=== PATIENT | male | born 1960 ===

== ENCOUNTER 2017-04-20 11:32 | Emergency (ER) | payer SELFPAY ==
[2017-04-20 11:42] VITALS: BMI 25.8
[2017-04-20 11:46] VITALS: BP 143/97; PULSE 75; RESP 18; TEMP 98; O2SAT 99
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
== END 2017-04-20 12:45 | disposition home or self-care (01) ==
LOC: C.ER 11:32
DX: S05.11XA Contusion of eyeball and orbital tissues, right eye, initial encounter (principal); Y08.89XA Assault by other specified means, initial encounter

== ENCOUNTER 2017-05-02 17:01 | Emergency (ER) | payer SELFPAY ==
[2017-05-02 17:08] VITALS: BMI 30.1
[2017-05-02 17:10] VITALS: BP 140/94; PULSE 86; RESP 18; TEMP 97.5; O2SAT 98
--- NOTE | 2017-05-02 17:26 | C.PDOC ---
History Of Present Illness 56 yr old male with PMHx of HIV, presents to the ER requesting his HIV medication. Patient states he recently traveled to [place] from [place] and does not have a doctor to follow. Patient also states he dies not remember the name of his medication or the pharmacy he use to get it from. Patient does not have any physical complaint at the time. Time Seen by Provider: 05/02/17 17:13 Chief Complaint (Nursing): Med Refill History Per: Patient History/Exam Limitations: no limitations Past Medical History Reviewed: Historical Data, Nursing Documentation, Vital Signs Vital Signs: Last Vital Signs Temp 97.5 F L 05/02/17 17:08 Pulse 86 05/02/17 17:08 Resp 18 05/02/17 17:08 BP 140/94 H 05/02/17 17:08 Pulse Ox 98 05/02/17 17:40 - Medical History PMH: Anxiety, HIV Family History: States: No Known Family Hx - Social History Hx Alcohol Use: No Hx Substance Use: No - Immunization History Hx Tetanus Toxoid Vaccination: Yes Hx Influenza Vaccination: Yes Hx Pneumococcal Vaccination: Yes Review Of Systems Except As Marked, All Systems Reviewed And Found Negative. Constitutional: Negative for: Fever Cardiovascular: Negative for: Chest Pain Respiratory: Negative for: Shortness of Breath Gastrointestinal: Negative for: Nausea, Vomiting Neurological: Negative for: Weakness, Numbness Physical Exam - Physical Exam Appears: Non-toxic, No Acute Distress Skin: Warm, Dry, No Rash Extremity: Normal ROM, No Swelling Neurological/Psych: Oriented x3, Normal Speech Gait: Steady ED Course And Treatment O2 Sat by Pulse Oximetry: 98 (RA) Pulse Ox Interpretation: Normal Disposition Counseled Patient/Family Regarding: Need For Followup - Disposition Referrals: [facility] [Outside] Disposition: HOME/ ROUTINE Disposition Time: 17:38 Condition: STABLE Additional Instructions: Porfavor siga en la clinica. Si consigues el nombre de tus medicinas, regrese a la otoniel de emergencia para conseguir kashmir receta. Forms: Gen Discharge Inst Khmer - POA Present On Arrival: None - Clinical Impression Clinical Impression: Review of medication - Scribe Statement The provider has reviewed the documentation as recorded by the Scribe Hallie Vences Provider Attestation: All medical record entries made by the Scribe were at my direction and personally dictated by me. I have reviewed the chart and agree that the record accurately reflects my personal performance of the history, physical exam, medical decision making, and the department course for this patient. I have also personally directed, reviewed, and agree with the discharge instructions and disposition.
== END 2017-05-02 17:53 | disposition home or self-care (01) ==
LOC: C.ER 17:01
DX: Z21 Asymptomatic human immunodeficiency virus [HIV] infection status (principal)

== ENCOUNTER 2017-05-09 10:58 | Emergency (ER) | payer SELFPAY ==
[2017-05-09 10:59] VITALS: BMI 30.1
--- NOTE | 2017-05-09 13:15 | C.PDOC ---
History Of Present Illness 56 y/o male with past medical history of HIV presents to ED requesting HIV medication Refill. However patient doesn't know what medications he had been taken. Patient reports he has mild headache and yesterday he had mild suprapubic abdominal pain that now completely resolved. Patient states he recently moved from [place] to [place] and had no more medication. No other complaints at this time. Time Seen by Provider: 05/09/17 11:51 Chief Complaint (Nursing): Abdominal Pain History Per: Patient History/Exam Limitations: no limitations Onset/Duration Of Symptoms: Days Current Symptoms Are (Timing): Still Present Location Of Pain/Discomfort: Suprapubic Past Medical History Reviewed: Historical Data, Nursing Documentation, Vital Signs Vital Signs: Last Vital Signs Temp 97.9 F 05/09/17 14:22 Pulse 68 05/09/17 14:22 Resp 20 05/09/17 14:22 BP 120/81 05/09/17 14:22 Pulse Ox 99 05/09/17 14:22 - Medical History PMH: Anxiety, HIV Surgical History: No Surg Hx Family History: States: No Known Family Hx - Social History Hx Alcohol Use: No Hx Substance Use: No - Immunization History Hx Tetanus Toxoid Vaccination: Yes Hx Influenza Vaccination: Yes Hx Pneumococcal Vaccination: Yes Review Of Systems Except As Marked, All Systems Reviewed And Found Negative. Constitutional: Negative for: Fever, Chills Cardiovascular: Negative for: Chest Pain Respiratory: Negative for: Shortness of Breath Gastrointestinal: Positive for: Abdominal Pain Skin: Negative for: Rash Neurological: Positive for: Headache Physical Exam - Physical Exam Appears: Non-toxic, No Acute Distress Skin: Normal Color, Warm, Dry, No Rash Head: Atraumatic, Normacephalic Eye(s): bilateral: Normal Inspection Oral Mucosa: Moist Neck: Normal ROM, Supple Chest: Symmetrical Cardiovascular: Rhythm Regular Respiratory: Normal Breath Sounds, No Rales, No Rhonchi, No Wheezing Gastrointestinal/Abdominal: Soft, No Tenderness, No Guarding, No Rebound Back: No Vertebral Tenderness, No Paraspinal Tenderness Extremity: Normal ROM, No Swelling Neurological/Psych: Oriented x3, Normal Speech, Normal Cognition, Normal Motor, Normal Sensation ED Course And Treatment O2 Sat by Pulse Oximetry: 96 (RA) Pulse Ox Interpretation: Normal Progress Note: Tylenol for pain. Patient referred to clinic for ID consult and possible medication refill Disposition - Disposition Referrals: [facility] at [facility] [Outside] Disposition: HOME/ ROUTINE Disposition Time: 14:14 Condition: STABLE Additional Instructions: Follow up with PMD/Clinic within 1-2 days. Return to ED if feel worse. Instructions: HIV Infection (ED), General Headache (ED) Forms: [employer] (Namibian) - Clinical Impression Clinical Impression: Headache, HIV disease - PA / WARE CARRIER / Resident Statement MD/DO has reviewed & agrees with the documentation as recorded. - Scribe Statement The provider has reviewed the documentation as recorded by the Philipibjayson Car All medical record entries made by the Lexie were at my direction and personally dictated by me. I have reviewed the chart and agree that the record accurately reflects my personal performance of the history, physical exam, medical decision making, and the department course for this patient. I have also personally directed, reviewed, and agree with the discharge instructions and disposition.
[2017-05-09 14:23] VITALS: BP 120/81; PULSE 68; RESP 20; TEMP 97.9
[2017-05-09 18:37] VITALS: O2SAT 96
== END 2017-05-09 14:21 | disposition home or self-care (01) ==
LOC: C.ER 10:58
DX: R51 Headache (principal); Z21 Asymptomatic human immunodeficiency virus [HIV] infection status

== ENCOUNTER 2017-06-05 03:43 | Emergency (ER) | payer SELFPAY ==
[2017-06-05 03:43] VITALS: BMI 30.1
[2017-06-05] MEDS ORDERED: Sodium Chloride 0.9% 1,000 ML IV ONE (04:01)
[2017-06-05] MEDS ORDERED: Sodium Chloride 0.9% 1,000 ML ONE (04:16)
[2017-06-05 04:19] LABS: BASO % 0.5 % (0.0-2.0); EOS # 0.2 K/uL (0.0-0.7); EOS % 3.2 % (0.0-4.0); HEMATOCRIT 41.8 % (35.0-51.0); LYMPH # 2.1 K/uL (1.0-4.3); LYMPH % 41.3 % (20.0-40.0); MEAN CELL VOLUME 95.9 fL (80.0-94.0); MEAN CORPUSCULAR HEMOGLOBIN 32.2 pg (27.0-31.0); MEAN CORPUSCULAR HGB CONC 33.6 g/dL (33.0-37.0); MONO # 0.3 K/uL (0.0-0.8); MONO % 6.9 % (0.0-10.0); NRBC % 0.1 % (0.0-2.0); PLATELET COUNT 136 K/uL (130-400); RED CELL DISTRIBUTION WIDTH 12.8 % (11.5-14.5)
--- NOTE | 2017-06-05 04:23 | C.PDOC ---
History Of Present Illness Patient [facility] from homeless [facility] home for evaluation of abdominal pain, nausea and vomting x 3 hours. Patient states he has h/o HIV, currently on HAART (but unable to provide names of medications). He denies cough, fever, diarrhea, chest pain, SOB, dysuria/hematuria. Time Seen by Provider: 06/05/17 03:46 Chief Complaint (Nursing): Abdominal Pain History Per: Patient, EMS History/Exam Limitations: no limitations Onset/Duration Of Symptoms: Hrs (3) Current Symptoms Are (Timing): Better Severity: Mild Location Of Pain/Discomfort: Epigastric Associated Symptoms: Nausea. denies: Fever, Diarrhea Past Medical History Reviewed: Historical Data, Nursing Documentation, Vital Signs Vital Signs: Last Vital Signs Temp 98.2 F 06/05/17 03:51 Pulse 104 H 06/05/17 03:51 Resp 20 06/05/17 03:51 BP 131/82 06/05/17 03:51 Pulse Ox 95 06/05/17 04:24 - Medical History PMH: Anxiety, HIV Family History: States: No Known Family Hx - Social History Hx Alcohol Use: No Hx Substance Use: No - Immunization History Hx Tetanus Toxoid Vaccination: Yes Hx Influenza Vaccination: Yes Hx Pneumococcal Vaccination: Yes Review Of Systems Except As Marked, All Systems Reviewed And Found Negative. Constitutional: Negative for: Fever, Chills Cardiovascular: Negative for: Chest Pain, Palpitations Respiratory: Negative for: Cough, Shortness of Breath Gastrointestinal: Positive for: Nausea, Vomiting, Abdominal Pain. Negative for : Diarrhea Genitourinary: Negative for: Dysuria, Hematuria Physical Exam - Physical Exam Appears: Well, Non-toxic, No Acute Distress Skin: Normal Color, Warm, Dry, No Rash Oral Mucosa: Moist Cardiovascular: Rhythm Regular (mildly tachycardic ) Respiratory: Normal Breath Sounds, No Rales, No Rhonchi, No Wheezing Gastrointestinal/Abdominal: Bowel Sounds, Soft, Tenderness (mild epigastric TTP) , No Distention, No Guarding, No Rebound, Other ((-) Jacinto's) Neurological/Psych: Oriented x3 ED Course And Treatment - Laboratory Results Result Diagrams: 06/05/17 04:14 06/05/17 04:14 O2 Sat by Pulse Oximetry: 95 (RA) Pulse Ox Interpretation: Normal Progress Note: Blood work, UA ordered and reviewed. Patient given IV NS bolus, IV pepcid, IV zofran. Disposition Counseled Patient/Family Regarding: Studies Performed, Diagnosis, Need For Followup, Rx Given - Disposition Referrals: at [facility] [Outside] Disposition: HOME/ ROUTINE Disposition Time: 05:45 Condition: STABLE Additional Instructions: SEGUIMIENTO CON WARNER MDTONY / EDWINAA EN 1-2 LANDEROS USE MEDICAMENTO PARA NUSEA SEGN SEA NECESARIO BEBER MUCHO LQUIDO REGRESE AL PATRICK DE EMERGENCIA SI LOS SNTOMAS EMPEORAN Prescriptions: Ondansetron [Zofran Odt] 4 mg PO Q8 PRN #15 odt PRN Reason: Nausea/Vomiting Instructions: Acute Nausea and Vomiting (ED) Forms: [employer] (Danish) Print Language: FAROESE - Clinical Impression Clinical Impression: Nausea, Vomiting
[2017-06-05 04:28] LABS: CHLORIDE 101 mmol/L (98-107); POTASSIUM 3.7 mmol/L (3.6-5.2); SODIUM 139 mmol/L (132-148)
[2017-06-05 04:30] LABS: ALB/GLOB RATIO 0.9 (1.0-2.1); ALKALINE PHOSPHATASE 86 U/L (38-126); AST/SGOT 77 U/L (17-59); BILIRUBIN,TOTAL 0.7 mg/dL (0.2-1.3); CARBON DIOXIDE 30 mmol/L (22-30); GFR AFRICAN-AMERICAN > 60; TOTAL PROTEIN 8.8 g/dL (6.3-8.3)
[2017-06-05 04:31] LABS: ALT/SGPT 78 U/L (21-72); BLOOD UREA NITROGEN 18 mg/dL (9-20); CALCIUM 9.4 mg/dl (8.6-10.4); GLUCOSE,RANDOM 87 mg/dL (75-110)
[2017-06-05 05:18] LABS: EOSINOPHIL 2 % (0-4); NEUTROPHIL 49 % (50-75); REACTIVE LYMPHOCYTES 5 % (0-0); TOTAL CELLS COUNTED 100
[2017-06-05 06:07] VITALS: BP 100/66; PULSE 84; RESP 18; TEMP 98.3; O2SAT 100
== END 2017-06-05 06:09 | disposition home or self-care (01) ==
LOC: C.ER 03:43
DX: R11.2 Nausea with vomiting, unspecified (principal); Z59.0 Homelessness
CPT/HCPCS: 80053; 83690; 85025; 96361; 96374; 96375; 99284; J2405; J7040

== ENCOUNTER 2017-07-09 16:50 | Inpatient (IN) | payer MEDICAID, OTHER ==
[2017-07-09 16:51] VITALS: BMI 30.1
--- NOTE | 2017-07-09 18:46 | C.PDOC ---
History Of Present Illness 57 y/o male, who states that he is currently homeless, living in a snf, with PMHx of HIV and has not taken any medications for many years. Patient states he has been coughing for 5 days, occasionally producing a bloody sputum, and reports intermittent fevers. Patient went to [facility] today and was sent to ER for further evaluation. Denies SOB, chest pain, weight loss, changes in eating/drinking, nausea, vomiting, or other associated symptoms. Time Seen by Provider: 07/09/17 18:35 Chief Complaint (Nursing): Fever History Per: Patient History/Exam Limitations: no limitations Current Symptoms Are (Timing): Still Present Location Of Pain: None Associated Symptoms: Fever, Cough, Sputum. denies: Vomiting, Diarrhea Recent travel outside of the [place]: No Past Medical History Reviewed: Historical Data, Nursing Documentation, Vital Signs Vital Signs: Last Vital Signs Temp 99.2 F 07/09/17 19:05 Pulse 92 H 07/09/17 21:46 Resp 18 07/09/17 21:46 BP 110/72 07/09/17 21:46 Pulse Ox 98 07/09/17 21:46 - Medical History PMH: Anxiety, Depression, HIV Surgical History: No Surg Hx Family History: States: Unknown Family Hx - Social History Hx Tobacco Use: No Hx Alcohol Use: No Hx Substance Use: No - Immunization History Hx Tetanus Toxoid Vaccination: Yes Hx Influenza Vaccination: Yes Hx Pneumococcal Vaccination: Yes Review Of Systems Except As Marked, All Systems Reviewed And Found Negative. Constitutional: Positive for: Fever, Chills Cardiovascular: Negative for: Chest Pain Respiratory: Positive for: Cough, Hemoptysis, Sputum. Negative for: Shortness of Breath, Wheezing Gastrointestinal: Negative for: Nausea, Vomiting, Abdominal Pain Skin: Negative for: Rash Neurological: Negative for: Headache, Dizziness Physical Exam - Physical Exam Appears: Non-toxic, No Acute Distress, Other (febrile) Skin: Normal Color, Warm, Dry Head: Atraumatic, Normacephalic Oral Mucosa: Moist Chest: Symmetrical Cardiovascular: Rhythm Regular Respiratory: Normal Breath Sounds, No Rales, No Rhonchi, No Wheezing Gastrointestinal/Abdominal: Normal Exam, Soft, No Tenderness, No Guarding, No Rebound Back: Normal Inspection Extremity: Normal ROM, Capillary Refill (< 2 sec.) Neurological/Psych: Oriented x3, Normal Speech, Normal Cognition ED Course And Treatment - Laboratory Results Result Diagrams: 07/09/17 18:57 07/09/17 18:57 Lab Interpretation: No Acute Changes O2 Sat by Pulse Oximetry: 100 (RA) Pulse Ox Interpretation: Normal - Radiology CXR: Interpreted by Me CXR Interpretation: Yes: Other (perihilar infiltrates) Progress Note: CxR, bloodwork ordered. Treated with Tylenol. Reevaluation Time: 21:53 Reassessment Condition: Unchanged - Physician Consult Information Physician Contacted: Eladio Steele Outcome Of Conversation: Patient to be admitted to r/o TB in this immunocompromised patient. Disposition - Disposition Disposition: HOSPITALIZED Disposition Time: 21:57 Condition: STABLE - POA Present On Arrival: None - Clinical Impression Clinical Impression: Fever, HIV disease, Cough in adult - Scribe Statement The provider has reviewed the documentation as recorded by the Scribe SM All medical record entries made by the Scribe were at my direction and personally dictated by me. I have reviewed the chart and agree that the record accurately reflects my personal performance of the history, physical exam, medical decision making, and the department course for this patient. I have also personally directed, reviewed, and agree with the discharge instructions and disposition.
[2017-07-09] MEDS ORDERED: Sodium Chloride 0.9% 1,000 ML IV ONE (18:57)
[2017-07-09 19:00] LABS: BASO # 0.1 K/uL (0.0-0.2); BASO % 0.8 % (0.0-2.0); EOS % 0.6 % (0.0-4.0); HEMATOCRIT 34.8 % (35.0-51.0); LYMPH # 2.4 K/uL (1.0-4.3); LYMPH % 31.4 % (20.0-40.0); MEAN CELL VOLUME 94.6 fL (80.0-94.0); MEAN CORPUSCULAR HEMOGLOBIN 31.5 pg (27.0-31.0); MEAN CORPUSCULAR HGB CONC 33.3 g/dL (33.0-37.0); MEAN PLATELET VOLUME 9.8 fL (7.2-11.7); MONO # 0.7 K/uL (0.0-0.8); MONO % 9.2 % (0.0-10.0); NRBC % 0.1 % (0.0-2.0); RED CELL DISTRIBUTION WIDTH 13.1 % (11.5-14.5); WHITE BLOOD COUNT 7.7 K/uL (4.8-10.8)
[2017-07-09 19:12] LABS: ALKALINE PHOSPHATASE 73 U/L (38-126); ALT/SGPT 48 U/L (21-72); AST/SGOT 33 U/L (17-59); BILIRUBIN,TOTAL 0.7 mg/dL (0.2-1.3); BLOOD UREA NITROGEN 16 mg/dL (9-20); CALCIUM 8.3 mg/dl (8.6-10.4); CARBON DIOXIDE 32 mmol/L (22-30); CHLORIDE 100 mmol/L (98-107); GFR AFRICAN-AMERICAN > 60; GLUCOSE,RANDOM 90 mg/dL (75-110); POTASSIUM 3.6 mmol/L (3.6-5.2); SODIUM 138 mmol/L (132-148); TOTAL PROTEIN 7.7 g/dL (6.3-8.3)
[2017-07-09 21:23] LABS: ABG ALLEN TEST POS; DRAW SITE RRADIAL
[2017-07-09] MEDS ORDERED: Tuberculin 5 Units/0.1 ml Inj ID ONE (22:15)
--- NOTE | 2017-07-10 01:02 | CP.PCM.HP ---
<OlegGina - Last Filed: 07/10/17 00:55> History of Present Illness - History of Present Illness History of Present Illness: CC: fever and cough HPI: Patient is a 57 y/o homeless male with PMH of HIV diagnosed 5 years ago who presents to the ED complaining of fever and cough productive of blood tinged sputum. Patient says he was at the homeless long term and told them his history of HIV and the person at the long term said he needed to come the the ED. Patient says he was previously living in [place] with his sister and was being treated for 7 months for his HIV until he moved here for a job. Patient says he ran out of his meds and never got refills. Patient admits to pruritis of his arms and legs but other rhodes denies complete ROS. 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 absent: Chills, Headache - EENT Eyes: absent: Change in Vision Ears: absent: Decreased Hearing Nose/Mouth/Throat: absent: Sore Throat - Cardiovascular Cardiovascular: absent: Chest Pain, Dyspnea, Palpitations - Respiratory Respiratory: Cough (bloody sputum ). absent: Dyspnea, Wheezing - Gastrointestinal Gastrointestinal: absent: Abdominal Pain, Constipation, Diarrhea, Hematemesis, Hematochezia, Melena, Nausea, Vomiting - Genitourinary Genitourinary: absent: Change in Urinary Stream - Musculoskeletal Musculoskeletal: absent: Joint Swelling, Myalgias - Integumentary Integumentary: Dry Skin, Pruritus - Neurological Neurological: absent: Abnormal Hearing, Dizziness, Headaches, Loss of Vision Past Patient History - Infectious Disease Hx of Infectious Diseases: None - Past Social History Smoking Status: Never Smoked - HEMATOLOGICAL/ONCOLOGICAL Hx Human Immunodeficiency Virus (HIV): Yes - PSYCHIATRIC Hx Anxiety: Yes Hx Depression: Yes Hx Substance Use: No - SURGICAL HISTORY Hx Surgeries: No - ANESTHESIA Hx Anesthesia: Yes Hx Anesthesia Reactions: No Meds Allergies/Adverse Reactions: Allergies Allergy/AdvReac Type Severity Reaction Status Date / Time sulfamethoxazole Allergy Verified 05/09/17 11:03 [From Bactrim] trimethoprim [From Bactrim] Allergy Verified 05/09/17 11:03 Physical Exam - Constitutional Appears: Non-toxic, No Acute Distress - Head Exam Head Exam: NORMAL INSPECTION - Eye Exam Eye Exam: EOMI, Normal appearance, PERRL - ENT Exam ENT Exam: Mucous Membranes Moist - Neck Exam Neck exam: Negative for: Tenderness - Respiratory Exam Respiratory Exam: Clear to Auscultation Bilateral, NORMAL BREATHING PATTERN. absent: Accessory Muscle Use, Rales, Rhonchi, Wheezes, Respiratory Distress - Cardiovascular Exam Cardiovascular Exam: RRR, +S1, +S2. absent: Bradycardia, Tachycardia, Gallop, Rubs, Systolic Murmur - GI/Abdominal Exam GI & Abdominal Exam: Normal Bowel Sounds, Soft. absent: Distended, Tenderness - Rectal Exam Rectal Exam: NORMAL INSPECTION. absent: Black Stool, Bloody Stool, Fecal Impaction - Extremities Exam Extremities exam: Positive for: normal inspection - Neurological Exam Neurological exam: Alert, Oriented x3 - Psychiatric Exam Psychiatric exam: Normal Affect, Normal Mood Additional comments: slow to respond - Skin Skin Exam: Dry, Intact, Normal Color, Warm Additional comments: dry patches of arms and legs Results - Vital Signs Recent Vital Signs: Last Vital Signs Temp 98.8 F 07/09/17 23:25 Pulse 79 07/09/17 23:25 Resp 14 07/09/17 23:25 BP 103/67 07/09/17 23:25 Pulse Ox 100 07/09/17 23:25 - Labs Result Diagrams: 07/09/17 18:57 07/09/17 18:57 Labs: Laboratory Results - last 24 hr 07/09/17 07/09/17 07/09/17 18:57 18:57 21:05 WBC 7.7 D RBC 3.68 L Hgb 11.6 L D Hct 34.8 L MCV 94.6 H MCH 31.5 H MCHC 33.3 RDW 13.1 Plt Count 176 MPV 9.8 Neut % (Auto) 58.0 Lymph % (Auto) 31.4 [place] % (Auto) 9.2 Eos % (Auto) 0.6 Baso % (Auto) 0.8 Neut # 4.5 Lymph # 2.4 [place] # 0.7 Eos # 0.0 Baso # 0.1 Puncture Site pCO2 pO2 HCO3 ABG pH ABG Total CO2 ABG O2 Saturation ABG Base Excess Lonnie Test ABG Potassium A-a O2 Difference Respiratory Index Glucose Lactate FiO2 Sodium 138 Potassium 3.6 Chloride 100 Carbon Dioxide 32 H Anion Gap 10 BUN 16 Creatinine 1.1 Est GFR ( Amer) > 60 Est GFR (Non-Af Amer) > 60 Random Glucose 90 Calcium 8.3 L Total Bilirubin 0.7 AST 33 ALT 48 Alkaline Phosphatase 73 Total Protein 7.7 Albumin 3.9 Globulin 3.8 Albumin/Globulin Ratio 1.0 Arterial Blood Potassium Stool Occult Blood Negative 07/09/17 21:15 WBC RBC Hgb Hct MCV MCH MCHC RDW Plt Count MPV Neut % (Auto) Lymph % (Auto) [place] % (Auto) Eos % (Auto) Baso % (Auto) Neut # Lymph # [place] # Eos # Baso # Puncture Site Rradial pCO2 41 pO2 82 HCO3 26.4 ABG pH 7.42 ABG Total CO2 27.9 ABG O2 Saturation 97.2 ABG Base Excess 1.9 Lonnie Test Pos ABG Potassium 3.2 L A-a O2 Difference 16.0 Respiratory Index 0.2 Glucose 89 Lactate 0.5 L FiO2 21.0 Sodium 141.0 Potassium Chloride 111.0 H Carbon Dioxide Anion Gap BUN Creatinine Est GFR ( Amer) Est GFR (Non-Af Amer) Random Glucose Calcium Total Bilirubin AST ALT Alkaline Phosphatase Total Protein Albumin Globulin Albumin/Globulin Ratio Arterial Blood Potassium 3.2 L Stool Occult Blood Assessment & Plan - Assessment and Plan (Free Text) Plan: Cough Productive of Blood Tinged Sputum * Fever 102.2 * Tachycardic at 116 * Sputum culture * Urine culture * Blood culture * CXR * ABG: WNL * Lactate: 0.5 * PPD * Quantiferon gold * CMV * O2 PRN * Consider ID consult pending cultures * Will start abx pending cultures Anemia * FOBT: negative * iron studies * B12 * Folate History of HIV * HIV viral load * CD4 count * Hep panel * Social work consult <Eladio Steele - Last Filed: 07/10/17 05:52> Results - Vital Signs Recent Vital Signs: Last Vital Signs Temp 98.0 F 07/09/17 23:55 Pulse 77 07/09/17 23:55 Resp 19 07/09/17 23:55 BP 107/72 07/09/17 23:55 Pulse Ox 97 07/09/17 23:55 - Labs Result Diagrams: 07/09/17 18:57 07/09/17 18:57 Labs: Laboratory Results - last 24 hr 07/09/17 07/09/17 07/09/17 18:57 18:57 21:05 WBC 7.7 D RBC 3.68 L Hgb 11.6 L D Hct 34.8 L MCV 94.6 H MCH 31.5 H MCHC 33.3 RDW 13.1 Plt Count 176 MPV 9.8 Neut % (Auto) 58.0 Lymph % (Auto) 31.4 [place] % (Auto) 9.2 Eos % (Auto) 0.6 Baso % (Auto) 0.8 Neut # 4.5 Lymph # 2.4 [place] # 0.7 Eos # 0.0 Baso # 0.1 Puncture Site pCO2 pO2 HCO3 ABG pH ABG Total CO2 ABG O2 Saturation ABG Base Excess Lonnie Test ABG Potassium A-a O2 Difference Respiratory Index Glucose Lactate FiO2 Sodium 138 Potassium 3.6 Chloride 100 Carbon Dioxide 32 H Anion Gap 10 BUN 16 Creatinine 1.1 Est GFR ( Amer) > 60 Est GFR (Non-Af Amer) > 60 Random Glucose 90 Calcium 8.3 L Total Bilirubin 0.7 AST 33 ALT 48 Alkaline Phosphatase 73 Total Protein 7.7 Albumin 3.9 Globulin 3.8 Albumin/Globulin Ratio 1.0 Arterial Blood Potassium Stool Occult Blood Negative 07/09/17 21:15 WBC RBC Hgb Hct MCV MCH MCHC RDW Plt Count MPV Neut % (Auto) Lymph % (Auto) [place] % (Auto) Eos % (Auto) Baso % (Auto) Neut # Lymph # [place] # Eos # Baso # Puncture Site Rradial pCO2 41 pO2 82 HCO3 26.4 ABG pH 7.42 ABG Total CO2 27.9 ABG O2 Saturation 97.2 ABG Base Excess 1.9 Lonnie Test Pos ABG Potassium 3.2 L A-a O2 Difference 16.0 Respiratory Index 0.2 Glucose 89 Lactate 0.5 L FiO2 21.0 Sodium 141.0 Potassium Chloride 111.0 H Carbon Dioxide Anion Gap BUN Creatinine Est GFR ( Amer) Est GFR (Non-Af Amer) Random Glucose Calcium Total Bilirubin AST ALT Alkaline Phosphatase Total Protein Albumin Globulin Albumin/Globulin Ratio Arterial Blood Potassium 3.2 L Stool Occult Blood Assessment & Plan - Date & Time Date: 07/10/17 (I have seen and examined the patient. I agree with the findings and plan of care as documented by Dr. Dejesus. Patient with fever and productive cough. Patient reports blood tinged. History of HIV. Will start rocephin and azithromycin for now. Check sputum, blood, and urine cultures. Consider ID consult. Also with anemia. Check hemoccult. Check iron studies. Monitor for acute changes.) Time: 05:50 Attending/Attestation - Attestation I have personally seen and examined this patient.: Yes I have fully participated in the care of the patient.: Yes I have reviewed all pertinent clinical information: Yes
[2017-07-10 06:40] LABS: BASO % 0.3 % (0.0-2.0); EOS # 0.1 K/uL (0.0-0.7); EOS % 2.4 % (0.0-4.0); HEMATOCRIT 34.6 % (35.0-51.0); LYMPH # 1.1 K/uL (1.0-4.3); MEAN CELL VOLUME 95.1 fL (80.0-94.0); MEAN CORPUSCULAR HEMOGLOBIN 31.9 pg (27.0-31.0); MEAN CORPUSCULAR HGB CONC 33.5 g/dL (33.0-37.0); MEAN PLATELET VOLUME 9.4 fL (7.2-11.7); MONO # 0.5 K/uL (0.0-0.8); MONO % 10.9 % (0.0-10.0); NRBC % 0.2 % (0.0-2.0); RED CELL DISTRIBUTION WIDTH 13.2 % (11.5-14.5); WHITE BLOOD COUNT 4.4 K/uL (4.8-10.8)
[2017-07-10 06:52] LABS: ALB/GLOB RATIO 0.7 (1.0-2.1); ALKALINE PHOSPHATASE 63 U/L (38-126); ALT/SGPT 41 U/L (21-72); AST/SGOT 30 U/L (17-59); BILIRUBIN,TOTAL 0.7 mg/dL (0.2-1.3); BLOOD UREA NITROGEN 12 mg/dL (9-20); CALCIUM 7.9 mg/dl (8.6-10.4); CARBON DIOXIDE 31 mmol/L (22-30); CHLORIDE 104 mmol/L (98-107); GFR AFRICAN-AMERICAN > 60; GLUCOSE,RANDOM 87 mg/dL (75-110); POTASSIUM 3.5 mmol/L (3.6-5.2); SODIUM 142 mmol/L (132-148); TOTAL PROTEIN 7.9 g/dL (6.3-8.3)
[2017-07-10 07:07] LABS: IRON 24 ug/dL (49-181)
[2017-07-10 07:56] LABS: FOLATE 15.9 ng/mL
--- NOTE | 2017-07-10 08:50 | RAD ---
PROCEDURE: CHEST RADIOGRAPH, 1 VIEW HISTORY: Pneumonia COMPARISON: 07/09/2017 FINDINGS: LUNGS: No focal infiltrate or effusion. PLEURA: No pneumothorax or pleural fluid seen. CARDIOVASCULAR: Normal. OSSEOUS STRUCTURES: No significant abnormalities. VISUALIZED UPPER ABDOMEN: Normal. OTHER FINDINGS: None. IMPRESSION: No active disease.
[2017-07-10] MEDS ORDERED: Pneumococcal 23-Valent Vaccine IM ONE (10:00)
[2017-07-10] MEDS: Azithromycin 500 MG in Sodium Chloride 0.9% 250 ML IVPB SCH (11:24)
[2017-07-10] MEDS: Potassium Chloride 20 mEq ER Tab PO SCH (12:29)
--- NOTE | 2017-07-10 15:33 | CT ---
CT chest without IV contrast Indication: fever, blood-tinged cough Technique: Contiguous axial images were obtained through the chest without intravenous contrast enhancement. Sagittal and coronal reconstructions were generated and reviewed. This CT exam was performed using 1 or more of the falling dose reduction techniques: Automated exposure control, adjustment of the MAA and/or kV according to patient size, and/or use of iterative reconstruction technique. Radiation dose (DLP): 252.08 MGy-cm. Comparison: Chest x-ray performed 07/09/17 Findings: Visualized portions of the inferior thyroid gland appear unremarkable. The mediastinal and hilar vascular structures appear within normal limits. The heart appears within normal limits of size. Patchy nodular opacities within the inferior right upper, right lower, and lingular lobes suspicious for pneumonia. No pleural effusion. No pneumothorax. Limited visualization of the noncontrast upper abdomen demonstrates 13 mm probable splenule. Degenerative changes of the spine. Impression: Findings described above suspected to reflect multifocal pneumonia. Correlate clinically and recommend follow-up upon completion of treatment of acute symptoms in order to assess for resolution.
--- NOTE | 2017-07-10 16:21 | CP.PCM.PN ---
<Татьяна Yun - Last Filed: 07/10/17 16:15> Subjective - Date & Time of Evaluation Date of Evaluation: 07/10/17 Time of Evaluation: 16:15 - Subjective Subjective: Medicine Progress Note For Dr. Avelar Patient was seen and examined at bedside in no acute distress. Patient reports having cough with clear sputum and 1 episode of vomiting clear liquid. Patient reports not taking HIV medications for 2 years because he doesn't have a doctor in [place]. Patient reports he was diagnosed about 15 years ago. Patient denies having chest pain, abdominal pain, nausea, vomiting, headaches, and leg pain. Objective - Vital Signs/Intake and Output Vital Signs (last 24 hours): Temp Pulse Resp BP Pulse Ox 97.1 F L 91 H 20 120/75 100 07/10/17 08:00 07/10/17 08:00 07/10/17 08:00 07/10/17 08:00 07/10/17 08:00 Intake and Output: 07/10/17 07/10/17 06:59 18:59 Intake Total 0 860 Output Total 500 Balance 0 360 - Medications Medications: Current Medications Acetaminophen (Tylenol 325mg Tab) 650 mg PO Q6 PRN PRN Reason: Fever >100.4 F Azithromycin 500 mg/ Sodium (Chloride) 250 mls @ 250 mls/hr IVPB Q24H [facility] Last Admin: 07/10/17 11:24 Dose: 250 mls/hr Ceftriaxone Sodium 1 gm/ (Sodium Chloride) 100 mls @ 100 mls/hr IVPB DAILY [facility] Last Admin: 07/10/17 10:28 Dose: 100 mls/hr Pantoprazole Sodium (Protonix Inj) 40 mg IVP DAILY [facility] Last Admin: 07/10/17 10:28 Dose: 40 mg Potassium Chloride (K-Dur 20 Meq Er Tab) 20 meq PO DAILY [facility] Last Admin: 07/10/17 12:29 Dose: 20 meq - Labs Labs: 07/10/17 06:16 07/10/17 06:16 - Constitutional Appears: No Acute Distress - Head Exam Head Exam: ATRAUMATIC, NORMAL INSPECTION - Eye Exam Eye Exam: EOMI, Normal appearance - ENT Exam ENT Exam: Mucous Membranes Moist - Respiratory Exam Respiratory Exam: Clear to Ausculation Bilateral, NORMAL BREATHING PATTERN. absent: Rales, Rhonchi, Wheezes, Respiratory Distress - Cardiovascular Exam Cardiovascular Exam: REGULAR RHYTHM, +S1, +S2 - GI/Abdominal Exam GI & Abdominal Exam: Soft, Normal Bowel Sounds. absent: Distended, Firm, Guarding, Tenderness - Extremities Exam Extremities Exam: Normal Inspection - Neurological Exam Neurological Exam: Alert, Awake, Oriented x3 - Psychiatric Exam Psychiatric exam: Normal Affect - Skin Skin Exam: Dry, Intact, Normal Color, Warm Assessment and Plan (1) Productive cough Assessment & Plan: * Fever 102.2, Tachycardic at 116 * Sputum culture: f/u results * Urine culture: f/u results * Blood culture: f/u results * CXR: no active disease * ABG: WNL * Lactate: 0.5 * PPD: f/u results * Quantiferon gold: f/u results * CMV: f/u results * O2 PRN * ID consulted, Dr. Bertrand, help appreciated * Patient started on Azithromycin 500mg IV Q24 and Rocephin 1gm IV Q24 on * Chest CT: findings reflect multilobal pneumonia * Starting Mepron 750mg PO BID until further recommendations from ID. Status: Acute (2) Anemia Assessment & Plan: * FOBT: negative * Iron studies: iron 24, TIBC 232, %sat 10.7, ferritin 483 * B12 312 * Folate 15.2 Status: Acute (3) HIV disease Assessment & Plan: * HIV viral load: f/u results * CD4 count: f/u results * Hepatitis panel: negative for Hep B, C, A * Social work consult * ID, Dr. Bertrand, consulted; help appreciated Status: Acute (4) Prophylactic measure Assessment & Plan: SCDs Protonix 40mg IV daily Regular Diet O2 via nasal cannula Status: Acute <Jocelyn Avelar - Last Filed: 07/10/17 18:57> Objective - Vital Signs/Intake and Output Vital Signs (last 24 hours): Temp Pulse Resp BP Pulse Ox 98.2 F 87 16 102/66 97 07/10/17 16:45 07/10/17 16:45 07/10/17 16:45 07/10/17 16:45 07/10/17 16:45 Intake and Output: 07/10/17 07/10/17 06:59 18:59 Intake Total 0 860 Output Total 500 Balance 0 360 - Medications Medications: Current Medications Acetaminophen (Tylenol 325mg Tab) 650 mg PO Q6 PRN PRN Reason: Fever >100.4 F Atovaquone (Mepron) 750 mg PO BID [facility] Last Admin: 07/10/17 18:22 Dose: 750 mg Azithromycin 500 mg/ Sodium (Chloride) 250 mls @ 250 mls/hr IVPB Q24H [facility] Last Admin: 07/10/17 11:24 Dose: 250 mls/hr Piperacillin Sod/Tazobactam Sod (Zosyn 3.375 Gm Iv Premix) 3.375 gm in 50 mls @ 100 mls/hr IVPB Q6H [facility] Pantoprazole Sodium (Protonix Inj) 40 mg IVP DAILY [facility] Last Admin: 07/10/17 10:28 Dose: 40 mg Potassium Chloride (K-Dur 20 Meq Er Tab) 20 meq PO DAILY [facility] Last Admin: 07/10/17 12:29 Dose: 20 meq - Labs Labs: 07/10/17 06:16 07/10/17 06:16 Attending/Attestation - Attestation I have personally seen and examined this patient.: Yes I have fully participated in the care of the patient.: Yes I have reviewed all pertinent clinical information, including history, physical exam and plan: Yes Notes (Text): Patient was seen and examined Chest CT shows multifocal pneumonia Started on Mepron.I will start on zosyn,continue zithromax and follow ID consult follow CD4 count ,sputum AFB I agree with the residents assessment and plan
[2017-07-10] MEDS: Atovaquone 750 mg/5 ml Susp UD PO SCH (18:22)
[2017-07-10] MEDS: Piperacill/Tazo 3.375gm in Dex 3.375 GM/50 ML BAG IVPB SCH (21:21)
[2017-07-11] MEDS: Piperacill/Tazo 3.375gm in Dex 3.375 GM/50 ML BAG IVPB SCH ×3 (02:10→13:30)
[2017-07-11 07:28] LABS: BASO % 0.3 % (0.0-2.0); EOS # 0.1 K/uL (0.0-0.7); EOS % 3.6 % (0.0-4.0); HEMATOCRIT 32.9 % (35.0-51.0); LYMPH # 1.6 K/uL (1.0-4.3); LYMPH % 40.7 % (20.0-40.0); MEAN CELL VOLUME 95.9 fL (80.0-94.0); MEAN CORPUSCULAR HEMOGLOBIN 31.8 pg (27.0-31.0); MEAN CORPUSCULAR HGB CONC 33.2 g/dL (33.0-37.0); MEAN PLATELET VOLUME 9.5 fL (7.2-11.7); MONO # 0.5 K/uL (0.0-0.8); MONO % 11.2 % (0.0-10.0); NRBC % 0.1 % (0.0-2.0); RED CELL DISTRIBUTION WIDTH 13.4 % (11.5-14.5)
--- NOTE | 2017-07-11 07:47 | CON ---
DATE: HISTORY OF PRESENT ILLNESS: Most of the history is taken from the chart as he is [place] speaking. This patient is a homeless male, who has a history of HIV disease, diagnosed 5 years ago. He comes to the hospital emergency room with fever and cough, and had blood tinged sputum. He says he was in the homeless care longterm and he told them that he has a history of HIV and they sent him into the emergency room. He was previously living in [place] with his sister and was treated with HIV medicines, and he moved here for a job and then ran out of his medicines and never used them again, and he is also complaining of some itching in his legs, and at this time, he comes in with fever, shortness of breath. REVIEW OF SYSTEMS: There is fever. There is no ear, nose or throat problem. No chest pain or shortness of breath. He does have cough with bloody sputum. No shortness of breath or dyspnea. Has no abdominal pain, diarrhea, nausea or vomiting. No urinary complaints. Told he does have joint pains, and has dry skin, pruritus. SOCIAL HISTORY: Negative for smoking or drinking. He does suffer from anxiety and depression. ALLERGIES: HE IS ALLERGIC TO BACTRIM CAUSES RASH, he says, though I can imagine he has used Bactrim he must be , probably he has full blown it. PHYSICAL EXAMINATION VITAL SIGNS: T-max is 98.2, pulse is 87, blood pressure 102/66, respirations are 18. HEENT: Head is atraumatic and normocephalic. He does not appear to be in acute respiratory distress. He is in isolation. Tongue is moist. No thrush present at this time. NECK: Supple. JVP is flat. LUNGS: Clear. No crackles or rales heard. He is not using any accessory muscles. HEART: S1 and S2 is regular. No murmurs, no gallops. ABDOMEN: Soft, nontender. No guarding. No rigidity present. EXTREMITIES: Have no edema, dry skin noted, and has some scaly patches on the legs. LABORATORY DATA: White count is 7.7, hemoglobin 11.6, hematocrit 34.6, platelet count is 179. BUN is 16, creatinine is 1.1, glucose is 90. I do not see any LDH. ASSESSMENT AND PLAN: So at this time, chest CT was done today and chest CT shows findings suspected to reflect multifocal pneumonia, correlate, and recommend followup completion of the treatment of acute symptoms in order to assess for resolution and found patchy nodular opacity within inferior, right upper, right lower, and lingular lobe suspicious for pneumonia. No pleural effusion. No pneumothorax. The chest x-ray was done and the chest x-ray showed no active disease. So at this time, we will follow clinically. He is getting Zithromax and Zosyn at this time, and he was started on Mepron, discussion with the patient, and will follow. So we will continue Zosyn, Zithromax and will follow, and will get CD4 count, LDH, HIV viral load, and see from there. Christine Bertrand MD
[2017-07-11 08:26] LABS: ALKALINE PHOSPHATASE 58 U/L (38-126); ALT/SGPT 39 U/L (21-72); AST/SGOT 27 U/L (17-59); BILIRUBIN,TOTAL 0.7 mg/dL (0.2-1.3); BLOOD UREA NITROGEN 15 mg/dL (9-20); CALCIUM 7.9 mg/dl (8.6-10.4); CARBON DIOXIDE 30 mmol/L (22-30); CHLORIDE 106 mmol/L (98-107); GFR AFRICAN-AMERICAN > 60; GLUCOSE,RANDOM 92 mg/dL (75-110); POTASSIUM 3.8 mmol/L (3.6-5.2); SODIUM 143 mmol/L (132-148); TOTAL PROTEIN 6.6 g/dL (6.3-8.3)
[2017-07-11] MEDS: Azithromycin 500 MG in Sodium Chloride 0.9% 250 ML IVPB SCH (10:28)
[2017-07-11] MEDS: Potassium Chloride 20 mEq ER Tab PO SCH (10:28)
[2017-07-11] MEDS: Atovaquone 750 mg/5 ml Susp UD PO SCH ×2 (10:28→18:10)
[2017-07-11 12:51] LABS: RBC URINE 1 /hpf (0-3); URINE BILIRUBIN NEGATIVE (NEGATIVE); URINE BLOOD NEGATIVE (NEGATIVE); URINE COLOR Yellow (YELLOW); URINE GLUCOSE (UA) NORMAL (Normal); URINE KETONE NEGATIVE (NEGATIVE); URINE LEUKOCYTE ESTERASE NEG Leu/uL (Negative); URINE PROTEIN NEGATIVE (NEGATIVE); URINE UROBILINOGEN NORMAL mg/dL (0.2-1.0); WBC URINE 1 /hpf (0-5)
--- NOTE | 2017-07-11 13:24 | CP.PCM.PN ---
<Faith Ayala - Last Filed: 07/11/17 14:35> Subjective - Date & Time of Evaluation Date of Evaluation: 07/11/17 Time of Evaluation: 10:00 - Subjective Subjective: Medicine Note for Hospitalist Service - Dr. Avelar Patient was seen and examined at bedside. Patient reports his productive cough has improved, denied any hemoptysis. Admitted to chills, some nonbloody diarrhea. Denied fever, headaches, chest pain, SOB, abdominal pain, n/v/d/c, or urinary symptoms. Objective - Vital Signs/Intake and Output Vital Signs (last 24 hours): Temp Pulse Resp BP Pulse Ox 97.5 F L 79 20 105/68 98 07/11/17 08:15 07/11/17 08:15 07/11/17 08:15 07/11/17 08:15 07/11/17 08:15 Intake and Output: 07/11/17 07/11/17 06:59 18:59 Intake Total 50 Output Total 0 Balance 50 - Medications Medications: Current Medications Acetaminophen (Tylenol 325mg Tab) 650 mg PO Q6 PRN PRN Reason: Fever >100.4 F Atovaquone (Mepron) 750 mg PO BID [facility] Last Admin: 07/11/17 10:28 Dose: 750 mg Azithromycin 500 mg/ Sodium (Chloride) 250 mls @ 250 mls/hr IVPB Q24H [facility] Last Admin: 07/11/17 10:28 Dose: 250 mls/hr Piperacillin Sod/Tazobactam Sod (Zosyn 3.375 Gm Iv Premix) 3.375 gm in 50 mls @ 100 mls/hr IVPB Q6H [facility] Last Admin: 07/11/17 08:13 Dose: 100 mls/hr Pantoprazole Sodium (Protonix Inj) 40 mg IVP DAILY [facility] Last Admin: 07/11/17 10:28 Dose: 40 mg Potassium Chloride (K-Dur 20 Meq Er Tab) 20 meq PO DAILY [facility] Last Admin: 07/11/17 10:28 Dose: 20 meq Saccharomyces Boulardii (Florastor) 250 mg PO BID [facility] - Labs Labs: 07/11/17 07:18 07/11/17 07:18 - Additional Findings Additional findings: - Constitutional Appears: No Acute Distress - Head Exam Head Exam: ATRAUMATIC, NORMAL INSPECTION - Eye Exam Eye Exam: EOMI, Normal appearance - ENT Exam ENT Exam: Mucous Membranes Moist - Respiratory Exam Respiratory Exam: Clear to Ausculation Bilateral, NORMAL BREATHING PATTERN. absent: Rales, Rhonchi, Wheezes, Respiratory Distress - Cardiovascular Exam Cardiovascular Exam: REGULAR RHYTHM, +S1, +S2 - GI/Abdominal Exam GI & Abdominal Exam: Soft, Normal Bowel Sounds. absent: Distended, Firm, Guarding, Tenderness - Extremities Exam Extremities Exam: Normal Inspection - Neurological Exam Neurological Exam: Alert, Awake, Oriented x3 - Psychiatric Exam Psychiatric exam: Normal Affect - Skin Skin Exam: Dry, Intact, Normal Color, Warm Assessment and Plan - Assessment and Plan (Free Text) Plan: Pneumonia Assessment & Plan: * Febrile on admission and this morning * ID consulted, Dr. Bertrand, help appreciated * Patient started on Azithromycin 500mg IV Q24 and Rocephin 1gm IV Q24 on * Started on 07/10/17 Mepron 750mg PO BID until further recommendations from ID * CXR: no active disease * ABG: WNL * Lactate: 0.5 * Chest CT: findings reflect multilobal pneumonia * Sputum culture: f/u results * Urine culture: f/u results * Blood culture: f/u results * PPD: f/u results * Quantiferon gold: f/u results * CMV: f/u results * AFB x 3 f/u to rule out TB Iron Deficiency Anemia Assessment & Plan: * FOBT: negative * Iron studies: iron 24, TIBC 232, %sat 10.7, ferritin 483 * B12 312 * Folate 15.2 * Will need PO iron as outpatient after infectious process resolves Status: Acute HIV disease Assessment & Plan: * ID, Dr. Bertrand, consulted; help appreciated * Hepatitis panel: negative for Hep B, C, A * HIV viral load: f/u results * CD4 count: f/u results * Social work consult Diarrhea Assessment & Plan: F/U stool studies Prophylactic measure Assessment & Plan: SCDs Protonix 40mg IV daily Regular Diet O2 via nasal cannula Status: Acute DW Lucy Unger DO, PGY-1 <Jocelyn Avelar - Last Filed: 07/11/17 17:36> Objective - Vital Signs/Intake and Output Vital Signs (last 24 hours): Temp Pulse Resp BP Pulse Ox 98.1 F 82 20 100/62 99 07/11/17 16:00 07/11/17 16:00 07/11/17 16:00 07/11/17 16:00 07/11/17 16:00 Intake and Output: 07/11/17 07/11/17 06:59 18:59 Intake Total 50 Output Total 0 Balance 50 - Medications Medications: Current Medications Acetaminophen (Tylenol 325mg Tab) 650 mg PO Q6 PRN PRN Reason: Fever >100.4 F Atovaquone (Mepron) 750 mg PO BID [facility] Last Admin: 07/11/17 10:28 Dose: 750 mg Azithromycin 500 mg/ Sodium (Chloride) 250 mls @ 250 mls/hr IVPB Q24H [facility] Last Admin: 07/11/17 10:28 Dose: 250 mls/hr Piperacillin Sod/Tazobactam Sod (Zosyn 3.375 Gm Iv Premix) 3.375 gm in 50 mls @ 100 mls/hr IVPB Q6H [facility] Last Admin: 07/11/17 13:30 Dose: 100 mls/hr Pantoprazole Sodium (Protonix Inj) 40 mg IVP DAILY [facility] Last Admin: 07/11/17 10:28 Dose: 40 mg Potassium Chloride (K-Dur 20 Meq Er Tab) 20 meq PO DAILY [facility] Last Admin: 07/11/17 10:28 Dose: 20 meq Promethazine HCl/Codeine (Phenergan/Codeine Oral Syrup) 5 ml PO Q4 PRN PRN Reason: Cough Saccharomyces Boulardii (Florastor) 250 mg PO BID [facility] - Labs Labs: 07/11/17 07:18 07/11/17 07:18 Attending/Attestation - Attestation I have personally seen and examined this patient.: Yes I have fully participated in the care of the patient.: Yes I have reviewed all pertinent clinical information, including history, physical exam and plan: Yes Notes (Text): Seen and examined.Denies pain,sitting comfortable without sob 1.Pneumonia/multifocal 2.HIV 3.Homeless 4.Noncompliance with meds Follow up labs-Sputum AFB smear and cultures and quantiferon gold 5.Anemia 6,Diarrhea I agree with the residents assessment and the plan
--- NOTE | 2017-07-11 14:15 | CP.PCM.CON ---
History of Present Illness - History of Present Illness History of Present Illness: Reason for consultation: bilateral pneumonia 57-year-old male with history of HIV diagnosed 5 years ago presented to emergency room complaining off cough and fever. Chest x-ray consistent with bilateral infiltrate. 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" Review of Systems - Review of Systems All systems: reviewed and no additional remarkable complaints except (fever and cough) Past Patient History - Infectious Disease Hx of Infectious Diseases: None - Past Medical History & Family History Past Medical History?: Yes - Past Social History Smoking Status: Never Smoked - CARDIAC Hx Cardiac Disorders: No - PULMONARY Hx Respiratory Disorders: No - NEUROLOGICAL Hx Neurological Disorder: No - HEENT Hx HEENT Problems: No - RENAL Hx Chronic Kidney Disease: No - ENDOCRINE/METABOLIC Hx Endocrine Disorders: No - HEMATOLOGICAL/ONCOLOGICAL Hx Blood Disorders: Yes Hx Human Immunodeficiency Virus (HIV): Yes - INTEGUMENTARY Hx Dermatological Problems: No - MUSCULOSKELETAL/RHEUMATOLOGICAL Hx Musculoskeletal Disorders: No Hx Falls: No - GASTROINTESTINAL Hx Gastrointestinal Disorders: No - GENITOURINARY/GYNECOLOGICAL Hx Genitourinary Disorders: No - PSYCHIATRIC Hx Anxiety: Yes Hx Depression: Yes Hx Substance Use: No - SURGICAL HISTORY Hx Surgeries: No - ANESTHESIA Hx Anesthesia: Yes Hx Anesthesia Reactions: No Meds Allergies/Adverse Reactions: Allergies Allergy/AdvReac Type Severity Reaction Status Date / Time sulfamethoxazole Allergy Verified 05/09/17 11:03 [From Bactrim] trimethoprim [From Bactrim] Allergy Verified 05/09/17 11:03 - Medications Medications: Current Medications Acetaminophen (Tylenol 325mg Tab) 650 mg PO Q6 PRN PRN Reason: Fever >100.4 F Atovaquone (Mepron) 750 mg PO BID [facility] Last Admin: 07/11/17 10:28 Dose: 750 mg Azithromycin 500 mg/ Sodium (Chloride) 250 mls @ 250 mls/hr IVPB Q24H [facility] Last Admin: 07/11/17 10:28 Dose: 250 mls/hr Piperacillin Sod/Tazobactam Sod (Zosyn 3.375 Gm Iv Premix) 3.375 gm in 50 mls @ 100 mls/hr IVPB Q6H [facility] Last Admin: 07/11/17 13:30 Dose: 100 mls/hr Pantoprazole Sodium (Protonix Inj) 40 mg IVP DAILY [facility] Last Admin: 07/11/17 10:28 Dose: 40 mg Potassium Chloride (K-Dur 20 Meq Er Tab) 20 meq PO DAILY [facility] Last Admin: 07/11/17 10:28 Dose: 20 meq Saccharomyces Boulardii (Florastor) 250 mg PO BID [facility] Physical Exam - Head Exam Head Exam: ATRAUMATIC, NORMOCEPHALIC - Eye Exam Eye Exam: Normal appearance - ENT Exam ENT Exam: Mucous Membranes Moist - Neck Exam Neck exam: Positive for: Normal Inspection - Respiratory Exam Respiratory Exam: Clear to Auscultation Bilateral - Cardiovascular Exam Cardiovascular Exam: REGULAR RHYTHM - GI/Abdominal Exam GI & Abdominal Exam: Normal Bowel Sounds, Soft Results - Vital Signs Recent Vital Signs: Last Vital Signs Temp 97.5 F L 07/11/17 08:15 Pulse 79 07/11/17 08:15 Resp 20 07/11/17 08:15 BP 105/68 07/11/17 08:15 Pulse Ox 98 07/11/17 08:15 - Labs Result Diagrams: 07/11/17 07:18 07/11/17 07:18 Labs: Laboratory Results - last 24 hr 07/11/17 07/11/17 07/11/17 07:18 07:18 12:39 WBC 4.0 L RBC 3.44 L Hgb 10.9 L Hct 32.9 L MCV 95.9 H MCH 31.8 H MCHC 33.2 RDW 13.4 Plt Count 163 MPV 9.5 Neut % (Auto) 44.2 L Lymph % (Auto) 40.7 H [place] % (Auto) 11.2 H Eos % (Auto) 3.6 Baso % (Auto) 0.3 Neut # 1.8 Lymph # 1.6 [place] # 0.5 Eos # 0.1 Baso # 0.0 Sodium 143 Potassium 3.8 Chloride 106 Carbon Dioxide 30 Anion Gap 11 BUN 15 Creatinine 1.1 Est GFR ( Amer) > 60 Est GFR (Non-Af Amer) > 60 Random Glucose 92 Calcium 7.9 L Total Bilirubin 0.7 AST 27 ALT 39 Alkaline Phosphatase 58 Lactate Dehydrogenase 390 Total Protein 6.6 Albumin 3.2 L Globulin 3.4 Albumin/Globulin Ratio 1.0 Urine Color Yellow Urine Clarity Clear Urine pH 5.0 Ur Specific [place] 1.027 Urine Protein Negative Urine Glucose (UA) Normal Urine Ketones Negative Urine Blood Negative Urine Nitrate Negative Urine Bilirubin Negative Urine Urobilinogen Normal Ur Leukocyte Esterase Neg Urine WBC (Auto) 1 Urine RBC (Auto) 1 Assessment & Plan (1) Pneumonia Status: Acute Comment: continue antibiotics as per infectious disease. CD4 count. Sputum AFB and culture and sensitivity (2) HIV disease Status: Acute
[2017-07-11 16:56] LABS: C DIFF TOXIN A B NEGATIVE (NEGATIVE)
[2017-07-11 17:19] LABS: FECAL LEUKOCYTES NEGATIVE (NEGATIVE)
[2017-07-11] MEDS: Promethazine/Cod 6.25mg-10mg/5ml Syr UD PO PRN (18:10)
[2017-07-11] MEDS: Saccharomyces Boulardi 250 mg Cap PO SCH (18:10)
[2017-07-11 18:44] LABS: CYTOMEGALOVIRUS AB (IGG) >10.00 U/mL; CYTOMEGALOVIRUS AB (IGM) <30.00 AU/mL
[2017-07-11] MEDS: Piperacill/Tazo 4.5gm in Dex 4.5 GM/100 ML BAG IVPB SCH (21:16)
--- NOTE | 2017-07-11 22:14 | CP.PCM.PN ---
Subjective - Date & Time of Evaluation Date of Evaluation: 07/11/17 Time of Evaluation: 03:00 - Subjective Subjective: dictated Objective - Vital Signs/Intake and Output Vital Signs (last 24 hours): Temp Pulse Resp BP Pulse Ox 98.1 F 82 20 100/62 99 07/11/17 16:00 07/11/17 16:00 07/11/17 16:00 07/11/17 16:00 07/11/17 16:00 - Medications Medications: Current Medications Acetaminophen (Tylenol 325mg Tab) 650 mg PO Q6 PRN PRN Reason: Fever >100.4 F Atovaquone (Mepron) 750 mg PO BID [facility] Last Admin: 07/11/17 18:10 Dose: 750 mg Azithromycin 500 mg/ Sodium (Chloride) 250 mls @ 250 mls/hr IVPB Q24H [facility] Last Admin: 07/11/17 10:28 Dose: 250 mls/hr Piperacillin Sod/Tazobactam Sod (Zosyn 4.5 Gm Iv Premix) 4.5 gm in 100 mls @ 100 mls/hr IVPB Q8H [facility] Last Admin: 07/11/17 21:16 Dose: 100 mls/hr Pantoprazole Sodium (Protonix Inj) 40 mg IVP DAILY [facility] Last Admin: 07/11/17 10:28 Dose: 40 mg Potassium Chloride (K-Dur 20 Meq Er Tab) 20 meq PO DAILY [facility] Last Admin: 07/11/17 10:28 Dose: 20 meq Promethazine HCl/Codeine (Phenergan/Codeine Oral Syrup) 5 ml PO Q4 PRN PRN Reason: Cough Last Admin: 07/11/17 18:10 Dose: 5 ml Saccharomyces Boulardii (Florastor) 250 mg PO BID [facility] Last Admin: 07/11/17 18:10 Dose: 250 mg - Labs Labs: 07/11/17 07:18 07/11/17 07:18
--- NOTE | 2017-07-12 00:57 | PN ---
DATE: SUBJECTIVE: Que is a 57 year old. He still is coughing. He is in isolation. He was seen by Dr. Robbins also; has bilateral infiltrates. He is HIV positive and I have ordered. He is homeless, but does not appear to be dyspneic at present. He is homeless and at this time treat him with antibiotics. We are looking for the LDH level and sputum AFB as he comes from the street. His LDH level was 390, which is normal. I will continue the antibiotics at this time as started. UA is negative. His CMV IgG was positive, IgM is negative. TB is negative and hepatitis A IgM is negative, stool occult blood leukocytes are negative. So, we will await for the sputum, CD4 and CD8 count and HIV viral load and continue IV antibiotics as ordered. He does have multifocal pneumonia and we will follow. Christine Bertrand MD
--- NOTE | 2017-07-12 02:06 | CP.PCM.PN ---
<Татьяна Yun - Last Filed: 07/12/17 01:51> Subjective - Date & Time of Evaluation Date of Evaluation: 07/12/17 Time of Evaluation: 01:51 - Subjective Subjective: Medicine Progress Note For Dr. Avelar Patient was seen and examined at bedside in no acute distress. Patient reports still having a cough but states it is nonproductive. Patient reports having diarrhea for 3 days, approximately 3 times daily. He denies blood in stool. Patient denies having chest pain, abdominal pain, nausea, vomiting, headaches, and leg pain. Objective - Vital Signs/Intake and Output Vital Signs (last 24 hours): Temp Pulse Resp BP Pulse Ox 98.1 F 76 20 96/67 L 96 07/11/17 23:25 07/11/17 23:25 07/11/17 23:25 07/11/17 23:25 07/11/17 23:25 - Medications Medications: Current Medications Acetaminophen (Tylenol 325mg Tab) 650 mg PO Q6 PRN PRN Reason: Fever >100.4 F Atovaquone (Mepron) 750 mg PO BID [facility] [place] Last Admin: 07/11/17 18:10 Dose: 750 mg Azithromycin 500 mg/ Sodium (Chloride) 250 mls @ 250 mls/hr IVPB Q24H [facility] [place] Last Admin: 07/11/17 10:28 Dose: 250 mls/hr Piperacillin Sod/Tazobactam Sod (Zosyn 4.5 Gm Iv Premix) 4.5 gm in 100 mls @ 100 mls/hr IVPB Q8H [facility] [place] Last Admin: 07/11/17 21:16 Dose: 100 mls/hr Pantoprazole Sodium (Protonix Inj) 40 mg IVP DAILY [facility] [place] Last Admin: 07/11/17 10:28 Dose: 40 mg Potassium Chloride (K-Dur 20 Meq Er Tab) 20 meq PO DAILY [facility] Last Admin: 07/11/17 10:28 Dose: 20 meq Promethazine HCl/Codeine (Phenergan/Codeine Oral Syrup) 5 ml PO Q4 PRN PRN Reason: Cough Last Admin: 07/11/17 18:10 Dose: 5 ml Saccharomyces Boulardii (Florastor) 250 mg PO BID [facility] Last Admin: 07/11/17 18:10 Dose: 250 mg - Labs Labs: 07/11/17 07:18 07/11/17 07:18 - Additional Findings Additional findings: - Constitutional Appears: No Acute Distress - Head Exam Head Exam: ATRAUMATIC, NORMAL INSPECTION - Eye Exam Eye Exam: EOMI, Normal appearance - ENT Exam ENT Exam: Mucous Membranes Moist - Respiratory Exam Respiratory Exam: Clear to Ausculation Bilateral, NORMAL BREATHING PATTERN. absent: Rales, Rhonchi, Wheezes, Respiratory Distress - Cardiovascular Exam Cardiovascular Exam: REGULAR RHYTHM, +S1, +S2 - GI/Abdominal Exam GI & Abdominal Exam: Soft, Normal Bowel Sounds. absent: Distended, Firm, Guarding, Tenderness - Extremities Exam Extremities Exam: Normal Inspection - Neurological Exam Neurological Exam: Alert, Awake, Oriented x3 - Psychiatric Exam Psychiatric exam: Normal Affect - Skin Skin Exam: Dry, Intact, Normal Color, Warm Assessment and Plan (1) Productive cough Status: Acute (2) Anemia Status: Acute (3) HIV disease Status: Acute (4) Prophylactic measure Status: Acute - Assessment and Plan (Free Text) Plan: Assessment and Plan (1) Productive cough Assessment & Plan: * Fever 102.2, Tachycardic at 116 * ID consulted, Dr. Bertrand, help appreciated * Patient started on Azithromycin 500mg IV Q24 and Rocephin 1gm IV Q24 on * Starting Mepron 750mg PO BID until further recommendations from ID. * CXR: no active disease * Chest CT: findings reflect multilobal pneumonia * ABG: WNL * Lactate: 0.5 * PPD: negative * Sputum culture: normal oral ramon * Urine culture: no growth * Blood culture: no growth @48hr * Quantiferon gold: negative * CMV: IgG >10; IgM <30 (2) Anemia Assessment & Plan: * FOBT: negative * Iron studies: iron 24, TIBC 232, %sat 10.7, ferritin 483 * B12 312 * Folate 15.2 * Will need PO iron as outpatient after infectious process resolves (3) HIV disease Assessment & Plan: * ID, Dr. Bertrand, consulted; help appreciated * Social work consult * Hepatitis panel: negative for Hep B, C, A * HIV viral load: f/u results * CD4 count: f/u results (4) Diarrhea Assessment & Plan: * Stool studies: f/u results * no ova/parasites seen * stool leukocytes negative * stool occult negative * C. diff negative (5) Prophylactic measure Assessment & Plan: SCDs Protonix 40mg IV daily Regular Diet O2 via nasal cannula Status: Acute <Jocelyn Avelar - Last Filed: 07/12/17 18:16> Objective - Vital Signs/Intake and Output Vital Signs (last 24 hours): Temp Pulse Resp BP Pulse Ox 98.2 F 88 20 104/55 L 97 07/12/17 15:11 07/12/17 15:11 07/12/17 15:11 07/12/17 15:11 07/12/17 15:11 Intake and Output: 07/12/17 07/12/17 06:59 18:59 Intake Total 200 860 Output Total 0 Balance 200 860 - Medications Medications: Current Medications Acetaminophen (Tylenol 325mg Tab) 650 mg PO Q6 PRN PRN Reason: Fever >100.4 F Atovaquone (Mepron) 750 mg PO BID [facility] [place] Last Admin: 07/12/17 17:41 Dose: 750 mg Azithromycin 500 mg/ Sodium (Chloride) 250 mls @ 250 mls/hr IVPB Q24H [facility] [place] Last Admin: 07/12/17 11:50 Dose: 250 mls/hr Piperacillin Sod/Tazobactam Sod (Zosyn 4.5 Gm Iv Premix) 4.5 gm in 100 mls @ 100 mls/hr IVPB Q8H [facility] [place] Last Admin: 07/12/17 13:16 Dose: 100 mls/hr Pantoprazole Sodium (Protonix Inj) 40 mg IVP DAILY [facility] Last Admin: 07/12/17 10:25 Dose: 40 mg Potassium Chloride (K-Dur 20 Meq Er Tab) 20 meq PO DAILY [facility] [place] Last Admin: 07/12/17 10:25 Dose: 20 meq Promethazine HCl/Codeine (Phenergan/Codeine Oral Syrup) 5 ml PO Q4 PRN PRN Reason: Cough Last Admin: 07/11/17 18:10 Dose: 5 ml Saccharomyces Boulardii (Florastor) 250 mg PO BID [facility] Last Admin: 07/12/17 17:41 Dose: 250 mg - Labs Labs: 07/12/17 08:12 07/12/17 08:12 Attending/Attestation - Attestation I have personally seen and examined this patient.: Yes I have fully participated in the care of the patient.: Yes I have reviewed all pertinent clinical information, including history, physical exam and plan: Yes Notes (Text): Seen and examined,sitting comfortable,No complain,no cough His CD4 count is 83 continue Mepron and antibiotics ,Sputum AFB negative x1 follow infectious disease I agree with the resident"s assessment and the plan
[2017-07-12] MEDS: Piperacill/Tazo 4.5gm in Dex 4.5 GM/100 ML BAG IVPB SCH ×4 (05:57→21:32)
[2017-07-12 08:29] LABS: BASO % 0.3 % (0.0-2.0); EOS # 0.2 K/uL (0.0-0.7); HEMATOCRIT 33.8 % (35.0-51.0); LYMPH # 1.6 K/uL (1.0-4.3); LYMPH % 39.7 % (20.0-40.0); MEAN CELL VOLUME 94.9 fL (80.0-94.0); MEAN CORPUSCULAR HEMOGLOBIN 31.7 pg (27.0-31.0); MEAN CORPUSCULAR HGB CONC 33.4 g/dL (33.0-37.0); MEAN PLATELET VOLUME 9.3 fL (7.2-11.7); MONO # 0.4 K/uL (0.0-0.8); MONO % 10.7 % (0.0-10.0); NRBC % 0.5 % (0.0-2.0); RED CELL DISTRIBUTION WIDTH 12.8 % (11.5-14.5)
[2017-07-12 08:47] LABS: ALKALINE PHOSPHATASE 55 U/L (38-126); ALT/SGPT 35 U/L (21-72); AST/SGOT 23 U/L (17-59); BILIRUBIN,TOTAL 0.6 mg/dL (0.2-1.3); BLOOD UREA NITROGEN 11 mg/dL (9-20); CALCIUM 8.3 mg/dl (8.6-10.4); CARBON DIOXIDE 31 mmol/L (22-30); CHLORIDE 102 mmol/L (98-107); GFR AFRICAN-AMERICAN > 60; GLUCOSE,RANDOM 89 mg/dL (75-110); MAGNESIUM 1.6 mg/dL (1.6-2.3); POTASSIUM 3.8 mmol/L (3.6-5.2); SODIUM 138 mmol/L (132-148); TOTAL PROTEIN 6.9 g/dL (6.3-8.3)
[2017-07-12] MEDS: Saccharomyces Boulardi 250 mg Cap PO SCH ×2 (10:25→17:41)
[2017-07-12] MEDS: Potassium Chloride 20 mEq ER Tab PO SCH (10:25)
[2017-07-12] MEDS: Atovaquone 750 mg/5 ml Susp UD PO SCH ×2 (10:25→17:41)
[2017-07-12] MEDS: Azithromycin 500 MG in Sodium Chloride 0.9% 250 ML IVPB SCH (11:50)
--- NOTE | 2017-07-13 00:53 | CP.PCM.PN ---
<Татьяна Yun - Last Filed: 07/13/17 00:48> Subjective - Date & Time of Evaluation Date of Evaluation: 07/13/17 Time of Evaluation: 00:48 - Subjective Subjective: Medicine Progress Note For Dr. Avelar Patient was seen and examined at bedside in no acute distress. Patient reports his cough has improved and his sputum is clear and very minimal. Patient reports still having diarrhea, but less frequently. He denies blood in stool. Patient denies having chest pain, abdominal pain, nausea, vomiting, headaches, and leg pain. Objective - Vital Signs/Intake and Output Vital Signs (last 24 hours): Temp Pulse Resp BP Pulse Ox 98.2 F 88 20 104/55 L 97 07/12/17 15:11 07/12/17 15:11 07/12/17 15:11 07/12/17 15:11 07/12/17 15:11 Intake and Output: 07/12/17 07/13/17 18:59 06:59 Intake Total 860 580 Output Total 0 800 Balance 860 -220 - Medications Medications: Current Medications Acetaminophen (Tylenol 325mg Tab) 650 mg PO Q6 PRN PRN Reason: Fever >100.4 F Atovaquone (Mepron) 750 mg PO BID [facility] Last Admin: 07/12/17 17:41 Dose: 750 mg Azithromycin 500 mg/ Sodium (Chloride) 250 mls @ 250 mls/hr IVPB Q24H [facility] Last Admin: 07/12/17 11:50 Dose: 250 mls/hr Piperacillin Sod/Tazobactam Sod (Zosyn 4.5 Gm Iv Premix) 4.5 gm in 100 mls @ 100 mls/hr IVPB Q8H [facility] Last Admin: 07/12/17 21:32 Dose: 100 mls/hr Pantoprazole Sodium (Protonix Inj) 40 mg IVP DAILY [facility] Last Admin: 07/12/17 10:25 Dose: 40 mg Potassium Chloride (K-Dur 20 Meq Er Tab) 20 meq PO DAILY [facility] Last Admin: 07/12/17 10:25 Dose: 20 meq Promethazine HCl/Codeine (Phenergan/Codeine Oral Syrup) 5 ml PO Q4 PRN PRN Reason: Cough Last Admin: 07/11/17 18:10 Dose: 5 ml Saccharomyces Boulardii (Florastor) 250 mg PO BID [facility] Last Admin: 07/12/17 17:41 Dose: 250 mg - Labs Labs: 07/12/17 08:12 07/12/17 08:12 - Additional Findings Additional findings: - Constitutional Appears: No Acute Distress - Head Exam Head Exam: ATRAUMATIC, NORMAL INSPECTION - Eye Exam Eye Exam: EOMI, Normal appearance - ENT Exam ENT Exam: Mucous Membranes Moist - Respiratory Exam Respiratory Exam: Clear to Ausculation Bilateral, NORMAL BREATHING PATTERN. absent: Rales, Rhonchi, Wheezes, Respiratory Distress - Cardiovascular Exam Cardiovascular Exam: REGULAR RHYTHM, +S1, +S2 - GI/Abdominal Exam GI & Abdominal Exam: Soft, Normal Bowel Sounds. absent: Distended, Firm, Guarding, Tenderness - Extremities Exam Extremities Exam: Normal Inspection - Neurological Exam Neurological Exam: Alert, Awake, Oriented x3 - Psychiatric Exam Psychiatric exam: Normal Affect - Skin Skin Exam: Dry, Intact, Normal Color, Warm Assessment and Plan (1) Productive cough Status: Acute (2) Anemia Status: Acute (3) HIV disease Status: Acute (4) Prophylactic measure Status: Acute - Assessment and Plan (Free Text) Plan: Assessment and Plan (1) Productive cough Assessment & Plan: * Fever 102.2, Tachycardic at 116 * ID consulted, Dr. Bertrand, help appreciated * Continue Mepron 750mg PO BID, Azithromycin 500mg IV Q24, Zosyn 4.5gm IV Q8h * CXR: no active disease * Chest CT: findings reflect multilobar pneumonia * ABG: WNL * Lactate: 0.5 * PPD: negative * Sputum culture: normal oral ramon * Urine culture: no growth * Blood culture: no growth @72hr * Quantiferon gold: negative * CMV: IgG >10; IgM <30 (2) Anemia Assessment & Plan: * FOBT: negative * Iron studies: iron 24, TIBC 232, %sat 10.7, ferritin 483 * B12 312 * Folate 15.2 * Will need PO iron as outpatient after infectious process resolves (3) HIV disease Assessment & Plan: * ID, Dr. Bertrand, consulted; help appreciated * Social work consult * Hepatitis panel: negative for Hep B, C, A * CD4 count: 83 * CD8 count: 808 * HIV viral load: f/u results (4) Diarrhea Assessment & Plan: * Stool studies: * no ova/parasites seen * stool leukocytes negative * stool occult negative * C. diff negative (5) Prophylactic measure Assessment & Plan: SCDs Protonix 40mg IV daily Regular Diet O2 via nasal cannula Status: Acute <Jocelyn Avelar - Last Filed: 07/13/17 12:36> Objective - Vital Signs/Intake and Output Vital Signs (last 24 hours): Temp Pulse Resp BP Pulse Ox 98.5 F 75 18 100/62 98 07/13/17 08:36 07/13/17 08:36 07/13/17 08:36 07/13/17 08:36 07/13/17 08:36 Intake and Output: 07/13/17 07/13/17 06:59 18:59 Intake Total 580 100 Output Total 800 Balance -220 100 - Medications Medications: Current Medications Acetaminophen (Tylenol 325mg Tab) 650 mg PO Q6 PRN PRN Reason: Fever >100.4 F Atovaquone (Mepron) 750 mg PO BID [facility] Last Admin: 07/13/17 10:42 Dose: 750 mg Azithromycin 500 mg/ Sodium (Chloride) 250 mls @ 250 mls/hr IVPB Q24H [facility] Last Admin: 07/13/17 11:21 Dose: 250 mls/hr Piperacillin Sod/Tazobactam Sod (Zosyn 4.5 Gm Iv Premix) 4.5 gm in 100 mls @ 100 mls/hr IVPB Q8H [facility] Last Admin: 07/13/17 05:52 Dose: 100 mls/hr Pantoprazole Sodium (Protonix Inj) 40 mg IVP DAILY [facility] Last Admin: 07/13/17 10:42 Dose: 40 mg Potassium Chloride (K-Dur 20 Meq Er Tab) 20 meq PO DAILY [facility] Last Admin: 07/13/17 10:42 Dose: 20 meq Promethazine HCl/Codeine (Phenergan/Codeine Oral Syrup) 5 ml PO Q4 PRN PRN Reason: Cough Last Admin: 07/11/17 18:10 Dose: 5 ml Saccharomyces Boulardii (Florastor) 250 mg PO BID [facility] Last Admin: 07/13/17 10:42 Dose: 250 mg - Labs Labs: 07/13/17 07:36 07/13/17 07:36 Attending/Attestation - Attestation I have personally seen and examined this patient.: Yes I have fully participated in the care of the patient.: Yes I have reviewed all pertinent clinical information, including history, physical exam and plan: Yes Notes (Text): 07/13/17 12:29 Seen and examined,no complain,no shortness of breath,cough is better,no fever D/W RN.Patient couldn't bring good sputum sample.Try tomorrow morning.Patient was explained about his Cd4 count and importance of HAART therapy compliance follow viral load and sputum for AFB I agree with the resident's documentation of the assessment and the plan 07/13/17 12:29
[2017-07-13] MEDS: Piperacill/Tazo 4.5gm in Dex 4.5 GM/100 ML BAG IVPB SCH ×3 (05:52→21:35)
[2017-07-13 07:48] LABS: BASO % 0.5 % (0.0-2.0); EOS # 0.2 K/uL (0.0-0.7); HEMATOCRIT 33.3 % (35.0-51.0); LYMPH # 1.3 K/uL (1.0-4.3); LYMPH % 35.7 % (20.0-40.0); MEAN CELL VOLUME 93.6 fL (80.0-94.0); MEAN CORPUSCULAR HEMOGLOBIN 32.2 pg (27.0-31.0); MEAN CORPUSCULAR HGB CONC 34.4 g/dL (33.0-37.0); MEAN PLATELET VOLUME 9.1 fL (7.2-11.7); MONO # 0.4 K/uL (0.0-0.8); MONO % 11.7 % (0.0-10.0); NRBC % 0.1 % (0.0-2.0); RED CELL DISTRIBUTION WIDTH 13.3 % (11.5-14.5); WHITE BLOOD COUNT 3.7 K/uL (4.8-10.8)
[2017-07-13 08:09] LABS: ALKALINE PHOSPHATASE 58 U/L (38-126); ALT/SGPT 36 U/L (21-72); AST/SGOT 29 U/L (17-59); BILIRUBIN,TOTAL 0.6 mg/dL (0.2-1.3); BLOOD UREA NITROGEN 11 mg/dL (9-20); CALCIUM 8.5 mg/dl (8.6-10.4); CARBON DIOXIDE 31 mmol/L (22-30); CHLORIDE 101 mmol/L (98-107); GFR AFRICAN-AMERICAN > 60; GLUCOSE,RANDOM 93 mg/dL (75-110); MAGNESIUM 1.5 mg/dL (1.6-2.3); PHOSPHOROUS 3.4 mg/dL (2.5-4.5); POTASSIUM 3.8 mmol/L (3.6-5.2); SODIUM 138 mmol/L (132-148); TOTAL PROTEIN 6.9 g/dL (6.3-8.3)
[2017-07-13] MEDS: Magnesium Sulfate 1 gm in D5W 1 GM/100 ML BAG IVPB SCH ×2 (10:41→10:42)
[2017-07-13] MEDS: Potassium Chloride 20 mEq ER Tab PO SCH (10:42)
[2017-07-13] MEDS: Saccharomyces Boulardi 250 mg Cap PO SCH ×2 (10:42→18:28)
[2017-07-13] MEDS: Atovaquone 750 mg/5 ml Susp UD PO SCH ×2 (10:42→18:28)
[2017-07-13] MEDS: Azithromycin 500 MG in Sodium Chloride 0.9% 250 ML IVPB SCH (11:21)
[2017-07-14] MEDS: Piperacill/Tazo 4.5gm in Dex 4.5 GM/100 ML BAG IVPB SCH ×3 (05:14→21:10)
[2017-07-14] MEDS ORDERED: Acetylcysteine 20% Inhal Soln (4ml) INH ONE ×2 (06:00→09:00)
[2017-07-14 06:23] LABS: BASO % 0.6 % (0.0-2.0); EOS # 0.3 K/uL (0.0-0.7); HEMATOCRIT 33.5 % (35.0-51.0); LYMPH # 1.6 K/uL (1.0-4.3); LYMPH % 40.2 % (20.0-40.0); MEAN CELL VOLUME 94.8 fL (80.0-94.0); MEAN CORPUSCULAR HEMOGLOBIN 32.1 pg (27.0-31.0); MEAN CORPUSCULAR HGB CONC 33.9 g/dL (33.0-37.0); MEAN PLATELET VOLUME 8.7 fL (7.2-11.7); MONO # 0.5 K/uL (0.0-0.8); NRBC % 0.2 % (0.0-2.0); RED CELL DISTRIBUTION WIDTH 13.5 % (11.5-14.5); WHITE BLOOD COUNT 3.9 K/uL (4.8-10.8)
[2017-07-14 07:46] LABS: ALB/GLOB RATIO 1.1 (1.0-2.1); ALKALINE PHOSPHATASE 60 U/L (38-126); ALT/SGPT 39 U/L (21-72); AST/SGOT 30 U/L (17-59); BILIRUBIN,TOTAL 0.4 mg/dL (0.2-1.3); BLOOD UREA NITROGEN 12 mg/dL (9-20); CALCIUM 8.3 mg/dl (8.6-10.4); CARBON DIOXIDE 32 mmol/L (22-30); CHLORIDE 102 mmol/L (98-107); GFR AFRICAN-AMERICAN > 60; GLUCOSE,RANDOM 98 mg/dL (75-110); MAGNESIUM 1.8 mg/dL (1.6-2.3); PHOSPHOROUS 3.6 mg/dL (2.5-4.5); SODIUM 137 mmol/L (132-148); TOTAL PROTEIN 6.8 g/dL (6.3-8.3)
--- NOTE | 2017-07-14 09:54 | CP.PCM.PN ---
<Татьяна Yun - Last Filed: 07/14/17 10:38> Subjective - Date & Time of Evaluation Date of Evaluation: 07/14/17 Time of Evaluation: 09:49 - Subjective Subjective: Medicine Progress Note For Dr. Charles Patient was seen and examined at bedside in no acute distress. Patient reports his cough has improved and denies having sputum production. Patient reports he had one episode of loose stool. He denies blood in stool. Patient denies having chest pain, abdominal pain, nausea, vomiting, headaches, and leg pain. Objective - Vital Signs/Intake and Output Vital Signs (last 24 hours): Temp Pulse Resp BP Pulse Ox 98.1 F 77 18 160/70 H 97 07/14/17 08:00 07/14/17 08:00 07/14/17 08:00 07/14/17 08:00 07/14/17 08:00 Intake and Output: 07/14/17 07/14/17 06:59 18:59 Intake Total 700 Output Total 700 Balance 0 - Medications Medications: Current Medications Acetaminophen (Tylenol 325mg Tab) 650 mg PO Q6 PRN PRN Reason: Fever >100.4 F Atovaquone (Mepron) 750 mg PO BID [facility] Last Admin: 07/13/17 18:28 Dose: 750 mg Azithromycin 500 mg/ Sodium (Chloride) 250 mls @ 250 mls/hr IVPB Q24H [facility] Last Admin: 07/13/17 11:21 Dose: 250 mls/hr Piperacillin Sod/Tazobactam Sod (Zosyn 4.5 Gm Iv Premix) 4.5 gm in 100 mls @ 100 mls/hr IVPB Q8H [facility] Last Admin: 07/14/17 05:14 Dose: 100 mls/hr Pantoprazole Sodium (Protonix Inj) 40 mg IVP DAILY [facility] Last Admin: 07/13/17 10:42 Dose: 40 mg Potassium Chloride (K-Dur 20 Meq Er Tab) 20 meq PO DAILY [facility] Last Admin: 07/13/17 10:42 Dose: 20 meq Promethazine HCl/Codeine (Phenergan/Codeine Oral Syrup) 5 ml PO Q4 PRN PRN Reason: Cough Last Admin: 07/11/17 18:10 Dose: 5 ml Saccharomyces Boulardii (Florastor) 250 mg PO BID [facility] Last Admin: 07/13/17 18:28 Dose: 250 mg - Labs Labs: 07/14/17 06:00 07/14/17 06:00 - Additional Findings Additional findings: - Constitutional Appears: No Acute Distress - Head Exam Head Exam: ATRAUMATIC, NORMAL INSPECTION - Eye Exam Eye Exam: EOMI, Normal appearance - ENT Exam ENT Exam: Mucous Membranes Moist - Respiratory Exam Respiratory Exam: Clear to Ausculation Bilateral, NORMAL BREATHING PATTERN. absent: Rales, Rhonchi, Wheezes, Respiratory Distress - Cardiovascular Exam Cardiovascular Exam: REGULAR RHYTHM, +S1, +S2 - GI/Abdominal Exam GI & Abdominal Exam: Soft, Normal Bowel Sounds. absent: Distended, Firm, Guarding, Tenderness - Extremities Exam Extremities Exam: Normal Inspection - Neurological Exam Neurological Exam: Alert, Awake, Oriented x3 - Psychiatric Exam Psychiatric exam: Normal Affect - Skin Skin Exam: Dry, Intact, Normal Color, Warm Assessment and Plan (1) Productive cough Status: Acute (2) Anemia Status: Acute (3) HIV disease Status: Acute (4) Prophylactic measure Status: Acute - Assessment and Plan (Free Text) Plan: Assessment and Plan (1) Productive cough Assessment & Plan: * Fever 102.2, Tachycardic at 116 * ID consulted, Dr. Bertrand, help appreciated * Continue Mepron 750mg PO BID, Azithromycin 500mg IV Q24, Zosyn 4.5gm IV Q8h * CXR: no active disease * Chest CT: findings reflect multilobar pneumonia * ABG: WNL * Lactate: 0.5 * PPD: negative @48 and 72 hours * Sputum culture: normal oral ramon * Urine culture: no growth * Blood culture: no growth @4days * Quantiferon gold: negative * CMV: IgG >10; IgM <30 * AFB: negative x2; pending 3rd sample (2) Anemia Assessment & Plan: * FOBT: negative * Iron studies: iron 24, TIBC 232, %sat 10.7, ferritin 483 * B12 312 * Folate 15.2 * Will need PO iron as outpatient after infectious process resolves (3) HIV disease Assessment & Plan: * ID, Dr. Bertrand, consulted; help appreciated * Social work consult * Hepatitis panel: negative for Hep B, C, A * CD4 count: 83 * CD8 count: 808 * HIV-1 RNA Qnt: 5.38 (H) (4) Diarrhea Assessment & Plan: * Stool studies: * no ova/parasites seen * stool leukocytes negative * stool occult negative * stool cx: negative * C. diff negative (5) Prophylactic measure Assessment & Plan: SCDs Protonix 40mg IV daily Regular Diet O2 via nasal cannula Status: Acute Disposition: Discussed with case management- outpatient HIV clinic for patient to follow up with. Pending third AFB results. <Jonathan Charles H - Last Filed: 07/14/17 13:08> Objective - Vital Signs/Intake and Output Vital Signs (last 24 hours): Temp Pulse Resp BP Pulse Ox 98.1 F 77 18 160/70 H 97 07/14/17 08:00 07/14/17 08:00 07/14/17 08:00 07/14/17 08:00 07/14/17 08:00 Intake and Output: 07/14/17 07/14/17 06:59 18:59 Intake Total 700 Output Total 700 Balance 0 - Medications Medications: Current Medications Acetaminophen (Tylenol 325mg Tab) 650 mg PO Q6 PRN PRN Reason: Fever >100.4 F Atovaquone (Mepron) 750 mg PO BID [facility] Last Admin: 07/14/17 10:02 Dose: 750 mg Azithromycin 500 mg/ Sodium (Chloride) 250 mls @ 250 mls/hr IVPB Q24H [facility] Last Admin: 07/14/17 10:01 Dose: 250 mls/hr Piperacillin Sod/Tazobactam Sod (Zosyn 4.5 Gm Iv Premix) 4.5 gm in 100 mls @ 100 mls/hr IVPB Q8H [facility] Last Admin: 07/14/17 05:14 Dose: 100 mls/hr Pantoprazole Sodium (Protonix Inj) 40 mg IVP DAILY [facility] Last Admin: 07/14/17 10:02 Dose: 40 mg Potassium Chloride (K-Dur 20 Meq Er Tab) 20 meq PO DAILY [facility] Last Admin: 07/14/17 10:02 Dose: 20 meq Promethazine HCl/Codeine (Phenergan/Codeine Oral Syrup) 5 ml PO Q4 PRN PRN Reason: Cough Last Admin: 07/11/17 18:10 Dose: 5 ml Saccharomyces Boulardii (Florastor) 250 mg PO BID [facility] Last Admin: 07/14/17 10:02 Dose: 250 mg - Labs Labs: 07/14/17 06:00 07/14/17 06:00 Attending/Attestation - Attestation I have personally seen and examined this patient.: Yes I have fully participated in the care of the patient.: Yes I have reviewed all pertinent clinical information, including history, physical exam and plan: Yes Notes (Text): 07/14/17 13:08 Medical attending: Patient was seen and examined by me as well, reviewed and agree with the above note by the anesthesiology medical doctor. This is my first time meeting patient, and I had reviewed previous lab work as well as discuss with the residence and also discuss with the patient. As documented previously the patient has a very low CD4 cell count. He came back at 83, and also viral load returned. This was also very high. As mentioned previously the patient has not taken any HIV/HARRT medication for the past 2 years. He was previously from [place] since come up here. At this time reports less cough is on IV antibiotics. His sputum for AFB has come back negative but twice now, and his Quant furuncle was also negative, he remains on isolation were currently pending the third AFB at this moment At some point when we discharge the patient he's continue to follow with the HIV clinic thank you Jonathan Charles
[2017-07-14] MEDS: Azithromycin 500 MG in Sodium Chloride 0.9% 250 ML IVPB SCH (10:01)
[2017-07-14] MEDS: Saccharomyces Boulardi 250 mg Cap PO SCH ×2 (10:02→18:11)
[2017-07-14] MEDS: Atovaquone 750 mg/5 ml Susp UD PO SCH ×2 (10:02→18:11)
[2017-07-14] MEDS: Potassium Chloride 20 mEq ER Tab PO SCH (10:02)
[2017-07-15 06:31] LABS: BASO % 0.4 % (0.0-2.0); EOS # 0.4 K/uL (0.0-0.7); EOS % 7.2 % (0.0-4.0); HEMATOCRIT 35.8 % (35.0-51.0); LYMPH # 2.2 K/uL (1.0-4.3); LYMPH % 41.6 % (20.0-40.0); MEAN CELL VOLUME 95.5 fL (80.0-94.0); MEAN CORPUSCULAR HEMOGLOBIN 31.6 pg (27.0-31.0); MEAN CORPUSCULAR HGB CONC 33.1 g/dL (33.0-37.0); MEAN PLATELET VOLUME 8.9 fL (7.2-11.7); MONO # 0.7 K/uL (0.0-0.8); MONO % 12.8 % (0.0-10.0); NRBC % 0.2 % (0.0-2.0); RED CELL DISTRIBUTION WIDTH 13.3 % (11.5-14.5); WHITE BLOOD COUNT 5.3 K/uL (4.8-10.8)
[2017-07-15] MEDS: Piperacill/Tazo 4.5gm in Dex 4.5 GM/100 ML BAG IVPB SCH ×3 (06:47→21:24)
[2017-07-15 06:55] LABS: ALB/GLOB RATIO 0.8 (1.0-2.1); ALKALINE PHOSPHATASE 65 U/L (38-126); ALT/SGPT 49 U/L (21-72); AST/SGOT 31 U/L (17-59); BILIRUBIN,TOTAL 0.4 mg/dL (0.2-1.3); BLOOD UREA NITROGEN 15 mg/dL (9-20); CALCIUM 8.8 mg/dl (8.6-10.4); CARBON DIOXIDE 30 mmol/L (22-30); CHLORIDE 102 mmol/L (98-107); GFR AFRICAN-AMERICAN > 60; GLUCOSE,RANDOM 97 mg/dL (75-110); POTASSIUM 4.2 mmol/L (3.6-5.2); SODIUM 141 mmol/L (132-148); TOTAL PROTEIN 8.2 g/dL (6.3-8.3)
--- NOTE | 2017-07-15 09:48 | CP.PCM.PN ---
<Татьяна Yun - Last Filed: 07/15/17 11:15> Subjective - Date & Time of Evaluation Date of Evaluation: 07/15/17 Time of Evaluation: 09:48 - Subjective Subjective: Medicine Progress Note For Dr. Charles Patient was seen and examined at bedside in no acute distress. Patient reports he has a cough with clear sputum. Patient reports he had an episode of loose stool overnight. He denies blood in stool. He also reports feeling nausea sometimes. Patient denies having chest pain, abdominal pain, vomiting, headaches , and leg pain. Objective - Vital Signs/Intake and Output Vital Signs (last 24 hours): Temp Pulse Resp BP Pulse Ox 98.1 F 83 20 101/62 96 07/15/17 08:07 07/15/17 08:07 07/15/17 08:07 07/15/17 08:07 07/15/17 08:07 - Medications Medications: Current Medications Acetaminophen (Tylenol 325mg Tab) 650 mg PO Q6 PRN PRN Reason: Fever >100.4 F Atovaquone (Mepron) 750 mg PO BID [facility] Last Admin: 07/14/17 18:11 Dose: 750 mg Azithromycin 500 mg/ Sodium (Chloride) 250 mls @ 250 mls/hr IVPB Q24H [facility] Last Admin: 07/14/17 10:01 Dose: 250 mls/hr Piperacillin Sod/Tazobactam Sod (Zosyn 4.5 Gm Iv Premix) 4.5 gm in 100 mls @ 100 mls/hr IVPB Q8H [facility] Last Admin: 07/15/17 06:47 Dose: 100 mls/hr Pantoprazole Sodium (Protonix Inj) 40 mg IVP DAILY [facility] Last Admin: 07/14/17 10:02 Dose: 40 mg Potassium Chloride (K-Dur 20 Meq Er Tab) 20 meq PO DAILY [facility] Last Admin: 07/14/17 10:02 Dose: 20 meq Promethazine HCl/Codeine (Phenergan/Codeine Oral Syrup) 5 ml PO Q4 PRN PRN Reason: Cough Last Admin: 07/11/17 18:10 Dose: 5 ml Saccharomyces Boulardii (Florastor) 250 mg PO BID [facility] Last Admin: 07/14/17 18:11 Dose: 250 mg - Labs Labs: 07/15/17 06:18 07/15/17 06:18 - Additional Findings Additional findings: - Constitutional Appears: No Acute Distress - Head Exam Head Exam: ATRAUMATIC, NORMAL INSPECTION - Eye Exam Eye Exam: EOMI, Normal appearance - ENT Exam ENT Exam: Mucous Membranes Moist - Respiratory Exam Respiratory Exam: Clear to Ausculation Bilateral, NORMAL BREATHING PATTERN. absent: Rales, Rhonchi, Wheezes, Respiratory Distress - Cardiovascular Exam Cardiovascular Exam: REGULAR RHYTHM, +S1, +S2 - GI/Abdominal Exam GI & Abdominal Exam: Soft, Normal Bowel Sounds. absent: Distended, Firm, Guarding, Tenderness - Extremities Exam Extremities Exam: Normal Inspection - Neurological Exam Neurological Exam: Alert, Awake, Oriented x3 - Psychiatric Exam Psychiatric exam: Normal Affect - Skin Skin Exam: Dry, Intact, Normal Color, Warm Assessment and Plan (1) Productive cough Status: Acute (2) Anemia Status: Acute (3) HIV disease Status: Acute (4) Prophylactic measure Status: Acute - Assessment and Plan (Free Text) Plan: (1) Productive cough Assessment & Plan: * Fever 102.2, Tachycardic at 116 * ID consulted, Dr. Bertrand, help appreciated * Continue Mepron 750mg PO BID, Azithromycin 500mg IV Q24, Zosyn 4.5gm IV Q8h * CXR: no active disease * Chest CT: findings reflect multilobar pneumonia * ABG: WNL * Lactate: 0.5 * PPD: negative @48 and 72 hours * Sputum culture: normal oral ramon * Urine culture: no growth * Blood culture: no growth @4days * Quantiferon gold: negative * CMV: IgG >10; IgM <30 * AFB: negative x2; pending 3rd sample (2) Anemia Assessment & Plan: * FOBT: negative * Iron studies: iron 24, TIBC 232, %sat 10.7, ferritin 483 * B12 312 * Folate 15.2 * Will need PO iron as outpatient after infectious process resolves (3) HIV disease Assessment & Plan: * ID, Dr. Bertrand, consulted; help appreciated * Social work consult * Hepatitis panel: negative for Hep B, C, A * CD4 count: 83 * CD8 count: 808 * HIV-1 RNA Qnt: 5.38 (H) (4) Diarrhea Assessment & Plan: * Stool studies: * no ova/parasites seen * stool leukocytes negative * stool occult negative * stool cx: negative * C. diff negative (5) Prophylactic measure Assessment & Plan: SCDs Protonix 40mg IV daily Regular Diet O2 via nasal cannula Status: Acute Disposition: Discussed with case management- outpatient HIV clinic for patient to follow up with. Pending third AFB results. <CharlesJonathan harris - Last Filed: 07/15/17 13:42> Objective - Vital Signs/Intake and Output Vital Signs (last 24 hours): Temp Pulse Resp BP Pulse Ox 98.1 F 83 20 101/62 96 07/15/17 08:07 07/15/17 08:07 07/15/17 08:07 07/15/17 08:07 07/15/17 08:07 - Medications Medications: Current Medications Acetaminophen (Tylenol 325mg Tab) 650 mg PO Q6 PRN PRN Reason: Fever >100.4 F Atovaquone (Mepron) 750 mg PO BID [facility] Last Admin: 07/15/17 10:01 Dose: 750 mg Azithromycin 500 mg/ Sodium (Chloride) 250 mls @ 250 mls/hr IVPB Q24H [facility] Last Admin: 07/15/17 10:01 Dose: 250 mls/hr Piperacillin Sod/Tazobactam Sod (Zosyn 4.5 Gm Iv Premix) 4.5 gm in 100 mls @ 100 mls/hr IVPB Q8H [facility] Last Admin: 07/15/17 12:16 Dose: 100 mls/hr Pantoprazole Sodium (Protonix Inj) 40 mg IVP DAILY [facility] Last Admin: 07/15/17 10:01 Dose: 40 mg Potassium Chloride (K-Dur 20 Meq Er Tab) 20 meq PO DAILY [facility] Last Admin: 07/15/17 10:01 Dose: 20 meq Promethazine HCl/Codeine (Phenergan/Codeine Oral Syrup) 5 ml PO Q4 PRN PRN Reason: Cough Last Admin: 07/11/17 18:10 Dose: 5 ml Saccharomyces Boulardii (Florastor) 250 mg PO BID [facility] Last Admin: 07/15/17 10:01 Dose: 250 mg - Labs Labs: 07/15/17 06:18 07/15/17 06:18 Attending/Attestation - Attestation I have personally seen and examined this patient.: Yes I have fully participated in the care of the patient.: Yes I have reviewed all pertinent clinical information, including history, physical exam and plan: Yes Notes (Text): Medical attending: Patient was seen and examined by me, agree with the above note by medical office administrator. The patient was not under any acute distress when he saw him his lab work was fairly unremarkable this morning. As documented previously he does have a very low CD4 cell count as well as a high HIV viral load. Were still waiting on a third AFB to return. He's had 2 negative AFBs and a negative QuantiFERON cold at this time. I also understand that last week's team ordered a PPD and this was negative as well. Hopefully once the third AFB returns and is negative, we could stop isolation. Thank you very much, Jonathan Charles
[2017-07-15] MEDS: Atovaquone 750 mg/5 ml Susp UD PO SCH ×2 (10:01→17:08)
[2017-07-15] MEDS: Saccharomyces Boulardi 250 mg Cap PO SCH ×2 (10:01→17:08)
[2017-07-15] MEDS: Potassium Chloride 20 mEq ER Tab PO SCH (10:01)
[2017-07-15] MEDS: Azithromycin 500 MG in Sodium Chloride 0.9% 250 ML IVPB SCH (10:01)
[2017-07-16] MEDS: Piperacill/Tazo 4.5gm in Dex 4.5 GM/100 ML BAG IVPB SCH ×3 (05:54→21:34)
[2017-07-16 06:58] LABS: BASO % 0.5 % (0.0-2.0); EOS # 0.4 K/uL (0.0-0.7); EOS % 8.2 % (0.0-4.0); HEMATOCRIT 34.7 % (35.0-51.0); LYMPH # 1.8 K/uL (1.0-4.3); LYMPH % 40.3 % (20.0-40.0); MEAN CELL VOLUME 94.5 fL (80.0-94.0); MEAN CORPUSCULAR HEMOGLOBIN 31.8 pg (27.0-31.0); MEAN CORPUSCULAR HGB CONC 33.7 g/dL (33.0-37.0); MEAN PLATELET VOLUME 8.7 fL (7.2-11.7); MONO # 0.5 K/uL (0.0-0.8); MONO % 10.9 % (0.0-10.0); NRBC % 0.1 % (0.0-2.0); RED CELL DISTRIBUTION WIDTH 13.5 % (11.5-14.5); WHITE BLOOD COUNT 4.5 K/uL (4.8-10.8)
--- NOTE | 2017-07-16 07:01 | CP.PCM.PN ---
<Татьяна Yun - Last Filed: 07/16/17 10:04> Subjective - Date & Time of Evaluation Date of Evaluation: 07/16/17 Time of Evaluation: 07:00 - Subjective Subjective: Medicine Progress Note For Dr. Charles Patient was seen and examined at bedside in no acute distress. Patient reports he still has a cough with clear sputum. Patient reports he had a little loose stool overnight. He denies blood in stool. Patient denies having chest pain, abdominal pain, vomiting, headaches, and leg pain. Objective - Vital Signs/Intake and Output Vital Signs (last 24 hours): Temp Pulse Resp BP Pulse Ox 98 F 79 20 109/62 96 07/15/17 23:25 07/15/17 23:25 07/15/17 23:25 07/15/17 23:25 07/15/17 23:25 Intake and Output: 07/16/17 07/16/17 06:59 18:59 Output Total 500 Balance -500 - Medications Medications: Current Medications Acetaminophen (Tylenol 325mg Tab) 650 mg PO Q6 PRN PRN Reason: Fever >100.4 F Atovaquone (Mepron) 750 mg PO BID [facility] Last Admin: 07/15/17 17:08 Dose: 750 mg Azithromycin 500 mg/ Sodium (Chloride) 250 mls @ 250 mls/hr IVPB Q24H [facility] Last Admin: 07/15/17 10:01 Dose: 250 mls/hr Piperacillin Sod/Tazobactam Sod (Zosyn 4.5 Gm Iv Premix) 4.5 gm in 100 mls @ 100 mls/hr IVPB Q8H [facility] Last Admin: 07/16/17 05:54 Dose: 100 mls/hr Pantoprazole Sodium (Protonix Inj) 40 mg IVP DAILY [facility] Last Admin: 07/15/17 10:01 Dose: 40 mg Potassium Chloride (K-Dur 20 Meq Er Tab) 20 meq PO DAILY [facility] Last Admin: 07/15/17 10:01 Dose: 20 meq Promethazine HCl/Codeine (Phenergan/Codeine Oral Syrup) 5 ml PO Q4 PRN PRN Reason: Cough Last Admin: 07/11/17 18:10 Dose: 5 ml Saccharomyces Boulardii (Florastor) 250 mg PO BID [facility] Last Admin: 12/12/17 17:08 Dose: 250 mg - Labs Labs: 07/15/17 06:18 07/15/17 06:18 - Additional Findings Additional findings: - Constitutional Appears: No Acute Distress - Head Exam Head Exam: ATRAUMATIC, NORMAL INSPECTION - Eye Exam Eye Exam: EOMI, Normal appearance - ENT Exam ENT Exam: Mucous Membranes Moist - Respiratory Exam Respiratory Exam: Clear to Ausculation Bilateral, NORMAL BREATHING PATTERN. absent: Rales, Rhonchi, Wheezes, Respiratory Distress - Cardiovascular Exam Cardiovascular Exam: REGULAR RHYTHM, +S1, +S2 - GI/Abdominal Exam GI & Abdominal Exam: Soft, Normal Bowel Sounds. absent: Distended, Firm, Guarding, Tenderness - Extremities Exam Extremities Exam: Normal Inspection - Neurological Exam Neurological Exam: Alert, Awake, Oriented x3 - Psychiatric Exam Psychiatric exam: Normal Affect - Skin Skin Exam: Dry, Intact, Normal Color, Warm Assessment and Plan (1) Productive cough Status: Acute (2) Anemia Status: Acute (3) HIV disease Status: Acute (4) Prophylactic measure Status: Acute - Assessment and Plan (Free Text) Plan: (1) Pneumonia Assessment & Plan: * Productive cough at admission * Fever 102.2, Tachycardic at 116 * ID consulted, Dr. Bertrand, help appreciated * Continue Mepron 750mg PO BID, Azithromycin 500mg IV Q24, Zosyn 4.5gm IV Q8h * CXR: no active disease * Chest CT: findings reflect multilobar pneumonia * ABG: WNL * Lactate: 0.5 * PPD: negative @48 and 72 hours * Sputum culture: normal oral ramon * Urine culture: no growth * Blood culture: no growth @4days * Quantiferon gold: negative * CMV: IgG >10; IgM <30 * AFB: negative x3 * Repeat Chest xray (PA/Lat): f/u results (2) Anemia Assessment & Plan: * FOBT: negative * Iron studies: iron 24, TIBC 232, %sat 10.7, ferritin 483 * B12 312 * Folate 15.2 * Will need PO iron as outpatient after infectious process resolves (3) HIV disease Assessment & Plan: * ID, Dr. Bertrand, consulted; help appreciated * Social work consult * Hepatitis panel: negative for Hep B, C, A * CD4 count: 83 * CD8 count: 808 * HIV-1 RNA Qnt: 5.38 (H) * As per Dr. Bertrand, patient will be started on Atripla 07/17/17. Patient must follow up with outpatient HIV clinic for continued therapy (4) Diarrhea Assessment & Plan: * Stool studies: * no ova/parasites seen * stool leukocytes negative * stool occult negative * stool cx: negative * C. diff negative (5) Prophylactic measure Assessment & Plan: SCDs Protonix 40mg IV daily Regular Diet O2 via nasal cannula Status: Acute Disposition: Discussed with case management- outpatient HIV clinic for patient to follow up with. Pending third AFB results. <Jonathan Charles H - Last Filed: 07/16/17 13:48> Objective - Vital Signs/Intake and Output Vital Signs (last 24 hours): Temp Pulse Resp BP Pulse Ox 98.1 F 80 18 111/80 98 07/16/17 08:28 07/16/17 08:28 07/16/17 08:28 07/16/17 08:28 07/16/17 08:28 Intake and Output: 07/16/17 07/16/17 06:59 18:59 Output Total 500 Balance -500 - Medications Medications: Current Medications Acetaminophen (Tylenol 325mg Tab) 650 mg PO Q6 PRN PRN Reason: Fever >100.4 F Atovaquone (Mepron) 750 mg PO BID [facility] Last Admin: 07/16/17 09:40 Dose: 750 mg Efavirenz/Emtricitabine/Tenofovir (Atripla 600 Mg-200 Mg-300 Mg) 1 tab PO DAILY [facility] Azithromycin 500 mg/ Sodium (Chloride) 250 mls @ 250 mls/hr IVPB Q24H [facility] Last Admin: 07/16/17 10:26 Dose: 250 mls/hr Piperacillin Sod/Tazobactam Sod (Zosyn 4.5 Gm Iv Premix) 4.5 gm in 100 mls @ 100 mls/hr IVPB Q8H [facility] Last Admin: 07/16/17 05:54 Dose: 100 mls/hr Pantoprazole Sodium (Protonix Inj) 40 mg IVP DAILY [facility] Last Admin: 07/16/17 09:40 Dose: 40 mg Potassium Chloride (K-Dur 20 Meq Er Tab) 20 meq PO DAILY [facility] Last Admin: 07/16/17 09:40 Dose: 20 meq Promethazine HCl/Codeine (Phenergan/Codeine Oral Syrup) 5 ml PO Q4 PRN PRN Reason: Cough Last Admin: 07/16/17 09:40 Dose: 5 ml Saccharomyces Boulardii (Florastor) 250 mg PO BID [facility] Last Admin: 07/16/17 09:40 Dose: 250 mg - Labs Labs: 07/16/17 06:48 07/16/17 06:48 Attending/Attestation - Attestation I have personally seen and examined this patient.: Yes I have fully participated in the care of the patient.: Yes I have reviewed all pertinent clinical information, including history, physical exam and plan: Yes Notes (Text): 07/16/17 13:48 Medical attending: Patient was seen and examined by me, agrees the above note by emergency medical tech. The patient's third AFB returned, this was negative and so we've stopped with the respiratory isolation. As mentioned previously he's had a PPD that was negative, Quant furuncle negative. He's currently not having any fevers. It appears that he's can be started on HARRT medication starting tomorrow. Will still need to clarify with regards to his outpatient clinic. Will also need to follow his LFTs. thank you very much, Jonathan Charles
[2017-07-16 07:52] LABS: ALB/GLOB RATIO 1.1 (1.0-2.1); ALKALINE PHOSPHATASE 57 U/L (38-126); ALT/SGPT 40 U/L (21-72); AST/SGOT 38 U/L (17-59); BILIRUBIN,TOTAL 0.5 mg/dL (0.2-1.3); BLOOD UREA NITROGEN 17 mg/dL (9-20); CALCIUM 8.4 mg/dl (8.6-10.4); CARBON DIOXIDE 27 mmol/L (22-30); CHLORIDE 102 mmol/L (98-107); GFR AFRICAN-AMERICAN > 60; GLUCOSE,RANDOM 87 mg/dL (75-110); POTASSIUM 3.9 mmol/L (3.6-5.2); SODIUM 137 mmol/L (132-148)
[2017-07-16] MEDS: Potassium Chloride 20 mEq ER Tab PO SCH (09:40)
[2017-07-16] MEDS: Promethazine/Cod 6.25mg-10mg/5ml Syr UD PO PRN (09:40)
[2017-07-16] MEDS: Atovaquone 750 mg/5 ml Susp UD PO SCH ×2 (09:40→17:44)
[2017-07-16] MEDS: Saccharomyces Boulardi 250 mg Cap PO SCH ×2 (09:40→17:10)
[2017-07-16] MEDS: Azithromycin 500 MG in Sodium Chloride 0.9% 250 ML IVPB SCH (10:26)
--- NOTE | 2017-07-16 12:19 | RAD ---
HISTORY: pneumonia COMPARISON: Comparison chest dated 07/09/[address] scan chest dated 07/10/2017. TECHNIQUE: Chest PA and lateral FINDINGS: LUNGS: Faint vague small nodular type opacity seen in the right upper lobe less probably slightly improved when compared with prior CT scan. Remaining lung valle clear. PLEURA: No significant pleural effusion identified. No pneumothorax apparent. CARDIOVASCULAR: Normal. OSSEOUS STRUCTURES: No significant abnormalities. VISUALIZED UPPER ABDOMEN: Normal. OTHER FINDINGS: None. IMPRESSION: Faint vague small nodular type opacity seen in the right upper lobe less probably slightly improved when compared with prior CT scan. Remaining lung valle clear.
[2017-07-17] MEDS: Piperacill/Tazo 4.5gm in Dex 4.5 GM/100 ML BAG IVPB SCH ×3 (05:00→21:13)
--- NOTE | 2017-07-17 07:00 | CP.PCM.PN ---
<Татьяна Yun - Last Filed: 07/17/17 11:34> Subjective - Date & Time of Evaluation Date of Evaluation: 07/17/17 Time of Evaluation: 07:00 - Subjective Subjective: Medicine Progress Note For Dr. Charles Patient was seen and examined at bedside in no acute distress. Patient reports he feels well but he still has a cough with clear sputum. Patient is still reporting he had a little loose stool overnight. He denies blood in stool. Patient denies having chest pain, abdominal pain, vomiting, headaches, and leg pain. Objective - Vital Signs/Intake and Output Vital Signs (last 24 hours): Temp Pulse Resp BP Pulse Ox 97.7 F 82 20 120/79 98 07/16/17 23:28 07/16/17 23:28 07/16/17 23:28 07/16/17 23:28 07/16/17 23:28 Intake and Output: 07/17/17 07/17/17 06:59 18:59 Intake Total 300 Output Total 500 Balance -200 - Medications Medications: Current Medications Acetaminophen (Tylenol 325mg Tab) 650 mg PO Q6 PRN PRN Reason: Fever >100.4 F Atovaquone (Mepron) 750 mg PO BID [facility] Last Admin: 07/16/17 17:44 Dose: 750 mg Efavirenz/Emtricitabine/Tenofovir (Atripla 600 Mg-200 Mg-300 Mg) 1 tab PO DAILY [facility] Azithromycin 500 mg/ Sodium (Chloride) 250 mls @ 250 mls/hr IVPB Q24H [facility] Last Admin: 07/16/17 10:26 Dose: 250 mls/hr Piperacillin Sod/Tazobactam Sod (Zosyn 4.5 Gm Iv Premix) 4.5 gm in 100 mls @ 100 mls/hr IVPB Q8H [facility] Last Admin: 07/16/17 21:34 Dose: 100 mls/hr Pantoprazole Sodium (Protonix Inj) 40 mg IVP DAILY [facility] Last Admin: 07/16/17 09:40 Dose: 40 mg Potassium Chloride (K-Dur 20 Meq Er Tab) 20 meq PO DAILY [facility] Last Admin: 07/16/17 09:40 Dose: 20 meq Promethazine HCl/Codeine (Phenergan/Codeine Oral Syrup) 5 ml PO Q4 PRN PRN Reason: Cough Last Admin: 07/16/17 09:40 Dose: 5 ml Saccharomyces Boulardii (Florastor) 250 mg PO BID [facility] Last Admin: 07/16/17 17:10 Dose: 250 mg - Labs Labs: 07/16/17 06:48 07/16/17 06:48 - Additional Findings Additional findings: - Constitutional Appears: No Acute Distress - Head Exam Head Exam: ATRAUMATIC, NORMAL INSPECTION - Eye Exam Eye Exam: EOMI, Normal appearance - ENT Exam ENT Exam: Mucous Membranes Moist - Respiratory Exam Respiratory Exam: Clear to Ausculation Bilateral, NORMAL BREATHING PATTERN. absent: Rales, Rhonchi, Wheezes, Respiratory Distress - Cardiovascular Exam Cardiovascular Exam: REGULAR RHYTHM, +S1, +S2 - GI/Abdominal Exam GI & Abdominal Exam: Soft, Normal Bowel Sounds. absent: Distended, Firm, Guarding, Tenderness - Extremities Exam Extremities Exam: Normal Inspection - Neurological Exam Neurological Exam: Alert, Awake, Oriented x3 - Psychiatric Exam Psychiatric exam: Normal Affect - Skin Skin Exam: Dry, Intact, Normal Color, Warm Assessment and Plan (1) Productive cough Status: Acute (2) Anemia Status: Acute (3) HIV disease Status: Acute (4) Prophylactic measure Status: Acute - Assessment and Plan (Free Text) Plan: (1) Pneumonia Assessment & Plan: * Patient has remained afebrile since 07/09 * Productive cough at admission * Fever 102.2, Tachycardic at 116 * ID consulted, Dr. Bertrand, help appreciated * Continue Mepron 750mg PO BID, Azithromycin 500mg IV Q24, Zosyn 4.5gm IV Q8h * CXR: no active disease * Chest CT: findings reflect multilobar pneumonia * ABG: WNL * Lactate: 0.5 * PPD: negative @48 and 72 hours * Sputum culture: normal oral ramon * Urine culture: no growth * Blood culture: no growth @4days * Quantiferon gold: negative * CMV: IgG >10; IgM <30 * AFB: negative x3 * Repeat Chest xray (PA/Lat) 07/16: faint vague small nodular type opacity seen in right upper lobe, slightly improved compared to prior imagine. (2) Anemia Assessment & Plan: * FOBT: negative * Iron studies: iron 24, TIBC 232, %sat 10.7, ferritin 483 * B12 312 * Folate 15.2 * Will need PO iron as outpatient after infectious process resolves (3) HIV disease Assessment & Plan: * ID, Dr. Bertrand, consulted; help appreciated * Social work consult * Hepatitis panel: negative for Hep B, C, A * CD4 count: 83 * CD8 count: 808 * HIV-1 RNA Qnt: 5.38 (H) * As per Dr. Bertrand, patient started on Atripla 07/17/17. Patient must follow up with outpatient HIV clinic for continued therapy * Discussed with case management and psychotherapist social worker- psychotherapist social worker will speak with patient and provide all necessary information for [facility] in [place] for patient to follow up as outpatient. (4) Diarrhea Assessment & Plan: * Stool studies: * no ova/parasites seen * stool leukocytes negative * stool occult negative * stool cx: negative * C. diff negative (5) Prophylactic measure Assessment & Plan: SCDs Protonix 40mg IV daily Regular Diet O2 via nasal cannula Status: Acute Disposition: Discussed with case management and psychotherapist social worker- psychotherapist social worker will speak with patient and provide all necessary information for [facility] in [place] for patient to follow up as outpatient. <Jonathan Charles - Last Filed: 07/17/17 13:56> Objective - Vital Signs/Intake and Output Vital Signs (last 24 hours): Temp Pulse Resp BP Pulse Ox 98.7 F 84 20 100/66 95 07/17/17 08:36 07/17/17 08:36 07/17/17 08:36 07/17/17 08:36 07/17/17 08:36 Intake and Output: 07/17/17 07/17/17 06:59 18:59 Intake Total 300 Output Total 500 Balance -200 - Medications Medications: Current Medications Acetaminophen (Tylenol 325mg Tab) 650 mg PO Q6 PRN PRN Reason: Fever >100.4 F Atovaquone (Mepron) 750 mg PO BID [facility] Last Admin: 07/17/17 11:00 Dose: 750 mg Efavirenz/Emtricitabine/Tenofovir (Atripla 600 Mg-200 Mg-300 Mg) 1 tab PO DAILY [facility] Last Admin: 07/17/17 11:00 Dose: 1 tab Azithromycin 500 mg/ Sodium (Chloride) 250 mls @ 250 mls/hr IVPB Q24H [facility] Last Admin: 07/17/17 11:00 Dose: 250 mls/hr Piperacillin Sod/Tazobactam Sod (Zosyn 4.5 Gm Iv Premix) 4.5 gm in 100 mls @ 100 mls/hr IVPB Q8H [facility] Last Admin: 07/16/17 21:34 Dose: 100 mls/hr Pantoprazole Sodium (Protonix Inj) 40 mg IVP DAILY [facility] Last Admin: 07/17/17 11:00 Dose: 40 mg Potassium Chloride (K-Dur 20 Meq Er Tab) 20 meq PO DAILY [facility] Last Admin: 07/17/17 11:00 Dose: 20 meq Promethazine HCl/Codeine (Phenergan/Codeine Oral Syrup) 5 ml PO Q4 PRN PRN Reason: Cough Last Admin: 07/16/17 09:40 Dose: 5 ml Saccharomyces Boulardii (Florastor) 250 mg PO BID [facility] Last Admin: 07/17/17 11:00 Dose: 250 mg - Labs Labs: 07/17/17 08:08 07/17/17 08:08 Attending/Attestation - Attestation I have personally seen and examined this patient.: Yes I have fully participated in the care of the patient.: Yes I have reviewed all pertinent clinical information, including history, physical exam and plan: Yes Notes (Text): 07/17/17 13:56 Medical attending: Reviewed the above note by medical billing manager, I also saw the patient with the medical billing manager and agree with above. The patient was moved down to [address] [place]. He was not under any acute distress saw him he reported that his breathing felt okay, he denied coughing today He's now been started on HARRT medication. And from what I understand the caseworkers are in the process of trying to arrange the patient to follow-up at the [facility] in [facility]. The other item is the patient is on Mepron IV at this time due to supposedly allergy to Bactrim. Mepron is expensive, so we might have to try to find another medication to substitute in the meantime when he leaves from here Thank you so much, Jonathan Charles
[2017-07-17 08:21] LABS: BASO % 0.5 % (0.0-2.0); EOS # 0.4 K/uL (0.0-0.7); EOS % 7.5 % (0.0-4.0); LYMPH % 40.2 % (20.0-40.0); MEAN CELL VOLUME 94.8 fL (80.0-94.0); MEAN CORPUSCULAR HEMOGLOBIN 31.3 pg (27.0-31.0); MONO # 0.3 K/uL (0.0-0.8); MONO % 6.9 % (0.0-10.0); NRBC % 0.1 % (0.0-2.0); RED CELL DISTRIBUTION WIDTH 13.7 % (11.5-14.5)
[2017-07-17 08:29] LABS: ALB/GLOB RATIO 1.1 (1.0-2.1); ALKALINE PHOSPHATASE 61 U/L (38-126); ALT/SGPT 46 U/L (21-72); AST/SGOT 30 U/L (17-59); BILIRUBIN,TOTAL 0.6 mg/dL (0.2-1.3); BLOOD UREA NITROGEN 17 mg/dL (9-20); CALCIUM 8.5 mg/dl (8.6-10.4); CARBON DIOXIDE 28 mmol/L (22-30); CHLORIDE 103 mmol/L (98-107); GFR AFRICAN-AMERICAN > 60; GLUCOSE,RANDOM 89 mg/dL (75-110); POTASSIUM 3.9 mmol/L (3.6-5.2); SODIUM 138 mmol/L (132-148); TOTAL PROTEIN 7.7 g/dL (6.3-8.3)
[2017-07-17] MEDS: Potassium Chloride 20 mEq ER Tab PO SCH (11:00)
[2017-07-17] MEDS: Efavirenz/Emtricitabine/Teno 1 TAB PO SCH (11:00)
[2017-07-17] MEDS: Atovaquone 750 mg/5 ml Susp UD PO SCH ×2 (11:00→17:43)
[2017-07-17] MEDS: Saccharomyces Boulardi 250 mg Cap PO SCH ×2 (11:00→17:42)
[2017-07-17] MEDS: Azithromycin 500 MG in Sodium Chloride 0.9% 250 ML IVPB SCH (11:00)
[2017-07-17 17:55] LABS: HLA-B*5701 Negative
[2017-07-18] MEDS: Piperacill/Tazo 4.5gm in Dex 4.5 GM/100 ML BAG IVPB SCH ×3 (05:11→21:27)
--- NOTE | 2017-07-18 06:57 | CP.PCM.PN ---
<Татьяна Yun - Last Filed: 07/18/17 15:37> Subjective - Date & Time of Evaluation Date of Evaluation: 07/18/17 Time of Evaluation: 06:57 - Subjective Subjective: Medicine Progress Note For Dr. Charles Patient was seen and examined at bedside in no acute distress. Patient reports he feels well and no longer has a cough or phlegm. Patient denies having chest pain, abdominal pain, diarrhea, vomiting, headaches, and leg pain. Objective - Vital Signs/Intake and Output Vital Signs (last 24 hours): Temp Pulse Resp BP Pulse Ox 98.5 F 90 20 100/61 96 07/17/17 23:51 07/17/17 23:51 07/17/17 23:51 07/17/17 23:51 07/17/17 23:51 Intake and Output: 07/17/17 07/18/17 18:59 06:59 Intake Total 850 Balance 850 - Medications Medications: Current Medications Acetaminophen (Tylenol 325mg Tab) 650 mg PO Q6 PRN PRN Reason: Fever >100.4 F Atovaquone (Mepron) 750 mg PO BID [facility] Last Admin: 07/17/17 17:43 Dose: 750 mg Efavirenz/Emtricitabine/Tenofovir (Atripla 600 Mg-200 Mg-300 Mg) 1 tab PO DAILY [facility] Last Admin: 07/17/17 11:00 Dose: 1 tab Azithromycin 500 mg/ Sodium (Chloride) 250 mls @ 250 mls/hr IVPB Q24H [facility] Last Admin: 07/17/17 11:00 Dose: 250 mls/hr Piperacillin Sod/Tazobactam Sod (Zosyn 4.5 Gm Iv Premix) 4.5 gm in 100 mls @ 100 mls/hr IVPB Q8H [facility] Last Admin: 07/18/17 05:11 Dose: 100 mls/hr Pantoprazole Sodium (Protonix Inj) 40 mg IVP DAILY [facility] Last Admin: 07/17/17 11:00 Dose: 40 mg Potassium Chloride (K-Dur 20 Meq Er Tab) 20 meq PO DAILY [facility] Last Admin: 07/17/17 11:00 Dose: 20 meq Promethazine HCl/Codeine (Phenergan/Codeine Oral Syrup) 5 ml PO Q4 PRN PRN Reason: Cough Last Admin: 07/16/17 09:40 Dose: 5 ml Saccharomyces Boulardii (Florastor) 250 mg PO BID [facility] Last Admin: 07/17/17 17:42 Dose: 250 mg - Labs Labs: 07/17/17 08:08 07/17/17 08:08 - Additional Findings Additional findings: - Constitutional Appears: No Acute Distress - Head Exam Head Exam: ATRAUMATIC, NORMAL INSPECTION - Eye Exam Eye Exam: EOMI, Normal appearance - ENT Exam ENT Exam: Mucous Membranes Moist - Respiratory Exam Respiratory Exam: Clear to Ausculation Bilateral, NORMAL BREATHING PATTERN. absent: Rales, Rhonchi, Wheezes, Respiratory Distress - Cardiovascular Exam Cardiovascular Exam: REGULAR RHYTHM, +S1, +S2 - GI/Abdominal Exam GI & Abdominal Exam: Soft, Normal Bowel Sounds. absent: Distended, Firm, Guarding, Tenderness - Extremities Exam Extremities Exam: Normal Inspection - Neurological Exam Neurological Exam: Alert, Awake, Oriented x3 - Psychiatric Exam Psychiatric exam: Normal Affect - Skin Skin Exam: Dry, Intact, Normal Color, Warm Assessment and Plan (1) Productive cough Status: Acute (2) Anemia Status: Acute (3) HIV disease Status: Acute (4) Prophylactic measure Status: Acute - Assessment and Plan (Free Text) Plan: (1) Pneumonia Assessment & Plan: * Patient has remained afebrile since 07/09 * Productive cough at admission * Fever 102.2, Tachycardic at 116 * ID consulted, Dr. Bertrand, help appreciated * Continue Mepron 750mg PO BID, Azithromycin 500mg IV Q24, Zosyn 4.5gm IV Q8h * CXR: no active disease * Chest CT: findings reflect multilobar pneumonia * ABG: WNL * Lactate: 0.5 * PPD: negative @48 and 72 hours * Sputum culture: normal oral ramon * Urine culture: no growth * Blood culture: no growth @4days * Quantiferon gold: negative * CMV: IgG >10; IgM <30 * AFB: negative x3 * Repeat Chest xray (PA/Lat) 07/16: faint vague small nodular type opacity seen in right upper lobe, slightly improved compared to prior imagine. (2) Anemia Assessment & Plan: * FOBT: negative * Iron studies: iron 24, TIBC 232, %sat 10.7, ferritin 483 * B12 312 * Folate 15.2 * Will need PO iron as outpatient after infectious process resolves (3) HIV disease Assessment & Plan: * ID, Dr. Bertrand, consulted; help appreciated * Social work consult * Hepatitis panel: negative for Hep B, C, A * CD4 count: 83 * CD8 count: 808 * HIV-1 RNA Qnt: 5.38 (H) * As per Dr. Bertrand, patient started on Atripla 07/17/17. Patient must follow up with outpatient HIV clinic for continued therapy * Discussed with case management and social contact worker- social contact worker provided necessary information for [facility] clinic in [place] for patient to follow up as outpatient. * G6PD: f/u results * Patient needs to be discharged with prophylactic antibiotics. Patient is currently on Mepron, however, this is a very expensive medications. G6PD was ordered to determine if patient can take Dapsone PO as outpatient rather than Mepron, as it is cheaper. [Patient is allergic to Bactrim] (4) Diarrhea Assessment & Plan: Resolved * Stool studies: * no ova/parasites seen * stool leukocytes negative * stool occult negative * stool cx: negative * C. diff negative (5) Prophylactic measure Assessment & Plan: SCDs Protonix 40mg IV daily Regular Diet O2 via nasal cannula Status: Acute Disposition: Discussed with case management and social contact worker- social contact worker provided information for [facility] in [place] for patient to follow up as outpatient. <Jonathan Charles H - Last Filed: 07/18/17 17:44> Objective - Vital Signs/Intake and Output Vital Signs (last 24 hours): Temp Pulse Resp BP Pulse Ox 98.1 F 88 20 119/74 98 07/18/17 15:00 07/18/17 15:00 07/18/17 15:00 07/18/17 15:00 07/18/17 15:00 Intake and Output: 07/18/17 07/18/17 06:59 18:59 Intake Total 600 Output Total 1000 Balance -400 - Medications Medications: Current Medications Acetaminophen (Tylenol 325mg Tab) 650 mg PO Q6 PRN PRN Reason: Fever >100.4 F Atovaquone (Mepron) 750 mg PO BID [facility] Last Admin: 07/18/17 09:35 Dose: 750 mg Efavirenz/Emtricitabine/Tenofovir (Atripla 600 Mg-200 Mg-300 Mg) 1 tab PO DAILY [facility] Last Admin: 07/18/17 09:35 Dose: 1 tab Azithromycin 500 mg/ Sodium (Chloride) 250 mls @ 250 mls/hr IVPB Q24H [facility] Last Admin: 07/18/17 10:41 Dose: 250 mls/hr Piperacillin Sod/Tazobactam Sod (Zosyn 4.5 Gm Iv Premix) 4.5 gm in 100 mls @ 100 mls/hr IVPB Q8H [facility] Last Admin: 07/18/17 13:17 Dose: 100 mls/hr Pantoprazole Sodium (Protonix Inj) 40 mg IVP DAILY [facility] Last Admin: 07/18/17 09:36 Dose: 40 mg Potassium Chloride (K-Dur 20 Meq Er Tab) 20 meq PO DAILY [facility] Last Admin: 07/18/17 09:36 Dose: 20 meq Promethazine HCl/Codeine (Phenergan/Codeine Oral Syrup) 5 ml PO Q4 PRN PRN Reason: Cough Last Admin: 07/16/17 09:40 Dose: 5 ml Saccharomyces Boulardii (Florastor) 250 mg PO BID [facility] Last Admin: 07/18/17 17:15 Dose: 250 mg - Labs Labs: 07/18/17 07:18 07/18/17 07:18 Attending/Attestation - Attestation I have personally seen and examined this patient.: Yes I have fully participated in the care of the patient.: Yes I have reviewed all pertinent clinical information, including history, physical exam and plan: Yes Notes (Text): Medical consult: Patient was seen and examined by me, agrees the above note by medical insurance claims processor. The patient feels well, reports that he is not having bouts of coughing at this time. He is also denying fever. He is tolerating his diet. He is currently on Atripla for his HIV, the caseworkers have explained that he will need to follow-up with the [place] [facility]. The patient is still here at this time the reason being is that he has an allergy to Bactrim currently he is on Mepron at this moment however the cost of Mepron is very high were waiting on G6PD testing to come back to see if we could discharge the patient on dapsone to be taken orally instead Thank you very much, Jonathan Charles
[2017-07-18 07:32] LABS: BASO % 0.4 % (0.0-2.0); EOS # 0.3 K/uL (0.0-0.7); EOS % 6.1 % (0.0-4.0); HEMATOCRIT 35.4 % (35.0-51.0); LYMPH # 1.9 K/uL (1.0-4.3); LYMPH % 40.6 % (20.0-40.0); MEAN CELL VOLUME 94.6 fL (80.0-94.0); MEAN CORPUSCULAR HEMOGLOBIN 31.2 pg (27.0-31.0); MEAN PLATELET VOLUME 8.8 fL (7.2-11.7); MONO # 0.4 K/uL (0.0-0.8); MONO % 9.1 % (0.0-10.0); NRBC % 0.1 % (0.0-2.0); RED CELL DISTRIBUTION WIDTH 13.5 % (11.5-14.5); WHITE BLOOD COUNT 4.7 K/uL (4.8-10.8)
[2017-07-18 07:55] LABS: ALB/GLOB RATIO 1.1 (1.0-2.1); ALKALINE PHOSPHATASE 58 U/L (38-126); ALT/SGPT 41 U/L (21-72); AST/SGOT 30 U/L (17-59); BILIRUBIN,TOTAL 0.6 mg/dL (0.2-1.3); BLOOD UREA NITROGEN 15 mg/dL (9-20); CALCIUM 8.4 mg/dl (8.6-10.4); CARBON DIOXIDE 30 mmol/L (22-30); CHLORIDE 102 mmol/L (98-107); GFR AFRICAN-AMERICAN > 60; GLUCOSE,RANDOM 91 mg/dL (75-110); POTASSIUM 3.9 mmol/L (3.6-5.2); SODIUM 137 mmol/L (132-148); TOTAL PROTEIN 7.1 g/dL (6.3-8.3)
[2017-07-18] MEDS: Atovaquone 750 mg/5 ml Susp UD PO SCH ×2 (09:35→19:00)
[2017-07-18] MEDS: Saccharomyces Boulardi 250 mg Cap PO SCH ×2 (09:35→17:15)
[2017-07-18] MEDS: Efavirenz/Emtricitabine/Teno 1 TAB PO SCH (09:35)
[2017-07-18] MEDS: Potassium Chloride 20 mEq ER Tab PO SCH (09:36)
[2017-07-18] MEDS: Azithromycin 500 MG in Sodium Chloride 0.9% 250 ML IVPB SCH (10:41)
[2017-07-19] MEDS: Piperacill/Tazo 4.5gm in Dex 4.5 GM/100 ML BAG IVPB SCH ×3 (05:41→21:00)
[2017-07-19 08:12] LABS: BASO % 0.6 % (0.0-2.0); EOS # 0.2 K/uL (0.0-0.7); EOS % 4.7 % (0.0-4.0); LYMPH # 2.5 K/uL (1.0-4.3); LYMPH % 51.2 % (20.0-40.0); MEAN CELL VOLUME 94.9 fL (80.0-94.0); MEAN CORPUSCULAR HEMOGLOBIN 31.3 pg (27.0-31.0); MEAN PLATELET VOLUME 8.8 fL (7.2-11.7); MONO # 0.4 K/uL (0.0-0.8); NRBC % 0.1 % (0.0-2.0); RED CELL DISTRIBUTION WIDTH 13.8 % (11.5-14.5); WHITE BLOOD COUNT 4.8 K/uL (4.8-10.8)
[2017-07-19 08:30] LABS: ALB/GLOB RATIO 1.1 (1.0-2.1); ALKALINE PHOSPHATASE 62 U/L (38-126); ALT/SGPT 44 U/L (21-72); AST/SGOT 33 U/L (17-59); BILIRUBIN,TOTAL 0.5 mg/dL (0.2-1.3); BLOOD UREA NITROGEN 14 mg/dL (9-20); CALCIUM 8.4 mg/dl (8.6-10.4); CARBON DIOXIDE 31 mmol/L (22-30); CHLORIDE 101 mmol/L (98-107); GFR AFRICAN-AMERICAN > 60; GLUCOSE,RANDOM 87 mg/dL (75-110); POTASSIUM 3.9 mmol/L (3.6-5.2); SODIUM 137 mmol/L (132-148); TOTAL PROTEIN 7.4 g/dL (6.3-8.3)
--- NOTE | 2017-07-19 09:42 | CP.PCM.PN ---
<Argenis Hernandez - Last Filed: 07/19/17 09:53> Subjective - Date & Time of Evaluation Date of Evaluation: 07/19/17 Time of Evaluation: 09:46 - Subjective Subjective: Progress note Patient seen and examined at bedside. No acute events overnight. Patient asked about the number he was given and it was explained that he needs to call the clinic when he leaves. He also asked about expected leaving date. It was explained that we are waiting for a test to see if he has G6PD deficiency because the plan is to discharge patient with Dapsone since the current antibiotic the patient is on for prophylactic PCP is too expensive for the patient Objective - Vital Signs/Intake and Output Vital Signs (last 24 hours): Temp Pulse Resp BP Pulse Ox 97.9 F 79 20 109/70 98 07/19/17 08:14 07/19/17 08:14 07/19/17 08:14 07/19/17 08:14 07/19/17 08:14 Intake and Output: 07/19/17 07/19/17 06:59 18:59 Intake Total 400 Output Total 600 Balance -200 - Medications Medications: Current Medications Acetaminophen (Tylenol 325mg Tab) 650 mg PO Q6 PRN PRN Reason: Fever >100.4 F Atovaquone (Mepron) 750 mg PO BID [facility] Last Admin: 07/18/17 19:00 Dose: 750 mg Efavirenz/Emtricitabine/Tenofovir (Atripla 600 Mg-200 Mg-300 Mg) 1 tab PO DAILY [facility] Last Admin: 07/18/17 09:35 Dose: 1 tab Azithromycin 500 mg/ Sodium (Chloride) 250 mls @ 250 mls/hr IVPB Q24H [facility] Last Admin: 07/18/17 10:41 Dose: 250 mls/hr Piperacillin Sod/Tazobactam Sod (Zosyn 4.5 Gm Iv Premix) 4.5 gm in 100 mls @ 100 mls/hr IVPB Q8H [facility] Last Admin: 07/19/17 05:41 Dose: 100 mls/hr Pantoprazole Sodium (Protonix Inj) 40 mg IVP DAILY [facility] Last Admin: 07/18/17 09:36 Dose: 40 mg Potassium Chloride (K-Dur 20 Meq Er Tab) 20 meq PO DAILY [facility] Last Admin: 07/18/17 09:36 Dose: 20 meq Promethazine HCl/Codeine (Phenergan/Codeine Oral Syrup) 5 ml PO Q4 PRN PRN Reason: Cough Last Admin: 07/16/17 09:40 Dose: 5 ml Saccharomyces Boulardii (Florastor) 250 mg PO BID [facility] Last Admin: 07/18/17 17:15 Dose: 250 mg - Labs Labs: 07/19/17 08:01 07/19/17 08:01 - Constitutional Appears: No Acute Distress, Older Than Stated Age - Head Exam Head Exam: ATRAUMATIC, NORMAL INSPECTION, NORMOCEPHALIC - Eye Exam Eye Exam: EOMI, Normal appearance. absent: Conjunctival injection, Periorbital swelling - ENT Exam ENT Exam: Mucous Membranes Moist, Normal External Ear Exam - Neck Exam Neck Exam: Full ROM. absent: Lymphadenopathy, Thyromegaly - Respiratory Exam Respiratory Exam: NORMAL BREATHING PATTERN. absent: Accessory Muscle Use, Chest Wall Tenderness, Decreased Breath Sounds, Rales, Wheezes - Cardiovascular Exam Cardiovascular Exam: REGULAR RHYTHM, +S1, +S2 - GI/Abdominal Exam GI & Abdominal Exam: Soft. absent: Tenderness, Rebound - Extremities Exam Extremities Exam: Full ROM. absent: Pedal Edema - Back Exam Back Exam: Full ROM - Neurological Exam Neurological Exam: Alert, Awake, Normal Gait, Oriented x3 - Psychiatric Exam Psychiatric exam: Normal Affect, Normal Mood - Skin Skin Exam: Dry, Intact, Normal Color, Warm Assessment and Plan - Assessment and Plan (Free Text) Assessment: (1) Pneumonia Assessment & Plan: * Patient has remained afebrile since 07/09 * Productive cough at admission * Fever 102.2, Tachycardic at 116 * ID consulted, Dr. Bertrand, help appreciated * Continue Mepron 750mg PO BID, Azithromycin 500mg IV Q24, Zosyn 4.5gm IV Q8h * CXR: no active disease * Chest CT: findings reflect multilobar pneumonia * ABG: WNL * Lactate: 0.5 * PPD: negative @48 and 72 hours * Sputum culture: normal oral ramon * Urine culture: no growth * Blood culture: no growth @4days * TB Quantiferon gold 0.11 negative * TB test Mitogen 0.89 * CMV IgG ab >10.00; CMV IgM ab <30 * AFB: negative x3 * Repeat Chest xray (PA/Lat) 07/16: faint vague small nodular type opacity seen in right upper lobe, slightly improved compared to prior imagine. (2) Anemia Assessment & Plan: * FOBT: negative * Iron studies: iron 24, TIBC 232, %sat 10.7, ferritin 483 * B12 312 * Folate 15.2 * Will need PO iron as outpatient after infectious process resolves (3) HIV disease Assessment & Plan: * ID, Dr. Bertrand, consulted; help appreciated * Social work consult * Hepatitis panel: negative for Hep B, C, A * CD4 count: 83 * CD8 count: 808 * HIV-1 RNA Qnt: 5.38 (H) * As per Dr. Bertrand, patient started on Atripla 07/17/17. Patient must follow up with outpatient HIV clinic for continued therapy * Discussed with case management and social welfare administrator- social welfare administrator provided necessary information for [facility] clinic in [place] for patient to follow up as outpatient. * G6PD: f/u results * Patient needs to be discharged with prophylactic antibiotics. Patient is currently on Mepron, however, this is a very expensive medications. G6PD was ordered to determine if patient can take Dapsone PO as outpatient rather than Mepron, as it is cheaper. [Patient is allergic to Bactrim] (4) Diarrhea Assessment & Plan: Resolved * Stool studies: * no ova/parasites seen * stool leukocytes negative * stool occult negative * stool cx: negative * C. diff negative (5) Prophylactic measure Assessment & Plan: SCDs Protonix 40mg IV daily Regular Diet O2 via nasal cannula Status: Acute Disposition: Discussed with case management and social welfare administrator- social welfare administrator provided information for [facility] clinic in [place] for patient to follow up as outpatient. 07/19 Patient was given the contact information for [facility] in [place]. It was explained that he is to reach out to them for further management. <Jonathan Charles - Last Filed: 07/20/17 13:16> Objective - Vital Signs/Intake and Output Vital Signs (last 24 hours): Temp Pulse Resp BP Pulse Ox 99 F 89 20 105/72 97 07/20/17 07:32 07/20/17 07:32 07/20/17 07:32 07/20/17 07:32 07/20/17 07:32 Intake and Output: 07/20/17 07/20/17 06:59 18:59 Intake Total 350 Output Total 450 Balance -100 - Medications Medications: Current Medications Acetaminophen (Tylenol 325mg Tab) 650 mg PO Q6 PRN PRN Reason: Fever >100.4 F Last Admin: 07/20/17 02:25 Dose: 650 mg Efavirenz/Emtricitabine/Tenofovir (Atripla 600 Mg-200 Mg-300 Mg) 1 tab PO DAILY [facility] Last Admin: 07/20/17 09:47 Dose: 1 tab Piperacillin Sod/Tazobactam Sod (Zosyn 4.5 Gm Iv Premix) 4.5 gm in 100 mls @ 100 mls/hr IVPB Q8H [facility] Last Admin: 07/20/17 05:04 Dose: 100 mls/hr Azithromycin 500 mg/ Sodium (Chloride) 250 mls @ 250 mls/hr IVPB Q24H [facility] Last Admin: 07/20/17 09:47 Dose: 250 mls/hr Pantoprazole Sodium (Protonix Inj) 40 mg IVP DAILY [facility] Last Admin: 07/20/17 09:46 Dose: 40 mg Potassium Chloride (K-Dur 20 Meq Er Tab) 20 meq PO DAILY [facility] Last Admin: 07/20/17 09:46 Dose: 20 meq Promethazine HCl/Codeine (Phenergan/Codeine Oral Syrup) 5 ml PO Q4 PRN PRN Reason: Cough Last Admin: 07/16/17 09:40 Dose: 5 ml Saccharomyces Boulardii (Florastor) 250 mg PO BID [facility] Last Admin: 07/20/17 09:46 Dose: 250 mg - Labs Labs: 07/20/17 08:47 07/20/17 08:47 Attending/Attestation - Attestation I have personally seen and examined this patient.: Yes I have fully participated in the care of the patient.: Yes I have reviewed all pertinent clinical information, including history, physical exam and plan: Yes Notes (Text): 07/20/17 13:13 Medical attending: Patient was seen and examined by me. Agree with the above note by the resident The patient was sleeping when I saw him. He appears well Not in any acute distress at this time The patient is currently pending G6PD testing so he could go with dapsone. He has an allergy to bactrim and PO mepron is too expensive for him. As mentioned previously he is supposed to follow up at the [facility]. Once he goes from here. thank you Jonathan Charles
[2017-07-19] MEDS: Potassium Chloride 20 mEq ER Tab PO SCH (11:00)
[2017-07-19] MEDS: Efavirenz/Emtricitabine/Teno 1 TAB PO SCH (11:00)
[2017-07-19] MEDS: Azithromycin 500 MG in Sodium Chloride 0.9% 250 ML IVPB SCH (11:00)
[2017-07-19] MEDS: Atovaquone 750 mg/5 ml Susp UD PO SCH ×2 (11:00→17:15)
[2017-07-19] MEDS: Saccharomyces Boulardi 250 mg Cap PO SCH ×2 (11:00→17:14)
[2017-07-19] MEDS ORDERED: guaiFENesin 100 mg/5 ml Syrup UD PO PRN (19:53)
[2017-07-20] MEDS: Piperacill/Tazo 4.5gm in Dex 4.5 GM/100 ML BAG IVPB SCH ×3 (05:04→21:04)
[2017-07-20 09:03] LABS: BASO % 0.2 % (0.0-2.0); EOS # 0.1 K/uL (0.0-0.7); EOS % 2.1 % (0.0-4.0); HEMATOCRIT 33.9 % (35.0-51.0); LYMPH # 1.3 K/uL (1.0-4.3); LYMPH % 21.7 % (20.0-40.0); MEAN CELL VOLUME 95.7 fL (80.0-94.0); MEAN CORPUSCULAR HGB CONC 33.4 g/dL (33.0-37.0); MEAN PLATELET VOLUME 8.6 fL (7.2-11.7); MONO # 0.2 K/uL (0.0-0.8); MONO % 3.1 % (0.0-10.0); WHITE BLOOD COUNT 5.8 K/uL (4.8-10.8)
[2017-07-20 09:23] LABS: ALKALINE PHOSPHATASE 62 U/L (38-126); ALT/SGPT 59 U/L (21-72); AST/SGOT 48 U/L (17-59); BILIRUBIN,TOTAL 0.6 mg/dL (0.2-1.3); BLOOD UREA NITROGEN 16 mg/dL (9-20); CALCIUM 8.3 mg/dl (8.6-10.4); CARBON DIOXIDE 28 mmol/L (22-30); CHLORIDE 100 mmol/L (98-107); GFR AFRICAN-AMERICAN > 60; GLUCOSE,RANDOM 144 mg/dL (75-110); POTASSIUM 3.3 mmol/L (3.6-5.2); SODIUM 137 mmol/L (132-148); TOTAL PROTEIN 7.2 g/dL (6.3-8.3)
[2017-07-20] MEDS: Potassium Chloride 20 mEq ER Tab PO SCH (09:46)
[2017-07-20] MEDS: Saccharomyces Boulardi 250 mg Cap PO SCH ×2 (09:46→17:27)
[2017-07-20] MEDS: Efavirenz/Emtricitabine/Teno 1 TAB PO SCH (09:47)
--- NOTE | 2017-07-20 13:33 | CP.PCM.PN ---
<Argenis Hernandez - Last Filed: 07/20/17 13:34> Subjective - Date & Time of Evaluation Date of Evaluation: 07/20/17 Time of Evaluation: 13:32 - Subjective Subjective: Progress note for Dr. Charles No changes since yesterday, patient was explained awaiting G6PD deficiency test results and patient can then be discharged with dapsone if negative. Patient has no complaints at this time. Patient denies fever, chills, diarrhea, constipation. no acute events overnight Objective - Vital Signs/Intake and Output Vital Signs (last 24 hours): Temp Pulse Resp BP Pulse Ox 99 F 89 20 105/72 97 07/20/17 07:32 07/20/17 07:32 07/20/17 07:32 07/20/17 07:32 07/20/17 07:32 Intake and Output: 07/20/17 07/20/17 06:59 18:59 Intake Total 350 Output Total 450 Balance -100 - Medications Medications: Current Medications Acetaminophen (Tylenol 325mg Tab) 650 mg PO Q6 PRN PRN Reason: Fever >100.4 F Last Admin: 07/20/17 02:25 Dose: 650 mg Efavirenz/Emtricitabine/Tenofovir (Atripla 600 Mg-200 Mg-300 Mg) 1 tab PO DAILY [facility] Last Admin: 07/20/17 09:47 Dose: 1 tab Piperacillin Sod/Tazobactam Sod (Zosyn 4.5 Gm Iv Premix) 4.5 gm in 100 mls @ 100 mls/hr IVPB Q8H [facility] Last Admin: 07/20/17 05:04 Dose: 100 mls/hr Azithromycin 500 mg/ Sodium (Chloride) 250 mls @ 250 mls/hr IVPB Q24H [facility] Last Admin: 07/20/17 09:47 Dose: 250 mls/hr Pantoprazole Sodium (Protonix Inj) 40 mg IVP DAILY [facility] Last Admin: 07/20/17 09:46 Dose: 40 mg Potassium Chloride (K-Dur 20 Meq Er Tab) 20 meq PO DAILY [facility] Last Admin: 07/20/17 09:46 Dose: 20 meq Promethazine HCl/Codeine (Phenergan/Codeine Oral Syrup) 5 ml PO Q4 PRN PRN Reason: Cough Last Admin: 07/16/17 09:40 Dose: 5 ml Saccharomyces Boulardii (Florastor) 250 mg PO BID [facility] Last Admin: 07/20/17 09:46 Dose: 250 mg - Labs Labs: 07/20/17 08:47 07/20/17 08:47 - Constitutional Appears: Non-toxic, Older Than Stated Age - Head Exam Head Exam: ATRAUMATIC, NORMAL INSPECTION, NORMOCEPHALIC - Eye Exam Eye Exam: EOMI, Normal appearance - ENT Exam ENT Exam: Mucous Membranes Moist - Neck Exam Neck Exam: Full ROM Additional comments: no tenderness, thyromegaly - Respiratory Exam Respiratory Exam: NORMAL BREATHING PATTERN Additional comments: no wheeze, rhonchi, rales - Cardiovascular Exam Cardiovascular Exam: REGULAR RHYTHM, +S1, +S2 - GI/Abdominal Exam GI & Abdominal Exam: Soft, Normal Bowel Sounds Additional comments: no rebound, no tenderness - Back Exam Back Exam: Full ROM, NORMAL INSPECTION - Neurological Exam Neurological Exam: Alert, Awake, Normal Gait - Psychiatric Exam Psychiatric exam: Normal Affect, Normal Mood - Skin Skin Exam: Dry, Intact, Normal Color, Warm Assessment and Plan - Assessment and Plan (Free Text) Assessment: (1) Pneumonia Assessment & Plan: * Patient has remained afebrile since 07/09 * Productive cough at admission * Fever 102.2, Tachycardic at 116 * ID consulted, Dr. Bertrand, help appreciated * Continue Mepron 750mg PO BID, Azithromycin 500mg IV Q24, Zosyn 4.5gm IV Q8h * CXR: no active disease * Chest CT: findings reflect multilobar pneumonia * ABG: WNL * Lactate: 0.5 * PPD: negative @48 and 72 hours * Sputum culture: normal oral ramon * Urine culture: no growth * Blood culture: no growth @4days * TB Quantiferon gold 0.11 negative * TB test Mitogen 0.89 * CMV IgG ab >10.00; CMV IgM ab <30 * AFB: negative x3 * Repeat Chest xray (PA/Lat) 07/16: faint vague small nodular type opacity seen in right upper lobe, slightly improved compared to prior imagine. (2) Anemia Assessment & Plan: * FOBT: negative * Iron studies: iron 24, TIBC 232, %sat 10.7, ferritin 483 * B12 312 * Folate 15.2 * Will need PO iron as outpatient after infectious process resolves (3) HIV disease Assessment & Plan: * ID, Dr. Bertrand, consulted; help appreciated * Social work consult * Hepatitis panel: negative for Hep B, C, A * CD4 count: 83 * CD8 count: 808 * HIV-1 RNA Qnt: 5.38 (H) * As per Dr. Bertrand, patient started on Atripla 07/17/17. Patient must follow up with outpatient HIV clinic for continued therapy * Discussed with case management and social media editor- social media editor provided necessary information for [facility] in [place] for patient to follow up as outpatient. * G6PD: f/u results * Patient needs to be discharged with prophylactic antibiotics. Patient is currently on Mepron, however, this is a very expensive medications. G6PD was ordered to determine if patient can take Dapsone PO as outpatient rather than Mepron, as it is cheaper. [Patient is allergic to Bactrim] (4) Diarrhea Assessment & Plan: Resolved * Stool studies: * no ova/parasites seen * stool leukocytes negative * stool occult negative * stool cx: negative * C. diff negative (5) Prophylactic measure Assessment & Plan: SCDs Protonix 40mg IV daily Regular Diet O2 via nasal cannula Status: Acute Disposition: Discussed with case management and social media editor- social media editor provided information for [facility] clinic in [place] for patient to follow up as outpatient. 07/19 Patient was given the contact information for [facility] in [place]. It was explained that he is to reach out to them for further management. 07/20 no updates <Jonathan Charles - Last Filed: 07/20/17 13:49> Objective - Vital Signs/Intake and Output Vital Signs (last 24 hours): Temp Pulse Resp BP Pulse Ox 99 F 89 20 105/72 97 07/20/17 07:32 07/20/17 07:32 07/20/17 07:32 07/20/17 07:32 07/20/17 07:32 Intake and Output: 07/20/17 07/20/17 06:59 18:59 Intake Total 350 Output Total 450 Balance -100 - Medications Medications: Current Medications Acetaminophen (Tylenol 325mg Tab) 650 mg PO Q6 PRN PRN Reason: Fever >100.4 F Last Admin: 07/20/17 02:25 Dose: 650 mg Efavirenz/Emtricitabine/Tenofovir (Atripla 600 Mg-200 Mg-300 Mg) 1 tab PO DAILY [facility] Last Admin: 07/20/17 09:47 Dose: 1 tab Piperacillin Sod/Tazobactam Sod (Zosyn 4.5 Gm Iv Premix) 4.5 gm in 100 mls @ 100 mls/hr IVPB Q8H [facility] Last Admin: 07/20/17 05:04 Dose: 100 mls/hr Azithromycin 500 mg/ Sodium (Chloride) 250 mls @ 250 mls/hr IVPB Q24H [facility] Last Admin: 07/20/17 09:47 Dose: 250 mls/hr Pantoprazole Sodium (Protonix Inj) 40 mg IVP DAILY [facility] Last Admin: 07/20/17 09:46 Dose: 40 mg Potassium Chloride (K-Dur 20 Meq Er Tab) 20 meq PO DAILY [facility] Last Admin: 07/20/17 09:46 Dose: 20 meq Promethazine HCl/Codeine (Phenergan/Codeine Oral Syrup) 5 ml PO Q4 PRN PRN Reason: Cough Last Admin: 07/16/17 09:40 Dose: 5 ml Saccharomyces Boulardii (Florastor) 250 mg PO BID [facility] Last Admin: 07/20/17 09:46 Dose: 250 mg - Labs Labs: 07/20/17 08:47 07/20/17 08:47 Attending/Attestation - Attestation I have personally seen and examined this patient.: Yes I have fully participated in the care of the patient.: Yes I have reviewed all pertinent clinical information, including history, physical exam and plan: Yes Notes (Text): 07/20/17 13:45 Medical Attending: Patient was seen and examined by me. Agree with the above note by the resident The patient was sleeping when I saw him and examined him briefly He is not in any acute distress at all He is continued on the HARRT medication At this moment we are waiting on G6PD testing to return to see if the patient can leave with dapsone. As he is allergic to bactrim. As mentioned previously he will need to follow up at the [facility] HIV center. thank you Jonathan Charles
[2017-07-21] MEDS: Piperacill/Tazo 4.5gm in Dex 4.5 GM/100 ML BAG IVPB SCH ×2 (05:07→13:00)
[2017-07-21 09:26] VITALS: RESP 20; O2SAT 98
--- NOTE | 2017-07-21 09:51 | CP.PCM.PN ---
Subjective - Date & Time of Evaluation Date of Evaluation: 07/21/17 Time of Evaluation: 09:36 - Subjective Subjective: PGY-[address] Avelar No acute events noted overnight. Patient was seen and examined at bedside. He did not have any complaints today. He denied cough, sputum production, chest pain, fever, shortness of breath, abdominal pain. Objective - Vital Signs/Intake and Output Vital Signs (last 24 hours): Temp Pulse Resp BP Pulse Ox 98.8 F 90 20 110/76 98 07/21/17 09:25 07/21/17 09:25 07/21/17 09:25 07/21/17 09:25 07/21/17 09:25 Intake and Output: 07/21/17 07/21/17 06:59 18:59 Intake Total 700 Output Total 900 Balance -200 - Medications Medications: Current Medications Acetaminophen (Tylenol 325mg Tab) 650 mg PO Q6 PRN PRN Reason: Fever >100.4 F Last Admin: 07/20/17 02:25 Dose: 650 mg Efavirenz/Emtricitabine/Tenofovir (Atripla 600 Mg-200 Mg-300 Mg) 1 tab PO DAILY [facility] Last Admin: 07/20/17 09:47 Dose: 1 tab Piperacillin Sod/Tazobactam Sod (Zosyn 4.5 Gm Iv Premix) 4.5 gm in 100 mls @ 100 mls/hr IVPB Q8H [facility] Last Admin: 07/21/17 05:07 Dose: 100 mls/hr Azithromycin 500 mg/ Dextrose 250 mls @ 250 mls/hr IVPB Q24H [facility] Pantoprazole Sodium (Protonix Inj) 40 mg IVP DAILY JE[facility] Last Admin: 07/20/17 09:46 Dose: 40 mg Potassium Chloride (K-Dur 20 Meq Er Tab) 20 meq PO DAILY [facility] Last Admin: 07/20/17 09:46 Dose: 20 meq Potassium Chloride (K-Dur 20 Meq Er Tab) 40 meq PO ONCE ONE Stop: 07/21/17 09:36 Promethazine HCl/Codeine (Phenergan/Codeine Oral Syrup) 5 ml PO Q4 PRN PRN Reason: Cough Last Admin: 07/16/17 09:40 Dose: 5 ml Saccharomyces Boulardii (Florastor) 250 mg PO BID [facility] Last Admin: 07/20/17 17:27 Dose: 250 mg - Labs Labs: 07/20/17 08:47 07/20/17 08:47 - Additional Findings Additional findings: - Constitutional Appears: Non-toxic, Older Than Stated Age - Head Exam Head Exam: ATRAUMATIC, NORMAL INSPECTION, NORMOCEPHALIC - Eye Exam Eye Exam: EOMI, Normal appearance - ENT Exam ENT Exam: Mucous Membranes Moist - Neck Exam Neck Exam: Full ROM Additional comments: no tenderness, thyromegaly - Respiratory Exam Respiratory Exam: NORMAL BREATHING PATTERN Additional comments: no wheeze, rhonchi, rales - Cardiovascular Exam Cardiovascular Exam: REGULAR RHYTHM, +S1, +S2 - GI/Abdominal Exam GI & Abdominal Exam: Soft, Normal Bowel Sounds Additional comments: no rebound, no tenderness - Back Exam Back Exam: Full ROM, NORMAL INSPECTION - Neurological Exam Neurological Exam: Alert, Awake, Normal Gait - Psychiatric Exam Psychiatric exam: Normal Affect, Normal Mood - Skin Skin Exam: Dry, Intact, Normal Color, Warm Assessment and Plan - Assessment and Plan (Free Text) Assessment: (1) Pneumonia Assessment & Plan: * On admission 07/09: Fever 102.2, Tachycardic at 116; Currently afebrile, HR WNL * ID consulted, Dr. Bertrand * Pulm consulted, Dr Lazcano * ABG: WNL * Lactate: 0.5 * PPD: negative @48 and 72 hours * Sputum culture: normal oral ramon * Urine culture 07/09: no growth * Blood culture 07/09: no growth up to date * TB Quantiferon gold 0.11 negative * TB test Mitogen/TB 0.89 negative * CMV IgG ab >10.00 (H); CMV IgM ab <30 (wnl) * AFB: negative x3 * Meds: * Azithromycin 500mg IVPB QD, started 07/12 * Florastor 250mg PO BID * Zosyn 4.5g IVPB Q8H, started 07/11, stopped 07/21 * Promethazine/Codeine 5ml PO Q4 PRN * Mepron 750mg PO BID, started 07/10 * Imaging: * CXR 07/09: no active disease * Chest CT 07/10: findings reflect multilobar pneumonia * Repeat CXR (PA/Lat) 07/16: faint vague small nodular type opacity seen in right upper lobe, slightly improved compared to prior imagine. (2) Anemia Assessment & Plan: * FOBT: negative * Iron studies: iron 24, TIBC 232, %sat 10.7, ferritin 483 * B12 312 * Folate 15.2 * Will need PO iron as outpatient after infectious process resolves (3) HIV disease Assessment & Plan: * ID, Dr. Bertrand, consulted * Social work consult * Hepatitis panel: negative for Hep B, C, A * CD4 count: 83 * CD8 count: 808 * HIV-1 RNA Qnt: 5.38 (H) * * As per Dr. Bertrand, patient started on Atripla 07/17/17. Patient must follow up with outpatient HIV clinic for continued therapy * Discussed with case management and addiction social worker- addiction social worker provided necessary information for [facility] in [place] for patient to follow up as outpatient. * G6PD: f/u results * Patient needs to be discharged with prophylactic antibiotics. Patient is currently on Mepron, however, this is a very expensive medications. G6PD was ordered to determine if patient can take Dapsone PO as outpatient rather than Mepron, as it is cheaper. [Patient is allergic to Bactrim] (4) Diarrhea Assessment & Plan: Resolved * Stool studies: * no ova/parasites seen 07/11 * stool leukocytes negative 07/11 * stool occult negative 07/09 * stool cx 07/11: negative * C. diff negative 07/11 (5) Prophylactic measure Assessment & Plan: SCDs Protonix 40mg IV daily Regular Diet O2 via nasal cannula Status: Acute Disposition: Discussed with case management and addiction social worker- addiction social worker provided information for [facility] in [place] for patient to follow up as outpatient.
[2017-07-21] MEDS: Potassium Chloride 20 mEq ER Tab PO ONE ×2 (10:23→10:24)
[2017-07-21] MEDS: Saccharomyces Boulardi 250 mg Cap PO SCH ×2 (10:23→17:58)
[2017-07-21] MEDS: Potassium Chloride 20 mEq ER Tab PO SCH (10:24)
[2017-07-21] MEDS: Efavirenz/Emtricitabine/Teno 1 TAB PO SCH (10:24)
[2017-07-21 16:27] VITALS: BP 98/65; PULSE 108; TEMP 99.4
--- NOTE | 2017-07-21 16:39 | CP.PCM.PN ---
Subjective - Date & Time of Evaluation Date of Evaluation: 07/21/17 Time of Evaluation: 04:25 - Subjective Subjective: dictated Objective - Vital Signs/Intake and Output Vital Signs (last 24 hours): Temp Pulse Resp BP Pulse Ox 99.4 F 108 H 20 98/65 L 98 07/21/17 15:00 07/21/17 15:00 07/21/17 15:00 07/21/17 15:00 07/21/17 15:00 Intake and Output: 07/21/17 07/21/17 06:59 18:59 Intake Total 700 450 Output Total 900 600 Balance -200 -150 - Medications Medications: Current Medications Acetaminophen (Tylenol 325mg Tab) 650 mg PO Q6 PRN PRN Reason: Fever >100.4 F Last Admin: 07/20/17 02:25 Dose: 650 mg Atovaquone (Mepron) 750 mg PO BID [facility] Efavirenz/Emtricitabine/Tenofovir (Atripla 600 Mg-200 Mg-300 Mg) 1 tab PO DAILY [facility] Last Admin: 07/21/17 10:24 Dose: 1 tab Piperacillin Sod/Tazobactam Sod (Zosyn 4.5 Gm Iv Premix) 4.5 gm in 100 mls @ 100 mls/hr IVPB Q8H [facility] Last Admin: 07/21/17 13:00 Dose: 100 mls/hr Azithromycin 500 mg/ Dextrose 250 mls @ 250 mls/hr IVPB Q24H [facility] Last Admin: 07/21/17 10:24 Dose: 250 mls/hr Pantoprazole Sodium (Protonix Inj) 40 mg IVP DAILY [facility] Last Admin: 07/21/17 10:16 Dose: 40 mg Potassium Chloride (K-Dur 20 Meq Er Tab) 20 meq PO DAILY [facility] Last Admin: 07/21/17 10:24 Dose: 20 meq Promethazine HCl/Codeine (Phenergan/Codeine Oral Syrup) 5 ml PO Q4 PRN PRN Reason: Cough Last Admin: 07/16/17 09:40 Dose: 5 ml Saccharomyces Boulardii (Florastor) 250 mg PO BID [facility] Last Admin: 07/21/17 10:23 Dose: 250 mg - Labs Labs: 07/20/17 08:47 07/20/17 08:47
[2017-07-21] MEDS ORDERED: Atovaquone 750 mg/5 ml Susp UD PO SCH (18:00)
--- NOTE | 2017-07-21 21:12 | PN ---
DATE: 07/21/2017 SUBJECTIVE: The patient was seen today. He has been on IV antibiotics. He is doing better. He denies any cough. No sputum production. No upper respiratory problems. He is doing much better now. PHYSICAL EXAMINATION: VITAL SIGNS: T-max is 98.8 and his AFBs x3 are negative. T-max is 99.4 right now, pulse of 90, blood pressure 110/76, respirations are 20. HEENT: Head is atraumatic, normocephalic. NECK: Supple. LUNGS: Clear. No crackles or rales heard. HEART: S1 and S2 is regular. ABDOMEN: Soft, nontender. No guarding. No rigidity present. EXTREMITIES: Have no edema. ASSESSMENT AND PLAN: He was on Zosyn and Zithromax. He is also on Mepron and Atripla and his CD4 count was only 83, so he is going to be on Pneumocystis carinii pneumonia prophylaxis. HLA was negative. We are waiting for the G6PD level, it should be looked into, otherwise he will be on Mepron and the patient has x-ray done. The last x-ray was done on 07/16/2017, which shows some improvement and so we will switch him to oral antibiotic and to follow him. He is on Zosyn now. He is still on Zithromax. I think we are going to discontinue Zithromax. Lets see, the serology shows that Clostridium difficile is negative. Immunoglobulin G is positive. Tuberculosis was negative. HIV is positive. At this time, I think we need to discontinue the Zosyn and we will follow and he remains on Zithromax at this time, which can be switched to oral and he got actually antibiotics from 07/09/2017 until 07/21/2017, which is like 2 weeks, so he already got antibiotics. I think I am going to discontinue Zithromax also at this time and leave him on his HIV medication and follow. Christine Bertrand MD
--- NOTE | 2017-07-22 03:57 | CP.PCM.DIS ---
Provider - Provider Date of Admission: 07/09/17 22:04 Attending physician: Jonathan Charles DO Primary care physician: Marilyn Consults: ARELY - Elza Lazcano Time Spent in preparation of Discharge (in minutes): 45 Hospital Course - Lab Results Lab Results: Micro Results 07/11/17 Unknown Other: Please Indicate Mycobacterial Culture - Preliminary 07/12/17 10:59 Other: Please Indicate Mycobacterial Culture - Preliminary 07/14/17 09:54 Other: Please Indicate Mycobacterial Culture - Preliminary 07/09/17 19:00 Blood Blood Culture - Final NO GROWTH AFTER 5 DAYS 07/09/17 19:00 Blood Gram Stain - Final TEST NOT PERFORMED 07/09/17 18:05 Blood Blood Culture - Final NO GROWTH AFTER 5 DAYS 07/09/17 18:05 Blood Gram Stain - Final TEST NOT PERFORMED 07/11/17 15:39 Stool Stool Culture - Final NO SALMONELLA, SHIGELLA OR CAMPYLOBACTER ISOLATED. 07/10/17 08:07 Sputum Gram Stain - Final 07/10/17 08:07 Sputum Sputum Culture - Final NORMAL ORAL AMANDA 07/11/17 15:39 Stool Ova and Parasite Concentrate Exam - Final 07/09/17 Unknown Urine,Clean Catch Urine Culture - Final No Growth (<1,000 CFU/ML) Most Recent Lab Values WBC 5.8 K/uL (4.8-10.8) 07/20/17 08:47 RBC 3.54 Mil/uL (4.40-5.90) L 07/20/17 08:47 Hgb 11.3 g/dL (12.0-18.0) L 07/20/17 08:47 Hct 33.9 % (35.0-51.0) L 07/20/17 08:47 MCV 95.7 fL (80.0-94.0) H 07/20/17 08:47 MCH 32.0 pg (27.0-31.0) H 07/20/17 08:47 MCHC 33.4 g/dL (33.0-37.0) 07/20/17 08:47 RDW 14.0 % (11.5-14.5) 07/20/17 08:47 Plt Count 190 K/uL (130-400) 07/20/17 08:47 MPV 8.6 fL (7.2-11.7) 07/20/17 08:47 Neut % (Auto) 72.9 % (50.0-75.0) 07/20/17 08:47 Lymph % (Auto) 21.7 % (20.0-40.0) 07/20/17 08:47 [place] % (Auto) 3.1 % (0.0-10.0) 07/20/17 08:47 Eos % (Auto) 2.1 % (0.0-4.0) 07/20/17 08:47 Baso % (Auto) 0.2 % (0.0-2.0) 07/20/17 08:47 Neut # 4.3 K/uL (1.8-7.0) 07/20/17 08:47 Lymph # 1.3 K/uL (1.0-4.3) 07/20/17 08:47 Providence # 0.2 K/uL (0.0-0.8) 07/20/17 08:47 Eos # 0.1 K/uL (0.0-0.7) 07/20/17 08:47 Baso # 0.0 K/uL (0.0-0.2) 07/20/17 08:47 Puncture Site Rradial 07/09/17 21:15 pCO2 41 mm/Hg (35-45) 07/09/17 21:15 pO2 82 mm/Hg (80-100) 07/09/17 21:15 HCO3 26.4 mmol/L (21-28) 07/09/17 21:15 ABG pH 7.42 (7.35-7.45) 07/09/17 21:15 ABG Total CO2 27.9 mmol/L (22-28) 07/09/17 21:15 ABG O2 Saturation 97.2 % (95-98) 07/09/17 21:15 ABG Base Excess 1.9 mmol/L (-2.0-3.0) 07/09/17 21:15 Lonnie Test Pos 07/09/17 21:15 ABG Potassium 3.2 mmol/L (3.6-5.2) L 07/09/17 21:15 A-a O2 Difference 16.0 mm/Hg 07/09/17 21:15 Respiratory Index 0.2 07/09/17 21:15 Sodium 141.0 mmol/l (132-148) 07/09/17 21:15 Chloride 111.0 mmol/L (98-107) H 07/09/17 21:15 Glucose 89 mg/dl (75-110) 07/09/17 21:15 Lactate 0.5 mmol/L (0.7-2.1) L 07/09/17 21:15 FiO2 21.0 % 07/09/17 21:15 Sodium 137 mmol/L (132-148) 07/20/17 08:47 Potassium 3.3 mmol/L (3.6-5.2) L 07/20/17 08:47 Chloride 100 mmol/L (98-107) 07/20/17 08:47 Carbon Dioxide 28 mmol/L (22-30) 07/20/17 08:47 Anion Gap 12 (10-20) 07/20/17 08:47 BUN 16 mg/dL (9-20) 07/20/17 08:47 Creatinine 1.4 mg/dL (0.8-1.5) 07/20/17 08:47 Est GFR ( Amer) > 60 07/20/17 08:47 Est GFR (Non-Af Amer) 53 07/20/17 08:47 Random Glucose 144 mg/dL (75-110) H 07/20/17 08:47 Calcium 8.3 mg/dl (8.6-10.4) L 07/20/17 08:47 Phosphorus 3.6 mg/dL (2.5-4.5) 07/14/17 06:00 Magnesium 1.8 mg/dL (1.6-2.3) 07/14/17 06:00 Iron 24 ug/dL (49-181) L 07/10/17 06:16 TIBC 232 ug/dL (250-450) L 07/10/17 06:16 % Saturation 10.7 (20-55) L 07/10/17 06:16 Ferritin 483.0 ng/mL 07/10/17 06:16 Total Bilirubin 0.6 mg/dL (0.2-1.3) 07/20/17 08:47 AST 48 U/L (17-59) 07/20/17 08:47 ALT 59 U/L (21-72) 07/20/17 08:47 Alkaline Phosphatase 62 U/L (38-126) 07/20/17 08:47 Lactate Dehydrogenase 390 U/L (313-618) 07/11/17 07:18 Total Protein 7.2 g/dL (6.3-8.3) 07/20/17 08:47 Albumin 3.7 g/dL (3.5-5.0) 07/20/17 08:47 Globulin 3.5 gm/dL (2.2-3.9) 07/20/17 08:47 Albumin/Globulin Ratio 1.0 (1.0-2.1) 07/20/17 08:47 Vitamin B12 312 pg/mL (239-931) 07/10/17 06:16 Folate 15.9 ng/mL 07/10/17 06:16 Arterial Blood Potassium 3.2 mmol/L (3.6-5.2) L 07/09/17 21:15 Urine Color Yellow (YELLOW) 07/11/17 12:39 Urine Clarity Clear (Clear) 07/11/17 12:39 Urine pH 5.0 (5.0-8.0) 07/11/17 12:39 Ur Specific Rubicon 1.027 (1.003-1.030) 07/11/17 12:39 Urine Protein Negative mg/dL (NEGATIVE) 07/11/17 12:39 Urine Glucose (UA) Normal mg/dL (Normal) 07/11/17 12:39 Urine Ketones Negative mg/dL (NEGATIVE) 07/11/17 12:39 Urine Blood Negative (NEGATIVE) 07/11/17 12:39 Urine Nitrate Negative (NEGATIVE) 07/11/17 12:39 Urine Bilirubin Negative (NEGATIVE) 07/11/17 12:39 Urine Urobilinogen Normal mg/dL (0.2-1.0) 07/11/17 12:39 Ur Leukocyte Esterase Neg Gabby/uL (Negative) 07/11/17 12:39 Urine WBC (Auto) 1 /hpf (0-5) 07/11/17 12:39 Urine RBC (Auto) 1 /hpf (0-3) 07/11/17 12:39 Stool Occult Blood Negative (NEGATIVE) 07/09/17 21:05 Stool Leukocytes, Qual Negative (NEGATIVE) 07/11/17 15:39 Absolute Lymphs (Flow) 1135 Cells/mcL (850-3900) 07/10/17 06:16 % CD4 Cells 7 Percent (30-61) L 07/10/17 06:16 Absolute CD4 Count 83 Cells/mcL (490-1740) L 07/10/17 06:16 T-Help/Suppress Ratio 0.10 Ratio (0.86-5.00) L 07/10/17 06:16 % CD8 Cells 71 Percent (12-42) H 07/10/17 06:16 Absolute CD8 Count 808 Cells/mcL (180-1170) 07/10/17 06:16 HLA-B*5701 Negative 07/11/17 07:18 C. difficile Ag & Toxin Negative (NEGATIVE) 07/11/17 15:39 CMV IgG Ab >10.00 U/mL H 07/09/17 18:57 CMV IgM Ab <30.00 AU/mL 07/09/17 18:57 Hepatitis A IgM Ab Negative (NEGATIVE) 07/10/17 06:16 Hep Bs Antigen Negative (NEGATIVE) 07/10/17 06:16 Hep B Core IgM Ab Negative (NEGATIVE) 07/10/17 06:16 Hepatitis C Antibody Negative (NEGATIVE) 07/10/17 06:16 HIV-1 RNA Qnt (RT-PCR) 5.38 (<1.30) H 07/09/17 19:06 TB Test (QFT) Nil 0.11 IU/mL 07/10/17 07:07 TB Test Mitogen - Nil 0.89 IU/mL 07/10/17 07:07 TB Test TB - Nil <0.00 IU/mL 07/10/17 07:07 TB Test (QFT) Negative (Negative) 07/10/17 07:07 - Hospital Course Hospital Course: On Admission: Patient is a 57 y/o homeless male with PMH of HIV diagnosed 5 years ago who presents to the ED complaining of fever and cough productive of blood tinged sputum. Patient says he was at the homeless senior living and told them his history of HIV and the person at the senior living said he needed to come the the ED. Patient says he was previously living in [place] with his sister and was being treated for 7 months for his HIV until he moved here for a job. Patient says he ran out of his meds and never got refills. Patient admits to pruritis of his arms and legs but other rhodes denies complete ROS. Patient was started on Merem, Zosyn and zithromax. AFB smear and cultures as well as Quatifern Gold were all negative so the patient weas removed from isolation., The patient had a very low cd4 count at 83 and very high Viral load. He was later started on HARRT therapy with instructions to follow at [facility] clinic in [place]. He was being tested for G6PD Def so he could be started on Dapsone as it is cheaper than Merem. Patient left AMA on 07/21. I made sure he had instruction to follow up at HIV clinic. Discharge Exam - Head Exam Head Exam: ATRAUMATIC, NORMAL INSPECTION, NORMOCEPHALIC - Eye Exam Eye Exam: EOMI - ENT Exam ENT Exam: Mucous Membranes Moist - Respiratory Exam Respiratory Exam: UNREMARKABLE - Cardiovascular Exam Cardiovascular Exam: REGULAR RHYTHM - GI/Abdominal Exam GI & Abdominal Exam: Normal Bowel Sounds, Soft. absent: Distended, Tenderness - Neurological Exam Neurological exam: Alert, Oriented x3 - Psychiatric Exam Psychiatric exam: Normal Affect, Normal Mood - Skin Skin Exam: Dry, Intact, Normal Color, Warm Discharge Plan - Follow Up Plan Condition: STABLE Disposition: AGAINST MEDICAL ADVICE
== END 2017-07-21 22:30 | disposition left against medical advice (07) | DRG 713 ==
LOC: C.ER 16:50 → C.9E 22:04 → C.6T 22:54 → C.3T 07-16 12:59
PROVIDERS: ADMIT Hospitalist; ATTEND Hospitalist
DX: B20 Human immunodeficiency virus [HIV] disease (principal); J18.9 Pneumonia, unspecified organism; R04.2 Hemoptysis; D64.9 Anemia, unspecified; R19.7 Diarrhea, unspecified; F32.9 Major depressive disorder, single episode, unspecified; F41.9 Anxiety disorder, unspecified; L29.9 Pruritus, unspecified; Z59.0 Homelessness; Z88.1 Allergy status to other antibiotic agents; Z91.14 Patient's other noncompliance with medication regimen

== ENCOUNTER 2017-09-10 11:16 | Emergency (ER) | payer OTHER ==
[2017-09-10 11:16] VITALS: BMI 30.1
--- NOTE | 2017-09-10 13:21 | C.PDOC ---
History Of Present Illness 57 y/o M c PMHx HIV p/w headache x 2-3 days. has had similar headache 6 months ago. Reports associated lightheadedness intermittently and states he may have lost consciousness 2 days ago. Denies trauma, vomiting, chest pain, dyspnea , history of CHF, bleeding, palpitations. Denies fever, nausea, vomiting, abd pain. has not been on medication for month because his PMD is in [place]. Time Seen by Provider: 09/10/17 12:41 Chief Complaint (Nursing): Abdominal Pain Past Medical History Vital Signs: Last Vital Signs Temp 98.4 F 09/10/17 14:52 Pulse 93 H 09/10/17 14:52 Resp 16 09/10/17 14:52 BP 122/79 09/10/17 14:52 Pulse Ox 100 09/10/17 14:52 - Medical History PMH: Anxiety, Depression, HIV (STOPPED TAKING MEDS), Seizures Denies: Chronic Kidney Disease Family History: States: Unknown Family Hx - Social History Hx Tobacco Use: No Hx Alcohol Use: No Hx Substance Use: No - Immunization History Hx Tetanus Toxoid Vaccination: Yes Hx Influenza Vaccination: Yes Hx Pneumococcal Vaccination: No Review Of Systems Except As Marked, All Systems Reviewed And Found Negative. Respiratory: Negative for: Shortness of Breath Gastrointestinal: Negative for: Vomiting Physical Exam - Physical Exam Additional Physical Exam Comments: Gen: NAD Head: NC, AT. No sinus tenderness. Eyes: PERRL ENT: MMM Neck: No rigidity. No midline tenderness. CV: Tachycardic. Lungs: CTA b/l Abd: Soft, NT Back: No midline tenderness Ext: FROM x 4, no tenderness Neuro: AAOx3. ED Course And Treatment - Laboratory Results Result Diagrams: 09/10/17 13:48 09/10/17 13:48 O2 Sat by Pulse Oximetry: 97 Medical Decision Making Medical Decision Making: Plan: IVF, labs, CXR, Head CT. EKG NSR 85 bpm, no ST/T wave changes. HEAD CT IMPRESSION 1. No acute intracranial abnormality. 2. 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 3. Numerous small supratentorial parenchymal calcifications, sequela of remote infection. 3. Moderate ventricular dilatation out of proportion to the cortical sulcal prominence, which can be seen with normal pressure hydrocephalus. Clinical correlation and follow-up is advised. CXR IMPRESSION Interval decrease in of the small nodular type opacities in the right upper lobe demonstrated on prior study. No acute findings identified. [place] Syncope rules negative. Patient with no acute lab changes. Patient is agreeable with discharge, and I instructed patient to have primary care in this area because he appears to be in this area and not in [place] often and with his medical history, requires primary care at all times. Disposition - Disposition Referrals: [facility] [Outside] [facility] [Outside] Disposition: HOME/ ROUTINE Disposition Time: 15:00 Condition: STABLE Prescriptions: Acetaminophen [Tylenol 325mg tab] 2 tab PO Q4H #30 tab Instructions: Acute Headache (ED) Forms: [facility] (Spanish) - Clinical Impression Clinical Impression: Headache
[2017-09-10] MEDS ORDERED: Sodium Chloride 0.9% 1,000 ML IV STA (13:27)
[2017-09-10] MEDS ORDERED: Sodium Chloride 0.9% 1,000 ML ONE (13:34)
[2017-09-10 13:53] LABS: BASO # 0.1 K/uL (0.0-0.2); BASO % 2.1 % (0.0-2.0); EOS # 0.1 K/uL (0.0-0.7); EOS % 2.7 % (0.0-4.0); HEMOGLOBIN 14.2 g/dL (12.0-18.0); LYMPH # 1.5 K/uL (1.0-4.3); LYMPH % 38.6 % (20.0-40.0); MEAN CELL VOLUME 93.1 fL (80.0-94.0); MEAN CORPUSCULAR HGB CONC 34.4 g/dL (33.0-37.0); MEAN PLATELET VOLUME 8.8 fL (7.2-11.7); MONO # 0.4 K/uL (0.0-0.8); MONO % 8.9 % (0.0-10.0); NEUT # 1.9 K/uL (1.8-7.0); NEUT % 47.7 % (50.0-75.0); NRBC % 0.4 % (0.0-2.0); RBC 4.43 Mil/uL (4.40-5.90); RED CELL DISTRIBUTION WIDTH 13.8 % (11.5-14.5)
[2017-09-10 14:03] LABS: ALB/GLOB RATIO 0.9 (1.0-2.1); ALBUMIN 4.1 g/dL (3.5-5.0); ALT/SGPT 63 U/L (21-72); AST/SGOT 60 U/L (17-59); BLOOD UREA NITROGEN 18 mg/dL (9-20); CALCIUM 8.3 mg/dl (8.6-10.4); GFR AFRICAN-AMERICAN > 60; GFR NON-AFRICAN AMERICAN > 60
--- NOTE | 2017-09-10 14:19 | RAD ---
HISTORY: syncope COMPARISON: Chest x-ray performed 07/16/17 TECHNIQUE: Chest, one view. FINDINGS: LUNGS: No focal consolidation. Interval decrease in vague small nodular type opacities in the right upper lobe seen on prior study. Please note that chest x-ray has limited sensitivity for the detection of pulmonary masses. PLEURA: No significant pleural effusion identified. No definite pneumothorax . CARDIOVASCULAR: Heart size appears within normal limits. OSSEOUS STRUCTURES: No acute osseous abnormality identified. VISUALIZED UPPER ABDOMEN: Unremarkable. OTHER FINDINGS: None. IMPRESSION: Interval decrease in of the small nodular type opacities in the right upper lobe demonstrated on prior study. No acute findings identified.
--- NOTE | 2017-09-10 14:24 | CT ---
PROCEDURE: CT HEAD WITHOUT CONTRAST. HISTORY: Syncope and fall, headache COMPARISON: None available. TECHNIQUE: Axial computed tomography images were obtained through the head/brain without intravenous contrast. Radiation dose: Total exam DLP = 876.29 mGy-cm. This CT exam was performed using one or more of the following dose reduction techniques: Automated exposure control, adjustment of the mA and/or kV according to patient size, and/or use of iterative reconstruction technique. FINDINGS: HEMORRHAGE: No intracranial hemorrhage. BRAIN: There are numerous small scattered supratentorial parenchymal calcifications, the largest in the right frontal. There is no mass, mass effect or abnormal extra-axial fluid collection. There is an old infarction in the left basal ganglia. VENTRICLES: There is moderate dilatation of the lateral and 3rd ventricles. The 4th ventricle is normal in caliber. Ventricular dilatation is out of proportion to the sulcal prominence with CALVARIUM: The skull base and calvarium are normal. PARANASAL SINUSES: Predominantly clear. MASTOID AIR CELLS: Predominantly clear. OTHER FINDINGS: None. IMPRESSION: 1. No acute intracranial abnormality. 2. 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 3. Numerous small supratentorial parenchymal calcifications, sequela of remote infection. 3. Moderate ventricular dilatation out of proportion to the cortical sulcal prominence, which can be seen with normal pressure hydrocephalus. Clinical correlation and follow-up is advised.
[2017-09-10 14:27] LABS: SQUAMOUS EPITHIAL < 1 /hpf (0-5); URINE BACTERIA RARE (<OCC); URINE BILIRUBIN NEGATIVE (NEGATIVE); URINE BLOOD NEGATIVE (NEGATIVE); URINE CLARITY Hazy (Clear); URINE GLUCOSE (UA) NORMAL (Normal); URINE LEUKOCYTE ESTERASE NEG Leu/uL (Negative); URINE NITRATE NEGATIVE (NEGATIVE); URINE PROTEIN 2+ mg/dL (NEGATIVE)
[2017-09-10 14:29] LABS: URINE COLOR YELLOW (YELLOW)
[2017-09-10 14:53] VITALS: TEMP 98.4
[2017-09-10 15:49] VITALS: BP 127/87; PULSE 87; RESP 18; O2SAT 99
--- NOTE | 2017-09-13 12:25 | CARD ---
APPROVED REPORT EKG Measurement Heart [id number] <Conclusion> Normal sinus rhythm Normal ECG
== END 2017-09-10 15:55 | disposition home or self-care (01) ==
LOC: C.ER 11:16
DX: R51 Headache (principal); Z21 Asymptomatic human immunodeficiency virus [HIV] infection status; R56.9 Unspecified convulsions
CPT/HCPCS: 70450; 71045; 80053; 81001; 82550; 82553; 82948; 84484; 85025; 87086; 87181; 96360; 99285; J7040

== ENCOUNTER 2017-11-03 17:13 | Inpatient (IN) | payer MEDICAID, OTHER ==
[2017-11-03 17:14] VITALS: BMI 21.5
[2017-11-03] MEDS ORDERED: Divalproex 500 mg ER Tab PO STA (18:05)
[2017-11-03 18:12] LABS: BASO % 0.8 % (0.0-2.0); EOS # 0.2 K/uL (0.0-0.7); HEMOGLOBIN 12.1 g/dL (12.0-18.0); LYMPH # 1.6 K/uL (1.0-4.3); LYMPH % 38.8 % (20.0-40.0); MEAN CELL VOLUME 97.9 fL (80.0-94.0); MEAN CORPUSCULAR HEMOGLOBIN 32.8 pg (27.0-31.0); MEAN CORPUSCULAR HGB CONC 33.5 g/dL (33.0-37.0); MONO # 0.8 K/uL (0.0-0.8); MONO % 19.8 % (0.0-10.0); NEUT # 1.5 K/uL (1.8-7.0); NEUT % 35.6 % (50.0-75.0); NRBC % 0.2 % (0.0-2.0); RBC 3.69 Mil/uL (4.40-5.90); WHITE BLOOD COUNT 4.2 K/uL (4.8-10.8)
[2017-11-03] MEDS ORDERED: Divalproex 500 mg DR Tab PO ONE (18:13)
--- NOTE | 2017-11-03 18:21 | C.PDOC ---
History Of Present Illness 57 year old male with PMHx of seizures and HIV is brought to the ED from [facility] for evaluation of a witnessed seizure. Patient reports he is non compliant with his medications for HIV and seizures because he is not able to afford them. Patient is a poor historian. Time Seen by Provider: 11/03/17 17:46 Chief Complaint (Nursing): Seizure History Per: Patient History/Exam Limitations: no limitations Recent Seizure Activity Began: Just Before Arrival Number Of Seizures: One Length Of Seizures (Duration): Unknown Quality Of Seizure: Generalized Precipitating Factor(s): Missed Dose Of Anti-seizure Medication Associated Symptoms: Incontinence Of Stool Post-ictal Period: No Severity: None Recent travel outside of the [place]: No Additional History Per: EMS Past Medical History Reviewed: Historical Data, Nursing Documentation, Vital Signs Vital Signs: Last Vital Signs Temp 98.5 F 11/03/17 19:26 Pulse 71 11/03/17 19:26 Resp 18 11/03/17 19:26 BP 106/64 11/03/17 19:26 Pulse Ox 98 11/03/17 19:26 - Medical History PMH: Anxiety, Depression, HIV (STOPPED TAKING MEDS), Seizures Denies: Chronic Kidney Disease Surgical History: No Surg Hx Family History: States: Unknown Family Hx - Social History Hx Tobacco Use: No Hx Alcohol Use: No Hx Substance Use: No - Immunization History Hx Tetanus Toxoid Vaccination: Yes Hx Influenza Vaccination: Yes Hx Pneumococcal Vaccination: No Review Of Systems Constitutional: Negative for: Fever, Chills Cardiovascular: Negative for: Chest Pain Respiratory: Negative for: Shortness of Breath Gastrointestinal: Negative for: Vomiting, Abdominal Pain Skin: Negative for: Rash Neurological: Negative for: Weakness, Numbness, Headache, Dizziness Physical Exam - Physical Exam Appears: Non-toxic, No Acute Distress, Unkempt Skin: Normal Color, Warm, Dry Head: Atraumatic, Normacephalic Eye(s): bilateral: Normal Inspection Nose: No Discharge Oral Mucosa: Moist Neck: Normal ROM, Supple Chest: Symmetrical Cardiovascular: Rhythm Regular, No Murmur Respiratory: Normal Breath Sounds, No Rales, No Rhonchi, No Wheezing Gastrointestinal/Abdominal: Soft, No Tenderness, No Guarding, No Rebound Extremity: Normal ROM, No Tenderness, No Swelling Neurological/Psych: Oriented x3 Gait: Steady ED Course And Treatment - Laboratory Results Result Diagrams: 11/03/17 18:09 11/03/17 18:09 Lab Interpretation: Normal ECG: Interpreted By Me ECG Rhythm: Sinus Rhythm ECG Interpretation: Normal Rate From EC O2 Sat by Pulse Oximetry: 99 (On RA) Pulse Ox Interpretation: Normal - Radiology CXR: Interpreted by Me CXR Interpretation: Yes: No Acute Disease Reevaluation Time: 19:52 (normal gait, cooperative, pleasant) Reassessment Condition: Improved - Physician Consult Information Outcome Of Conversation: 1940: d/w Hospitalists- ok to admit wtih Dr Leonie Philip for Dr. Barbosa Medical Decision Making Medical Decision Making: Impression: seizure Plan: * EKG * Labs * CXR * UA * Depakote 500 mg PO persistent recurrent seizures, non-compliant with seizure meds (homeless, lives @ [facility] and no money or insight to purchase) d/w SW's as inpt for appropriate d/c underlying HIV and HIV meds prescribed but reluctant to restart in ED if inconsistently taken for risk of increased resistance. Disposition Doctor Will See Patient In The: Hospital Counseled Patient/Family Regarding: Studies Performed, Diagnosis - Disposition Disposition: HOSPITALIZED Disposition Time: 19:54 Condition: GOOD Forms: [facility] (Japanese) - Clinical Impression Clinical Impression: Seizure - Scribe Statement The provider has reviewed the documentation as recorded by the Scribe Josesito Schmidt All medical record entries made by the Scribe were at my direction and personally dictated by me. I have reviewed the chart and agree that the record accurately reflects my personal performance of the history, physical exam, medical decision making, and the department course for this patient. I have also personally directed, reviewed, and agree with the discharge instructions and disposition.
[2017-11-03 18:25] LABS: ALBUMIN 3.7 g/dL (3.5-5.0); ALT/SGPT 27 U/L (21-72); AST/SGOT 38 U/L (17-59); BLOOD UREA NITROGEN 12 mg/dL (9-20); CALCIUM 9.2 mg/dl (8.6-10.4); GFR AFRICAN-AMERICAN > 60; GFR NON-AFRICAN AMERICAN > 60
[2017-11-03 19:22] LABS: URINE BILIRUBIN NEGATIVE (NEGATIVE); URINE BLOOD NEGATIVE (NEGATIVE); URINE CLARITY Clear (Clear); URINE COLOR Colorless (YELLOW); URINE GLUCOSE (UA) NORMAL (Normal); URINE LEUKOCYTE ESTERASE NEG Leu/uL (Negative); URINE PROTEIN NEGATIVE (NEGATIVE); URINE UROBILINOGEN NORMAL mg/dL (0.2-1.0)
[2017-11-03 19:35] LABS: BARBITURATES, UR NEGATIVE (NEGATIVE); BENZODIAZEPINES, UR NEGATIVE (NEGATIVE); OPIATES, UR NEGATIVE (NEGATIVE); PHENCYCLIDINE, UR NEGATIVE (NEGATIVE)
--- NOTE | 2017-11-03 20:31 | CP.PCM.HP ---
<Pallavi Sahu - Last Filed: 11/03/17 23:20> History of Present Illness - History of Present Illness History of Present Illness: CC: Witnessed Seizure HPI: The history is obtained after review of the medical records as the patient was post ictal. This is a 57 years homeless male with past medical history of HIV/AIDS, Seizure and non compliance with medication. He was brought to the ED from [facility] following a witnessed seizure. Patient was recently discharged from [facility] on 10/24/17 due to a witnessed seizure and non- compliance of medication. Patient does not appear to be a reliable historian. Patient states he has not taken his HIV medication for a month and states he has not taken his seziure medication for 2 weeks because he did not have money to purchase. 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 Family History: significant for DM Medications: TRUVADA and TIVICAY; Depakote 500 mg BID Allergies: NKDA Present on Admission - Present on Admission Any Indicators Present on Admission: No Review of Systems - Review of Systems Systems not reviewed;Unavailable: Acuity of Condition (pos ictal) Past Patient History - Infectious Disease Hx of Infectious Diseases: None - Past Medical History & Family History Past Medical History?: Yes - Past Social History Smoking Status: Never Smoked - CARDIAC Hx Cardiac Disorders: No - PULMONARY Hx Respiratory Disorders: No - NEUROLOGICAL Hx Seizures: Yes - HEENT Hx HEENT Problems: No - RENAL Hx Chronic Kidney Disease: No - ENDOCRINE/METABOLIC Hx Endocrine Disorders: No - HEMATOLOGICAL/ONCOLOGICAL Hx Human Immunodeficiency Virus (HIV): Yes (STOPPED TAKING MEDS) - INTEGUMENTARY Hx Dermatological Problems: No - MUSCULOSKELETAL/RHEUMATOLOGICAL Hx Musculoskeletal Disorders: No Hx Falls: No - GASTROINTESTINAL Hx Gastrointestinal Disorders: No - GENITOURINARY/GYNECOLOGICAL Hx Genitourinary Disorders: No - PSYCHIATRIC Hx Anxiety: Yes Hx Depression: Yes Hx Substance Use: No - SURGICAL HISTORY Hx Surgeries: No - ANESTHESIA Hx Anesthesia: No Hx Anesthesia Reactions: No Meds Allergies/Adverse Reactions: Allergies Allergy/AdvReac Type Severity Reaction Status Date / Time No Known Allergies Allergy Verified 11/03/17 17:26 Physical Exam - Constitutional Appears: No Acute Distress, Confused - Head Exam Head Exam: ATRAUMATIC, NORMAL INSPECTION - Eye Exam Eye Exam: EOMI, Normal appearance, PERRL Pupil Exam: NORMAL ACCOMODATION - ENT Exam ENT Exam: Mucous Membranes Moist - Respiratory Exam Respiratory Exam: Clear to Auscultation Bilateral, NORMAL BREATHING PATTERN - Cardiovascular Exam Cardiovascular Exam: REGULAR RHYTHM, RRR, +S1, +S2 - GI/Abdominal Exam GI & Abdominal Exam: Normal Bowel Sounds, Soft. absent: Tenderness - Extremities Exam Extremities exam: Positive for: normal inspection. Negative for: pedal edema, tenderness - Neurological Exam Neurological exam: CN II-XII Intact Additional comments: Patient is confused; awake/oriented to self not to time; knows he is in a hospital but does not know location - Psychiatric Exam Psychiatric exam: Flat Affect - Skin Skin Exam: Dry, Intact, Normal Color Results - Vital Signs Recent Vital Signs: Last Vital Signs Temp 98.5 F 11/03/17 19:26 Pulse 71 11/03/17 19:26 Resp 18 11/03/17 19:26 BP 106/64 11/03/17 19:26 Pulse Ox 99 11/03/17 19:54 - Labs Result Diagrams: 11/03/17 18:09 11/03/17 18:09 Labs: Laboratory Results - last 24 hr 11/03/17 11/03/17 11/03/17 18:09 18:09 18:22 WBC 4.2 L RBC 3.69 L Hgb 12.1 D Hct 36.1 MCV 97.9 H D MCH 32.8 H MCHC 33.5 RDW 16.0 H Plt Count 184 MPV 9.0 Neut % (Auto) 35.6 L Lymph % (Auto) 38.8 [place] % (Auto) 19.8 H Eos % (Auto) 5.0 H Baso % (Auto) 0.8 Neut # (Auto) 1.5 L Lymph # (Auto) 1.6 [place] # (Auto) 0.8 Eos # (Auto) 0.2 Baso # (Auto) 0.0 Sodium 142 Potassium 3.9 Chloride 97 L Carbon Dioxide 29 Anion Gap 20 BUN 12 Creatinine 1.0 Est GFR ( Amer) > 60 Est GFR (Non-Af Amer) > 60 POC Glucose (mg/dL) 108 Random Glucose 98 Calcium 9.2 Total Bilirubin 0.4 AST 38 ALT 27 Alkaline Phosphatase 81 Total Creatine Kinase 125 Total Protein 7.6 Albumin 3.7 Globulin 3.9 Albumin/Globulin Ratio 1.0 Urine Color Urine Clarity Urine pH Ur Specific [place] Urine Protein Urine Glucose (UA) Urine Ketones Urine Blood Urine Nitrate Urine Bilirubin Urine Urobilinogen Ur Leukocyte Esterase Urine WBC (Auto) Urine Opiates Screen Urine Methadone Screen Ur Barbiturates Screen Ur Phencyclidine Scrn Ur Amphetamines Screen U Benzodiazepines Scrn U Oth Cocaine Metabols U Cannabinoids Screen Alcohol, Quantitative < 10 11/03/17 11/03/17 19:17 19:17 WBC RBC Hgb Hct MCV MCH MCHC RDW Plt Count MPV Neut % (Auto) Lymph % (Auto) [place] % (Auto) Eos % (Auto) Baso % (Auto) Neut # (Auto) Lymph # (Auto) [place] # (Auto) Eos # (Auto) Baso # (Auto) Sodium Potassium Chloride Carbon Dioxide Anion Gap BUN Creatinine Est GFR ( Amer) Est GFR (Non-Af Amer) POC Glucose (mg/dL) Random Glucose Calcium Total Bilirubin AST ALT Alkaline Phosphatase Total Creatine Kinase Total Protein Albumin Globulin Albumin/Globulin Ratio Urine Color Colorless Urine Clarity Clear Urine pH 6.0 Ur Specific [place] 1.005 Urine Protein Negative Urine Glucose (UA) Normal Urine Ketones Negative Urine Blood Negative Urine Nitrate Negative Urine Bilirubin Negative Urine Urobilinogen Normal Ur Leukocyte Esterase Neg Urine WBC (Auto) < 1 Urine Opiates Screen Negative Urine Methadone Screen Negative Ur Barbiturates Screen Negative Ur Phencyclidine Scrn Negative Ur Amphetamines Screen Negative U Benzodiazepines Scrn Negative U Oth Cocaine Metabols Negative U Cannabinoids Screen Negative Alcohol, Quantitative Assessment & Plan - Assessment and Plan (Free Text) Assessment: 1.) Status Epilepticus due to medication non-compliance - f/u valproic acid level - pending level to continue patient's medication of Depakote 500mg bid - Depakote 500mg given once in the ER - Keppra 500mg po given once in the ER - NS @100cc/hr 2. HIV - CD4 83 (07/10/17) --> CD4 227 (10/14/17) - f/u CD4 and viral load - ID Consult: Dr. 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 Multiple calcifications in the brain bilaterally, most tiny in size , too numerous to count. The main differential considerations given the appearance include infectious processes, such as neurocysticercosis or tuberculosis, in the healed/calcified nodular stage 4.) Prophylaxis - SCDs - Lovenox - Pepcid 20mg daily - Social Work consult --> help appreciated Case discussed with Dr. Familia Sahu PGY-1 <Dragan Barbosa - Last Filed: 11/04/17 06:45> Results - Vital Signs Recent Vital Signs: Last Vital Signs Temp 97.7 F 11/04/17 04:42 Pulse 67 11/04/17 04:42 Resp 20 11/04/17 04:42 BP 112/72 11/04/17 04:42 Pulse Ox 100 11/04/17 04:42 - Labs Result Diagrams: 11/04/17 06:08 11/04/17 06:08 Labs: Laboratory Results - last 24 hr 11/03/17 11/03/17 11/03/17 18:09 18:09 18:22 WBC 4.2 L RBC 3.69 L Hgb 12.1 D Hct 36.1 MCV 97.9 H D MCH 32.8 H MCHC 33.5 RDW 16.0 H Plt Count 184 MPV 9.0 Neut % (Auto) 35.6 L Lymph % (Auto) 38.8 [place] % (Auto) 19.8 H Eos % (Auto) 5.0 H Baso % (Auto) 0.8 Neut # (Auto) 1.5 L Lymph # (Auto) 1.6 [place] # (Auto) 0.8 Eos # (Auto) 0.2 Baso # (Auto) 0.0 Sodium 142 Potassium 3.9 Chloride 97 L Carbon Dioxide 29 Anion Gap 20 BUN 12 Creatinine 1.0 Est GFR ( Amer) > 60 Est GFR (Non-Af Amer) > 60 POC Glucose (mg/dL) 108 Random Glucose 98 Calcium 9.2 Phosphorus Magnesium Total Bilirubin 0.4 AST 38 ALT 27 Alkaline Phosphatase 81 Total Creatine Kinase 125 Total Protein 7.6 Albumin 3.7 Globulin 3.9 Albumin/Globulin Ratio 1.0 Urine Color Urine Clarity Urine pH Ur Specific [place] Urine Protein Urine Glucose (UA) Urine Ketones Urine Blood Urine Nitrate Urine Bilirubin Urine Urobilinogen Ur Leukocyte Esterase Urine WBC (Auto) Urine Opiates Screen Urine Methadone Screen Ur Barbiturates Screen Valproic Acid Ur Phencyclidine Scrn Ur Amphetamines Screen U Benzodiazepines Scrn U Oth Cocaine Metabols U Cannabinoids Screen Alcohol, Quantitative < 10 11/03/17 11/03/17 11/03/17 19:17 19:17 23:50 WBC RBC Hgb Hct MCV MCH MCHC RDW Plt Count MPV Neut % (Auto) Lymph % (Auto) [place] % (Auto) Eos % (Auto) Baso % (Auto) Neut # (Auto) Lymph # (Auto) [place] # (Auto) Eos # (Auto) Baso # (Auto) Sodium Potassium Chloride Carbon Dioxide Anion Gap BUN Creatinine Est GFR ( Amer) Est GFR (Non-Af Amer) POC Glucose (mg/dL) Random Glucose Calcium Phosphorus Magnesium Total Bilirubin AST ALT Alkaline Phosphatase Total Creatine Kinase Total Protein Albumin Globulin Albumin/Globulin Ratio Urine Color Colorless Urine Clarity Clear Urine pH 6.0 Ur Specific [place] 1.005 Urine Protein Negative Urine Glucose (UA) Normal Urine Ketones Negative Urine Blood Negative Urine Nitrate Negative Urine Bilirubin Negative Urine Urobilinogen Normal Ur Leukocyte Esterase Neg Urine WBC (Auto) < 1 Urine Opiates Screen Negative Urine Methadone Screen Negative Ur Barbiturates Screen Negative Valproic Acid 28.9 L Ur Phencyclidine Scrn Negative Ur Amphetamines Screen Negative U Benzodiazepines Scrn Negative U Oth Cocaine Metabols Negative U Cannabinoids Screen Negative Alcohol, Quantitative 11/04/17 11/04/17 06:08 06:08 WBC 4.9 RBC 3.84 L Hgb 12.8 Hct 37.9 MCV 98.7 H MCH 33.5 H MCHC 33.9 RDW 15.9 H Plt Count 183 MPV 8.6 Neut % (Auto) 31.8 L Lymph % (Auto) 43.4 H [place] % (Auto) 17.8 H Eos % (Auto) 5.7 H Baso % (Auto) 1.3 Neut # (Auto) 1.6 L Lymph # (Auto) 2.1 [place] # (Auto) 0.9 H Eos # (Auto) 0.3 Baso # (Auto) 0.1 Sodium 142 Potassium 4.2 Chloride 101 Carbon Dioxide 29 Anion Gap 16 BUN 12 Creatinine 1.0 Est GFR ( Amer) > 60 Est GFR (Non-Af Amer) > 60 POC Glucose (mg/dL) Random Glucose 83 Calcium 9.2 Phosphorus 4.5 Magnesium 1.6 Total Bilirubin 0.4 AST 37 ALT 23 Alkaline Phosphatase 64 Total Creatine Kinase Total Protein 7.2 Albumin 3.6 Globulin 3.6 Albumin/Globulin Ratio 1.0 Urine Color Urine Clarity Urine pH Ur Specific [place] Urine Protein Urine Glucose (UA) Urine Ketones Urine Blood Urine Nitrate Urine Bilirubin Urine Urobilinogen Ur Leukocyte Esterase Urine WBC (Auto) Urine Opiates Screen Urine Methadone Screen Ur Barbiturates Screen Valproic Acid Ur Phencyclidine Scrn Ur Amphetamines Screen U Benzodiazepines Scrn U Oth Cocaine Metabols U Cannabinoids Screen Alcohol, Quantitative Attending/Attestation - Attestation I have personally seen and examined this patient.: Yes I have fully participated in the care of the patient.: Yes I have reviewed all pertinent clinical information: Yes Notes (Text): Assessment * HIV/AIDS dementia, cerebral toxoplasmosis as clinical diagnosis, last CD4 277 * Non compliance with depakote and HIV meds since discharge from [place] * Homeless * Clinical dehydration Plan * Restart depakote * CD4 panel * Encourage po fluid, ivf * Social service * Counselled about compliance * GI/DVT prophylaxis * See orders for detail.
[2017-11-04] MEDS: Sodium Chloride 0.9% 1,000 ML IV SCH ×3 (01:34→14:15)
[2017-11-04 06:16] LABS: BASO # 0.1 K/uL (0.0-0.2); BASO % 1.3 % (0.0-2.0); EOS # 0.3 K/uL (0.0-0.7); EOS % 5.7 % (0.0-4.0); HEMOGLOBIN 12.8 g/dL (12.0-18.0); LYMPH # 2.1 K/uL (1.0-4.3); LYMPH % 43.4 % (20.0-40.0); MEAN CELL VOLUME 98.7 fL (80.0-94.0); MEAN CORPUSCULAR HEMOGLOBIN 33.5 pg (27.0-31.0); MEAN CORPUSCULAR HGB CONC 33.9 g/dL (33.0-37.0); MEAN PLATELET VOLUME 8.6 fL (7.2-11.7); MONO # 0.9 K/uL (0.0-0.8); MONO % 17.8 % (0.0-10.0); NEUT # 1.6 K/uL (1.8-7.0); NEUT % 31.8 % (50.0-75.0); NRBC % 0.1 % (0.0-2.0); RBC 3.84 Mil/uL (4.40-5.90); RED CELL DISTRIBUTION WIDTH 15.9 % (11.5-14.5); WHITE BLOOD COUNT 4.9 K/uL (4.8-10.8)
[2017-11-04 06:35] LABS: ALBUMIN 3.6 g/dL (3.5-5.0); ALT/SGPT 23 U/L (21-72); AST/SGOT 37 U/L (17-59); BLOOD UREA NITROGEN 12 mg/dL (9-20); CALCIUM 9.2 mg/dl (8.6-10.4); GFR AFRICAN-AMERICAN > 60; GFR NON-AFRICAN AMERICAN > 60
[2017-11-04 06:58] LABS: HEPATITIS B SURFACE AG Negative (NEGATIVE)
[2017-11-04 07:04] LABS: HEPATITIS A IGM NEGATIVE (NEGATIVE); HEPATITIS B CORE AB NEGATIVE (NEGATIVE)
[2017-11-04 07:15] LABS: HEPATITIS C ANTIBODY NEGATIVE (NEGATIVE)
[2017-11-04] MEDS: Divalproex 500 mg DR Tab PO SCH ×2 (10:07→17:51)
--- NOTE | 2017-11-04 10:45 | CP.PCM.CON ---
History of Present Illness - History of Present Illness History of Present Illness: 57 years homeless male with past medical history of HIV/AIDS, Seizure and non compliance with medication. He was brought to the ED from [facility] jail following a witnessed seizure. Patient was recently discharged from [facility] on 10/24/17 due to a witnessed seizure and non-compliance of medication. Patient does not appear to be a reliable historian. Patient states he has not taken his HIV medication for a month and states he has not taken his seziure medication for 2 weeks because he did not have money to purchase. 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 [employer] Family History: significant for DM Medications: TRUVADA and TIVICAY; Depakote 500 mg BID Allergies: NKDA Review of Systems - Review of Systems All systems: reviewed and no additional remarkable complaints except Past Patient History - Infectious Disease Hx of Infectious Diseases: None - Past Medical History & Family History Past Medical History?: Yes - Past Social History Smoking Status: Never Smoked - CARDIAC Hx Cardiac Disorders: No - PULMONARY Hx Respiratory Disorders: No - NEUROLOGICAL Hx Neurological Disorder: Yes Hx Seizures: Yes - HEENT Hx HEENT Problems: No - RENAL Hx Chronic Kidney Disease: No - ENDOCRINE/METABOLIC Hx Endocrine Disorders: No - HEMATOLOGICAL/ONCOLOGICAL Hx Blood Disorders: Yes Hx Human Immunodeficiency Virus (HIV): Yes (STOPPED TAKING MEDS) - INTEGUMENTARY Hx Dermatological Problems: No - MUSCULOSKELETAL/RHEUMATOLOGICAL Hx Musculoskeletal Disorders: No Hx Falls: Yes - GASTROINTESTINAL Hx Gastrointestinal Disorders: No - GENITOURINARY/GYNECOLOGICAL Hx Genitourinary Disorders: No - PSYCHIATRIC Hx Psychophysiologic Disorder: Yes Hx Anxiety: Yes Hx Depression: Yes Hx Substance Use: No - SURGICAL HISTORY Hx Surgeries: No - ANESTHESIA Hx Anesthesia: No Hx Anesthesia Reactions: No Meds Home Medications: Home Medication List Medication Instructions Recorded Confirmed Type Divalproex [Depakote DR(*BID*)] 500 mg PO BID #60 tcp 11/04/17 Rx Dolutegravir Sodium [Tivicay] 50 mg PO DAILY #30 tab 11/04/17 Rx Emtricitabine/Tenofovir Diso 1 tab PO DAILY #30 tab 11/04/17 Rx [Truvada 200 MG-300 MG] Escitalopram [Lexapro] 10 mg PO HS #30 tab 11/04/17 Rx Memantine [Namenda] 10 mg PO DAILY #30 tab 11/04/17 Rx Sulfamethoxazole/Trimethoprim 1 tab PO DAILY #30 tab 11/04/17 Rx [Bactrim DS Tab] Allergies/Adverse Reactions: Allergies Allergy/AdvReac Type Severity Reaction Status Date / Time No Known Allergies Allergy Verified 11/03/17 17:26 - Medications Medications: Current Medications Divalproex Sodium (Depakote Dr) 500 mg PO BID [facility] Last Admin: 11/04/17 10:07 Dose: 500 mg Famotidine (Pepcid) 20 mg PO DAILY [facility] Last Admin: 11/04/17 10:07 Dose: 20 mg Heparin Sodium (Porcine) (Heparin) 5,000 units SC Q8 [facility] Last Admin: 11/04/17 06:09 Dose: 5,000 units Sodium Chloride (Sodium Chloride 0.9%) 1,000 mls @ 100 mls/hr IV .Q10H [facility] Last Admin: 11/04/17 01:34 Dose: 100 mls/hr Pneumococcal Polyvalent Vaccine (Pneumovax 23 Vaccine) 0.5 ml IM .ONCE ONE Stop: 11/06/17 14:01 Physical Exam - Constitutional Appears: Confused, Chronically Ill - Head Exam Head Exam: ATRAUMATIC, NORMAL INSPECTION, NORMOCEPHALIC - Eye Exam Eye Exam: EOMI, PERRL. absent: Scleral icterus - ENT Exam ENT Exam: Mucous Membranes Dry, Normal External Ear Exam, Normal Oropharynx - Neck Exam Neck exam: Negative for: Lymphadenopathy - Respiratory Exam Respiratory Exam: Decreased Breath Sounds, Clear to Auscultation Bilateral - Cardiovascular Exam Cardiovascular Exam: REGULAR RHYTHM, +S1, +S2 - GI/Abdominal Exam GI & Abdominal Exam: Diminished Bowel Sounds, Soft. absent: Tenderness - Rectal Exam Rectal Exam: Deferred - Exam Exam: NORMAL INSPECTION - Extremities Exam Extremities exam: Negative for: calf tenderness, pedal edema - Back Exam Back exam: absent: CVA tenderness (L), CVA tenderness (R), paraspinal tenderness - Neurological Exam Neurological exam: Alert, Altered, CN II-XII Intact - Psychiatric Exam Psychiatric exam: Depressed - Skin Skin Exam: Dry Results - Vital Signs Recent Vital Signs: Last Vital Signs Temp 98.2 F 11/04/17 07:00 Pulse 71 11/04/17 07:00 Resp 20 11/04/17 07:00 BP 115/76 11/04/17 07:00 Pulse Ox 96 11/04/17 07:00 - Labs Result Diagrams: 11/04/17 06:08 11/04/17 06:08 Labs: Laboratory Results - last 24 hr 11/03/17 11/03/17 11/03/17 18:09 18:09 18:22 WBC 4.2 L RBC 3.69 L Hgb 12.1 D Hct 36.1 MCV 97.9 H D MCH 32.8 H MCHC 33.5 RDW 16.0 H Plt Count 184 MPV 9.0 Neut % (Auto) 35.6 L Lymph % (Auto) 38.8 [place] % (Auto) 19.8 H Eos % (Auto) 5.0 H Baso % (Auto) 0.8 Neut # (Auto) 1.5 L Lymph # (Auto) 1.6 [place] # (Auto) 0.8 Eos # (Auto) 0.2 Baso # (Auto) 0.0 Sodium 142 Potassium 3.9 Chloride 97 L Carbon Dioxide 29 Anion Gap 20 BUN 12 Creatinine 1.0 Est GFR ( Amer) > 60 Est GFR (Non-Af Amer) > 60 POC Glucose (mg/dL) 108 Random Glucose 98 Calcium 9.2 Phosphorus Magnesium Total Bilirubin 0.4 AST 38 ALT 27 Alkaline Phosphatase 81 Total Creatine Kinase 125 Total Protein 7.6 Albumin 3.7 Globulin 3.9 Albumin/Globulin Ratio 1.0 Urine Color Urine Clarity Urine pH Ur Specific [place] Urine Protein Urine Glucose (UA) Urine Ketones Urine Blood Urine Nitrate Urine Bilirubin Urine Urobilinogen Ur Leukocyte Esterase Urine WBC (Auto) Urine Opiates Screen Urine Methadone Screen Ur Barbiturates Screen Valproic Acid Ur Phencyclidine Scrn Ur Amphetamines Screen U Benzodiazepines Scrn U Oth Cocaine Metabols U Cannabinoids Screen Alcohol, Quantitative < 10 Hepatitis A IgM Ab Hep Bs Antigen Hep B Core IgM Ab Hepatitis C Antibody 11/03/17 11/03/17 11/03/17 19:17 19:17 23:50 WBC RBC Hgb Hct MCV MCH MCHC RDW Plt Count MPV Neut % (Auto) Lymph % (Auto) [place] % (Auto) Eos % (Auto) Baso % (Auto) Neut # (Auto) Lymph # (Auto) [place] # (Auto) Eos # (Auto) Baso # (Auto) Sodium Potassium Chloride Carbon Dioxide Anion Gap BUN Creatinine Est GFR ( Amer) Est GFR (Non-Af Amer) POC Glucose (mg/dL) Random Glucose Calcium Phosphorus Magnesium Total Bilirubin AST ALT Alkaline Phosphatase Total Creatine Kinase Total Protein Albumin Globulin Albumin/Globulin Ratio Urine Color Colorless Urine Clarity Clear Urine pH 6.0 Ur Specific [place] 1.005 Urine Protein Negative Urine Glucose (UA) Normal Urine Ketones Negative Urine Blood Negative Urine Nitrate Negative Urine Bilirubin Negative Urine Urobilinogen Normal Ur Leukocyte Esterase Neg Urine WBC (Auto) < 1 Urine Opiates Screen Negative Urine Methadone Screen Negative Ur Barbiturates Screen Negative Valproic Acid 28.9 L Ur Phencyclidine Scrn Negative Ur Amphetamines Screen Negative U Benzodiazepines Scrn Negative U Oth Cocaine Metabols Negative U Cannabinoids Screen Negative Alcohol, Quantitative Hepatitis A IgM Ab Hep Bs Antigen Hep B Core IgM Ab Hepatitis C Antibody 11/04/17 11/04/17 11/04/17 06:08 06:08 06:08 WBC 4.9 RBC 3.84 L Hgb 12.8 Hct 37.9 MCV 98.7 H MCH 33.5 H MCHC 33.9 RDW 15.9 H Plt Count 183 MPV 8.6 Neut % (Auto) 31.8 L Lymph % (Auto) 43.4 H [place] % (Auto) 17.8 H Eos % (Auto) 5.7 H Baso % (Auto) 1.3 Neut # (Auto) 1.6 L Lymph # (Auto) 2.1 [place] # (Auto) 0.9 H Eos # (Auto) 0.3 Baso # (Auto) 0.1 Sodium 142 Potassium 4.2 Chloride 101 Carbon Dioxide 29 Anion Gap 16 BUN 12 Creatinine 1.0 Est GFR ( Amer) > 60 Est GFR (Non-Af Amer) > 60 POC Glucose (mg/dL) Random Glucose 83 Calcium 9.2 Phosphorus 4.5 Magnesium 1.6 Total Bilirubin 0.4 AST 37 ALT 23 Alkaline Phosphatase 64 Total Creatine Kinase Total Protein 7.2 Albumin 3.6 Globulin 3.6 Albumin/Globulin Ratio 1.0 Urine Color Urine Clarity Urine pH Ur Specific [place] Urine Protein Urine Glucose (UA) Urine Ketones Urine Blood Urine Nitrate Urine Bilirubin Urine Urobilinogen Ur Leukocyte Esterase Urine WBC (Auto) Urine Opiates Screen Urine Methadone Screen Ur Barbiturates Screen Valproic Acid Ur Phencyclidine Scrn Ur Amphetamines Screen U Benzodiazepines Scrn U Oth Cocaine Metabols U Cannabinoids Screen Alcohol, Quantitative Hepatitis A IgM Ab Negative Hep Bs Antigen Negative Hep B Core IgM Ab Negative Hepatitis C Antibody Negative Assessment & Plan (1) Seizure Status: Acute (2) HIV disease Status: Acute - Assessment and Plan (Free Text) Assessment: seizures/ post ictal state - consider imaging to r/o WAISTLINE JOINER OVERLOCK infection vs mass , check t cells , restart HAART rx , Neuro eval
[2017-11-04] MEDS: Tmp-Smz 800 mg-160 mg DS Tab PO SCH ×2 (11:05→22:32)
--- NOTE | 2017-11-04 11:26 | CARD ---
APPROVED REPORT EKG Measurement Heart [id number] <Conclusion> Normal sinus rhythm Normal ECG
--- NOTE | 2017-11-04 11:36 | RAD ---
PROCEDURE: CHEST RADIOGRAPH, 1 VIEW HISTORY: Seizure COMPARISON: 09/10/2017 FINDINGS: LUNGS: Clear. PLEURA: No pneumothorax or pleural fluid seen. CARDIOVASCULAR: No radiographic findings to suggest acute or significant cardiovascular disease. OSSEOUS STRUCTURES: No significant abnormalities. VISUALIZED UPPER ABDOMEN: Normal. OTHER FINDINGS: None. IMPRESSION: No active disease. No acute/significant interval changes.
--- NOTE | 2017-11-04 14:56 | CP.PCM.CON ---
History of Present Illness - History of Present Illness History of Present Illness: 57 yr old male, homeless, well known to our service, with pmh of HIV/AIDS, low CD4 count, brought from [facility], who had a seizure before coming in to the hospital. Patient was recently discharged from [facility] on due to a witnessed seizure and non-compliance of medication to all meds. He says that this is due to financial reasons. 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 Past Patient History - Infectious Disease Hx of Infectious Diseases: None - Past Medical History & Family History Past Medical History?: Yes - Past Social History Smoking Status: Never Smoked - CARDIAC Hx Cardiac Disorders: No - PULMONARY Hx Respiratory Disorders: No - NEUROLOGICAL Hx Neurological Disorder: Yes Hx Seizures: Yes - HEENT Hx HEENT Problems: No - RENAL Hx Chronic Kidney Disease: No - ENDOCRINE/METABOLIC Hx Endocrine Disorders: No - HEMATOLOGICAL/ONCOLOGICAL Hx Blood Disorders: Yes Hx Human Immunodeficiency Virus (HIV): Yes (STOPPED TAKING MEDS) - INTEGUMENTARY Hx Dermatological Problems: No - MUSCULOSKELETAL/RHEUMATOLOGICAL Hx Musculoskeletal Disorders: No Hx Falls: Yes - GASTROINTESTINAL Hx Gastrointestinal Disorders: No - GENITOURINARY/GYNECOLOGICAL Hx Genitourinary Disorders: No - PSYCHIATRIC Hx Psychophysiologic Disorder: Yes Hx Anxiety: Yes Hx Depression: Yes Hx Substance Use: No - SURGICAL HISTORY Hx Surgeries: No - ANESTHESIA Hx Anesthesia: No Hx Anesthesia Reactions: No Meds Home Medications: Home Medication List Medication Instructions Recorded Confirmed Type Divalproex [Depakote DR(*BID*)] 500 mg PO BID #60 tcp 11/04/17 Rx Dolutegravir Sodium [Tivicay] 50 mg PO DAILY #30 tab 11/04/17 Rx Emtricitabine/Tenofovir Diso 1 tab PO DAILY #30 tab 11/04/17 Rx [Truvada 200 MG-300 MG] Escitalopram [Lexapro] 10 mg PO HS #30 tab 11/04/17 Rx Memantine [Namenda] 10 mg PO DAILY #30 tab 11/04/17 Rx Sulfamethoxazole/Trimethoprim 1 tab PO DAILY #30 tab 11/04/17 Rx [Bactrim DS Tab] Allergies/Adverse Reactions: Allergies Allergy/AdvReac Type Severity Reaction Status Date / Time No Known Allergies Allergy Verified 11/03/17 17:26 - Medications Medications: Current Medications Divalproex Sodium (Depakote Dr) 500 mg PO BID [facility] Last Admin: 11/04/17 10:07 Dose: 500 mg Famotidine (Pepcid) 20 mg PO DAILY [facility] Last Admin: 11/04/17 10:07 Dose: 20 mg Heparin Sodium (Porcine) (Heparin) 5,000 units SC Q8 [facility] Last Admin: 11/04/17 13:08 Dose: 5,000 units Sodium Chloride (Sodium Chloride 0.9%) 1,000 mls @ 100 mls/hr IV .Q10H [facility] Last Admin: 11/04/17 14:15 Dose: 100 mls/hr Pneumococcal Polyvalent Vaccine (Pneumovax 23 Vaccine) 0.5 ml IM .ONCE ONE Stop: 11/06/17 14:01 Trimethoprim/Sulfamethoxazole (Bactrim Ds Tab) 1 tab PO Q12H [facility] PRN Reason: Protocol Last Admin: 11/04/17 11:05 Dose: 1 tab Results - Vital Signs Recent Vital Signs: Last Vital Signs Temp 98.2 F 11/04/17 07:00 Pulse 71 11/04/17 07:00 Resp 20 11/04/17 07:00 BP 115/76 11/04/17 07:00 Pulse Ox 96 11/04/17 07:00 - Labs Result Diagrams: 11/04/17 06:08 11/04/17 06:08 Labs: Laboratory Results - last 24 hr 11/03/17 11/03/17 11/03/17 18:09 18:09 18:22 WBC 4.2 L RBC 3.69 L Hgb 12.1 D Hct 36.1 MCV 97.9 H D MCH 32.8 H MCHC 33.5 RDW 16.0 H Plt Count 184 MPV 9.0 Neut % (Auto) 35.6 L Lymph % (Auto) 38.8 [place] % (Auto) 19.8 H Eos % (Auto) 5.0 H Baso % (Auto) 0.8 Neut # (Auto) 1.5 L Lymph # (Auto) 1.6 [place] # (Auto) 0.8 Eos # (Auto) 0.2 Baso # (Auto) 0.0 Sodium 142 Potassium 3.9 Chloride 97 L Carbon Dioxide 29 Anion Gap 20 BUN 12 Creatinine 1.0 Est GFR ( Amer) > 60 Est GFR (Non-Af Amer) > 60 POC Glucose (mg/dL) 108 Random Glucose 98 Calcium 9.2 Phosphorus Magnesium Total Bilirubin 0.4 AST 38 ALT 27 Alkaline Phosphatase 81 Total Creatine Kinase 125 Total Protein 7.6 Albumin 3.7 Globulin 3.9 Albumin/Globulin Ratio 1.0 Urine Color Urine Clarity Urine pH Ur Specific [place] Urine Protein Urine Glucose (UA) Urine Ketones Urine Blood Urine Nitrate Urine Bilirubin Urine Urobilinogen Ur Leukocyte Esterase Urine WBC (Auto) Urine Opiates Screen Urine Methadone Screen Ur Barbiturates Screen Valproic Acid Ur Phencyclidine Scrn Ur Amphetamines Screen U Benzodiazepines Scrn U Oth Cocaine Metabols U Cannabinoids Screen Alcohol, Quantitative < 10 Hepatitis A IgM Ab Hep Bs Antigen Hep B Core IgM Ab Hepatitis C Antibody 11/03/17 11/03/17 11/03/17 19:17 19:17 23:50 WBC RBC Hgb Hct MCV MCH MCHC RDW Plt Count MPV Neut % (Auto) Lymph % (Auto) [place] % (Auto) Eos % (Auto) Baso % (Auto) Neut # (Auto) Lymph # (Auto) [place] # (Auto) Eos # (Auto) Baso # (Auto) Sodium Potassium Chloride Carbon Dioxide Anion Gap BUN Creatinine Est GFR ( Amer) Est GFR (Non-Af Amer) POC Glucose (mg/dL) Random Glucose Calcium Phosphorus Magnesium Total Bilirubin AST ALT Alkaline Phosphatase Total Creatine Kinase Total Protein Albumin Globulin Albumin/Globulin Ratio Urine Color Colorless Urine Clarity Clear Urine pH 6.0 Ur Specific [place] 1.005 Urine Protein Negative Urine Glucose (UA) Normal Urine Ketones Negative Urine Blood Negative Urine Nitrate Negative Urine Bilirubin Negative Urine Urobilinogen Normal Ur Leukocyte Esterase Neg Urine WBC (Auto) < 1 Urine Opiates Screen Negative Urine Methadone Screen Negative Ur Barbiturates Screen Negative Valproic Acid 28.9 L Ur Phencyclidine Scrn Negative Ur Amphetamines Screen Negative U Benzodiazepines Scrn Negative U Oth Cocaine Metabols Negative U Cannabinoids Screen Negative Alcohol, Quantitative Hepatitis A IgM Ab Hep Bs Antigen Hep B Core IgM Ab Hepatitis C Antibody 11/04/17 11/04/1711/04/18 06:08 06:08 06:08 WBC 4.9 RBC 3.84 L Hgb 12.8 Hct 37.9 MCV 98.7 H MCH 33.5 H MCHC 33.9 RDW 15.9 H Plt Count 183 MPV 8.6 Neut % (Auto) 31.8 L Lymph % (Auto) 43.4 H [place] % (Auto) 17.8 H Eos % (Auto) 5.7 H Baso % (Auto) 1.3 Neut # (Auto) 1.6 L Lymph # (Auto) 2.1 [place] # (Auto) 0.9 H Eos # (Auto) 0.3 Baso # (Auto) 0.1 Sodium 142 Potassium 4.2 Chloride 101 Carbon Dioxide 29 Anion Gap 16 BUN 12 Creatinine 1.0 Est GFR ( Amer) > 60 Est GFR (Non-Af Amer) > 60 POC Glucose (mg/dL) Random Glucose 83 Calcium 9.2 Phosphorus 4.5 Magnesium 1.6 Total Bilirubin 0.4 AST 37 ALT 23 Alkaline Phosphatase 64 Total Creatine Kinase Total Protein 7.2 Albumin 3.6 Globulin 3.6 Albumin/Globulin Ratio 1.0 Urine Color Urine Clarity Urine pH Ur Specific [place] Urine Protein Urine Glucose (UA) Urine Ketones Urine Blood Urine Nitrate Urine Bilirubin Urine Urobilinogen Ur Leukocyte Esterase Urine WBC (Auto) Urine Opiates Screen Urine Methadone Screen Ur Barbiturates Screen Valproic Acid Ur Phencyclidine Scrn Ur Amphetamines Screen U Benzodiazepines Scrn U Oth Cocaine Metabols U Cannabinoids Screen Alcohol, Quantitative Hepatitis A IgM Ab Negative Hep Bs Antigen Negative Hep B Core IgM Ab Negative Hepatitis C Antibody Negative Assessment & Plan - Assessment and Plan (Free Text) Assessment: 57 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 I will discharge him on depakote.
--- NOTE | 2017-11-04 16:09 | CP.PCM.PN ---
Addendum entered and electronically signed by Samir Varela DO 11/04/17 18:33 : Patient's home HARRT therapy found from previous admission at [facility]: Started on Tivicay 50 mg PO daily Started on Truvada 200-300 mg PO daily Restarted medications for hx of AIDS dementia: Lexapro 10 mg PO HS Namedna 10 mg PO daily Original Note: <Samir Varela - Last Filed: 11/04/17 17:31> Subjective - Date & Time of Evaluation Date of Evaluation: 11/04/17 Time of Evaluation: 08:02 - Subjective Subjective: PGY1 Medicine Note for Dr. Leonie Philip Patient seen and examined this morning at bedside. Patient was admitted overnight for a witnessed seizure. Patient is answering questions but is very slow in answering questions. He is alert and oriented to self but not time or place. Patient's baseline is unknown by resident Avery but with history of AIDS dementia, known seizure disorder and hx of medication non-compliance, this may be his baseline. Patient states he has no complaints at this time. Denies fevers , chills, nausea, vomiting, diarrhea, constipation, chest pain, shortness of breath, abdominal pain, numbness, tingling, blurry vision or headaches. Objective - Vital Signs/Intake and Output Vital Signs (last 24 hours): Temp Pulse Resp BP Pulse Ox 98.2 F 71 20 115/76 96 11/04/17 07:00 11/04/17 07:00 11/04/17 07:00 11/04/17 07:00 11/04/17 07:00 Intake and Output: 11/04/17 11/04/17 06:59 18:59 Intake Total 650 2360 Output Total 1550 Balance -900 2360 - Medications Medications: Current Medications Divalproex Sodium (Depakote Dr) 500 mg PO BID [facility] Last Admin: 11/04/17 10:07 Dose: 500 mg Famotidine (Pepcid) 20 mg PO DAILY [facility] Last Admin: 11/04/17 10:07 Dose: 20 mg Heparin Sodium (Porcine) (Heparin) 5,000 units SC Q8 [facility] Last Admin: 11/04/17 13:08 Dose: 5,000 units Sodium Chloride (Sodium Chloride 0.9%) 1,000 mls @ 100 mls/hr IV .Q10H [facility] Last Admin: 11/04/17 14:15 Dose: 100 mls/hr Pneumococcal Polyvalent Vaccine (Pneumovax 23 Vaccine) 0.5 ml IM .ONCE ONE Stop: 11/06/17 14:01 Trimethoprim/Sulfamethoxazole (Bactrim Ds Tab) 1 tab PO Q12H [facility] PRN Reason: Protocol Last Admin: 11/04/17 11:05 Dose: 1 tab - Labs Labs: 11/04/17 06:08 11/04/17 06:08 - Constitutional Appears: Non-toxic, No Acute Distress - Head Exam Head Exam: ATRAUMATIC, NORMOCEPHALIC - Eye Exam Eye Exam: EOMI, Normal appearance. absent: Nystagmus, Scleral icterus Pupil Exam: NORMAL ACCOMODATION, PERRL - ENT Exam ENT Exam: Mucous Membranes Moist - Respiratory Exam Respiratory Exam: Clear to Ausculation Bilateral, NORMAL BREATHING PATTERN. absent: Accessory Muscle Use, Rales, Rhonchi, Wheezes, Respiratory Distress - Cardiovascular Exam Cardiovascular Exam: REGULAR RHYTHM, +S1, +S2 - GI/Abdominal Exam GI & Abdominal Exam: Soft, Normal Bowel Sounds. absent: Firm, Guarding, Rigid - Extremities Exam Extremities Exam: absent: Calf Tenderness, Pedal Edema - Neurological Exam Neurological Exam: Alert, Awake, CN II-XII Intact. absent: Oriented x3 ( oriented to self but no time or place. He knew he was not at home but could not state where he was at.) Neuro motor strength exam: Left Upper Extremity: 5, Right Upper Extremity: 5, Left Lower Extremity: 5, Right Lower Extremity: 5 Additional comments: Speech and all movement are slowed. Patient is able to follow simple commands. 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 Wills, help appreciated - Upon discharge, patient to be discharged on Depakote - Valproic acid level - 28.9 - restart patient's medication of Depakote 500mg bid - NS @100cc/hr HIV/AIDS - ID Consult: Dr. Mays, help appreciated - CD4 83 (07/10/17) --> CD4 227 (10/14/17) - f/u CD4 and viral load - Hep Panel - negative - Restarted patient's Efavirenz/Emtricitabine/Tenofovir (Atripla 600 Mg-200 Mg- 300 Mg) 1 tab PO DAILY [facility] - Bactrim DS 1 tab PO q12h - Prophylactic for PCP History of AIDS dementia on previous [facility] admission - Head CT (10/14/17): - Findings suspicious for mild hydrocephalus, cause not identified. Multiple calcifications in the brain bilaterally, most tiny in size , too numerous to count. The main differential considerations given the appearance include infectious processes, such as neurocysticercosis or tuberculosis, in the healed/calcified nodular stage Prophylaxis - SCDs - Heparin 5,000u SC q8h - Pepcid 20mg daily - Social Work consult --> help appreciated DISPO: Social work was some how able to locate and contact the patient's daughter. She came from [place] in search of her father but had been unable to find him until today. Upon the reunion, the patient and his daughter both began to cry upon seeing each other. It was determined that the patient could not be discharged today as he is currently homeless living at [facility]. He stated that he had been unable to afford his medications due to financial stress. Social work is attempting to get patient a spot at [facility] located in [place], [place]. Hopefully discharge patient to [facility] tomorrow. Case discussed with Dr. Leonie Dawson Avery PGY1 <Salinas Philip - Last Filed: 11/04/17 20:17> Objective - Vital Signs/Intake and Output Vital Signs (last 24 hours): Temp Pulse Resp BP Pulse Ox 98.5 F 71 20 121/77 98 11/04/17 16:00 11/04/17 16:00 11/04/17 16:00 11/04/17 16:00 11/04/17 16:00 Intake and Output: 11/04/17 11/05/17 18:59 06:59 Intake Total 2360 Balance 2360 - Medications Medications: Current Medications Divalproex Sodium (Depakote ) 500 mg PO BID [facility] Last Admin: 11/04/17 17:51 Dose: 500 mg Dolutegravir Sodium (Tivicay) 50 mg PO DAILY [facility] PRN Reason: Protocol Emtricitabine/Tenofovir (Truvada 200 Mg-300 Mg) 1 tab PO DAILY [facility] PRN Reason: Protocol Escitalopram Oxalate (Lexapro) 10 mg PO HS [facility] Famotidine (Pepcid) 20 mg PO DAILY [facility] Last Admin: 11/04/17 10:07 Dose: 20 mg Heparin Sodium (Porcine) (Heparin) 5,000 units SC Q8 [facility] Last Admin: 11/04/17 13:08 Dose: 5,000 units Memantine (Namenda) 10 mg PO DAILY [facility] Pneumococcal Polyvalent Vaccine (Pneumovax 23 Vaccine) 0.5 ml IM .ONCE ONE Stop: 11/06/17 14:01 Trimethoprim/Sulfamethoxazole (Bactrim Ds Tab) 1 tab PO Q12H [facility] PRN Reason: Protocol Last Admin: 11/04/17 11:05 Dose: 1 tab - Labs Labs: 11/04/17 06:08 11/04/17 06:08 Attending/Attestation - Attestation I have personally seen and examined this patient.: Yes I have fully participated in the care of the patient.: Yes I have reviewed all pertinent clinical information, including history, physical exam and plan: Yes Notes (Text): 11/04/17 20:14 Patient was seen and examined 9:15 AM 664 B Exam, assessment and plan were gone over with the resident. Spoke with Airdox Fitter Keiko about the possibility of arranging for care of this patient at [facility] in [place], [place] as I believe that this is the best option for him to assure that he will take the medications for his HIV/AIDS and Seizures. Keiko has contacted [facility] and we are awaiting acceptance. Spoke with ID Dr. Mays and he is in agreement with treatment with Tivicay and Truvada and Bactrim. Spoke with Neurologist Dr. Wills and she is in agreement with Depakote. Salinas Philip D.O.
[2017-11-04] MEDS ORDERED: Efavirenz/Emtricitabine/Teno 1 TAB PO SCH (16:30)
[2017-11-05 06:14] LABS: BASO % 0.6 % (0.0-2.0); EOS # 0.3 K/uL (0.0-0.7); EOS % 7.8 % (0.0-4.0); LYMPH # 1.6 K/uL (1.0-4.3); LYMPH % 39.9 % (20.0-40.0); MEAN CELL VOLUME 97.9 fL (80.0-94.0); MEAN CORPUSCULAR HEMOGLOBIN 33.3 pg (27.0-31.0); MEAN PLATELET VOLUME 8.5 fL (7.2-11.7); MONO # 0.7 K/uL (0.0-0.8); MONO % 16.3 % (0.0-10.0); NEUT # 1.4 K/uL (1.8-7.0); NEUT % 35.4 % (50.0-75.0); NRBC % 0.1 % (0.0-2.0); RBC 3.9 Mil/uL (4.40-5.90); RED CELL DISTRIBUTION WIDTH 15.8 % (11.5-14.5); WHITE BLOOD COUNT 4.1 K/uL (4.8-10.8)
--- NOTE | 2017-11-05 07:20 | CP.PCM.PN ---
Subjective - Date & Time of Evaluation Date of Evaluation: 11/05/17 Time of Evaluation: 07:17 - Subjective Subjective: Mr. Grey was seen and examined at the bedside. He is alert, oriented, speaks mainly [place]. Staff was employed to interpret. He denies any headache, dizziness, lightheadedness, blurred vision, diplopia, nause, or vomiting. He is able to follow simple commands. Patient was re-admitted in [facility] couple times due to seizures, medication procurement was arranged for the patient to slat pickler his medication regularly in [facility]. There was no untoward events overnight. Objective - Vital Signs/Intake and Output Vital Signs (last 24 hours): Temp Pulse Resp BP Pulse Ox 98.3 F 80 20 104/64 96 11/05/17 04:10 11/04/17 23:15 11/04/17 23:15 11/04/17 23:15 11/04/17 23:15 Intake and Output: 11/05/17 11/05/17 06:59 18:59 Intake Total 920 Output Total 1200 Balance -280 - Medications Medications: Current Medications Divalproex Sodium (Depakote Dr) 500 mg PO BID [facility] Last Admin: 11/04/17 17:51 Dose: 500 mg Dolutegravir Sodium (Tivicay) 50 mg PO DAILY [facility] PRN Reason: Protocol Emtricitabine/Tenofovir (Truvada 200 Mg-300 Mg) 1 tab PO DAILY [facility] PRN Reason: Protocol Escitalopram Oxalate (Lexapro) 10 mg PO HS [facility] Last Admin: 11/04/17 22:33 Dose: 10 mg Famotidine (Pepcid) 20 mg PO DAILY [facility] Last Admin: 11/04/17 10:07 Dose: 20 mg Heparin Sodium (Porcine) (Heparin) 5,000 units SC Q8 [facility] Last Admin: 11/05/17 06:00 Dose: 5,000 units Memantine (Namenda) 10 mg PO DAILY [facility] Pneumococcal Polyvalent Vaccine (Pneumovax 23 Vaccine) 0.5 ml IM .ONCE ONE Stop: 11/06/17 14:01 Trimethoprim/Sulfamethoxazole (Bactrim Ds Tab) 1 tab PO Q12H [facility] PRN Reason: Protocol Last Admin: 11/04/17 22:32 Dose: 1 tab - Labs Labs: 11/05/17 06:03 04/03/18 06:08 - Constitutional Appears: No Acute Distress - Head Exam Head Exam: NORMAL INSPECTION - Neurological Exam Neurological Exam: Alert, Awake Neuro motor strength exam: Left Upper Extremity: 5, Right Upper Extremity: 5, Left Lower Extremity: 5, Right Lower Extremity: 5 Additional comments: He is alert, oriented, follows simple commands. Sensation is intact. Assessment and Plan (1) Seizure Assessment & Plan: Case discussed with Dr. Wills, continue all current medical regimen. Recommend valproic level and liver enzymes. Recommend case management or social media manager to follow up with [facility] regarding his medication arrangement in [facility]. If no seizures and valproic level and liver enzymes within normal limits, may discharge to snf. Status: Acute
[2017-11-05 09:13] LABS: ALBUMIN 3.8 g/dL (3.5-5.0); ALT/SGPT 26 U/L (21-72); AST/SGOT 44 U/L (17-59); BLOOD UREA NITROGEN 16 mg/dL (9-20); CALCIUM 9.1 mg/dl (8.6-10.4); GFR AFRICAN-AMERICAN > 60; GFR NON-AFRICAN AMERICAN > 60
[2017-11-05] MEDS: Divalproex 500 mg DR Tab PO SCH ×2 (09:30→17:30)
[2017-11-05] MEDS: Emtricitabine-Tenofovir 200 mg-300 mg Tab PO SCH (09:30)
[2017-11-05] MEDS: Tmp-Smz 800 mg-160 mg DS Tab PO SCH (10:50)
[2017-11-05 11:33] LABS: % CD4 (T HELPER CELL) 13 Percent (30-61); % CD8 (SUPPRESSOR T CELL) 47 Percent (12-42); ABSOLUTE CD4 CELLS 215 Cells/mcL (490-1740); ABSOLUTE CD8 CELLS 755 Cells/mcL (180-1170); ABSOLUTE LYMPHOCYTES 1619 Cells/mcL (850-3900); HELPER/SUPPRESSOR RATIO 0.28 Ratio (0.86-5.00)
[2017-11-05 17:12] LABS: ALB/GLOB RATIO 0.9 (1.0-2.1); ALBUMIN 3.9 g/dL (3.5-5.0); BILIRUBIN,DIRECT 0.4 mg/dL (0.0-0.4)
--- NOTE | 2017-11-05 17:15 | CP.PCM.PN ---
<Samir Varela - Last Filed: 11/05/17 17:11> Subjective - Date & Time of Evaluation Date of Evaluation: 11/05/17 Time of Evaluation: 07:11 - Subjective Subjective: PGY1 Medicine Note for Dr. Leonie Philip Patient was seen and examined this morning at bedside. Patient is very slow to respond. His movements are delayed. Patient is smiling but appears to stare off into nothing multiple times throughout the encounter. Patient denies any complaints but true ROS unattainable. Objective - Vital Signs/Intake and Output Vital Signs (last 24 hours): Temp Pulse Resp BP Pulse Ox 98.5 F 83 20 110/69 97 11/05/17 16:00 11/05/17 16:00 11/05/17 16:00 11/05/17 16:00 11/05/17 16:00 Intake and Output: 11/05/17 11/05/17 06:59 18:59 Intake Total 920 Output Total 1200 Balance -280 - Medications Medications: Current Medications Divalproex Sodium (Depakote Dr) 500 mg PO BID [facility] Last Admin: 11/05/17 09:30 Dose: 500 mg Dolutegravir Sodium (Tivicay) 50 mg PO DAILY [facility] PRN Reason: Protocol Last Admin: 11/05/17 09:29 Dose: 50 mg Emtricitabine/Tenofovir (Truvada 200 Mg-300 Mg) 1 tab PO DAILY [facility] PRN Reason: Protocol Last Admin: 11/05/17 09:30 Dose: 1 tab Escitalopram Oxalate (Lexapro) 10 mg PO HS [facility] Last Admin: 11/04/17 22:33 Dose: 10 mg Famotidine (Pepcid) 20 mg PO DAILY [facility] Last Admin: 11/05/17 09:30 Dose: 20 mg Heparin Sodium (Porcine) (Heparin) 5,000 units SC Q8 [facility] Last Admin: 11/05/17 13:33 Dose: 5,000 units Memantine (Namenda) 10 mg PO DAILY [facility] Last Admin: 11/05/17 09:30 Dose: 10 mg Pneumococcal Polyvalent Vaccine (Pneumovax 23 Vaccine) 0.5 ml IM .ONCE ONE Stop: 11/06/17 14:01 - Labs Labs: 11/05/17 06:03 11/05/17 06:03 - Constitutional Appears: Non-toxic, No Acute Distress - Head Exam Head Exam: ATRAUMATIC, NORMOCEPHALIC - Eye Exam Eye Exam: EOMI, Normal appearance. absent: Scleral icterus Pupil Exam: NORMAL ACCOMODATION, PERRL - ENT Exam ENT Exam: Mucous Membranes Moist - Respiratory Exam Respiratory Exam: Clear to Ausculation Bilateral, NORMAL BREATHING PATTERN. absent: Accessory Muscle Use, Rales, Rhonchi, Wheezes, Respiratory Distress - Cardiovascular Exam Cardiovascular Exam: REGULAR RHYTHM, +S1, +S2 - GI/Abdominal Exam GI & Abdominal Exam: Soft, Normal Bowel Sounds. absent: Distended, Firm, Guarding, Rigid, Tenderness - Extremities Exam Extremities Exam: absent: Calf Tenderness, Pedal Edema - Neurological Exam Neurological Exam: Alert, Awake, CN II-XII Intact. absent: Oriented x3 ( oriented to self but no time or place. He knew he was not at home but could not state where he was at.) Neuro motor strength exam: Left Upper Extremity: 5, Right Upper Extremity: 5, Left Lower Extremity: 5, Right Lower Extremity: 5 Additional comments: Speech and all movement are slowed. Patient is very delayed in attempting to follow simple commands. His attention span is very short and patient stares into nothing at multiple times throughout questioning. 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 Wills, help appreciated - Upon discharge, patient to be discharged on Depakote - Valproic acid level - 52.7 (4/4), 28.9 (4/2) - restart patient's medication of Depakote 500mg bid - NS @100cc/hr HIV/AIDS - ID Consult: Dr. 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 Multiple calcifications in the brain bilaterally, most tiny in size , too numerous to count. The main differential considerations given the appearance include infectious processes, such as neurocysticercosis or tuberculosis, in the healed/calcified nodular stage - Lexapro 10 mg PO HS - Namedna 10 mg PO daily Prophylaxis - SCDs - Heparin 5,000u SC q8h - Pepcid 20mg daily - Social Work consult --> help appreciated DISPO: Per Customer Service Advocate, the patient was denied admission to [facility]. Patient's daughter is coming to hospital today to bring in patient's paper work. He has a Green Card per daughter. He used to have health insurance down in [place]. SW is working with the daughter and the patient's sister (who lives in [place]) to set up care at a shelter. They are going to determine if the patient's health insurance is still valid in [place], and if so, possible transfer patient to [place]. The patient's sister has agreed to drive up and take the patient to a shelter back in [place] but she does not want to be the sole provider for him. The patient is unable to care for himself any longer due to progression of his HIV/AIDS dementia. Patient unable to be discharged to street due to his current mental status. Case discussed with Dr. Leonie Varela PGY1 <Salinas Philip - Last Filed: 11/05/17 18:04> Objective - Vital Signs/Intake and Output Vital Signs (last 24 hours): Temp Pulse Resp BP Pulse Ox 98.5 F 83 20 110/69 97 11/05/17 16:00 11/05/17 16:00 11/05/17 16:00 11/05/17 16:00 11/05/17 16:00 Intake and Output: 11/05/17 11/05/17 06:59 18:59 Intake Total 920 Output Total 1200 Balance -280 - Medications Medications: Current Medications Divalproex Sodium (Depakote Dr) 500 mg PO BID [facility] Last Admin: 11/05/17 17:30 Dose: 500 mg Dolutegravir Sodium (Tivicay) 50 mg PO DAILY [facility] PRN Reason: Protocol Last Admin: 11/05/17 09:29 Dose: 50 mg Emtricitabine/Tenofovir (Truvada 200 Mg-300 Mg) 1 tab PO DAILY [facility] PRN Reason: Protocol Last Admin: 04/04/18 09:30 Dose: 1 tab Escitalopram Oxalate (Lexapro) 10 mg PO HS [facility] Last Admin: 11/04/17 22:33 Dose: 10 mg Famotidine (Pepcid) 20 mg PO DAILY [facility] Last Admin: 11/05/17 09:30 Dose: 20 mg Heparin Sodium (Porcine) (Heparin) 5,000 units SC Q8 [facility] Last Admin: 11/05/17 13:33 Dose: 5,000 units Memantine (Namenda) 10 mg PO DAILY [facility] Last Admin: 11/05/17 09:30 Dose: 10 mg Pneumococcal Polyvalent Vaccine (Pneumovax 23 Vaccine) 0.5 ml IM .ONCE ONE Stop: 11/06/17 14:01 - Labs Labs: 11/05/17 06:03 11/05/17 06:03 Attending/Attestation - Attestation I have personally seen and examined this patient.: Yes I have fully participated in the care of the patient.: Yes I have reviewed all pertinent clinical information, including history, physical exam and plan: Yes Notes (Text): 11/05/17 18:03 Patient was seen and examined at 10:15 AM. Exam, assessment and plan were gone over with the resident. Both Resident Physician Dr. Mullen and I spoke with Customer Service Advocate Keiko concerning the above. Salinas Philip D.O.
--- NOTE | 2017-11-06 06:39 | CP.PCM.PN ---
Subjective - Date & Time of Evaluation Date of Evaluation: 11/06/17 Time of Evaluation: 06:39 - Subjective Subjective: Mr. Grey was seen and examined at the bedside. He is alert, oriented, speaks mainly [place]. He denies any headache, dizziness, lightheadedness, blurred vision, diplopia, nausea, or vomiting. He is able to follow simple commands. Latest valproic level 52.7. There was no untoward events overnight. Objective - Vital Signs/Intake and Output Vital Signs (last 24 hours): Temp Pulse Resp BP Pulse Ox 98.6 F 79 20 115/76 96 11/06/17 04:00 11/06/17 04:00 11/06/17 04:00 11/06/17 04:00 11/06/17 04:00 - Medications Medications: Current Medications Divalproex Sodium (Depakote Dr) 500 mg PO BID [facility] Last Admin: 11/05/17 17:30 Dose: 500 mg Dolutegravir Sodium (Tivicay) 50 mg PO DAILY [facility] PRN Reason: Protocol Last Admin: 11/05/17 09:29 Dose: 50 mg Emtricitabine/Tenofovir (Truvada 200 Mg-300 Mg) 1 tab PO DAILY [facility] PRN Reason: Protocol Last Admin: 11/05/17 09:30 Dose: 1 tab Escitalopram Oxalate (Lexapro) 10 mg PO HS [facility] Last Admin: 11/05/17 21:45 Dose: 10 mg Famotidine (Pepcid) 20 mg PO DAILY [facility] Last Admin: 11/05/17 09:30 Dose: 20 mg Heparin Sodium (Porcine) (Heparin) 5,000 units SC Q8 [facility] Last Admin: 11/06/17 05:32 Dose: 5,000 units Memantine (Namenda) 10 mg PO DAILY [facility] Last Admin: 11/05/17 09:30 Dose: 10 mg Pneumococcal Polyvalent Vaccine (Pneumovax 23 Vaccine) 0.5 ml IM .ONCE ONE Stop: 11/06/17 14:01 - Labs Labs: 11/05/17 06:03 11/05/17 06:03 - Constitutional Appears: No Acute Distress - Head Exam Head Exam: NORMAL INSPECTION - Neurological Exam Neurological Exam: Alert, Awake Neuro motor strength exam: Left Upper Extremity: 5, Right Upper Extremity: 5, Left Lower Extremity: 5, Right Lower Extremity: 5 Additional comments: He is alert, follows simple commands. Sensation intact. Assessment and Plan (1) Seizure Assessment & Plan: Case discussed with Dr. Wills, continue all current medical regimen. There is no new recommendation from neurology. Status: Acute
[2017-11-06 07:23] LABS: BASO % 0.8 % (0.0-2.0); EOS # 0.5 K/uL (0.0-0.7); EOS % 10.6 % (0.0-4.0); HEMOGLOBIN 13.9 g/dL (12.0-18.0); LYMPH # 1.6 K/uL (1.0-4.3); LYMPH % 37.1 % (20.0-40.0); MEAN CELL VOLUME 97.7 fL (80.0-94.0); MEAN CORPUSCULAR HEMOGLOBIN 33.2 pg (27.0-31.0); MEAN PLATELET VOLUME 8.6 fL (7.2-11.7); MONO # 0.6 K/uL (0.0-0.8); MONO % 13.1 % (0.0-10.0); NEUT # 1.6 K/uL (1.8-7.0); NEUT % 38.4 % (50.0-75.0); NRBC % 0.1 % (0.0-2.0); RBC 4.19 Mil/uL (4.40-5.90); RED CELL DISTRIBUTION WIDTH 15.8 % (11.5-14.5); WHITE BLOOD COUNT 4.3 K/uL (4.8-10.8)
[2017-11-06 09:37] LABS: ALB/GLOB RATIO 0.9 (1.0-2.1); ALT/SGPT 36 U/L (21-72); AST/SGOT 61 U/L (17-59); BLOOD UREA NITROGEN 16 mg/dL (9-20); CALCIUM 9.4 mg/dl (8.6-10.4); GFR AFRICAN-AMERICAN > 60; GFR NON-AFRICAN AMERICAN 57
[2017-11-06] MEDS: Divalproex 500 mg DR Tab PO SCH ×2 (09:47→18:26)
[2017-11-06] MEDS: Emtricitabine-Tenofovir 200 mg-300 mg Tab PO SCH (09:47)
--- NOTE | 2017-11-06 11:15 | CP.PCM.PN ---
<Samir Varela - Last Filed: 11/06/17 16:44> Subjective - Date & Time of Evaluation Date of Evaluation: 11/06/17 Time of Evaluation: 07:34 - Subjective Subjective: PGY1 Medicine Note for Dr. Leonie Philip Patient seen and examined at bedside this morning. No acute events overnight. Patient has more energy today. His movements and speech are much faster today. His response time is still slightly delayed but he is responding appropriately to questions this morning. He is able to follow simple commands. Denies fevers, chills, nausea, vomiting, diarrhea, constipation, chest pain, palpitations, abdominal pain, headaches, numbness or tingling. Objective - Vital Signs/Intake and Output Vital Signs (last 24 hours): Temp Pulse Resp BP Pulse Ox 98.2 F 68 20 119/76 96 11/06/17 08:31 11/06/17 08:31 11/06/17 08:31 11/06/17 08:31 11/06/17 08:31 - Medications Medications: Current Medications Divalproex Sodium (Depakote Dr) 500 mg PO BID [facility] Last Admin: 11/06/17 09:47 Dose: 500 mg Dolutegravir Sodium (Tivicay) 50 mg PO DAILY [facility] PRN Reason: Protocol Last Admin: 11/06/17 09:47 Dose: 50 mg Emtricitabine/Tenofovir (Truvada 200 Mg-300 Mg) 1 tab PO DAILY [facility] PRN Reason: Protocol Last Admin: 11/06/17 09:47 Dose: 1 tab Escitalopram Oxalate (Lexapro) 10 mg PO HS [facility] Last Admin: 11/05/17 21:45 Dose: 10 mg Famotidine (Pepcid) 20 mg PO DAILY [facility] Last Admin: 11/06/17 09:47 Dose: 20 mg Heparin Sodium (Porcine) (Heparin) 5,000 units SC Q8 [facility] Last Admin: 11/06/17 05:32 Dose: 5,000 units Memantine (Namenda) 10 mg PO DAILY [facility] Last Admin: 11/06/17 09:47 Dose: 10 mg Pneumococcal Polyvalent Vaccine (Pneumovax 23 Vaccine) 0.5 ml IM .ONCE ONE Stop: 11/06/17 14:01 - Labs Labs: 11/06/17 07:10 11/06/17 07:10 - Constitutional Appears: Non-toxic, No Acute Distress - Head Exam Head Exam: ATRAUMATIC, NORMOCEPHALIC - Eye Exam Eye Exam: EOMI, Normal appearance. absent: Scleral icterus Pupil Exam: NORMAL ACCOMODATION - ENT Exam ENT Exam: Mucous Membranes Moist - Respiratory Exam Respiratory Exam: Clear to Ausculation Bilateral, NORMAL BREATHING PATTERN. absent: Accessory Muscle Use, Rales, Rhonchi, Wheezes, Respiratory Distress - Cardiovascular Exam Cardiovascular Exam: REGULAR RHYTHM, +S1, +S2. absent: JVD - GI/Abdominal Exam GI & Abdominal Exam: Soft, Tenderness (epigastric TTP), Normal Bowel Sounds. absent: Distended, Firm, Guarding, Rigid - Extremities Exam Extremities Exam: absent: Calf Tenderness, Pedal Edema - Neurological Exam Neurological Exam: Alert, Awake, CN II-XII Intact, Oriented x3 Neuro motor strength exam: Left Upper Extremity: 5, Right Upper Extremity: 5, Left Lower Extremity: 5, Right Lower Extremity: 5 Additional comments: Movements and speech are mildly slow, but are smooth and appropriate. 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 Wills, help appreciated - Upon discharge, patient to be discharged on Depakote - Valproic acid level - 52.7 (4/4), 28.9 (4/2) - continue Depakote 500mg bid HIV/AIDS - ID Consult: Dr. 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 Multiple calcifications in the brain bilaterally, most tiny in size , too numerous to count. The main differential considerations given the appearance include infectious processes, such as neurocysticercosis or tuberculosis, in the healed/calcified nodular stage - Lexapro 10 mg PO HS - Namedna 10 mg PO daily Prophylaxis - SCDs - Heparin 5,000u SC q8h - Pepcid 20mg daily - Social Work consult --> help appreciated DISPO: Per Lifestyle Director, the patient was denied admission to [facility]. Patient's daughter is coming to hospital today to bring in patient's paper work. He has a Green Card per daughter. He used to have health insurance down in [place]. SW is working with the daughter and the patient's sister (who lives in [place]) to set up care at a longterm. They are going to determine if the patient's health insurance is still valid in [place], and if so, possible transfer patient to [place]. The patient's sister has agreed to drive up and take the patient to a longterm back in [place] but she does not want to be the sole provider for him. The patient is unable to care for himself any longer due to progression of his HIV/AIDS dementia. Patient unable to be discharged to street due to his current mental status. No update at this time. Case discussed with Dr. Leonie Varela PGY1 <Salinas Philip - Last Filed: 11/06/17 18:36> Objective - Vital Signs/Intake and Output Vital Signs (last 24 hours): Temp Pulse Resp BP Pulse Ox 98 F 86 20 118/74 98 11/06/17 15:30 11/06/17 15:30 11/06/17 15:30 11/06/17 15:30 11/06/17 15:30 Intake and Output: 11/06/17 11/06/17 06:59 18:59 Intake Total 720 Balance 720 - Medications Medications: Current Medications Divalproex Sodium (Depakote ) 500 mg PO BID [facility] Last Admin: 11/06/17 18:26 Dose: 500 mg Dolutegravir Sodium (Tivicay) 50 mg PO DAILY [facility] PRN Reason: Protocol Last Admin: 11/06/17 09:47 Dose: 50 mg Emtricitabine/Tenofovir (Truvada 200 Mg-300 Mg) 1 tab PO DAILY [facility] PRN Reason: Protocol Last Admin: 11/06/17 09:47 Dose: 1 tab Escitalopram Oxalate (Lexapro) 10 mg PO HS [facility] Last Admin: 11/05/17 21:45 Dose: 10 mg Famotidine (Pepcid) 20 mg PO DAILY [facility] Last Admin: 11/06/17 09:47 Dose: 20 mg Heparin Sodium (Porcine) (Heparin) 5,000 units SC Q8 [facility] Last Admin: 11/06/17 13:55 Dose: 5,000 units Memantine (Namenda) 10 mg PO DAILY [facility] Last Admin: 11/06/17 09:47 Dose: 10 mg - Labs Labs: 11/06/17 07:10 11/06/17 07:10 Attending/Attestation - Attestation I have personally seen and examined this patient.: Yes I have fully participated in the care of the patient.: Yes I have reviewed all pertinent clinical information, including history, physical exam and plan: Yes Notes (Text): 11/06/17 18:34 Patient was seen and examined at 10:30 AM 11/06/17 664 B Exam, assessment and plan were gone over with the resident. Salinas Philip D.O.
[2017-11-06] MEDS ORDERED: Pneumococcal 23-Valent Vaccine IM ONE (14:00)
--- NOTE | 2017-11-06 18:17 | CP.PCM.PN ---
Subjective - Date & Time of Evaluation Date of Evaluation: 11/06/17 Time of Evaluation: 09:00 - Subjective Subjective: improving slowly Objective - Vital Signs/Intake and Output Vital Signs (last 24 hours): Temp Pulse Resp BP Pulse Ox 98 F 86 20 118/74 98 11/06/17 15:30 11/06/17 15:30 11/06/17 15:30 11/06/17 15:30 11/06/17 15:30 Intake and Output: 11/06/17 11/06/17 06:59 18:59 Intake Total 720 Balance 720 - Medications Medications: Current Medications Divalproex Sodium (Depakote Dr) 500 mg PO BID [facility] Last Admin: 11/06/17 09:47 Dose: 500 mg Dolutegravir Sodium (Tivicay) 50 mg PO DAILY [facility] PRN Reason: Protocol Last Admin: 11/06/17 09:47 Dose: 50 mg Emtricitabine/Tenofovir (Truvada 200 Mg-300 Mg) 1 tab PO DAILY [facility] PRN Reason: Protocol Last Admin: 11/06/17 09:47 Dose: 1 tab Escitalopram Oxalate (Lexapro) 10 mg PO HS [facility] Last Admin: 11/05/17 21:45 Dose: 10 mg Famotidine (Pepcid) 20 mg PO DAILY [facility] Last Admin: 11/06/17 09:47 Dose: 20 mg Heparin Sodium (Porcine) (Heparin) 5,000 units SC Q8 [facility] Last Admin: 11/06/17 13:55 Dose: 5,000 units Memantine (Namenda) 10 mg PO DAILY [facility] Last Admin: 11/06/17 09:47 Dose: 10 mg - Labs Labs: 11/06/17 07:10 11/06/17 07:10 - Constitutional Appears: Non-toxic, Chronically Ill - Head Exam Head Exam: NORMOCEPHALIC - Eye Exam Eye Exam: PERRL - ENT Exam ENT Exam: Mucous Membranes Dry - Neck Exam Neck Exam: absent: Lymphadenopathy - Respiratory Exam Respiratory Exam: Decreased Breath Sounds - Cardiovascular Exam Cardiovascular Exam: REGULAR RHYTHM - GI/Abdominal Exam GI & Abdominal Exam: Distended - Rectal Exam Rectal Exam: Deferred - Exam Exam: NORMAL INSPECTION Assessment and Plan (1) Seizure Status: Acute (2) HIV disease Status: Acute - Assessment and Plan (Free Text) Assessment: cont rx restart HAART rx when stable
--- NOTE | 2017-11-07 06:58 | CP.PCM.PN ---
Subjective - Date & Time of Evaluation Date of Evaluation: 11/07/17 Time of Evaluation: 06:58 - Subjective Subjective: Mr. Grey was seen and examined at the bedside. He is alert, oriented, speaks mainly Tuvaluan. He denies any headache, dizziness, lightheadedness, blurred vision, diplopia, nausea, or vomiting. He is able to follow simple commands. There was no untoward events overnight. Objective - Vital Signs/Intake and Output Vital Signs (last 24 hours): Temp Pulse Resp BP Pulse Ox 98.4 F 80 20 111/69 95 11/06/17 23:25 11/06/17 23:25 11/06/17 23:25 11/06/17 23:25 11/06/17 23:25 Intake and Output: 11/06/17 11/07/17 18:59 06:59 Intake Total 720 Balance 720 - Medications Medications: Current Medications Divalproex Sodium (Depakote Dr) 500 mg PO BID [facility] Last Admin: 11/06/17 18:26 Dose: 500 mg Dolutegravir Sodium (Tivicay) 50 mg PO DAILY [facility] PRN Reason: Protocol Last Admin: 11/06/17 09:47 Dose: 50 mg Emtricitabine/Tenofovir (Truvada 200 Mg-300 Mg) 1 tab PO DAILY [facility] PRN Reason: Protocol Last Admin: 11/06/17 09:47 Dose: 1 tab Escitalopram Oxalate (Lexapro) 10 mg PO HS [facility] Last Admin: 11/06/17 21:45 Dose: 10 mg Famotidine (Pepcid) 20 mg PO DAILY [facility] Last Admin: 11/06/17 09:47 Dose: 20 mg Memantine (Namenda) 10 mg PO DAILY [facility] Last Admin: 11/06/17 09:47 Dose: 10 mg - Labs Labs: 11/06/17 07:10 11/06/17 07:10 - Constitutional Appears: No Acute Distress - Head Exam Head Exam: NORMAL INSPECTION - Neurological Exam Neurological Exam: Alert, Awake Neuro motor strength exam: Left Upper Extremity: 4, Right Upper Extremity: 4, Left Lower Extremity: 4, Right Lower Extremity: 4 Additional comments: Neurological unchanged from previous examination. Assessment and Plan (1) Seizure Assessment & Plan: Case discussed with Dr. Wills, continue all current medical regimen. Recommend to repeat valproic acid level and liver profile next week. Status: Acute
[2017-11-07 08:30] LABS: BASO % 0.7 % (0.0-2.0); EOS # 0.2 K/uL (0.0-0.7); EOS % 5.8 % (0.0-4.0); HEMOGLOBIN 14.5 g/dL (12.0-18.0); LYMPH % 50.3 % (20.0-40.0); MEAN CORPUSCULAR HEMOGLOBIN 33.6 pg (27.0-31.0); MEAN CORPUSCULAR HGB CONC 34.3 g/dL (33.0-37.0); MEAN PLATELET VOLUME 8.8 fL (7.2-11.7); MONO # 0.4 K/uL (0.0-0.8); NEUT # 1.3 K/uL (1.8-7.0); NEUT % 32.2 % (50.0-75.0); NRBC % 0.1 % (0.0-2.0); RBC 4.3 Mil/uL (4.40-5.90); RED CELL DISTRIBUTION WIDTH 15.9 % (11.5-14.5)
[2017-11-07 08:49] LABS: ALBUMIN 4.3 g/dL (3.5-5.0); ALT/SGPT 34 U/L (21-72); AST/SGOT 44 U/L (17-59); BLOOD UREA NITROGEN 19 mg/dL (9-20); CALCIUM 9.3 mg/dl (8.6-10.4); GFR AFRICAN-AMERICAN > 60; GFR NON-AFRICAN AMERICAN > 60
[2017-11-07] MEDS: Divalproex 500 mg DR Tab PO SCH ×2 (10:30→17:31)
[2017-11-07] MEDS: Emtricitabine-Tenofovir 200 mg-300 mg Tab PO SCH (10:31)
--- NOTE | 2017-11-07 15:08 | CP.PCM.PN ---
<Samir Varela - Last Filed: 11/07/17 14:57> Subjective - Date & Time of Evaluation Date of Evaluation: 11/07/17 Time of Evaluation: 14:27 - Subjective Subjective: PGY1 Medicine Note for Dr. Leonie Philip Patient seen and examined at bedside this afternoon. No acute events overnight. Patient's energy level is much better today. He was able to sit up and stand with no assistance. When questioned, he is still very slow to respond. Multiple questions he just stared at Dr. Varela and did not respond. ROS unattainable. Objective - Vital Signs/Intake and Output Vital Signs (last 24 hours): Temp Pulse Resp BP Pulse Ox 98.2 F 77 20 103/66 97 11/07/17 08:13 11/07/17 08:13 11/07/17 08:13 11/07/17 08:13 11/07/17 08:13 Intake and Output: 11/07/17 11/07/17 06:59 18:59 Intake Total 500 Balance 500 - Medications Medications: Current Medications Divalproex Sodium (Depakote Dr) 500 mg PO BID [facility] Last Admin: 11/07/17 10:30 Dose: 500 mg Dolutegravir Sodium (Tivicay) 50 mg PO DAILY [facility] PRN Reason: Protocol Last Admin: 11/07/17 10:30 Dose: 50 mg Emtricitabine/Tenofovir (Truvada 200 Mg-300 Mg) 1 tab PO DAILY [facility] PRN Reason: Protocol Last Admin: 11/07/17 10:31 Dose: 1 tab Escitalopram Oxalate (Lexapro) 10 mg PO [facility] Last Admin: 11/06/17 21:45 Dose: 10 mg Famotidine (Pepcid) 20 mg PO DAILY [facility] Last Admin: 11/07/17 10:30 Dose: 20 mg Memantine (Namenda) 10 mg PO DAILY [facility] Last Admin: 11/07/17 10:30 Dose: 10 mg - Labs Labs: 11/07/17 08:19 11/07/17 08:19 - Constitutional Appears: Non-toxic, No Acute Distress - Head Exam Head Exam: ATRAUMATIC, NORMOCEPHALIC - Eye Exam Eye Exam: EOMI. absent: Scleral icterus - ENT Exam ENT Exam: Mucous Membranes Moist - Respiratory Exam Respiratory Exam: Clear to Ausculation Bilateral, NORMAL BREATHING PATTERN. absent: Accessory Muscle Use, Rales, Rhonchi, Wheezes, Respiratory Distress - Cardiovascular Exam Cardiovascular Exam: REGULAR RHYTHM, +S1, +S2. absent: JVD - GI/Abdominal Exam GI & Abdominal Exam: Soft, Normal Bowel Sounds. absent: Distended, Firm, Guarding, Rigid, Tenderness - Extremities Exam Extremities Exam: Normal Capillary Refill. absent: Calf Tenderness, Pedal Edema - Neurological Exam Neurological Exam: Alert, Awake, CN II-XII Intact, Oriented x3 Additional comments: Movements are normal speed. Speech is slow. Patient does not always respond to questions. He stares blankly at random times throughout the examination. 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 Wills, help appreciated - Upon discharge, patient to be discharged on Depakote - Valproic acid level - 52.7 (/), 28.9 (4/) - continue Depakote 500mg bid HIV/AIDS - ID Consult: Dr. 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 Multiple calcifications in the brain bilaterally, most tiny in size , too numerous to count. The main differential considerations given the appearance include infectious processes, such as neurocysticercosis or tuberculosis, in the healed/calcified nodular stage - Lexapro 10 mg PO HS - Namedna 10 mg PO daily Prophylaxis - SCDs - Heparin 5,000u SC q8h - Pepcid 20mg daily - Social Work consult --> help appreciated DISPO: Per Supervisor Of Operations, the patient was denied admission to [facility]. Patient's daughter is coming to hospital today to bring in patient's paper work. He has a Green Card per daughter. He used to have health insurance down in [place]. SW is working with the daughter and the patient's sister (who lives in [place]) to set up care at a fdc. They are going to determine if the patient's health insurance is still valid in [place], and if so, possible transfer patient to [place]. The patient's sister has agreed to drive up and take the patient to a fdc back in [place] but she does not want to be the sole provider for him. The patient is unable to care for himself any longer due to progression of his HIV/AIDS dementia. Patient unable to be discharged to street due to his current mental status. SW called patient's daughter and left message. Due to patient's current insurance status, the best option for the patient appears to have his sister drive up from [place] and drive him to a fdc down there. No other updates at this time. Case discussed with Dr. Leonie Varela PGY1 <Salinas Philip - Last Filed: 11/07/17 18:55> Objective - Vital Signs/Intake and Output Vital Signs (last 24 hours): Temp Pulse Resp BP Pulse Ox 98.2 F 90 20 121/77 98 11/07/17 16:53 11/07/17 16:53 11/07/17 16:53 11/07/17 16:53 11/07/17 16:53 Intake and Output: 11/07/17 11/07/17 06:59 18:59 Intake Total 500 Balance 500 - Medications Medications: Current Medications Divalproex Sodium (Depakote Dr) 500 mg PO BID [facility] Last Admin: 11/07/17 17:31 Dose: 500 mg Dolutegravir Sodium (Tivicay) 50 mg PO DAILY [facility] PRN Reason: Protocol Last Admin: 11/07/17 10:30 Dose: 50 mg Emtricitabine/Tenofovir (Truvada 200 Mg-300 Mg) 1 tab PO DAILY [facility] PRN Reason: Protocol Last Admin: 11/07/17 10:31 Dose: 1 tab Escitalopram Oxalate (Lexapro) 10 mg PO HS [facility] Last Admin: 11/06/17 21:45 Dose: 10 mg Famotidine (Pepcid) 20 mg PO DAILY [facility] Last Admin: 11/07/17 10:30 Dose: 20 mg Memantine (Namenda) 10 mg PO DAILY [facility] Last Admin: 11/07/17 10:30 Dose: 10 mg - Labs Labs: 11/07/17 08:19 11/07/17 08:19 Attending/Attestation - Attestation I have personally seen and examined this patient.: Yes I have fully participated in the care of the patient.: Yes I have reviewed all pertinent clinical information, including history, physical exam and plan: Yes Notes (Text): 11/07/17 18:54 Patient was seen and examined at 8:20 AM 11/07/17. Exam, assessment and plan were gone over with the resident. Salinas Philip D.O.
--- NOTE | 2017-11-07 17:53 | CP.PCM.PN ---
Subjective - Date & Time of Evaluation Date of Evaluation: 11/07/17 Time of Evaluation: 08:00 - Subjective Subjective: no active seizures no signs of infection HAART rx restarted Objective - Vital Signs/Intake and Output Vital Signs (last 24 hours): Temp Pulse Resp BP Pulse Ox 98.2 F 90 20 121/77 98 11/07/17 16:53 11/07/17 16:53 11/07/17 16:53 11/07/17 16:53 11/07/17 16:53 Intake and Output: 11/07/17 11/07/17 06:59 18:59 Intake Total 500 Balance 500 - Medications Medications: Current Medications Divalproex Sodium (Depakote Dr) 500 mg PO BID [facility] Last Admin: 11/07/17 17:31 Dose: 500 mg Dolutegravir Sodium (Tivicay) 50 mg PO DAILY [facility] PRN Reason: Protocol Last Admin: 11/07/17 10:30 Dose: 50 mg Emtricitabine/Tenofovir (Truvada 200 Mg-300 Mg) 1 tab PO DAILY [facility] PRN Reason: Protocol Last Admin: 11/07/17 10:31 Dose: 1 tab Escitalopram Oxalate (Lexapro) 10 mg PO HS [facility] Last Admin: 11/06/17 21:45 Dose: 10 mg Famotidine (Pepcid) 20 mg PO DAILY [facility] Last Admin: 11/07/17 10:30 Dose: 20 mg Memantine (Namenda) 10 mg PO DAILY [facility] Last Admin: 11/07/17 10:30 Dose: 10 mg - Labs Labs: 11/07/17 08:19 11/07/17 08:19 - Constitutional Appears: Non-toxic, Chronically Ill - Head Exam Head Exam: NORMOCEPHALIC - Eye Exam Eye Exam: absent: Scleral icterus - ENT Exam ENT Exam: Mucous Membranes Dry - Neck Exam Neck Exam: absent: Lymphadenopathy - Respiratory Exam Respiratory Exam: Decreased Breath Sounds - Cardiovascular Exam Cardiovascular Exam: REGULAR RHYTHM - GI/Abdominal Exam GI & Abdominal Exam: Distended - Rectal Exam Rectal Exam: Deferred - Exam Exam: NORMAL INSPECTION - Back Exam Back Exam: absent: CVA tenderness (L), CVA tenderness (R) - Neurological Exam Neurological Exam: Alert, Awake, Oriented x3 Neuro motor strength exam: Left Upper Extremity: 4, Right Upper Extremity: 4, Left Lower Extremity: 4, Right Lower Extremity: 4 - Psychiatric Exam Psychiatric exam: Normal Mood - Skin Skin Exam: Dry Assessment and Plan (1) Seizure Status: Acute (2) HIV disease Status: Acute
--- NOTE | 2017-11-08 00:15 | CP.PCM.PN ---
Subjective - Date & Time of Evaluation Date of Evaluation: 11/08/17 Time of Evaluation: 05:40 - Subjective Subjective: Medicine progress note for Dr. Leonie Philip Patient seen and examined. No acute events overnight noted. Patient does not speak very much, and so ROS is difficult to ascertain. Objective - Vital Signs/Intake and Output Vital Signs (last 24 hours): Temp Pulse Resp BP Pulse Ox 98.2 F 90 20 121/77 98 11/07/17 16:53 11/07/17 16:53 11/07/17 16:53 11/07/17 16:53 11/07/17 16:53 Intake and Output: 11/07/17 11/08/17 18:59 06:59 Intake Total 500 Balance 500 - Medications Medications: Current Medications Divalproex Sodium (Depakote Dr) 500 mg PO BID [facility] Last Admin: 11/07/17 17:31 Dose: 500 mg Dolutegravir Sodium (Tivicay) 50 mg PO DAILY [facility] PRN Reason: Protocol Last Admin: 11/07/17 10:30 Dose: 50 mg Emtricitabine/Tenofovir (Truvada 200 Mg-300 Mg) 1 tab PO DAILY [facility] PRN Reason: Protocol Last Admin: 11/07/17 10:31 Dose: 1 tab Escitalopram Oxalate (Lexapro) 10 mg PO HS [facility] Last Admin: 11/07/17 21:16 Dose: 10 mg Famotidine (Pepcid) 20 mg PO DAILY [facility] Last Admin: 11/07/17 10:30 Dose: 20 mg Memantine (Namenda) 10 mg PO DAILY [facility] Last Admin: 11/07/17 10:30 Dose: 10 mg - Labs Labs: 11/07/17 08:19 11/07/17 08:19 - Additional Findings Additional findings: - Constitutional Appears: Non-toxic, No Acute Distress - Head Exam Head Exam: ATRAUMATIC, NORMOCEPHALIC - Eye Exam Eye Exam: EOMI. absent: Scleral icterus - ENT Exam ENT Exam: Mucous Membranes Moist - Respiratory Exam Respiratory Exam: Clear to Ausculation Bilateral, NORMAL BREATHING PATTERN. absent: Accessory Muscle Use, Rales, Rhonchi, Wheezes, Respiratory Distress - Cardiovascular Exam Cardiovascular Exam: REGULAR RHYTHM, +S1, +S2. absent: JVD - GI/Abdominal Exam GI & Abdominal Exam: Soft, Normal Bowel Sounds. absent: Distended, Firm, Guarding, Rigid, Tenderness - Extremities Exam Extremities Exam: Normal Capillary Refill. absent: Calf Tenderness, Pedal Edema - Neurological Exam Neurological Exam: Alert, Awake, CN II-XII Intact, Oriented x3 Additional comments: Movements are normal speed. Speech is slow. Patient does not always respond to questions. He stares blankly at random times throughout the examination. 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 Wills, help appreciated - Upon discharge, patient to be discharged on Depakote Valproic acid level - 52.7 (4), 28.9 (4/) - continue Depakote 500mg bid HIV/AIDS ID Consult: Dr. 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 Multiple calcifications in the brain bilaterally, most tiny in size , too numerous to count. The main differential considerations given the appearance include infectious processes, such as neurocysticercosis or tuberculosis, in the healed/calcified nodular stage * Lexapro 10 mg PO HS * Namedna 10 mg PO daily Prophylaxis SCDs Heparin 5,000u SC q8h Pepcid 20mg daily Social Work consult --> help appreciated Disposition: Per [employer], the patient was denied admission to [facility]. He has a Green Card per daughter. He used to have health insurance down in [place]. [facility] is working with the daughter and the patient's sister (who lives in [place]) to set up care at a retirement. They are going to determine if the patient's health insurance is still valid in [place], and if so, possible transfer patient to [place]. The patient's sister has agreed to drive up and take the patient to a retirement back in [place] but she does not want to be the sole provider for him. The patient is unable to care for himself any longer due to progression of his HIV/AIDS dementia. Patient unable to be discharged to street due to his current mental status. Previously, the SW called patient's daughter and left message. Due to patient's current insurance status, the best option for the patient appears to have his sister drive up from [place] and drive him to a retirement down there. No other updates at this time. To be discussed with Dr. Leonie Philip
[2017-11-08 06:54] LABS: ALB/GLOB RATIO 0.9 (1.0-2.1); ALT/SGPT 36 U/L (21-72); AST/SGOT 36 U/L (17-59); BLOOD UREA NITROGEN 22 mg/dL (9-20); GFR AFRICAN-AMERICAN > 60; GFR NON-AFRICAN AMERICAN 57
[2017-11-08 07:10] LABS: BASO % 0.4 % (0.0-2.0); EOS # 0.2 K/uL (0.0-0.7); EOS % 4.2 % (0.0-4.0); HEMOGLOBIN 14.3 g/dL (12.0-18.0); MEAN CELL VOLUME 97.9 fL (80.0-94.0); MEAN CORPUSCULAR HEMOGLOBIN 33.6 pg (27.0-31.0); MEAN CORPUSCULAR HGB CONC 34.3 g/dL (33.0-37.0); MEAN PLATELET VOLUME 8.9 fL (7.2-11.7); MONO # 0.5 K/uL (0.0-0.8); MONO % 11.3 % (0.0-10.0); NEUT # 1.5 K/uL (1.8-7.0); NEUT % 36.1 % (50.0-75.0); NRBC % 0.2 % (0.0-2.0); RBC 4.25 Mil/uL (4.40-5.90); RED CELL DISTRIBUTION WIDTH 15.9 % (11.5-14.5); WHITE BLOOD COUNT 4.1 K/uL (4.8-10.8)
[2017-11-08] MEDS: Emtricitabine-Tenofovir 200 mg-300 mg Tab PO SCH (10:10)
[2017-11-08] MEDS: Divalproex 500 mg DR Tab PO SCH ×2 (10:10→17:47)
--- NOTE | 2017-11-09 00:50 | CP.PCM.PN ---
<John Guzmán - Last Filed: 11/09/17 06:35> Subjective - Date & Time of Evaluation Date of Evaluation: 11/09/17 Time of Evaluation: 05:40 - Subjective Subjective: Medicine progress note for Dr. Leonie Philip Patient seen and examined. No acute events overnight noted. Patient appears to be doing well. Unable to obtain ROS since the patient stares off intermittently. Objective - Vital Signs/Intake and Output Vital Signs (last 24 hours): Temp Pulse Resp BP Pulse Ox 98.2 F 80 20 93/61 L 98 11/08/17 23:20 11/08/17 23:20 11/08/17 23:20 11/08/17 23:20 11/08/17 23:20 Intake and Output: 11/08/17 11/09/17 18:59 06:59 Intake Total 720 400 Output Total 200 Balance 720 200 - Medications Medications: Current Medications Divalproex Sodium (Depakote Dr) 500 mg PO BID [facility] Last Admin: 11/08/17 17:47 Dose: 500 mg Dolutegravir Sodium (Tivicay) 50 mg PO DAILY [facility] PRN Reason: Protocol Last Admin: 11/08/17 10:10 Dose: 50 mg Emtricitabine/Tenofovir (Truvada 200 Mg-300 Mg) 1 tab PO DAILY [facility] PRN Reason: Protocol Last Admin: 11/08/17 10:10 Dose: 1 tab Escitalopram Oxalate (Lexapro) 10 mg PO HS [facility] Last Admin: 11/08/17 23:25 Dose: 10 mg Famotidine (Pepcid) 20 mg PO DAILY [facility] Last Admin: 11/08/17 10:10 Dose: 20 mg Heparin Sodium (Porcine) (Heparin) 5,000 units SC Q8 [facility] Last Admin: 11/08/17 23:25 Dose: 5,000 units Memantine (Namenda) 10 mg PO DAILY [facility] Last Admin: 11/08/17 10:11 Dose: 10 mg - Labs Labs: 11/08/17 06:29 11/08/17 06:29 - Additional Findings Additional findings: - Constitutional Appears: Non-toxic, No Acute Distress - Head Exam Head Exam: ATRAUMATIC, NORMOCEPHALIC - Eye Exam Eye Exam: EOMI. absent: Scleral icterus - ENT Exam ENT Exam: Mucous Membranes Moist - Respiratory Exam Respiratory Exam: Clear to Auscultation Bilateral, NORMAL BREATHING PATTERN. absent: Accessory Muscle Use, Rales, Rhonchi, Wheezes, Respiratory Distress - Cardiovascular Exam Cardiovascular Exam: REGULAR RHYTHM, +S1, +S2. absent: JVD - GI/Abdominal Exam GI & Abdominal Exam: Soft, Normal Bowel Sounds. absent: Distended, Firm, Guarding, Rigid, Tenderness - Extremities Exam Extremities Exam: Normal Capillary Refill. absent: Calf Tenderness, Pedal Edema - Neurological Exam Neurological Exam: Alert, Awake, CN II-XII Intact, Oriented x3 Additional comments: Movements are normal speed. Speech is slow. Patient does not always respond to questions. He stares blankly at random times throughout the examination. 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 Wills, help appreciated - Upon discharge, patient to be discharged on Depakote Valproic acid level - 52.7 (4/), 28.9 (4/) - continue Depakote 500mg bid HIV/AIDS ID Consult: Dr. 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 Multiple calcifications in the brain bilaterally, most tiny in size , too numerous to count. The main differential considerations given the appearance include infectious processes, such as neurocysticercosis or tuberculosis, in the healed/calcified nodular stage * Lexapro 10 mg PO HS * Namedna 10 mg PO daily Prophylaxis SCDs Heparin 5,000u SC q8h Pepcid 20mg daily Social Work consult --> help appreciated Disposition: Per Sign Language Instructor, the patient was denied admission to [facility]. He has a Green Card per daughter. He used to have health insurance down in [place]. SW is working with the daughter and the patient's sister (who lives in [place]) to set up care at a fdc. They are going to determine if the patient's health insurance is still valid in [place], and if so, possible transfer patient to [place]. The patient's sister has agreed to drive up and take the patient to a fdc back in [place] but she does not want to be the sole provider for him. The patient is unable to care for himself any longer due to progression of his HIV/AIDS dementia. Patient unable to be discharged to street due to his current mental status. Previously, the SW called patient's daughter and left message. Due to patient's current insurance status, the best option for the patient appears to have his sister drive up from [place] and drive him to a fdc down there. No other updates at this time. To be discussed with Dr. Leonie Philip <Salinas Philip - Last Filed: 11/09/17 19:26> Objective - Vital Signs/Intake and Output Vital Signs (last 24 hours): Temp Pulse Resp BP Pulse Ox 98 F 67 20 107/66 96 11/09/17 15:30 11/09/17 15:30 11/09/17 15:30 11/09/17 15:30 11/09/17 15:30 Intake and Output: 11/09/17 11/10/17 18:59 06:59 Intake Total 720 Balance 720 - Medications Medications: Current Medications Divalproex Sodium (Depakote Dr) 500 mg PO BID [facility] Last Admin: 11/09/17 17:17 Dose: 500 mg Dolutegravir Sodium (Tivicay) 50 mg PO DAILY [facility] PRN Reason: Protocol Last Admin: 11/09/17 10:05 Dose: 50 mg Emtricitabine/Tenofovir (Truvada 200 Mg-300 Mg) 1 tab PO DAILY [facility] PRN Reason: Protocol Last Admin: 11/09/17 10:05 Dose: 1 tab Escitalopram Oxalate (Lexapro) 10 mg PO HS [facility] Last Admin: 11/08/17 23:25 Dose: 10 mg Famotidine (Pepcid) 20 mg PO DAILY [facility] Last Admin: 11/09/17 10:05 Dose: 20 mg Heparin Sodium (Porcine) (Heparin) 5,000 units SC Q8 [facility] Last Admin: 11/09/17 13:04 Dose: 5,000 units Memantine (Namenda) 10 mg PO DAILY [facility] Last Admin: 11/09/17 10:05 Dose: 10 mg - Labs Labs: 11/09/17 08:37 11/09/17 08:37 Attending/Attestation - Attestation I have personally seen and examined this patient.: Yes I have fully participated in the care of the patient.: Yes I have reviewed all pertinent clinical information, including history, physical exam and plan: Yes Notes (Text): 11/09/17 19:24 Patient was seen and examined at 10:00 AM Patient's Daughter Panfilo was present and she explained that she was going back to [place] today and that patient's sister (who lives in [place]) will be calling Sign Language Instructor Maria on 11/10/17 to discuss patient's status further. Please see my conversation with Sign Language Instructor Maria as documented by Dr. Guzmán above. Salinas Philip D.O.
[2017-11-09 08:42] LABS: BASO % 0.9 % (0.0-2.0); EOS # 0.2 K/uL (0.0-0.7); EOS % 3.7 % (0.0-4.0); LYMPH # 2.3 K/uL (1.0-4.3); LYMPH % 49.3 % (20.0-40.0); MEAN CELL VOLUME 98.4 fL (80.0-94.0); MEAN CORPUSCULAR HEMOGLOBIN 33.5 pg (27.0-31.0); MEAN CORPUSCULAR HGB CONC 34.1 g/dL (33.0-37.0); MEAN PLATELET VOLUME 8.5 fL (7.2-11.7); MONO # 0.4 K/uL (0.0-0.8); MONO % 8.4 % (0.0-10.0); NEUT # 1.7 K/uL (1.8-7.0); NEUT % 37.7 % (50.0-75.0); NRBC % 0.1 % (0.0-2.0); RBC 4.46 Mil/uL (4.40-5.90); RED CELL DISTRIBUTION WIDTH 15.5 % (11.5-14.5); WHITE BLOOD COUNT 4.6 K/uL (4.8-10.8)
[2017-11-09 09:02] LABS: ALBUMIN 4.5 g/dL (3.5-5.0); ALT/SGPT 41 U/L (21-72); AST/SGOT 44 U/L (17-59); BLOOD UREA NITROGEN 21 mg/dL (9-20); CALCIUM 9.6 mg/dl (8.6-10.4); GFR AFRICAN-AMERICAN > 60; GFR NON-AFRICAN AMERICAN > 60
[2017-11-09] MEDS: Emtricitabine-Tenofovir 200 mg-300 mg Tab PO SCH (10:05)
[2017-11-09] MEDS: Divalproex 500 mg DR Tab PO SCH ×2 (10:05→17:17)
--- NOTE | 2017-11-09 15:51 | CP.PCM.PN ---
Subjective - Date & Time of Evaluation Date of Evaluation: 11/09/17 Time of Evaluation: 08:00 - Subjective Subjective: NO active seizures restarted HAART Objective - Vital Signs/Intake and Output Vital Signs (last 24 hours): Temp Pulse Resp BP Pulse Ox 97.7 F 53 L 18 117/71 100 11/09/17 08:00 11/09/17 08:00 11/09/17 08:00 11/09/17 08:00 11/09/17 08:00 Intake and Output: 11/09/17 11/09/17 06:59 18:59 Intake Total 400 720 Output Total 200 Balance 200 720 - Medications Medications: Current Medications Divalproex Sodium (Depakote Dr) 500 mg PO BID [facility] Last Admin: 11/09/17 10:05 Dose: 500 mg Dolutegravir Sodium (Tivicay) 50 mg PO DAILY [facility] PRN Reason: Protocol Last Admin: 11/09/17 10:05 Dose: 50 mg Emtricitabine/Tenofovir (Truvada 200 Mg-300 Mg) 1 tab PO DAILY [facility] PRN Reason: Protocol Last Admin: 11/09/17 10:05 Dose: 1 tab Escitalopram Oxalate (Lexapro) 10 mg PO HS [facility] Last Admin: 11/08/17 23:25 Dose: 10 mg Famotidine (Pepcid) 20 mg PO DAILY [facility] Last Admin: 11/09/17 10:05 Dose: 20 mg Heparin Sodium (Porcine) (Heparin) 5,000 units SC Q8 [facility] Last Admin: 11/09/17 13:04 Dose: 5,000 units Memantine (Namenda) 10 mg PO DAILY [facility] Last Admin: 11/09/17 10:05 Dose: 10 mg - Labs Labs: 11/09/17 08:37 11/09/17 08:37 - Constitutional Appears: Non-toxic, Chronically Ill - Head Exam Head Exam: NORMOCEPHALIC - Eye Exam Eye Exam: PERRL - ENT Exam ENT Exam: Mucous Membranes Dry - Neck Exam Neck Exam: absent: Lymphadenopathy - Respiratory Exam Respiratory Exam: Decreased Breath Sounds - Cardiovascular Exam Cardiovascular Exam: REGULAR RHYTHM - GI/Abdominal Exam GI & Abdominal Exam: Distended - Rectal Exam Rectal Exam: Deferred Assessment and Plan (1) Seizure Status: Acute (2) HIV disease Status: Acute
[2017-11-10 07:36] LABS: BASO % 0.5 % (0.0-2.0); EOS # 0.2 K/uL (0.0-0.7); EOS % 3.8 % (0.0-4.0); HEMOGLOBIN 14.2 g/dL (12.0-18.0); LYMPH % 51.5 % (20.0-40.0); MEAN CELL VOLUME 98.1 fL (80.0-94.0); MEAN CORPUSCULAR HEMOGLOBIN 33.6 pg (27.0-31.0); MEAN CORPUSCULAR HGB CONC 34.2 g/dL (33.0-37.0); MEAN PLATELET VOLUME 8.7 fL (7.2-11.7); MONO # 0.4 K/uL (0.0-0.8); MONO % 9.6 % (0.0-10.0); NEUT # 1.4 K/uL (1.8-7.0); NEUT % 34.6 % (50.0-75.0); NRBC % 0.1 % (0.0-2.0); RBC 4.24 Mil/uL (4.40-5.90); RED CELL DISTRIBUTION WIDTH 15.4 % (11.5-14.5)
--- NOTE | 2017-11-10 07:50 | CP.PCM.PN ---
Subjective - Date & Time of Evaluation Date of Evaluation: 11/10/17 Time of Evaluation: 07:42 - Subjective Subjective: PGY1 Medicine Note for Dr. Ruiz Patient seen and examined at bedside overnight. No acute events overnight. Patient is laying in bed in good spirits and doing well. He appears to be at his baseline. Patient responds slowly to questioning and does not always respond. ROS is unattainable due to current mental status. Objective - Vital Signs/Intake and Output Vital Signs (last 24 hours): Temp Pulse Resp BP Pulse Ox 97.7 F 73 20 110/60 98 11/09/17 23:25 11/09/17 23:25 11/09/17 23:25 11/09/17 23:25 11/09/17 23:25 Intake and Output: 11/10/17 11/10/17 06:59 18:59 Intake Total 240 Output Total 300 Balance -60 - Medications Medications: Current Medications Divalproex Sodium (Depakote Dr) 500 mg PO BID [facility] Last Admin: 11/09/17 17:17 Dose: 500 mg Dolutegravir Sodium (Tivicay) 50 mg PO DAILY [facility] PRN Reason: Protocol Last Admin: 11/09/17 10:05 Dose: 50 mg Emtricitabine/Tenofovir (Truvada 200 Mg-300 Mg) 1 tab PO DAILY [facility] PRN Reason: Protocol Last Admin: 11/09/17 10:05 Dose: 1 tab Escitalopram Oxalate (Lexapro) 10 mg PO HS [facility] Last Admin: 11/09/17 21:21 Dose: 10 mg Famotidine (Pepcid) 20 mg PO DAILY [facility] Last Admin: 11/09/17 10:05 Dose: 20 mg Heparin Sodium (Porcine) (Heparin) 5,000 units SC Q8 [facility] Last Admin: 11/10/17 05:42 Dose: 5,000 units Memantine (Namenda) 10 mg PO DAILY [facility] Last Admin: 11/09/17 10:05 Dose: 10 mg - Labs Labs: 11/10/17 07:26 11/09/17 08:37 - Constitutional Appears: Non-toxic, No Acute Distress - Head Exam Head Exam: ATRAUMATIC, NORMOCEPHALIC - Eye Exam Eye Exam: EOMI. absent: Scleral icterus - ENT Exam ENT Exam: Mucous Membranes Moist - Respiratory Exam Respiratory Exam: Clear to Ausculation Bilateral, NORMAL BREATHING PATTERN. absent: Accessory Muscle Use, Rales, Rhonchi, Wheezes, Respiratory Distress - Cardiovascular Exam Cardiovascular Exam: REGULAR RHYTHM, +S1, +S2 - GI/Abdominal Exam GI & Abdominal Exam: Soft, Normal Bowel Sounds. absent: Distended, Firm, Guarding, Rigid, Tenderness - Extremities Exam Extremities Exam: absent: Calf Tenderness, Pedal Edema - Neurological Exam Neurological Exam: Alert, Awake, CN II-XII Intact, Oriented x3 Additional comments: Movements are smooth and brisk. Speech is slow. Patient does not always respond to questioning. Intermittent blank stares throughout the examination. 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 Wills, help appreciated - Upon discharge, patient to be discharged on Depakote Valproic acid level - 52.7 (4/), 28.9 (4/) - continue Depakote 500mg bid HIV/AIDS ID Consult: Dr. 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 Multiple calcifications in the brain bilaterally, most tiny in size , too numerous to count. The main differential considerations given the appearance include infectious processes, such as neurocysticercosis or tuberculosis, in the healed/calcified nodular stage * Lexapro 10 mg PO HS * Namenda 10 mg PO daily Prophylaxis SCDs Heparin 5,000u SC q8h Pepcid 20mg daily Social Work consult --> help appreciated Disposition: Per Toll Test Desk Worker, the patient was denied admission to [facility]. He has a Green Card per daughter. He used to have health insurance down in [place]. SW is working with the daughter and the patient's sister (who lives in [place]) to set up care at a custodial. They are going to determine if the patient's health insurance is still valid in [place], and if so, possible transfer patient to [place]. The patient's sister has agreed to drive up and take the patient to a custodial back in [place] but she does not want to be the sole provider for him. The patient is unable to care for himself any longer due to progression of his HIV/AIDS dementia. Patient unable to be discharged to street due to his current mental status. Previously, the SW called patient's daughter and left message. Due to patient's current insurance status, the best option for the patient appears to have his sister drive up from [place] and drive him to a custodial down there. No other updates at this time. Case discussed with Dr. Sara Dawson Avery PGY1
[2017-11-10 07:57] LABS: ALBUMIN 4.3 g/dL (3.5-5.0); ALT/SGPT 37 U/L (21-72); AST/SGOT 45 U/L (17-59); BILIRUBIN,DIRECT 0.4 mg/dL (0.0-0.4); BLOOD UREA NITROGEN 22 mg/dL (9-20); CALCIUM 9.3 mg/dl (8.6-10.4); GFR AFRICAN-AMERICAN > 60; GFR NON-AFRICAN AMERICAN 57
[2017-11-10] MEDS: Divalproex 500 mg DR Tab PO SCH ×2 (11:00→17:40)
[2017-11-10] MEDS: Emtricitabine-Tenofovir 200 mg-300 mg Tab PO SCH (11:00)
--- NOTE | 2017-11-10 12:28 | CP.PCM.PN ---
Subjective - Date & Time of Evaluation Date of Evaluation: 11/10/17 Time of Evaluation: 12:25 - Subjective Subjective: Mr. Grey was seen and examined today at bedside. He complained of a slight headache. There were no acute events overnight. He continues to have unstable gait, but no reported falls. He continues to have slow mentation and dementia. Objective - Vital Signs/Intake and Output Vital Signs (last 24 hours): Temp Pulse Resp BP Pulse Ox 98.1 F 86 20 133/80 97 11/10/17 07:00 11/10/17 07:00 11/10/17 07:00 11/10/17 07:00 11/10/17 07:00 Intake and Output: 11/10/17 11/10/17 06:59 18:59 Intake Total 240 Output Total 300 Balance -60 - Medications Medications: Current Medications Divalproex Sodium (Depakote Dr) 500 mg PO BID [facility] Last Admin: 11/10/17 11:00 Dose: 500 mg Dolutegravir Sodium (Tivicay) 50 mg PO DAILY [facility] PRN Reason: Protocol Last Admin: 11/10/17 11:00 Dose: 50 mg Emtricitabine/Tenofovir (Truvada 200 Mg-300 Mg) 1 tab PO DAILY [facility] PRN Reason: Protocol Last Admin: 11/10/17 11:00 Dose: 1 tab Escitalopram Oxalate (Lexapro) 10 mg PO HS [facility] Last Admin: 11/09/17 21:21 Dose: 10 mg Famotidine (Pepcid) 20 mg PO DAILY [facility] Last Admin: 11/10/17 11:00 Dose: 20 mg Heparin Sodium (Porcine) (Heparin) 5,000 units SC Q8 [facility] Last Admin: 11/10/17 05:42 Dose: 5,000 units Memantine (Namenda) 10 mg PO DAILY [facility] Last Admin: 11/10/17 11:00 Dose: 10 mg - Labs Labs: 11/10/17 07:26 11/10/17 07:26 - Neurological Exam Neurological Exam: Altered, Awake, CN II-XII Intact, Reflexes Normal Neuro motor strength exam: Left Upper Extremity: 4, Right Upper Extremity: 4, Left Lower Extremity: 4, Right Lower Extremity: 4 Additional comments: Magnetic-type gait. Neurologically unchanged. Assessment and Plan (1) AIDS dementia complex Assessment & Plan: Continue current medications and attempt to follow up with case management since the patient is non-compliant. A repeat CT head may be obtained to evaluate for any progression in hydrocephalus. Continue Namenda. Status: Acute (2) HIV disease Assessment & Plan: Continue treatment per primary team. Status: Acute (3) Seizure disorder Assessment & Plan: Continue Depakote at current dose for prophylaxis. Status: Acute
--- NOTE | 2017-11-11 06:24 | CP.PCM.PN ---
Subjective - Date & Time of Evaluation Date of Evaluation: 11/11/17 Time of Evaluation: 07:00 - Subjective Subjective: PGY-1 Dr. Ruiz's Service Patient seen and examined at bedside and in no acute distress. Patient able to state month and year. Patient does not know who the president is, but does know we are in [place]. Patient has no complaints this morning. Patient denies chest pain, abdominal pain, N/V, C/D. Objective - Vital Signs/Intake and Output Vital Signs (last 24 hours): Temp Pulse Resp BP Pulse Ox 97.7 F 70 20 103/66 97 11/10/17 23:10 11/10/17 23:10 11/10/17 23:10 11/10/17 23:10 11/10/17 23:10 Intake and Output: 11/10/17 11/11/17 18:59 06:59 Intake Total 350 Balance 350 - Medications Medications: Current Medications Divalproex Sodium (Depakote Dr) 500 mg PO BID [facility] Last Admin: 11/10/17 17:40 Dose: 500 mg Dolutegravir Sodium (Tivicay) 50 mg PO DAILY [facility] PRN Reason: Protocol Last Admin: 11/10/17 11:00 Dose: 50 mg Emtricitabine/Tenofovir (Truvada 200 Mg-300 Mg) 1 tab PO DAILY [facility] PRN Reason: Protocol Last Admin: 11/10/17 11:00 Dose: 1 tab Escitalopram Oxalate (Lexapro) 10 mg PO HS [facility] Last Admin: 11/10/17 22:13 Dose: 10 mg Famotidine (Pepcid) 20 mg PO DAILY [facility] Last Admin: 11/10/17 11:00 Dose: 20 mg Heparin Sodium (Porcine) (Heparin) 5,000 units SC Q8 [facility] Last Admin: 11/10/17 22:13 Dose: 5,000 units Memantine (Namenda) 10 mg PO DAILY [facility] Last Admin: 11/10/17 11:00 Dose: 10 mg - Labs Labs: 11/10/17 07:26 11/10/17 07:26 - Additional Findings Additional findings: - Constitutional Appears: Non-toxic, No Acute Distress - Head Exam Head Exam: ATRAUMATIC, NORMOCEPHALIC - Eye Exam Eye Exam: EOMI. absent: Scleral icterus - ENT Exam ENT Exam: Mucous Membranes Moist - Respiratory Exam Respiratory Exam: Clear to Ausculation Bilateral, NORMAL BREATHING PATTERN. absent: Accessory Muscle Use, Rales, Rhonchi, Wheezes, Respiratory Distress - Cardiovascular Exam Cardiovascular Exam: REGULAR RHYTHM, +S1, +S2 - GI/Abdominal Exam GI & Abdominal Exam: Soft, Normal Bowel Sounds. absent: Distended, Firm, Guarding, Rigid, Tenderness - Extremities Exam Extremities Exam: absent: Calf Tenderness, Pedal Edema - Neurological Exam Neurological Exam: Alert, Awake, CN II-XII Intact, Oriented x3 Additional comments: Movements are smooth and brisk. Speech is slow. 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 Wills, help appreciated - Upon discharge, patient to be discharged on Depakote Valproic acid level - 52.7 (11/05), 28.9 (11/03) - continue Depakote 500mg bid HIV/AIDS ID Consult: Dr. 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 Multiple calcifications in the brain bilaterally, most tiny in size , too numerous to count. The main differential considerations given the appearance include infectious processes, such as neurocysticercosis or tuberculosis, in the healed/calcified nodular stage Repeat Head CT ordered to assess hydrocephalus * Lexapro 10 mg PO HS * Namenda 10 mg PO daily Prophylaxis SCDs Heparin 5,000u SC q8h Pepcid 20mg daily PT Social Work consult --> help appreciated Disposition: Per Forensic Psychiatrist, the patient was denied admission to [facility]. He has a Green Card per daughter. He used to have health insurance down in [place]. SW is working with the daughter and the patient's sister (who lives in [place]) to set up care at a alf. They are going to determine if the patient's health insurance is still valid in [place], and if so, possible transfer patient to [place]. The patient's sister has agreed to drive up and take the patient to a alf back in [place] but she does not want to be the sole provider for him. The patient is unable to care for himself any longer due to progression of his HIV/AIDS dementia. Patient unable to be discharged to street due to his current mental status. Previously, the SW called patient's daughter and left message. Due to patient's current insurance status, the best option for the patient appears to have his sister drive up from [place] and drive him to a alf down there. No other updates at this time. Case discussed with Dr. Ruiz
[2017-11-11 07:46] LABS: BASO % 0.8 % (0.0-2.0); EOS # 0.1 K/uL (0.0-0.7); EOS % 3.7 % (0.0-4.0); LYMPH % 54.5 % (20.0-40.0); MEAN CELL VOLUME 98.4 fL (80.0-94.0); MEAN CORPUSCULAR HEMOGLOBIN 33.7 pg (27.0-31.0); MEAN CORPUSCULAR HGB CONC 34.3 g/dL (33.0-37.0); MEAN PLATELET VOLUME 9.1 fL (7.2-11.7); MONO # 0.3 K/uL (0.0-0.8); MONO % 9.4 % (0.0-10.0); NEUT # 1.2 K/uL (1.8-7.0); NEUT % 31.6 % (50.0-75.0); NRBC % 0.1 % (0.0-2.0); RBC 4.14 Mil/uL (4.40-5.90); RED CELL DISTRIBUTION WIDTH 15.4 % (11.5-14.5); WHITE BLOOD COUNT 3.6 K/uL (4.8-10.8)
[2017-11-11 08:00] LABS: ALT/SGPT 42 U/L (21-72); AST/SGOT 39 U/L (17-59); BLOOD UREA NITROGEN 20 mg/dL (9-20); CALCIUM 9.5 mg/dl (8.6-10.4); GFR AFRICAN-AMERICAN > 60; GFR NON-AFRICAN AMERICAN > 60
[2017-11-11] MEDS: Divalproex 500 mg DR Tab PO SCH ×2 (10:51→18:00)
[2017-11-11] MEDS: Emtricitabine-Tenofovir 200 mg-300 mg Tab PO SCH (10:53)
--- NOTE | 2017-11-11 18:33 | CT ---
PROCEDURE: CT HEAD WITHOUT CONTRAST. HISTORY: prior hx of mild hydrocephalus COMPARISON: 09/10/2017 TECHNIQUE: Axial computed tomography images were obtained through the head/brain without intravenous contrast. Radiation dose: Total exam DLP = 795.05 mGy-cm. This CT exam was performed using one or more of the following dose reduction techniques: Automated exposure control, adjustment of the mA and/or kV according to patient size, and/or use of iterative reconstruction technique. FINDINGS: HEMORRHAGE: No intracranial hemorrhage. BRAIN: No mass effect or edema. No atrophy. Scattered punctate cortical calcifications bilaterally likely postinfectious/postinflammatory. No change from prior. There is a larger nodular calcifications seen in the high right frontoparietal region. There is no evidence of acute infarct. There is patchy and confluent deep and subcortical white matter lucency and periventricular white matter lucency consistent with chronic microvascular ischemic change. There is a left basal ganglia lacunar infarct. VENTRICLES: Dilatation of the 3rd and lateral ventricles with normal size of the 4th ventricle. No midline shift. This may reflect communicating hydrocephalus. No change from prior. CALVARIUM: Unremarkable. PARANASAL SINUSES: Unremarkable as visualized. No significant inflammatory changes. MASTOID AIR CELLS: Unremarkable as visualized. No inflammatory changes. OTHER FINDINGS: None. IMPRESSION: No intracranial mass or hemorrhage. 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 Chronic white matter ischemic change. 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 Postinfectious/postinflammatory cortical calcifications diffusely.
--- NOTE | 2017-11-12 06:19 | CP.PCM.PN ---
Subjective - Date & Time of Evaluation Date of Evaluation: 11/12/17 Time of Evaluation: 07:00 - Subjective Subjective: PGY-1 Dr. Ruiz's Service Patient seen and examined at bedside and in no acute distress. Patient able to state month and year. Patient does not know who the president is,and says we are in [facility]. Patient has no complaints this morning. Patient denies chest pain, abdominal pain, N/V, C/D. Objective - Vital Signs/Intake and Output Vital Signs (last 24 hours): Temp Pulse Resp BP Pulse Ox 98 F 71 20 106/69 97 11/11/17 23:20 11/11/17 23:20 11/11/17 23:20 11/11/17 23:20 11/11/17 23:20 Intake and Output: 11/11/17 11/12/17 18:59 06:59 Output Total 450 Balance -450 - Medications Medications: Current Medications Divalproex Sodium (Depakote Dr) 500 mg PO BID [facility] Last Admin: 11/11/17 18:00 Dose: 500 mg Dolutegravir Sodium (Tivicay) 50 mg PO DAILY [facility] PRN Reason: Protocol Last Admin: 11/11/17 10:53 Dose: 50 mg Emtricitabine/Tenofovir (Truvada 200 Mg-300 Mg) 1 tab PO DAILY [facility] PRN Reason: Protocol Last Admin: 11/11/17 10:53 Dose: 1 tab Escitalopram Oxalate (Lexapro) 10 mg PO HS [facility] Last Admin: 11/10/17 22:13 Dose: 10 mg Famotidine (Pepcid) 20 mg PO DAILY [facility] Last Admin: 11/11/17 10:53 Dose: 20 mg Heparin Sodium (Porcine) (Heparin) 5,000 units SC Q8 [facility] Last Admin: 11/12/17 06:01 Dose: 5,000 units Memantine (Namenda) 10 mg PO DAILY [facility] Last Admin: 11/11/17 10:52 Dose: 10 mg - Labs Labs: 11/11/17 07:51 11/11/17 07:34 - Additional Findings Additional findings: - Constitutional Appears: Non-toxic, No Acute Distress - Head Exam Head Exam: ATRAUMATIC, NORMOCEPHALIC - Eye Exam Eye Exam: EOMI. absent: Scleral icterus - ENT Exam ENT Exam: Mucous Membranes Moist - Respiratory Exam Respiratory Exam: Clear to Ausculation Bilateral, NORMAL BREATHING PATTERN. absent: Accessory Muscle Use, Rales, Rhonchi, Wheezes, Respiratory Distress - Cardiovascular Exam Cardiovascular Exam: REGULAR RHYTHM, +S1, +S2 - GI/Abdominal Exam GI & Abdominal Exam: Soft, Normal Bowel Sounds. absent: Distended, Firm, Guarding, Rigid, Tenderness - Extremities Exam Extremities Exam: absent: Calf Tenderness, Pedal Edema - Neurological Exam Neurological Exam: Alert, Awake, CN II-XII Intact, Oriented x3 Additional comments: Movements are smooth and brisk. Speech is slow. 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 Wills, help appreciated - Upon discharge, patient to be discharged on Depakote Valproic acid level - 52.7 (11/05), 28.9 (11/03) * continue Depakote 500mg bid Head CT (11/11/17): no intracranial mass or hemorrhage. 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 Chronic white matter ischemic change. 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 Postinfectious/ postinflammatory cortical calcifications diffusely. As per Dr. Alejandro, these findings are probably chronic. HIV/AIDS ID Consult: Dr. 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 Multiple calcifications in the brain bilaterally, most tiny in size , too numerous to count. The main differential considerations given the appearance include infectious processes, such as neurocysticercosis or tuberculosis, in the healed/calcified nodular stage Repeat Head CT ordered to assess hydrocephalus * Lexapro 10 mg PO HS * Namenda 10 mg PO daily Prophylaxis SCDs Heparin 5,000u SC q8h Pepcid 20mg daily PT Social Work consult --> help appreciated Disposition: Per Accounts Specialist, the patient was denied admission to [facility]. He has a Green Card per daughter. He used to have health insurance down in [place]. [facility] is working with the daughter and the patient's sister (who lives in [place]) to set up care at a long term. They are going to determine if the patient's health insurance is still valid in [place], and if so, possible transfer patient to [place]. The patient's sister has agreed to drive up and take the patient to a long term back in [place] but she does not want to be the sole provider for him. The patient is unable to care for himself any longer due to progression of his HIV/AIDS dementia. Patient unable to be discharged to [facility] due to his current mental status. Previously, the SW called patient's daughter and left message. Due to patient's current insurance status, the best option for the patient appears to have his sister drive up from [place] and drive him to a long term down there. No other updates at this time. Case discussed with Dr. Ruiz
[2017-11-12 07:59] LABS: BASO % 0.4 % (0.0-2.0); EOS # 0.2 K/uL (0.0-0.7); EOS % 5.2 % (0.0-4.0); HEMOGLOBIN 13.7 g/dL (12.0-18.0); LYMPH # 1.9 K/uL (1.0-4.3); LYMPH % 52.8 % (20.0-40.0); MEAN CELL VOLUME 98.9 fL (80.0-94.0); MEAN CORPUSCULAR HEMOGLOBIN 33.3 pg (27.0-31.0); MEAN CORPUSCULAR HGB CONC 33.7 g/dL (33.0-37.0); MEAN PLATELET VOLUME 9.2 fL (7.2-11.7); MONO # 0.4 K/uL (0.0-0.8); MONO % 12.3 % (0.0-10.0); NEUT # 1.1 K/uL (1.8-7.0); NEUT % 29.3 % (50.0-75.0); NRBC % 0.1 % (0.0-2.0); RBC 4.1 Mil/uL (4.40-5.90); RED CELL DISTRIBUTION WIDTH 15.2 % (11.5-14.5); WHITE BLOOD COUNT 3.6 K/uL (4.8-10.8)
[2017-11-12 08:10] LABS: ALBUMIN 3.9 g/dL (3.5-5.0); ALT/SGPT 34 U/L (21-72); AST/SGOT 35 U/L (17-59); BLOOD UREA NITROGEN 19 mg/dL (9-20); CALCIUM 9.4 mg/dl (8.6-10.4); GFR AFRICAN-AMERICAN > 60; GFR NON-AFRICAN AMERICAN > 60
[2017-11-12] MEDS: Emtricitabine-Tenofovir 200 mg-300 mg Tab PO SCH (10:10)
[2017-11-12] MEDS: Divalproex 500 mg DR Tab PO SCH ×2 (10:10→18:55)
--- NOTE | 2017-11-13 06:50 | CP.PCM.PN ---
Subjective - Date & Time of Evaluation Date of Evaluation: 11/13/17 Time of Evaluation: 07:00 - Subjective Subjective: PGY-1 Dr. Ruiz's Service Patient seen and examined at bedside and in no acute distress. Patient has no complaints this morning. Patient knew we were in [place] and that it was 2017. Patient thought it was March. Patient denies chest pain, abdominal pain, N/V, C/D. Objective - Vital Signs/Intake and Output Vital Signs (last 24 hours): Temp Pulse Resp BP Pulse Ox 97.8 F 76 20 99/70 L 97 11/12/17 23:15 11/12/17 23:15 11/12/17 23:15 11/12/17 23:15 11/12/17 23:15 - Medications Medications: Current Medications Divalproex Sodium (Depakote Dr) 500 mg PO BID [facility] Last Admin: 11/12/17 18:55 Dose: 500 mg Dolutegravir Sodium (Tivicay) 50 mg PO DAILY [facility] PRN Reason: Protocol Last Admin: 11/12/17 10:10 Dose: 50 mg Emtricitabine/Tenofovir (Truvada 200 Mg-300 Mg) 1 tab PO DAILY [facility] PRN Reason: Protocol Last Admin: 11/12/17 10:10 Dose: 1 tab Escitalopram Oxalate (Lexapro) 10 mg PO HS [facility] Last Admin: 11/12/17 21:38 Dose: 10 mg Famotidine (Pepcid) 20 mg PO DAILY [facility] Last Admin: 11/12/17 10:10 Dose: 20 mg Heparin Sodium (Porcine) (Heparin) 5,000 units SC Q8 [facility] Last Admin: 11/13/17 06:15 Dose: 5,000 units Memantine (Namenda) 10 mg PO DAILY [facility] Last Admin: 11/12/17 10:15 Dose: 10 mg - Labs Labs: 11/12/17 07:50 11/12/17 07:50 - Additional Findings Additional findings: - Constitutional Appears: Non-toxic, No Acute Distress - Head Exam Head Exam: ATRAUMATIC, NORMOCEPHALIC - Eye Exam Eye Exam: EOMI. absent: Scleral icterus - ENT Exam ENT Exam: Mucous Membranes Moist - Respiratory Exam Respiratory Exam: Clear to Ausculation Bilateral, NORMAL BREATHING PATTERN. absent: Accessory Muscle Use, Rales, Rhonchi, Wheezes, Respiratory Distress - Cardiovascular Exam Cardiovascular Exam: REGULAR RHYTHM, +S1, +S2 - GI/Abdominal Exam GI & Abdominal Exam: Soft, Normal Bowel Sounds. absent: Distended, Firm, Guarding, Rigid, Tenderness - Extremities Exam Extremities Exam: absent: Calf Tenderness, Pedal Edema - Neurological Exam Neurological Exam: Alert, Awake, CN II-XII Intact, Oriented x3 Additional comments: Movements are smooth and brisk. Speech is slow. 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 Wills, help appreciated - Upon discharge, patient to be discharged on Depakote Valproic acid level - 52.7 (11/05), 28.9 (11/03) * continue Depakote 500mg bid Head CT (11/11/17): no intracranial mass or hemorrhage. 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 Chronic white matter ischemic change. 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 Postinfectious/ postinflammatory cortical calcifications diffusely. As per Dr. Alejandro, these findings are probably chronic. HIV/AIDS ID Consult: Dr. 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 Multiple calcifications in the brain bilaterally, most tiny in size , too numerous to count. The main differential considerations given the appearance include infectious processes, such as neurocysticercosis or tuberculosis, in the healed/calcified nodular stage Repeat Head CT ordered to assess hydrocephalus * Lexapro 10 mg PO HS * Namenda 10 mg PO daily Prophylaxis SCDs Heparin 5,000u SC q8h Pepcid 20mg daily PT Social Work consult --> help appreciated Disposition: Per Science Tutor, the patient was denied admission to [facility]. He has a Green Card per daughter. He used to have health insurance down in [place]. SW is working with the daughter and the patient's sister (who lives in [place]) to set up care at a jail. They are going to determine if the patient's health insurance is still valid in [place], and if so, possible transfer patient to [place]. The patient's sister has agreed to drive up and take the patient to a jail back in [place] but she does not want to be the sole provider for him. The patient is unable to care for himself any longer due to progression of his HIV/AIDS dementia. Patient unable to be discharged to [facility] due to his current mental status. Previously, the SW called patient's daughter and left message. Due to patient's current insurance status, the best option for the patient appears to have his sister drive up from [place] and drive him to a jail down there. No other updates at this time. Case discussed with Dr. Ruiz
[2017-11-13 08:04] LABS: BASO % 0.4 % (0.0-2.0); EOS # 0.2 K/uL (0.0-0.7); EOS % 4.7 % (0.0-4.0); HEMOGLOBIN 13.7 g/dL (12.0-18.0); LYMPH # 2.2 K/uL (1.0-4.3); LYMPH % 48.5 % (20.0-40.0); MEAN CELL VOLUME 98.4 fL (80.0-94.0); MEAN CORPUSCULAR HEMOGLOBIN 33.5 pg (27.0-31.0); MONO # 0.4 K/uL (0.0-0.8); MONO % 9.6 % (0.0-10.0); NEUT # 1.7 K/uL (1.8-7.0); NEUT % 36.8 % (50.0-75.0); NRBC % 0.3 % (0.0-2.0); RBC 4.08 Mil/uL (4.40-5.90); WHITE BLOOD COUNT 4.5 K/uL (4.8-10.8)
[2017-11-13 08:22] LABS: ALBUMIN 3.9 g/dL (3.5-5.0); ALT/SGPT 41 U/L (21-72); AST/SGOT 39 U/L (17-59); BLOOD UREA NITROGEN 17 mg/dL (9-20); CALCIUM 9.1 mg/dl (8.6-10.4); GFR AFRICAN-AMERICAN > 60; GFR NON-AFRICAN AMERICAN > 60
[2017-11-13] MEDS: Divalproex 500 mg DR Tab PO SCH ×2 (10:17→17:23)
[2017-11-13] MEDS: Emtricitabine-Tenofovir 200 mg-300 mg Tab PO SCH (10:18)
--- NOTE | 2017-11-14 06:19 | CP.PCM.PN ---
<Татьяна Fox - Last Filed: 11/14/17 17:17> Subjective - Date & Time of Evaluation Date of Evaluation: 11/14/17 Time of Evaluation: 07:00 - Subjective Subjective: PGY-1 Dr. Philip's Service Patient seen and examined at bedside and in no acute distress. Patient has no complaints this morning. Patient was able to say today's date because he was reading it off of a board in his room. Patient denies chest pain, abdominal pain , N/V, C/D. Objective - Vital Signs/Intake and Output Vital Signs (last 24 hours): Temp Pulse Resp BP Pulse Ox 98.2 F 88 20 118/75 95 11/13/17 23:20 11/13/17 23:20 11/13/17 23:20 11/13/17 23:20 11/13/17 23:20 - Medications Medications: Current Medications Divalproex Sodium (Depakote Dr) 500 mg PO BID [facility] Last Admin: 11/13/17 17:23 Dose: 500 mg Dolutegravir Sodium (Tivicay) 50 mg PO DAILY [facility] PRN Reason: Protocol Last Admin: 11/13/17 10:18 Dose: 50 mg Emtricitabine/Tenofovir (Truvada 200 Mg-300 Mg) 1 tab PO DAILY [facility] PRN Reason: Protocol Last Admin: 11/13/17 10:18 Dose: 1 tab Escitalopram Oxalate (Lexapro) 10 mg PO HS [facility] Last Admin: 11/13/17 21:08 Dose: 10 mg Famotidine (Pepcid) 20 mg PO DAILY [facility] Last Admin: 11/13/17 10:17 Dose: 20 mg Heparin Sodium (Porcine) (Heparin) 5,000 units SC Q8 [facility] Last Admin: 11/13/17 21:08 Dose: 5,000 units Memantine (Namenda) 10 mg PO DAILY [facility] Last Admin: 11/13/17 10:17 Dose: 10 mg - Labs Labs: 11/13/17 07:46 11/13/17 07:46 - Additional Findings Additional findings: - Constitutional Appears: Non-toxic, No Acute Distress - Head Exam Head Exam: ATRAUMATIC, NORMOCEPHALIC - Eye Exam Eye Exam: EOMI. absent: Scleral icterus - ENT Exam ENT Exam: Mucous Membranes Moist - Respiratory Exam Respiratory Exam: Clear to Ausculation Bilateral, NORMAL BREATHING PATTERN. absent: Accessory Muscle Use, Rales, Rhonchi, Wheezes, Respiratory Distress - Cardiovascular Exam Cardiovascular Exam: REGULAR RHYTHM, +S1, +S2 - GI/Abdominal Exam GI & Abdominal Exam: Soft, Normal Bowel Sounds. absent: Distended, Firm, Guarding, Rigid, Tenderness - Extremities Exam Extremities Exam: absent: Calf Tenderness, Pedal Edema - Neurological Exam Neurological Exam: Alert, Awake, CN II-XII Intact, Oriented x3 Additional comments: Movements are smooth and brisk. Speech is slow. 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 Wills, help appreciated - Upon discharge, patient to be discharged on Depakote Valproic acid level - 52.7 (11/05), 28.9 (11/03) * continue Depakote 500mg bid Head CT (11/11/17): no intracranial mass or hemorrhage. 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 Chronic white matter ischemic change. 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 Postinfectious/ postinflammatory cortical calcifications diffusely. As per Dr. Alejandro, these findings are probably chronic. HIV/AIDS ID Consult: Dr. 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 Multiple calcifications in the brain bilaterally, most tiny in size , too numerous to count. The main differential considerations given the appearance include infectious processes, such as neurocysticercosis or tuberculosis, in the healed/calcified nodular stage Repeat Head CT ordered to assess hydrocephalus * Lexapro 10 mg PO HS * Namenda 10 mg PO daily Prophylaxis SCDs Heparin 5,000u SC q8h Pepcid 20mg daily PT Social Work consult --> help appreciated Disposition: Per Property Inspector, the patient was denied admission to [facility]. He has a Green Card per daughter. He used to have health insurance down in [place]. SW is working with the daughter and the patient's sister (who lives in [place]) to set up care at a correction. They are going to determine if the patient's health insurance is still valid in [place], and if so, possible transfer patient to [place]. The patient's sister has agreed to drive up and take the patient to a correction back in [place] but she does not want to be the sole provider for him. The patient is unable to care for himself any longer due to progression of his HIV/AIDS dementia. Patient unable to be discharged to [facility] due to his current mental status. Patient currently pending to get Medicaid in [place]. Case discussed with Dr. Philip <Salinas Philip - Last Filed: 11/14/17 18:54> Objective - Vital Signs/Intake and Output Vital Signs (last 24 hours): Temp Pulse Resp BP Pulse Ox 98.6 F 88 20 118/81 96 11/14/17 15:20 11/14/17 15:20 11/14/17 15:20 11/14/17 15:20 11/14/17 15:20 - Medications Medications: Current Medications Divalproex Sodium (Depakote Dr) 500 mg PO BID [facility] Last Admin: 11/14/17 18:01 Dose: 500 mg Dolutegravir Sodium (Tivicay) 50 mg PO DAILY [facility] PRN Reason: Protocol Last Admin: 11/14/17 10:29 Dose: 50 mg Emtricitabine/Tenofovir (Truvada 200 Mg-300 Mg) 1 tab PO DAILY [facility] PRN Reason: Protocol Last Admin: 11/14/17 10:30 Dose: 1 tab Escitalopram Oxalate (Lexapro) 10 mg PO HS [facility] Last Admin: 11/13/17 21:08 Dose: 10 mg Famotidine (Pepcid) 20 mg PO DAILY [facility] Last Admin: 11/14/17 10:28 Dose: 20 mg Heparin Sodium (Porcine) (Heparin) 5,000 units SC Q8 [facility] Last Admin: 11/14/17 14:57 Dose: 5,000 units Memantine (Namenda) 10 mg PO DAILY [facility] Last Admin: 11/14/17 10:28 Dose: 10 mg - Labs Labs: 11/14/17 06:05 11/14/17 07:22 Attending/Attestation - Attestation I have personally seen and examined this patient.: Yes I have fully participated in the care of the patient.: Yes I have reviewed all pertinent clinical information, including history, physical exam and plan: Yes Notes (Text): 11/14/17 18:53 Patient was seen and examined at 9:15 AM, Exam, assessment and plan were gone over with the resident. Spoke with Property Inspector Keiko: awaiting [place] Medicaid and once obtained then SAR. Salinas Philip D.O.
[2017-11-14 06:21] LABS: BASO % 0.4 % (0.0-2.0); EOS # 0.2 K/uL (0.0-0.7); LYMPH # 2.1 K/uL (1.0-4.3); LYMPH % 42.4 % (20.0-40.0); MEAN CELL VOLUME 98.1 fL (80.0-94.0); MEAN CORPUSCULAR HEMOGLOBIN 33.1 pg (27.0-31.0); MEAN CORPUSCULAR HGB CONC 33.8 g/dL (33.0-37.0); MEAN PLATELET VOLUME 8.4 fL (7.2-11.7); MONO # 0.5 K/uL (0.0-0.8); MONO % 11.1 % (0.0-10.0); NEUT % 42.1 % (50.0-75.0); NRBC % 0.2 % (0.0-2.0); RBC 3.93 Mil/uL (4.40-5.90); RED CELL DISTRIBUTION WIDTH 15.2 % (11.5-14.5); WHITE BLOOD COUNT 4.9 K/uL (4.8-10.8)
[2017-11-14 08:06] LABS: ALBUMIN 3.8 g/dL (3.5-5.0); ALT/SGPT 37 U/L (21-72); AST/SGOT 33 U/L (17-59); BLOOD UREA NITROGEN 18 mg/dL (9-20); GFR AFRICAN-AMERICAN > 60; GFR NON-AFRICAN AMERICAN 57
[2017-11-14] MEDS: Divalproex 500 mg DR Tab PO SCH ×2 (10:29→18:01)
[2017-11-14] MEDS: Emtricitabine-Tenofovir 200 mg-300 mg Tab PO SCH (10:30)
--- NOTE | 2017-11-15 00:09 | CP.PCM.PN ---
<Katiuska Thompson E - Last Filed: 11/15/17 07:22> Subjective - Date & Time of Evaluation Date of Evaluation: 11/15/17 Time of Evaluation: 00:07 - Subjective Subjective: Patient was seen and examined at bedside. Patient was resting comfortably in bed. Patient reports that he is doing well and has no acute complaints. Patient denies fever, chills, SOB, palpitations, chest pain, abdominal pain, nausea, vomiting. Objective - Vital Signs/Intake and Output Vital Signs (last 24 hours): Temp Pulse Resp BP Pulse Ox 98.6 F 88 20 118/81 96 11/14/17 15:20 11/14/17 15:20 11/14/17 15:20 11/14/17 15:20 11/14/17 15:20 Intake and Output: 11/14/17 11/15/17 18:59 06:59 Intake Total 360 Balance 360 - Medications Medications: Current Medications Divalproex Sodium (Depakote Dr) 500 mg PO BID [facility] Last Admin: 11/14/17 18:01 Dose: 500 mg Dolutegravir Sodium (Tivicay) 50 mg PO DAILY [facility] PRN Reason: Protocol Last Admin: 11/14/17 10:29 Dose: 50 mg Emtricitabine/Tenofovir (Truvada 200 Mg-300 Mg) 1 tab PO DAILY [facility] PRN Reason: Protocol Last Admin: 11/14/17 10:30 Dose: 1 tab Escitalopram Oxalate (Lexapro) 10 mg PO HS [facility] Last Admin: 11/14/17 21:50 Dose: 10 mg Famotidine (Pepcid) 20 mg PO DAILY [facility] Last Admin: 11/14/17 10:28 Dose: 20 mg Heparin Sodium (Porcine) (Heparin) 5,000 units SC Q8 [facility] Last Admin: 11/14/17 21:50 Dose: 5,000 units Memantine (Namenda) 10 mg PO DAILY [facility] Last Admin: 11/14/17 10:28 Dose: 10 mg - Labs Labs: 11/14/17 06:05 11/14/17 07:22 - Constitutional Appears: No Acute Distress - Head Exam Head Exam: ATRAUMATIC - Eye Exam Eye Exam: EOMI - ENT Exam ENT Exam: Mucous Membranes Moist - Respiratory Exam Respiratory Exam: Clear to Ausculation Bilateral, NORMAL BREATHING PATTERN. absent: Decreased Breath Sounds, Prolonged Expiratory Phase, Rhonchi, Wheezes, Respiratory Distress - GI/Abdominal Exam GI & Abdominal Exam: Soft, Normal Bowel Sounds. absent: Distended, Firm, Guarding, Rigid, Tenderness - Extremities Exam Extremities Exam: Normal Inspection. 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 Wills, help appreciated - Upon discharge, patient to be discharged on Depakote Valproic acid level - 52.7 (11/05), 28.9 (11/03) * continue Depakote 500mg bid Head CT (11/11/17): no intracranial mass or hemorrhage. 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 Chronic white matter ischemic change. 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 Postinfectious/ postinflammatory cortical calcifications diffusely. As per Dr. Alejandro, these findings are probably chronic. 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 Multiple calcifications in the brain bilaterally, most tiny in size , too numerous to count. The main differential considerations given the appearance include infectious processes, such as neurocysticercosis or tuberculosis, in the healed/calcified nodular stage Repeat Head CT ordered to assess hydrocephalus * Lexapro 10 mg PO HS * Namenda 10 mg PO daily Status: Acute (3) History of HIV or AIDS Assessment & Plan: ID Consult: Dr. 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 The patient's sister has agreed to drive up and take the patient to a mcc back in [place] but she does not want to be the sole provider for him. The patient is unable to care for himself any longer due to progression of his HIV/AIDS dementia. Patient unable to be discharged to street due to his current mental status. Patient currently pending to get Medicaid in [place]. All plans and management discussed with attending, dr. durand Status: Acute <Jonathan Durand H - Last Filed: 11/15/17 10:29> Objective - Vital Signs/Intake and Output Vital Signs (last 24 hours): Temp Pulse Resp BP Pulse Ox 98.1 F 72 20 97/60 L 97 11/15/17 07:30 11/15/17 07:30 11/15/17 07:30 11/15/17 07:30 11/15/17 07:30 Intake and Output: 11/15/17 11/15/17 06:59 18:59 Intake Total 360 Balance 360 - Medications Medications: Current Medications Divalproex Sodium (Depakote Dr) 500 mg PO BID [facility] Last Admin: 11/14/17 18:01 Dose: 500 mg Dolutegravir Sodium (Tivicay) 50 mg PO DAILY [facility] PRN Reason: Protocol Last Admin: 11/14/17 10:29 Dose: 50 mg Emtricitabine/Tenofovir (Truvada 200 Mg-300 Mg) 1 tab PO DAILY [facility] PRN Reason: Protocol Last Admin: 11/14/17 10:30 Dose: 1 tab Escitalopram Oxalate (Lexapro) 10 mg PO HS [facility] Last Admin: 11/14/17 21:50 Dose: 10 mg Famotidine (Pepcid) 20 mg PO DAILY [facility] Last Admin: 11/14/17 10:28 Dose: 20 mg Heparin Sodium (Porcine) (Heparin) 5,000 units SC Q8 [facility] Last Admin: 11/15/17 05:59 Dose: 5,000 units Memantine (Namenda) 10 mg PO DAILY [facility] Last Admin: 11/14/17 10:28 Dose: 10 mg - Labs Labs: 11/15/17 08:11 11/15/17 08:11 Attending/Attestation - Attestation I have personally seen and examined this patient.: Yes I have fully participated in the care of the patient.: Yes I have reviewed all pertinent clinical information, including history, physical exam and plan: Yes Notes (Text): 11/15/17 10:20 Medical attending: This is my first time meeting patient - this being said my colleagues have been seeing this patient in the past and I was somewhat familiar with the case. Reviewed the above note by the resident and agree with the above note by the resident As mentioned previously the patient has a long history of HIV now AIDS and is currently on HARRT medication at this time However he like has some aspect of AIDS/HIV dementia as he is confused and unable to follow many commands. He is able to say he is not in pain. Denied difficulty breathing. On exam he was able to follow very simple one step commands however he does not know place or time. He does not appear to be in any acute distress however he would not be safe to discharge considering his situation. He remains on medication for seizures. His lab work this morning was stable. Per review of the previous notes there is one family member in [place] however she feels she would not be able to care for patient. Per review of notes he probably has some type of [place] insurance that could help him - but only in [place]. The social workers are trying to see if he could some how get into [facility] here. Probably the best thing would be to somehow provide the patient assistance to get to [place] and I do not know how well he walks (if he does walk or not) - and this is a patient whom I do not see regularly. thank you Jonathan Durand
[2017-11-15 08:21] LABS: BASO % 0.5 % (0.0-2.0); EOS # 0.1 K/uL (0.0-0.7); EOS % 3.4 % (0.0-4.0); HEMOGLOBIN 13.6 g/dL (12.0-18.0); LYMPH # 2.1 K/uL (1.0-4.3); LYMPH % 47.9 % (20.0-40.0); MEAN CELL VOLUME 98.5 fL (80.0-94.0); MEAN CORPUSCULAR HEMOGLOBIN 33.8 pg (27.0-31.0); MEAN CORPUSCULAR HGB CONC 34.3 g/dL (33.0-37.0); MEAN PLATELET VOLUME 9.2 fL (7.2-11.7); MONO # 0.4 K/uL (0.0-0.8); MONO % 8.9 % (0.0-10.0); NEUT # 1.7 K/uL (1.8-7.0); NEUT % 39.3 % (50.0-75.0); NRBC % 0.1 % (0.0-2.0); RBC 4.03 Mil/uL (4.40-5.90); WHITE BLOOD COUNT 4.4 K/uL (4.8-10.8)
[2017-11-15 08:39] LABS: ALBUMIN 3.9 g/dL (3.5-5.0); ALT/SGPT 35 U/L (21-72); AST/SGOT 34 U/L (17-59); BLOOD UREA NITROGEN 20 mg/dL (9-20); CALCIUM 9.1 mg/dl (8.6-10.4); GFR AFRICAN-AMERICAN > 60; GFR NON-AFRICAN AMERICAN > 60
[2017-11-15] MEDS: Divalproex 500 mg DR Tab PO SCH ×2 (10:24→18:52)
[2017-11-15] MEDS: Emtricitabine-Tenofovir 200 mg-300 mg Tab PO SCH (10:24)
[2017-11-15] MEDS ORDERED: Magnesium Sulfate 1 gm in D5W 1 GM/100 ML BAG IVPB SCH (12:15)
--- NOTE | 2017-11-15 23:50 | CP.PCM.PN ---
Subjective - Date & Time of Evaluation Date of Evaluation: 11/16/17 Time of Evaluation: 06:00 - Subjective Subjective: Patient was seen and examined at bedside. Patient was resting comfortably in bed. Patient reports that he is doing well and has no acute complaints. Patient denies fever, chills, SOB, palpitations, chest pain, abdominal pain, nausea, vomiting. Objective - Vital Signs/Intake and Output Vital Signs (last 24 hours): Temp Pulse Resp BP Pulse Ox 98.8 F 76 18 113/74 97 11/15/17 15:22 11/15/17 15:22 11/15/17 15:22 11/15/17 15:22 11/15/17 15:22 Intake and Output: 11/15/17 11/16/17 18:59 06:59 Intake Total 480 Balance 480 - Medications Medications: Current Medications Divalproex Sodium (Depakote Dr) 500 mg PO BID [facility] Last Admin: 11/15/17 18:52 Dose: 500 mg Dolutegravir Sodium (Tivicay) 50 mg PO DAILY [facility] PRN Reason: Protocol Last Admin: 11/15/17 10:24 Dose: 50 mg Emtricitabine/Tenofovir (Truvada 200 Mg-300 Mg) 1 tab PO DAILY [facility] PRN Reason: Protocol Last Admin: 11/15/17 10:24 Dose: 1 tab Escitalopram Oxalate (Lexapro) 10 mg PO HS [facility] Last Admin: 11/15/17 21:56 Dose: 10 mg Famotidine (Pepcid) 20 mg PO DAILY [facility] Last Admin: 11/15/17 10:24 Dose: 20 mg Heparin Sodium (Porcine) (Heparin) 5,000 units SC Q8 [facility] Last Admin: 11/15/17 21:56 Dose: 5,000 units Memantine (Namenda) 10 mg PO DAILY [facility] Last Admin: 11/15/17 10:24 Dose: 10 mg - Labs Labs: 11/15/17 08:11 11/15/17 08:11 - Constitutional Appears: Well, No Acute Distress - Head Exam Head Exam: ATRAUMATIC, NORMAL INSPECTION - Eye Exam Eye Exam: EOMI, Normal appearance - ENT Exam ENT Exam: Mucous Membranes Moist - Respiratory Exam Respiratory Exam: Clear to Ausculation Bilateral, NORMAL BREATHING PATTERN. absent: Prolonged Expiratory Phase, Rhonchi, Wheezes, Respiratory Distress - Cardiovascular Exam Cardiovascular Exam: REGULAR RHYTHM, +S1, +S2. absent: Bradycardia, Tachycardia , Diastolic murmur - GI/Abdominal Exam GI & Abdominal Exam: Soft, Normal Bowel Sounds. absent: Distended, Firm, Guarding, Rigid, Tenderness - Extremities Exam Extremities Exam: Normal Inspection. 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 Wills, help appreciated - Upon discharge, patient to be discharged on Depakote Valproic acid level - 52.7 (11/05), 28.9 (11/03) * continue Depakote 500mg bid Head CT (11/11/17): no intracranial mass or hemorrhage. 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 Chronic white matter ischemic change. 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 Postinfectious/ postinflammatory cortical calcifications diffusely. As per Dr. Alejandro, these findings are probably chronic. 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 Multiple calcifications in the brain bilaterally, most tiny in size , too numerous to count. The main differential considerations given the appearance include infectious processes, such as neurocysticercosis or tuberculosis, in the healed/calcified nodular stage Repeat Head CT ordered to assess hydrocephalus * Lexapro 10 mg PO HS * Namenda 10 mg PO daily Status: Acute (3) History of HIV or AIDS Assessment & Plan: ID Consult: Dr. 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 The patient's sister has agreed to drive up and take the patient to a snf back in [place] but she does not want to be the sole provider for him. The patient is unable to care for himself any longer due to progression of his HIV/AIDS dementia. Patient unable to be discharged to street due to his current mental status. Patient currently pending to get Medicaid in [place]. All plans and management discussed with attending, Dr. Charles Status: Acute
--- NOTE | 2017-11-16 00:02 | CP.PCM.PN ---
<Katiuska Thompson - Last Filed: 11/16/17 07:29> Subjective - Date & Time of Evaluation Date of Evaluation: 11/16/17 Time of Evaluation: 00:00 - Subjective Subjective: Patient was seen and examined at bedside. Patient was resting comfortably in bed. Patient reports that he is doing well and has no acute complaints. Patient denies fever, chills, SOB, palpitations, chest pain, abdominal pain, nausea, vomiting. Objective - Vital Signs/Intake and Output Vital Signs (last 24 hours): Temp Pulse Resp BP Pulse Ox 98.8 F 76 18 113/74 97 11/15/17 15:22 11/15/17 15:22 11/15/17 15:22 11/15/17 15:22 11/15/17 15:22 Intake and Output: 11/15/17 11/16/17 18:59 06:59 Intake Total 480 Balance 480 - Medications Medications: Current Medications Divalproex Sodium (Depakote Dr) 500 mg PO BID [facility] Last Admin: 11/15/17 18:52 Dose: 500 mg Dolutegravir Sodium (Tivicay) 50 mg PO DAILY [facility] PRN Reason: Protocol Last Admin: 11/15/17 10:24 Dose: 50 mg Emtricitabine/Tenofovir (Truvada 200 Mg-300 Mg) 1 tab PO DAILY [facility] PRN Reason: Protocol Last Admin: 11/15/17 10:24 Dose: 1 tab Escitalopram Oxalate (Lexapro) 10 mg PO HS [facility] Last Admin: 11/15/17 21:56 Dose: 10 mg Famotidine (Pepcid) 20 mg PO DAILY [facility] Last Admin: 11/15/17 10:24 Dose: 20 mg Heparin Sodium (Porcine) (Heparin) 5,000 units SC Q8 [facility] Last Admin: 11/15/17 21:56 Dose: 5,000 units Memantine (Namenda) 10 mg PO DAILY [facility] Last Admin: 11/15/17 10:24 Dose: 10 mg - Labs Labs: 11/15/17 08:11 11/15/17 08:11 - Constitutional Appears: Well, No Acute Distress - Head Exam Head Exam: ATRAUMATIC, NORMAL INSPECTION - Eye Exam Eye Exam: EOMI, Normal appearance - ENT Exam ENT Exam: Mucous Membranes Moist - Respiratory Exam Respiratory Exam: Clear to Ausculation Bilateral, NORMAL BREATHING PATTERN. absent: Chest Wall Tenderness, Decreased Breath Sounds, Prolonged Expiratory Phase, Rhonchi, Wheezes, Respiratory Distress, Stridor - Cardiovascular Exam Cardiovascular Exam: REGULAR RHYTHM, +S1, +S2. absent: Murmur - GI/Abdominal Exam GI & Abdominal Exam: Soft, Normal Bowel Sounds. absent: Distended, Firm, Guarding, Rigid, Tenderness - Extremities Exam Extremities Exam: Normal Inspection. 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 Wills, help appreciated - Upon discharge, patient to be discharged on Depakote Valproic acid level - 52.7 (11/05), 28.9 (11/03) * continue Depakote 500mg bid Head CT (11/11/17): no intracranial mass or hemorrhage. 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 Chronic white matter ischemic change. 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 Postinfectious/ postinflammatory cortical calcifications diffusely. As per Dr. Alejandro, these findings are probably chronic. 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 Multiple calcifications in the brain bilaterally, most tiny in size , too numerous to count. The main differential considerations given the appearance include infectious processes, such as neurocysticercosis or tuberculosis, in the healed/calcified nodular stage Repeat Head CT ordered to assess hydrocephalus * Lexapro 10 mg PO HS * Namenda 10 mg PO daily Status: Acute (3) History of HIV or AIDS Assessment & Plan: ID Consult: Dr. Mays, help appreciated CD4 83 (07/10/17) --> CD4 227 (10/14/17) - CD4 (11/04) 215 - Viral Load 4.55 (high) Hep Panel - negative * Tivicay 50 mg PO daily * Truvada 200-300 mg PO daily Status: Acute (4) Prophylactic measure Assessment & Plan: SCDs Heparin 5,000u SC q8h Pepcid 20mg daily PT Social Work consult --> help appreciated Disposition: die storage worker is working on setting a detention for patient in [place] as patient has been denied admission [facility] due to insurance complication as patient is originally from [place]. The patient's sister has agreed to drive up and take the patient to a detention back in [place] but she does not want to be the sole provider for him. The patient is unable to care for himself any longer due to progression of his HIV/AIDS dementia. Patient unable to be discharged to street due to his current mental status. Patient currently pending to get Medicaid in [place]. All plans and management discussed with attending, dr. durand Status: Acute <Jonathan Durand - Last Filed: 11/16/17 08:44> Objective - Vital Signs/Intake and Output Vital Signs (last 24 hours): Temp Pulse Resp BP Pulse Ox 98.4 F 77 20 119/80 98 11/16/17 08:19 11/16/17 08:19 11/16/17 08:19 11/16/17 08:19 11/16/17 08:19 Intake and Output: 11/16/17 11/16/17 06:59 18:59 Intake Total 480 Balance 480 - Medications Medications: Current Medications Divalproex Sodium (Depakote Dr) 500 mg PO BID [facility] Last Admin: 11/15/17 18:52 Dose: 500 mg Dolutegravir Sodium (Tivicay) 50 mg PO DAILY [facility] PRN Reason: Protocol Last Admin: 11/15/17 10:24 Dose: 50 mg Emtricitabine/Tenofovir (Truvada 200 Mg-300 Mg) 1 tab PO DAILY [facility] PRN Reason: Protocol Last Admin: 11/15/17 10:24 Dose: 1 tab Escitalopram Oxalate (Lexapro) 10 mg PO HS [facility] Last Admin: 11/15/17 21:56 Dose: 10 mg Famotidine (Pepcid) 20 mg PO DAILY [facility] Last Admin: 11/15/17 10:24 Dose: 20 mg Heparin Sodium (Porcine) (Heparin) 5,000 units SC Q8 [facility] Last Admin: 11/16/17 06:14 Dose: 5,000 units Memantine (Namenda) 10 mg PO DAILY [facility] Last Admin: 11/15/17 10:24 Dose: 10 mg - Labs Labs: 11/15/17 08:11 11/15/17 08:11 Attending/Attestation - Attestation I have personally seen and examined this patient.: Yes I have fully participated in the care of the patient.: Yes I have reviewed all pertinent clinical information, including history, physical exam and plan: Yes Notes (Text): Medical attending: I'm afraid I do not have much to add today. Reviewed the above note by the resident and agree with the above note by the resident As mentioned previously the patient has a long history of HIV now AIDS and is currently on HARRT medication at this time And as mentioned before he likely has some aspect of AIDS/HIV dementia as he is confused and unable to follow many commands. This morning he was able to wave hello to me as I entered room. He denied chest pain, denied shortness of breath. He follows very simple one step commands. He does not know place or time. So he remains on medication for seizures. The case workers are trying to see if he could get benifits here to go somewhere or if he can be moved back to [place] where he does have some family there. thank you Jonathan Durand
[2017-11-16 08:55] LABS: BASO # 0.1 K/uL (0.0-0.2); EOS # 0.2 K/uL (0.0-0.7); EOS % 4.3 % (0.0-4.0); HEMOGLOBIN 14.8 g/dL (12.0-18.0); LYMPH # 2.5 K/uL (1.0-4.3); LYMPH % 49.8 % (20.0-40.0); MEAN CELL VOLUME 97.8 fL (80.0-94.0); MEAN CORPUSCULAR HEMOGLOBIN 33.7 pg (27.0-31.0); MEAN CORPUSCULAR HGB CONC 34.4 g/dL (33.0-37.0); MEAN PLATELET VOLUME 9.1 fL (7.2-11.7); MONO # 0.5 K/uL (0.0-0.8); MONO % 10.3 % (0.0-10.0); NEUT # 1.8 K/uL (1.8-7.0); NEUT % 34.6 % (50.0-75.0); NRBC % 0.1 % (0.0-2.0); RBC 4.4 Mil/uL (4.40-5.90); RED CELL DISTRIBUTION WIDTH 15.2 % (11.5-14.5); WHITE BLOOD COUNT 5.1 K/uL (4.8-10.8)
[2017-11-16 09:03] LABS: ALBUMIN 4.5 g/dL (3.5-5.0); ALT/SGPT 46 U/L (21-72); AST/SGOT 45 U/L (17-59); BLOOD UREA NITROGEN 23 mg/dL (9-20); CALCIUM 9.6 mg/dl (8.6-10.4); GFR AFRICAN-AMERICAN > 60; GFR NON-AFRICAN AMERICAN > 60
[2017-11-16] MEDS: Emtricitabine-Tenofovir 200 mg-300 mg Tab PO SCH (10:27)
[2017-11-16] MEDS: Divalproex 500 mg DR Tab PO SCH ×2 (10:28→18:12)
[2017-11-17 06:45] LABS: BASO % 0.5 % (0.0-2.0); EOS # 0.2 K/uL (0.0-0.7); EOS % 4.8 % (0.0-4.0); HEMOGLOBIN 13.5 g/dL (12.0-18.0); LYMPH % 44.8 % (20.0-40.0); MEAN CELL VOLUME 98.2 fL (80.0-94.0); MEAN CORPUSCULAR HGB CONC 33.6 g/dL (33.0-37.0); MEAN PLATELET VOLUME 8.8 fL (7.2-11.7); MONO # 0.5 K/uL (0.0-0.8); MONO % 10.9 % (0.0-10.0); NEUT # 1.7 K/uL (1.8-7.0); NRBC % 0.1 % (0.0-2.0); RBC 4.1 Mil/uL (4.40-5.90); WHITE BLOOD COUNT 4.4 K/uL (4.8-10.8)
[2017-11-17 07:46] LABS: ALBUMIN 3.9 g/dL (3.5-5.0); ALT/SGPT 35 U/L (21-72); AST/SGOT 33 U/L (17-59); BLOOD UREA NITROGEN 27 mg/dL (9-20); CALCIUM 9.3 mg/dl (8.6-10.4); GFR AFRICAN-AMERICAN > 60; GFR NON-AFRICAN AMERICAN 53
[2017-11-17] MEDS: Divalproex 500 mg DR Tab PO SCH ×2 (10:33→16:59)
[2017-11-17] MEDS: Emtricitabine-Tenofovir 200 mg-300 mg Tab PO SCH (10:33)
--- NOTE | 2017-11-17 14:01 | CP.PCM.PN ---
<Татьяна Fox - Last Filed: 11/17/17 16:35> Subjective - Date & Time of Evaluation Date of Evaluation: 11/17/17 Time of Evaluation: 07:00 - Subjective Subjective: Patient was seen and examined at bedside. Patient was resting comfortably in bed. Patient reports that he is doing well and has no acute complaints. Patient is aware that we are in [place], but does not know who the president is. Patient denies fever, chills, SOB, palpitations, chest pain, abdominal pain, nausea, vomiting. Objective - Vital Signs/Intake and Output Vital Signs (last 24 hours): Temp Pulse Resp BP Pulse Ox 97.9 F 70 20 106/63 97 11/17/17 07:58 11/17/17 07:58 11/17/17 07:58 11/17/17 07:58 11/17/17 07:58 Intake and Output: 11/17/17 11/17/17 06:59 18:59 Intake Total 700 Output Total 250 Balance 450 - Medications Medications: Current Medications Divalproex Sodium (Depakote Dr) 500 mg PO BID [facility] Last Admin: 11/17/17 10:33 Dose: 500 mg Dolutegravir Sodium (Tivicay) 50 mg PO DAILY [facility] PRN Reason: Protocol Last Admin: 11/17/17 10:33 Dose: 50 mg Emtricitabine/Tenofovir (Truvada 200 Mg-300 Mg) 1 tab PO DAILY [facility] PRN Reason: Protocol Last Admin: 11/17/17 10:33 Dose: 1 tab Escitalopram Oxalate (Lexapro) 10 mg PO HS [facility] Last Admin: 11/16/17 21:42 Dose: 10 mg Famotidine (Pepcid) 20 mg PO DAILY [facility] Last Admin: 11/17/17 10:33 Dose: 20 mg Heparin Sodium (Porcine) (Heparin) 5,000 units SC Q8 [facility] Last Admin: 11/17/17 05:34 Dose: 5,000 units Memantine (Namenda) 10 mg PO DAILY [facility] Last Admin: 11/17/17 10:33 Dose: 10 mg - Labs Labs: 11/17/17 06:38 11/17/17 06:38 - Additional Findings Additional findings: - Constitutional Appears: Well, No Acute Distress - Head Exam Head Exam: ATRAUMATIC, NORMAL INSPECTION - Eye Exam Eye Exam: EOMI, Normal appearance - ENT Exam ENT Exam: Mucous Membranes Moist - Respiratory Exam Respiratory Exam: Clear to Ausculation Bilateral, NORMAL BREATHING PATTERN. absent: Chest Wall Tenderness, Decreased Breath Sounds, Prolonged Expiratory Phase, Rhonchi, Wheezes, Respiratory Distress, Stridor - Cardiovascular Exam Cardiovascular Exam: REGULAR RHYTHM, +S1, +S2. absent: Murmur - GI/Abdominal Exam GI & Abdominal Exam: Soft, Normal Bowel Sounds. absent: Distended, Firm, Guarding, Rigid, Tenderness - Extremities Exam Extremities Exam: Normal Inspection. 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 Wills, help appreciated - Upon discharge, patient to be discharged on Depakote Valproic acid level - 52.7 (11/05), 28.9 (11/03) * continue Depakote 500mg bid Head CT (11/11/17): no intracranial mass or hemorrhage. 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 Chronic white matter ischemic change. 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 Postinfectious/ postinflammatory cortical calcifications diffusely. As per Dr. Alejandro, these findings are probably chronic. HIV/AIDS ID Consult: Dr. 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 Multiple calcifications in the brain bilaterally, most tiny in size , too numerous to count. The main differential considerations given the appearance include infectious processes, such as neurocysticercosis or tuberculosis, in the healed/calcified nodular stage Repeat Head CT ordered to assess hydrocephalus * Lexapro 10 mg PO HS * Namenda 10 mg PO daily Prophylaxis SCDs Heparin 5,000u SC q8h Pepcid 20mg daily Bactrim DS BID PT Social Work consult --> help appreciated Disposition: Per [employer] Director, the patient was denied admission to [facility]. He has a Green Card per daughter. He used to have health insurance down in [place]. SW is working with the daughter and the patient's sister (who lives in [place]) to set up care at a skilled nursing. They are going to determine if the patient's health insurance is still valid in [place], and if so, possible transfer patient to [place]. The patient's sister has agreed to drive up and take the patient to a skilled nursing back in [place] but she does not want to be the sole provider for him. The patient is unable to care for himself any longer due to progression of his HIV/AIDS dementia. Patient unable to be discharged to street due to his current mental status. Patient currently pending to get Medicaid in [place]. Case discussed with Dr. Philip <Salinas Philip - Last Filed: 11/17/17 18:47> Objective - Vital Signs/Intake and Output Vital Signs (last 24 hours): Temp Pulse Resp BP Pulse Ox 98.0 F 79 20 118/82 96 11/17/17 15:20 11/17/17 15:20 11/17/17 15:20 11/17/17 15:20 11/17/17 15:20 Intake and Output: 11/17/17 11/17/17 06:59 18:59 Intake Total 700 Output Total 250 Balance 450 - Medications Medications: Current Medications Divalproex Sodium (Depakote Dr) 500 mg PO BID [facility] Last Admin: 11/17/17 16:59 Dose: 500 mg Dolutegravir Sodium (Tivicay) 50 mg PO DAILY [facility] PRN Reason: Protocol Last Admin: 11/17/17 10:33 Dose: 50 mg Emtricitabine/Tenofovir (Truvada 200 Mg-300 Mg) 1 tab PO DAILY [facility] PRN Reason: Protocol Last Admin: 11/17/17 10:33 Dose: 1 tab Escitalopram Oxalate (Lexapro) 10 mg PO HS [facility] Last Admin: 11/16/17 21:42 Dose: 10 mg Famotidine (Pepcid) 20 mg PO DAILY [facility] Last Admin: 11/17/17 10:33 Dose: 20 mg Heparin Sodium (Porcine) (Heparin) 5,000 units SC Q8 [facility] Last Admin: 11/17/17 14:41 Dose: 5,000 units Memantine (Namenda) 10 mg PO DAILY [facility] Last Admin: 11/17/17 10:33 Dose: 10 mg Trimethoprim/Sulfamethoxazole (Bactrim Ds Tab) 1 tab PO Q12H [facility] PRN Reason: Protocol Last Admin: 11/17/17 16:59 Dose: 1 tab - Labs Labs: 11/17/17 06:38 11/17/17 06:38 Attending/Attestation - Attestation I have personally seen and examined this patient.: Yes I have fully participated in the care of the patient.: Yes I have reviewed all pertinent clinical information, including history, physical exam and plan: Yes Notes (Text): 11/17/17 18:46 Patient was seen and examined at 10:40 AM Exam, assessment and plan were gone over with the resident. Salinas Philip D.O.
[2017-11-17] MEDS: Tmp-Smz 800 mg-160 mg DS Tab PO SCH (16:59)
[2017-11-18] MEDS: Tmp-Smz 800 mg-160 mg DS Tab PO SCH ×2 (05:00→16:38)
[2017-11-18] MEDS: Emtricitabine-Tenofovir 200 mg-300 mg Tab PO SCH (09:30)
[2017-11-18] MEDS: Divalproex 500 mg DR Tab PO SCH ×2 (09:31→18:48)
--- NOTE | 2017-11-18 10:06 | CP.PCM.PN ---
<Татьяна Fox - Last Filed: 11/18/17 15:56> Subjective - Date & Time of Evaluation Date of Evaluation: 11/18/17 Time of Evaluation: 07:00 - Subjective Subjective: Patient was seen and examined at bedside. Patient was resting comfortably in bed. Patient reports that he is doing well and has no acute complaints. Patient does not know the date, but does know it is 2017. Patient denies fever, chills, SOB, palpitations, chest pain, abdominal pain, nausea, vomiting. Objective - Vital Signs/Intake and Output Vital Signs (last 24 hours): Temp Pulse Resp BP Pulse Ox 97.0 F L 60 20 166/82 H 98 11/18/17 07:38 11/18/17 07:38 11/18/17 07:38 11/18/17 07:38 11/18/17 07:38 Intake and Output: 11/18/17 11/18/17 06:59 18:59 Intake Total 350 Balance 350 - Medications Medications: Current Medications Divalproex Sodium (Depakote Dr) 500 mg PO BID [facility] Last Admin: 11/18/17 09:31 Dose: 500 mg Dolutegravir Sodium (Tivicay) 50 mg PO DAILY [facility] PRN Reason: Protocol Last Admin: 11/18/17 09:31 Dose: 50 mg Emtricitabine/Tenofovir (Truvada 200 Mg-300 Mg) 1 tab PO DAILY [facility] PRN Reason: Protocol Last Admin: 11/18/17 09:30 Dose: 1 tab Escitalopram Oxalate (Lexapro) 10 mg PO HS [facility] Last Admin: 11/17/17 21:14 Dose: 10 mg Famotidine (Pepcid) 20 mg PO DAILY [facility] Last Admin: 11/18/17 09:30 Dose: 20 mg Heparin Sodium (Porcine) (Heparin) 5,000 units SC Q8 [facility] Last Admin: 11/18/17 05:57 Dose: 5,000 units Memantine (Namenda) 10 mg PO DAILY [facility] Last Admin: 11/17/17 10:33 Dose: 10 mg Trimethoprim/Sulfamethoxazole (Bactrim Ds Tab) 1 tab PO Q12H [facility] PRN Reason: Protocol Last Admin: 11/18/17 05:00 Dose: 1 tab - Labs Labs: 11/17/17 06:38 11/17/17 06:38 - Additional Findings Additional findings: - Constitutional Appears: Well, No Acute Distress - Head Exam Head Exam: ATRAUMATIC, NORMAL INSPECTION - Eye Exam Eye Exam: EOMI, Normal appearance - ENT Exam ENT Exam: Mucous Membranes Moist - Respiratory Exam Respiratory Exam: Clear to Ausculation Bilateral, NORMAL BREATHING PATTERN. absent: Chest Wall Tenderness, Decreased Breath Sounds, Prolonged Expiratory Phase, Rhonchi, Wheezes, Respiratory Distress, Stridor - Cardiovascular Exam Cardiovascular Exam: REGULAR RHYTHM, +S1, +S2. absent: Murmur - GI/Abdominal Exam GI & Abdominal Exam: Soft, Normal Bowel Sounds. absent: Distended, Firm, Guarding, Rigid, Tenderness - Extremities Exam Extremities Exam: Normal Inspection. 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 Wills, help appreciated - Upon discharge, patient to be discharged on Depakote Valproic acid level - 52.7 (4/), 28.9 (4/) * continue Depakote 500mg bid Head CT (11/11/17): no intracranial mass or hemorrhage. 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 Chronic white matter ischemic change. 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 Postinfectious/ postinflammatory cortical calcifications diffusely. As per Dr. Alejandro, these findings are probably chronic. HIV/AIDS ID Consult: Dr. 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 Multiple calcifications in the brain bilaterally, most tiny in size , too numerous to count. 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 He has a Green Card per daughter. He used to have health insurance down in [place]. SW is working with the daughter and the patient's sister (who lives in [place]) to set up care at a mcc. They are going to determine if the patient's health insurance is still valid in [place], and if so, possible transfer patient to [place]. The patient's sister has agreed to drive up and take the patient to a mcc back in [place] but she does not want to be the sole provider for him. The patient is unable to care for himself any longer due to progression of his HIV/AIDS dementia. Patient unable to be discharged to street due to his current mental status. Patient currently pending to get Medicaid in [place]. Case discussed with Dr. Philip <Salinas Philip - Last Filed: 11/18/17 17:01> Objective - Vital Signs/Intake and Output Vital Signs (last 24 hours): Temp Pulse Resp BP Pulse Ox 97.0 F L 84 20 124/77 98 11/18/17 07:38 11/18/17 11:01 11/18/17 07:38 11/18/17 11:01 11/18/17 07:38 Intake and Output: 11/18/17 11/18/17 06:59 18:59 Intake Total 350 Balance 350 - Medications Medications: Current Medications Divalproex Sodium (Mary Kate [place]) 500 mg PO BID [facility] Last Admin: 11/18/17 09:31 Dose: 500 mg Dolutegravir Sodium (Tivicay) 50 mg PO DAILY [facility] PRN Reason: Protocol Last Admin: 11/18/17 09:31 Dose: 50 mg Emtricitabine/Tenofovir (Truvada 200 Mg-300 Mg) 1 tab PO DAILY [facility] PRN Reason: Protocol Last Admin: 11/18/17 09:30 Dose: 1 tab Escitalopram Oxalate (Lexapro) 10 mg PO HS [facility] Last Admin: 11/17/17 21:14 Dose: 10 mg Famotidine (Pepcid) 20 mg PO DAILY [facility] Last Admin: 11/18/17 09:30 Dose: 20 mg Heparin Sodium (Porcine) (Heparin) 5,000 units SC Q8 [facility] Last Admin: 11/18/17 14:41 Dose: 5,000 units Memantine (Namenda) 10 mg PO DAILY [facility] Last Admin: 11/18/17 10:57 Dose: 10 mg Trimethoprim/Sulfamethoxazole (Bactrim Ds Tab) 1 tab PO Q12H [facility] PRN Reason: Protocol Last Admin: 11/18/17 16:38 Dose: 1 tab - Labs Labs: 11/17/17 06:38 11/17/17 06:38 Attending/Attestation - Attestation I have personally seen and examined this patient.: Yes I have fully participated in the care of the patient.: Yes I have reviewed all pertinent clinical information, including history, physical exam and plan: Yes Notes (Text): 11/18/17 16:59 Patient was seen and examined at 9:00 AM Exam, assesment and plan were gone over with the resident. Spoke with Letter Sorting Machine Operator Keiko: provided her with [facility] Reich phone number in [phone] (provided by friend visiting patient). Still waiting for [place] Medicaid and once this is approved, then attempt for placement at [facility] again. Salinas Philip D.O.
[2017-11-19] MEDS: Tmp-Smz 800 mg-160 mg DS Tab PO SCH (05:00)
--- NOTE | 2017-11-19 06:55 | CP.PCM.PN ---
<Татьяна Fox - Last Filed: 11/19/17 17:37> Subjective - Date & Time of Evaluation Date of Evaluation: 11/19/17 Time of Evaluation: 07:00 - Subjective Subjective: PGY1- Progress Note for Dr. Philip Patient was seen and examined at bedside. Patient was resting comfortably in bed. Patient reports that he is doing well and has no acute complaints. Patient does not know the date, but is able to remember it after seeing it written in his room. Patient denies fever, chills, SOB, palpitations, chest pain, abdominal pain, nausea, vomiting. Objective - Vital Signs/Intake and Output Vital Signs (last 24 hours): Temp Pulse Resp BP Pulse Ox 97.6 F 75 20 104/67 97 11/18/17 23:25 11/18/17 23:25 11/18/17 23:25 11/18/17 23:25 11/18/17 23:25 - Medications Medications: Current Medications Divalproex Sodium (Depakote Dr) 500 mg PO BID [facility] Last Admin: 11/18/17 18:48 Dose: 500 mg Dolutegravir Sodium (Tivicay) 50 mg PO DAILY [facility] PRN Reason: Protocol Last Admin: 11/18/17 09:31 Dose: 50 mg Emtricitabine/Tenofovir (Truvada 200 Mg-300 Mg) 1 tab PO DAILY [facility] PRN Reason: Protocol Last Admin: 11/18/17 09:30 Dose: 1 tab Escitalopram Oxalate (Lexapro) 10 mg PO HS [facility] Last Admin: 11/18/17 21:49 Dose: 10 mg Famotidine (Pepcid) 20 mg PO DAILY [facility] Last Admin: 11/18/17 09:30 Dose: 20 mg Heparin Sodium (Porcine) (Heparin) 5,000 units SC Q8 [facility] Last Admin: 11/19/17 06:09 Dose: 5,000 units Memantine (Namenda) 10 mg PO DAILY [facility] Last Admin: 11/18/17 10:57 Dose: 10 mg Trimethoprim/Sulfamethoxazole (Bactrim Ds Tab) 1 tab PO Q12H [facility] PRN Reason: Protocol Last Admin: 11/19/17 05:00 Dose: 1 tab - Labs Labs: 11/17/17 06:38 11/17/17 06:38 - Additional Findings Additional findings: - Constitutional Appears: Well, No Acute Distress - Head Exam Head Exam: ATRAUMATIC, NORMAL INSPECTION - Eye Exam Eye Exam: EOMI, Normal appearance - ENT Exam ENT Exam: Mucous Membranes Moist - Respiratory Exam Respiratory Exam: Clear to Ausculation Bilateral, NORMAL BREATHING PATTERN. absent: Chest Wall Tenderness, Decreased Breath Sounds, Prolonged Expiratory Phase, Rhonchi, Wheezes, Respiratory Distress, Stridor - Cardiovascular Exam Cardiovascular Exam: REGULAR RHYTHM, +S1, +S2. absent: Murmur - GI/Abdominal Exam GI & Abdominal Exam: Soft, Normal Bowel Sounds. absent: Distended, Firm, Guarding, Rigid, Tenderness - Extremities Exam Extremities Exam: Normal Inspection. 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 Wills, help appreciated - Upon discharge, patient to be discharged on Depakote Valproic acid level - 52.7 (11/05), 28.9 (11/03) * continue Depakote 500mg bid Head CT (11/11/17): no intracranial mass or hemorrhage. 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 Chronic white matter ischemic change. 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 Postinfectious/ postinflammatory cortical calcifications diffusely. As per Dr. Alejandro, these findings are probably chronic. HIV/AIDS ID Consult: Dr. 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 Multiple calcifications in the brain bilaterally, most tiny in size , too numerous to count. 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. He has a Green Card per daughter. He used to have health insurance down in [place]. [facility] is working with the daughter and the patient's sister (who lives in [place]) to set up care at a halfway. They are going to determine if the patient's health insurance is still valid in [place], and if so, possible transfer patient to [place]. The patient's sister has agreed to drive up and take the patient to a halfway back in [place] but she does not want to be the sole provider for him. The patient is unable to care for himself any longer due to progression of his HIV/AIDS dementia. Patient unable to be discharged to [place] due to his current mental status. Patient currently pending to get Medicaid in [place]. Case discussed with Dr. Philip <Salinas Philip - Last Filed: 11/19/17 20:38> Objective - Vital Signs/Intake and Output Vital Signs (last 24 hours): Temp Pulse Resp BP Pulse Ox 97.6 F 73 18 108/69 97 11/19/17 15:54 11/19/17 15:54 11/19/17 15:54 11/19/17 15:54 11/19/17 15:54 - Medications Medications: Current Medications Divalproex Sodium (Depakote Dr) 500 mg PO BID [facility] Last Admin: 11/19/17 18:02 Dose: 500 mg Dolutegravir Sodium (Tivicay) 50 mg PO DAILY [facility] PRN Reason: Protocol Last Admin: 11/19/17 09:55 Dose: 50 mg Emtricitabine/Tenofovir (Truvada 200 Mg-300 Mg) 1 tab PO DAILY [facility] PRN Reason: Protocol Last Admin: 11/19/17 09:56 Dose: 1 tab Escitalopram Oxalate (Lexapro) 10 mg PO HS [facility] Last Admin: 11/18/17 21:49 Dose: 10 mg Famotidine (Pepcid) 20 mg PO DAILY [facility] Last Admin: 11/19/17 09:55 Dose: 20 mg Heparin Sodium (Porcine) (Heparin) 5,000 units SC Q8 [facility] Last Admin: 11/19/17 13:10 Dose: 5,000 units Memantine (Namenda) 10 mg PO DAILY [facility] Last Admin: 11/19/17 09:54 Dose: 10 mg - Labs Labs: 11/17/17 06:38 11/17/17 06:38 Attending/Attestation - Attestation I have personally seen and examined this patient.: Yes I have fully participated in the care of the patient.: Yes I have reviewed all pertinent clinical information, including history, physical exam and plan: Yes Notes (Text): 11/19/17 20:37 Patient was seen and examined at 8:45 AM. Exam, assessment and plan were gone over with the resident. Salinas Philip D.O.
[2017-11-19] MEDS: Divalproex 500 mg DR Tab PO SCH ×2 (09:54→18:02)
[2017-11-19] MEDS: Emtricitabine-Tenofovir 200 mg-300 mg Tab PO SCH (09:56)
[2017-11-20 07:43] LABS: BASO # 0.1 K/uL (0.0-0.2); BASO % 1.1 % (0.0-2.0); EOS # 0.3 K/uL (0.0-0.7); EOS % 6.9 % (0.0-4.0); HEMOGLOBIN 14.3 g/dL (12.0-18.0); LYMPH # 1.8 K/uL (1.0-4.3); LYMPH % 38.8 % (20.0-40.0); MEAN CORPUSCULAR HEMOGLOBIN 33.4 pg (27.0-31.0); MEAN PLATELET VOLUME 8.5 fL (7.2-11.7); MONO # 0.6 K/uL (0.0-0.8); NEUT # 1.9 K/uL (1.8-7.0); NEUT % 40.2 % (50.0-75.0); NRBC % 0.2 % (0.0-2.0); RBC 4.29 Mil/uL (4.40-5.90); RED CELL DISTRIBUTION WIDTH 15.2 % (11.5-14.5); WHITE BLOOD COUNT 4.7 K/uL (4.8-10.8)
--- NOTE | 2017-11-20 07:43 | CP.PCM.PN ---
<Татьяна Fox - Last Filed: 11/20/17 16:57> Subjective - Date & Time of Evaluation Date of Evaluation: 11/20/17 Time of Evaluation: 07:00 - Subjective Subjective: PGY1- Progress Note for Dr. Philip Patient was seen and examined at bedside. Patient was resting comfortably in bed. Patient reports that he is doing well and has no acute complaints. Patient does not know the date, but is able to remember it after seeing it written in his room. Patient denies fever, chills, SOB, palpitations, chest pain, abdominal pain, nausea, vomiting. Objective - Vital Signs/Intake and Output Vital Signs (last 24 hours): Temp Pulse Resp BP Pulse Ox 97.8 F 72 20 103/68 97 11/19/17 23:15 11/19/17 23:15 11/19/17 23:15 11/19/17 23:15 11/19/17 23:15 Intake and Output: 11/20/17 11/20/17 06:59 18:59 Intake Total 400 Output Total 600 Balance -200 - Medications Medications: Current Medications Divalproex Sodium (Depakote Dr) 500 mg PO BID [facility] Last Admin: 11/19/17 18:02 Dose: 500 mg Dolutegravir Sodium (Tivicay) 50 mg PO DAILY [facility] PRN Reason: Protocol Last Admin: 11/19/17 09:55 Dose: 50 mg Emtricitabine/Tenofovir (Truvada 200 Mg-300 Mg) 1 tab PO DAILY [facility] PRN Reason: Protocol Last Admin: 11/19/17 09:56 Dose: 1 tab Escitalopram Oxalate (Lexapro) 10 mg PO HS [facility] Last Admin: 11/19/17 22:02 Dose: 10 mg Famotidine (Pepcid) 20 mg PO DAILY [facility] Last Admin: 11/19/17 09:55 Dose: 20 mg Heparin Sodium (Porcine) (Heparin) 5,000 units SC Q8 [facility] Last Admin: 11/20/17 05:50 Dose: 5,000 units Memantine (Namenda) 10 mg PO DAILY [facility] Last Admin: 11/19/17 09:54 Dose: 10 mg - Labs Labs: 11/17/17 06:38 11/17/17 06:38 - Additional Findings Additional findings: - Constitutional Appears: Well, No Acute Distress - Head Exam Head Exam: ATRAUMATIC, NORMAL INSPECTION - Eye Exam Eye Exam: EOMI, Normal appearance - ENT Exam ENT Exam: Mucous Membranes Moist - Respiratory Exam Respiratory Exam: Clear to Ausculation Bilateral, NORMAL BREATHING PATTERN. absent: Chest Wall Tenderness, Decreased Breath Sounds, Prolonged Expiratory Phase, Rhonchi, Wheezes, Respiratory Distress, Stridor - Cardiovascular Exam Cardiovascular Exam: REGULAR RHYTHM, +S1, +S2. absent: Murmur - GI/Abdominal Exam GI & Abdominal Exam: Soft, Normal Bowel Sounds. absent: Distended, Firm, Guarding, Rigid, Tenderness - Extremities Exam Extremities Exam: Normal Inspection. 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 Wills, help appreciated - Upon discharge, patient to be discharged on Depakote Valproic acid level - 52.7 (11/05), 28.9 (11/03) * continue Depakote 500mg bid Head CT (11/11/17): no intracranial mass or hemorrhage. 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 Chronic white matter ischemic change. 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 Postinfectious/ postinflammatory cortical calcifications diffusely. As per Dr. Alejandro, these findings are probably chronic. HIV/AIDS ID Consult: Dr. 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 Multiple calcifications in the brain bilaterally, most tiny in size , too numerous to count. 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. He has a Green Card per daughter. He used to have health insurance down in [place]. [facility] is working with the daughter and the patient's sister (who lives in [place]) to set up care at a care home. They are going to determine if the patient's health insurance is still valid in [place], and if so, possible transfer patient to [place]. The patient's sister has agreed to drive up and take the patient to a care home back in [place] but she does not want to be the sole provider for him. The patient is unable to care for himself any longer due to progression of his HIV/AIDS dementia. Patient unable to be discharged to street due to his current mental status. Patient currently pending to get Medicaid in [place]. Case discussed with Dr. Philip <Salinas Philip - Last Filed: 11/20/17 20:29> Objective - Vital Signs/Intake and Output Vital Signs (last 24 hours): Temp Pulse Resp BP Pulse Ox 98.6 F 73 20 99/65 L 97 11/20/17 16:00 11/20/17 16:00 11/20/17 16:00 11/20/17 16:00 11/20/17 16:00 - Medications Medications: Current Medications Divalproex Sodium (Depakote Dr) 500 mg PO BID [facility] Last Admin: 11/20/17 17:28 Dose: 500 mg Dolutegravir Sodium (Tivicay) 50 mg PO DAILY [facility] PRN Reason: Protocol Last Admin: 11/20/17 09:55 Dose: 50 mg Emtricitabine/Tenofovir (Truvada 200 Mg-300 Mg) 1 tab PO DAILY [facility] PRN Reason: Protocol Last Admin: 11/20/17 09:55 Dose: 1 tab Escitalopram Oxalate (Lexapro) 10 mg PO HS [facility] Last Admin: 11/19/17 22:02 Dose: 10 mg Famotidine (Pepcid) 20 mg PO DAILY [facility] Last Admin: 11/20/17 09:55 Dose: 20 mg Heparin Sodium (Porcine) (Heparin) 5,000 units SC Q8 [facility] Last Admin: 11/20/17 14:26 Dose: 5,000 units Memantine (Namenda) 10 mg PO DAILY [facility] Last Admin: 11/20/17 09:55 Dose: 10 mg - Labs Labs: 11/20/17 07:35 11/20/17 07:35 Attending/Attestation - Attestation I have personally seen and examined this patient.: Yes I have fully participated in the care of the patient.: Yes I have reviewed all pertinent clinical information, including history, physical exam and plan: Yes Notes (Text): 11/20/17 20:28 Patient was seen and examined at 2:30 PM Exam, assessment and plan were gone over with the resident. Waiting for placement. Salinas Philip D.O.
[2017-11-20 08:04] LABS: ALBUMIN 4.2 g/dL (3.5-5.0); ALT/SGPT 54 U/L (21-72); AST/SGOT 47 U/L (17-59); BLOOD UREA NITROGEN 19 mg/dL (9-20); CALCIUM 9.2 mg/dl (8.6-10.4); GFR AFRICAN-AMERICAN > 60; GFR NON-AFRICAN AMERICAN 53
[2017-11-20] MEDS: Divalproex 500 mg DR Tab PO SCH ×2 (09:55→17:28)
[2017-11-20] MEDS: Emtricitabine-Tenofovir 200 mg-300 mg Tab PO SCH (09:55)
[2017-11-21] MEDS: Divalproex 500 mg DR Tab PO SCH ×2 (10:36→17:38)
[2017-11-21] MEDS: Tmp-Smz 800 mg-160 mg DS Tab PO SCH ×2 (10:36→22:16)
[2017-11-21] MEDS: Emtricitabine-Tenofovir 200 mg-300 mg Tab PO SCH (10:37)
--- NOTE | 2017-11-21 16:00 | CP.PCM.PN ---
Subjective - Date & Time of Evaluation Date of Evaluation: 11/21/17 Time of Evaluation: 07:00 - Subjective Subjective: Medicine progress note ( Dr. Octavio Philip) Patient was seen and examined at bedside. Patient is clinically the same with no acute issues. Patient was able to recall location, date and day as he was able to read the board in his room. Patient denies any pain or complaints. Objective - Vital Signs/Intake and Output Vital Signs (last 24 hours): Temp Pulse Resp BP Pulse Ox 98.0 F 73 20 102/65 97 11/21/17 15:15 11/21/17 15:15 11/21/17 15:15 11/21/17 15:15 11/21/17 15:15 Intake and Output: 11/21/17 11/21/17 06:59 18:59 Intake Total 100 Balance 100 - Medications Medications: Current Medications Divalproex Sodium (Depakote Dr) 500 mg PO BID [facility] Last Admin: 11/21/17 10:36 Dose: 500 mg Dolutegravir Sodium (Tivicay) 50 mg PO DAILY [facility] PRN Reason: Protocol Last Admin: 11/21/17 10:36 Dose: 50 mg Emtricitabine/Tenofovir (Truvada 200 Mg-300 Mg) 1 tab PO DAILY [facility] PRN Reason: Protocol Last Admin: 11/21/17 10:37 Dose: 1 tab Escitalopram Oxalate (Lexapro) 10 mg PO HS [facility] Last Admin: 11/20/17 21:06 Dose: 10 mg Famotidine (Pepcid) 20 mg PO DAILY [facility] Last Admin: 11/21/17 10:36 Dose: 20 mg Heparin Sodium (Porcine) (Heparin) 5,000 units SC Q8 [facility] Last Admin: 11/21/17 05:43 Dose: 5,000 units Memantine (Namenda) 10 mg PO DAILY [facility] Last Admin: 11/21/17 10:36 Dose: 10 mg Trimethoprim/Sulfamethoxazole (Bactrim Ds Tab) 1 tab PO Q12H [facility] PRN Reason: Protocol Last Admin: 11/21/17 10:36 Dose: 1 tab - Labs Labs: 11/20/17 07:35 11/20/17 07:35 - Constitutional Appears: Well, No Acute Distress - Head Exam Head Exam: ATRAUMATIC, NORMAL INSPECTION - Eye Exam Eye Exam: EOMI - ENT Exam ENT Exam: Mucous Membranes Moist - Respiratory Exam Respiratory Exam: Clear to Ausculation Bilateral, NORMAL BREATHING PATTERN. absent: Prolonged Expiratory Phase, Rhonchi, Wheezes, Respiratory Distress - Cardiovascular Exam Cardiovascular Exam: REGULAR RHYTHM, +S1, +S2. absent: Murmur - GI/Abdominal Exam GI & Abdominal Exam: Soft, Normal Bowel Sounds. absent: Distended, Firm, Guarding, Rigid, Tenderness - Extremities Exam Extremities Exam: Normal Inspection. 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 Wills, help appreciated - Upon discharge, patient to be discharged on Depakote Valproic acid level - 52.7 (11/05), 28.9 (11/03) * continue Depakote 500mg bid Head CT (11/11/17): no intracranial mass or hemorrhage. 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 Chronic white matter ischemic change. 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 Postinfectious/ postinflammatory cortical calcifications diffusely. As per Dr. Alejandro, these findings are probably chronic. Status: Acute (2) AIDS dementia complex Assessment & Plan: Head CT (10/14/17): - Findings suspicious for mild hydrocephalus, cause not identified. Multiple calcifications in the brain bilaterally, most tiny in size , too numerous to count. The main differential considerations given the appearance include infectious processes, such as neurocysticercosis or tuberculosis, in the healed/calcified nodular stage Repeat Head CT ordered to assess hydrocephalus * Lexapro 10 mg PO HS * Namenda 10 mg PO daily Status: Acute (3) History of HIV or AIDS Assessment & Plan: ID Consult: Dr. 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 The patient's sister has agreed to drive up and take the patient to a long-term back in [place] but she does not want to be the sole provider for him. The patient is unable to care for himself any longer due to progression of his HIV/AIDS dementia. Patient unable to be discharged to street due to his current mental status. Patient currently pending to get Medicaid in [place]. All plans and management discussed with attending, Dr. Octavio Philip Status: Acute
--- NOTE | 2017-11-22 00:05 | CP.PCM.PN ---
<Татьяна Fox - Last Filed: 11/22/17 06:08> Subjective - Date & Time of Evaluation Date of Evaluation: 11/22/17 Time of Evaluation: 06:00 - Subjective Subjective: PGY1- Progress Note for Dr. Philip Patient was seen and examined at bedside. Patient was resting comfortably in bed. Patient reports that he is doing well and has no acute complaints. Patient does not know the date, but is able to remember it after seeing it written in his room. Patient denies fever, chills, SOB, palpitations, chest pain, abdominal pain, nausea, vomiting. Objective - Vital Signs/Intake and Output Vital Signs (last 24 hours): Temp Pulse Resp BP Pulse Ox 98.0 F 73 20 102/65 97 11/21/17 15:15 11/21/17 15:15 11/21/17 15:15 11/21/17 15:15 11/21/17 15:15 - Medications Medications: Current Medications Divalproex Sodium (Depakote Dr) 500 mg PO BID [facility] Last Admin: 11/21/17 17:38 Dose: 500 mg Dolutegravir Sodium (Tivicay) 50 mg PO DAILY [facility] PRN Reason: Protocol Last Admin: 11/21/17 10:36 Dose: 50 mg Emtricitabine/Tenofovir (Truvada 200 Mg-300 Mg) 1 tab PO DAILY [facility] PRN Reason: Protocol Last Admin: 11/21/17 10:37 Dose: 1 tab Escitalopram Oxalate (Lexapro) 10 mg PO HS [facility] Last Admin: 11/21/17 22:16 Dose: 10 mg Famotidine (Pepcid) 20 mg PO DAILY [facility] Last Admin: 11/21/17 10:36 Dose: 20 mg Heparin Sodium (Porcine) (Heparin) 5,000 units SC Q8 [facility] Last Admin: 11/21/17 22:16 Dose: 5,000 units Memantine (Namenda) 10 mg PO DAILY [facility] Last Admin: 11/21/17 10:36 Dose: 10 mg Trimethoprim/Sulfamethoxazole (Bactrim Ds Tab) 1 tab PO Q12H [facility] PRN Reason: Protocol Last Admin: 11/21/17 22:16 Dose: 1 tab - Labs Labs: 11/20/17 07:35 11/20/17 07:35 - Additional Findings Additional findings: - Constitutional Appears: Well, No Acute Distress - Head Exam Head Exam: ATRAUMATIC, NORMAL INSPECTION - Eye Exam Eye Exam: EOMI, Normal appearance - ENT Exam ENT Exam: Mucous Membranes Moist - Respiratory Exam Respiratory Exam: Clear to Ausculation Bilateral, NORMAL BREATHING PATTERN. absent: Chest Wall Tenderness, Decreased Breath Sounds, Prolonged Expiratory Phase, Rhonchi, Wheezes, Respiratory Distress, Stridor - Cardiovascular Exam Cardiovascular Exam: REGULAR RHYTHM, +S1, +S2. absent: Murmur - GI/Abdominal Exam GI & Abdominal Exam: Soft, Normal Bowel Sounds. absent: Distended, Firm, Guarding, Rigid, Tenderness - Extremities Exam Extremities Exam: Normal Inspection. 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 Wills, help appreciated - Upon discharge, patient to be discharged on Depakote Valproic acid level - 52.7 (11/05), 28.9 (11/03) * continue Depakote 500mg bid Head CT (11/11/17): no intracranial mass or hemorrhage. 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 Chronic white matter ischemic change. 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 Postinfectious/ postinflammatory cortical calcifications diffusely. As per Dr. Alejandro, these findings are probably chronic. HIV/AIDS ID Consult: Dr. 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 Multiple calcifications in the brain bilaterally, most tiny in size , too numerous to count. The main differential considerations given the appearance include infectious processes, such as neurocysticercosis or tuberculosis, in the healed/calcified nodular stage Repeat Head CT ordered to assess hydrocephalus * Lexapro 10 mg PO HS * Namenda 10 mg PO daily Prophylaxis SCDs Heparin 5,000u SC q8h Pepcid 20mg daily Bactrim DS BID PT Social Work consult --> help appreciated Disposition: Per Manager Creative, the patient was denied admission to [facility]. He has a Green Card per daughter. He used to have health insurance down in [place]. [facility] is working with the daughter and the patient's sister (who lives in [place]) to set up care at a fci. They are going to determine if the patient's health insurance is still valid in [place], and if so, possible transfer patient to [place]. The patient's sister has agreed to drive up and take the patient to a fci back in [place] but she does not want to be the sole provider for him. The patient is unable to care for himself any longer due to progression of his HIV/AIDS dementia. Patient unable to be discharged to [place] due to his current mental status. Patient currently pending to get Medicaid in [place]. <Salinas Philip - Last Filed: 11/22/17 11:06> Objective - Vital Signs/Intake and Output Vital Signs (last 24 hours): Temp Pulse Resp BP Pulse Ox 98.0 F 79 20 109/74 96 11/22/17 09:18 11/22/17 09:18 11/22/17 09:18 11/22/17 09:18 11/22/17 09:18 Intake and Output: 11/22/17 11/22/17 06:59 18:59 Output Total 350 Balance -350 - Medications Medications: Current Medications Divalproex Sodium (Depakote Dr) 500 mg PO BID [facility] Last Admin: 11/22/17 10:09 Dose: 500 mg Dolutegravir Sodium (Tivicay) 50 mg PO DAILY [facility] PRN Reason: Protocol Last Admin: 11/22/17 10:08 Dose: 50 mg Emtricitabine/Tenofovir (Truvada 200 Mg-300 Mg) 1 tab PO DAILY [facility] PRN Reason: Protocol Last Admin: 11/22/17 10:09 Dose: 1 tab Escitalopram Oxalate (Lexapro) 10 mg PO HS [facility] Last Admin: 11/21/17 22:16 Dose: 10 mg Famotidine (Pepcid) 20 mg PO DAILY [facility] Last Admin: 11/22/17 10:08 Dose: 20 mg Heparin Sodium (Porcine) (Heparin) 5,000 units SC Q8 [facility] Last Admin: 11/22/17 06:21 Dose: 5,000 units Memantine (Namenda) 10 mg PO DAILY [facility] Last Admin: 11/22/17 10:08 Dose: 10 mg - Labs Labs: 11/20/17 07:35 11/20/17 07:35 Attending/Attestation - Attestation I have personally seen and examined this patient.: Yes I have fully participated in the care of the patient.: Yes I have reviewed all pertinent clinical information, including history, physical exam and plan: Yes Notes (Text): 11/22/17 11:06 Patient was seen and examined at 11:00 AM 11/22/17 Bed 664 B Waiting for placement. Salinas Philip D.O.
[2017-11-22] MEDS: Divalproex 500 mg DR Tab PO SCH ×2 (10:09→18:14)
[2017-11-22] MEDS: Emtricitabine-Tenofovir 200 mg-300 mg Tab PO SCH (10:09)
[2017-11-22] MEDS: Tmp-Smz 800 mg-160 mg DS Tab PO SCH ×3 (11:50→21:12)
--- NOTE | 2017-11-23 03:12 | CP.PCM.PN ---
<DavidArgenis - Last Filed: 11/23/17 03:12> Subjective - Date & Time of Evaluation Date of Evaluation: 11/23/17 Time of Evaluation: 03:11 - Subjective Subjective: Progress note for Dr. Salinas Philip Patient was seen and examined at bedside. No acute events overnight. Patient does not have any complaints at this time and is aware that we are waiting for placement with insurance coverage pending Objective - Vital Signs/Intake and Output Vital Signs (last 24 hours): Temp Pulse Resp BP Pulse Ox 98 F 78 20 103/65 97 11/22/17 23:15 11/22/17 23:15 11/22/17 23:15 11/22/17 23:15 11/22/17 23:15 Intake and Output: 11/22/17 11/23/17 18:59 06:59 Intake Total 280 Balance 280 - Medications Medications: Current Medications Divalproex Sodium (Depakote Dr) 500 mg PO BID [facility] Last Admin: 11/22/17 18:14 Dose: 500 mg Escitalopram Oxalate (Lexapro) 10 mg PO HS [facility] Last Admin: 11/22/17 21:12 Dose: 10 mg Famotidine (Pepcid) 20 mg PO DAILY [facility] Last Admin: 11/22/17 10:08 Dose: 20 mg Heparin Sodium (Porcine) (Heparin) 5,000 units SC Q8 [facility] Last Admin: 11/22/17 21:11 Dose: Not Given Memantine (Namenda) 10 mg PO DAILY [facility] Last Admin: 11/22/17 10:08 Dose: 10 mg Trimethoprim/Sulfamethoxazole (Bactrim Ds Tab) 1 tab PO Q12 [facility] PRN Reason: Protocol Last Admin: 11/22/17 21:12 Dose: 1 tab - Labs Labs: 11/20/17 07:35 11/20/17 07:35 - Additional Findings Additional findings: Constitutional Appears: Well, No Acute Distress - Head Exam Head Exam: ATRAUMATIC, NORMAL INSPECTION - Eye Exam Eye Exam: EOMI, Normal appearance - ENT Exam ENT Exam: Mucous Membranes Moist - Respiratory Exam Respiratory Exam: Clear to Ausculation Bilateral, NORMAL BREATHING PATTERN. absent: Chest Wall Tenderness, Decreased Breath Sounds, Prolonged Expiratory Phase, Rhonchi, Wheezes, Respiratory Distress, Stridor - Cardiovascular Exam Cardiovascular Exam: REGULAR RHYTHM, +S1, +S2. absent: Murmur - GI/Abdominal Exam GI & Abdominal Exam: Soft, Normal Bowel Sounds. absent: Distended, Firm, Guarding, Rigid, Tenderness - Extremities Exam Extremities Exam: Normal Inspection. 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 Wills, help appreciated - Upon discharge, patient to be discharged on Depakote Valproic acid level - 52.7 (11/05), 28.9 (11/03) * continue Depakote 500mg bid Head CT (11/11/17): no intracranial mass or hemorrhage. 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 Chronic white matter ischemic change. 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 Postinfectious/ postinflammatory cortical calcifications diffusely. As per Dr. Alejandro, these findings are probably chronic. HIV/AIDS ID Consult: Dr. 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 Multiple calcifications in the brain bilaterally, most tiny in size , too numerous to count. The main differential considerations given the appearance include infectious processes, such as neurocysticercosis or tuberculosis, in the healed/calcified nodular stage Repeat Head CT ordered to assess hydrocephalus * Lexapro 10 mg PO HS * Namenda 10 mg PO daily Prophylaxis SCDs Heparin 5,000u SC q8h Pepcid 20mg daily Bactrim DS BID PT Social Work consult --> help appreciated Disposition: Per Mechanical Service Specialist, the patient was denied admission to [facility]. He has a Green Card per daughter. He used to have health insurance down in [place]. SW is working with the daughter and the patient's sister (who lives in [place]) to set up care at a shelter. They are going to determine if the patient's health insurance is still valid in [place], and if so, possible transfer patient to [place]. The patient's sister has agreed to drive up and take the patient to a shelter back in [place] but she does not want to be the sole provider for him. The patient is unable to care for himself any longer due to progression of his HIV/AIDS dementia. Patient unable to be discharged to street due to his current mental status. Patient currently pending to get Medicaid in [place]. No new changes to assessment and plan Dr. Salinas More Eng DO PGY1 <Salinas Philip J - Last Filed: 11/23/17 10:34> Objective - Vital Signs/Intake and Output Vital Signs (last 24 hours): Temp Pulse Resp BP Pulse Ox 98.1 F 83 20 116/80 97 11/23/17 08:00 11/23/17 08:00 11/23/17 08:00 11/23/17 08:00 11/23/17 08:00 Intake and Output: 11/23/17 11/23/17 06:59 18:59 Intake Total 240 Balance 240 - Medications Medications: Current Medications Divalproex Sodium (Depakote Dr) 500 mg PO BID [facility] Last Admin: 11/23/17 10:19 Dose: 500 mg Escitalopram Oxalate (Lexapro) 10 mg PO HS [facility] Last Admin: 11/22/17 21:12 Dose: 10 mg Famotidine (Pepcid) 20 mg PO DAILY [facility] Last Admin: 11/23/17 10:19 Dose: 20 mg Heparin Sodium (Porcine) (Heparin) 5,000 units SC Q8 [facility] Last Admin: 11/23/17 05:24 Dose: 5,000 units Memantine (Namenda) 10 mg PO DAILY [facility] Last Admin: 11/23/17 10:19 Dose: 10 mg Trimethoprim/Sulfamethoxazole (Bactrim Ds Tab) 1 tab PO Q12 [facility] PRN Reason: Protocol Last Admin: 11/23/17 10:19 Dose: 1 tab - Labs Labs: 11/20/17 07:35 11/20/17 07:35 Attending/Attestation - Attestation I have personally seen and examined this patient.: Yes I have fully participated in the care of the patient.: Yes I have reviewed all pertinent clinical information, including history, physical exam and plan: Yes Notes (Text): 11/23/17 10:34 Patient was seen and examined at 10:30 AM 11/23/17 Bed 664 [address] Waiting for placement. Salinas Philip D.O.
[2017-11-23] MEDS: Tmp-Smz 800 mg-160 mg DS Tab PO SCH (10:19)
[2017-11-23] MEDS: Divalproex 500 mg DR Tab PO SCH ×2 (10:19→17:10)
[2017-11-23] MEDS: Emtricitabine-Tenofovir 200 mg-300 mg Tab PO SCH (11:04)
[2017-11-24 06:37] LABS: BASO % 0.5 % (0.0-2.0); EOS # 0.3 K/uL (0.0-0.7); EOS % 5.4 % (0.0-4.0); LYMPH # 2.4 K/uL (1.0-4.3); LYMPH % 45.6 % (20.0-40.0); MEAN CELL VOLUME 98.1 fL (80.0-94.0); MEAN CORPUSCULAR HEMOGLOBIN 32.8 pg (27.0-31.0); MEAN CORPUSCULAR HGB CONC 33.5 g/dL (33.0-37.0); MEAN PLATELET VOLUME 8.8 fL (7.2-11.7); MONO # 0.6 K/uL (0.0-0.8); MONO % 12.1 % (0.0-10.0); NEUT # 1.9 K/uL (1.8-7.0); NEUT % 36.4 % (50.0-75.0); RBC 4.56 Mil/uL (4.40-5.90); RED CELL DISTRIBUTION WIDTH 14.7 % (11.5-14.5); WHITE BLOOD COUNT 5.2 K/uL (4.8-10.8)
[2017-11-24 07:53] LABS: ALBUMIN 4.3 g/dL (3.5-5.0); CALCIUM 9.6 mg/dl (8.6-10.4)
[2017-11-24] MEDS: Emtricitabine-Tenofovir 200 mg-300 mg Tab PO SCH (10:08)
[2017-11-24] MEDS: Divalproex 500 mg DR Tab PO SCH ×2 (10:08→17:13)
--- NOTE | 2017-11-24 15:12 | CP.PCM.PN ---
Subjective - Date & Time of Evaluation Date of Evaluation: 11/24/17 Time of Evaluation: 07:00 - Subjective Subjective: PGY1- Progress Note Patient was seen and examined at bedside. Patient was resting comfortably in bed. Patient reports that he is doing well and has no acute complaints. Patient does not know the date, but is able to remember it after seeing it written in his room. Patient denies fever, chills, SOB, palpitations, chest pain, abdominal pain, nausea, vomiting. Objective - Vital Signs/Intake and Output Vital Signs (last 24 hours): Temp Pulse Resp BP Pulse Ox 98.2 F 67 20 108/72 98 11/24/17 07:35 11/24/17 07:35 11/24/17 07:35 11/24/17 07:35 11/24/17 07:35 Intake and Output: 11/24/17 11/24/17 06:59 18:59 Intake Total 240 Balance 240 - Medications Medications: Current Medications Divalproex Sodium (Depakote Dr) 500 mg PO BID [facility] Last Admin: 11/24/17 10:08 Dose: 500 mg Dolutegravir Sodium (Tivicay) 50 mg PO DAILY [facility] PRN Reason: Protocol Last Admin: 11/24/17 10:08 Dose: 50 mg Emtricitabine/Tenofovir (Truvada 200 Mg-300 Mg) 1 tab PO DAILY [facility] PRN Reason: Protocol Last Admin: 11/24/17 10:08 Dose: 1 tab Escitalopram Oxalate (Lexapro) 10 mg PO HS [facility] Last Admin: 11/23/17 21:10 Dose: 10 mg Famotidine (Pepcid) 20 mg PO DAILY [facility] Last Admin: 11/24/17 10:08 Dose: 20 mg Heparin Sodium (Porcine) (Heparin) 5,000 units SC Q8 [facility] Memantine (Namenda) 10 mg PO DAILY [facility] Last Admin: 11/24/17 10:08 Dose: 10 mg - Labs Labs: 11/24/17 06:24 11/24/17 06:24 - Additional Findings Additional findings: - Constitutional Appears: Well, No Acute Distress - Head Exam Head Exam: ATRAUMATIC, NORMAL INSPECTION - Eye Exam Eye Exam: EOMI, Normal appearance - ENT Exam ENT Exam: Mucous Membranes Moist - Respiratory Exam Respiratory Exam: Clear to Ausculation Bilateral, NORMAL BREATHING PATTERN. absent: Chest Wall Tenderness, Decreased Breath Sounds, Prolonged Expiratory Phase, Rhonchi, Wheezes, Respiratory Distress, Stridor - Cardiovascular Exam Cardiovascular Exam: REGULAR RHYTHM, +S1, +S2. absent: Murmur - GI/Abdominal Exam GI & Abdominal Exam: Soft, Normal Bowel Sounds. absent: Distended, Firm, Guarding, Rigid, Tenderness - Extremities Exam Extremities Exam: Normal Inspection. 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 Wills, help appreciated - Upon discharge, patient to be discharged on Depakote Valproic acid level - 52.7 (11/05), 28.9 (11/03) * continue Depakote 500mg bid Head CT (11/11/17): no intracranial mass or hemorrhage. 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 Chronic white matter ischemic change. 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 Postinfectious/ postinflammatory cortical calcifications diffusely. As per Dr. Alejandro, these findings are probably chronic. HIV/AIDS ID Consult: Dr. 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 Multiple calcifications in the brain bilaterally, most tiny in size , too numerous to count. The main differential considerations given the appearance include infectious processes, such as neurocysticercosis or tuberculosis, in the healed/calcified nodular stage Repeat Head CT ordered to assess hydrocephalus * Lexapro 10 mg PO HS * Namenda 10 mg PO daily Prophylaxis SCDs Heparin 5,000u SC q8h Pepcid 20mg daily Bactrim DS BID PT Social Work consult --> help appreciated Disposition: Per Instructional Systems Designer, the patient was denied admission to [facility]. He has a Green Card per daughter. He used to have health insurance down in [place]. SW is working with the daughter and the patient's sister (who lives in [place]) to set up care at a alf. They are going to determine if the patient's health insurance is still valid in [place], and if so, possible transfer patient to [place]. The patient's sister has agreed to drive up and take the patient to a alf back in [place] but she does not want to be the sole provider for him. The patient is unable to care for himself any longer due to progression of his HIV/AIDS dementia. Patient unable to be discharged to [facility] due to his current mental status. Patient currently pending to get Medicaid in [place].
[2017-11-25] MEDS: Emtricitabine-Tenofovir 200 mg-300 mg Tab PO SCH (09:53)
[2017-11-25] MEDS: Divalproex 500 mg DR Tab PO SCH ×2 (09:54→18:25)
--- NOTE | 2017-11-25 13:03 | CP.PCM.PN ---
Subjective - Date & Time of Evaluation Date of Evaluation: 11/25/17 Time of Evaluation: 07:00 - Subjective Subjective: PGY1- Progress Note Patient was seen and examined at bedside. Patient was resting comfortably in bed. Patient reports that he is doing well and has no acute complaints. Patient does not know the date, but is able to remember it after seeing it written in his room. Patient denies fever, chills, SOB, palpitations, chest pain, abdominal pain, nausea, vomiting. Objective - Vital Signs/Intake and Output Vital Signs (last 24 hours): Temp Pulse Resp BP Pulse Ox 97.8 F 67 20 115/75 97 11/25/17 07:00 11/25/17 07:00 11/25/17 07:00 11/25/17 07:00 11/25/17 07:00 Intake and Output: 11/25/17 11/25/17 06:59 18:59 Intake Total 500 Balance 500 - Medications Medications: Current Medications Divalproex Sodium (Depakote Dr) 500 mg PO BID [facility] Last Admin: 11/25/17 09:54 Dose: 500 mg Dolutegravir Sodium (Tivicay) 50 mg PO DAILY [facility] PRN Reason: Protocol Last Admin: 11/25/17 09:53 Dose: 50 mg Emtricitabine/Tenofovir (Truvada 200 Mg-300 Mg) 1 tab PO DAILY [facility] PRN Reason: Protocol Last Admin: 11/25/17 09:53 Dose: 1 tab Escitalopram Oxalate (Lexapro) 10 mg PO HS [facility] Last Admin: 11/24/17 21:29 Dose: 10 mg Famotidine (Pepcid) 20 mg PO DAILY [facility] Last Admin: 11/25/17 09:53 Dose: 20 mg Heparin Sodium (Porcine) (Heparin) 5,000 units SC Q8 [facility] Last Admin: 11/25/17 05:26 Dose: 5,000 units Memantine (Namenda) 10 mg PO DAILY [facility] Last Admin: 11/25/17 09:53 Dose: 10 mg - Labs Labs: 11/24/17 06:24 11/24/17 06:24 - Additional Findings Additional findings: - Constitutional Appears: Well, No Acute Distress - Head Exam Head Exam: ATRAUMATIC, NORMAL INSPECTION - Eye Exam Eye Exam: EOMI, Normal appearance - ENT Exam ENT Exam: Mucous Membranes Moist - Respiratory Exam Respiratory Exam: Clear to Ausculation Bilateral, NORMAL BREATHING PATTERN. absent: Chest Wall Tenderness, Decreased Breath Sounds, Prolonged Expiratory Phase, Rhonchi, Wheezes, Respiratory Distress, Stridor - Cardiovascular Exam Cardiovascular Exam: REGULAR RHYTHM, +S1, +S2. absent: Murmur - GI/Abdominal Exam GI & Abdominal Exam: Soft, Normal Bowel Sounds. absent: Distended, Firm, Guarding, Rigid, Tenderness - Extremities Exam Extremities Exam: Normal Inspection. 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 Wills, help appreciated - Upon discharge, patient to be discharged on Depakote Valproic acid level - 52.7 (11/05), 28.9 (11/03) * continue Depakote 500mg bid Head CT (11/11/17): no intracranial mass or hemorrhage. 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 Chronic white matter ischemic change. 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 Postinfectious/ postinflammatory cortical calcifications diffusely. As per Dr. Alejandro, these findings are probably chronic. HIV/AIDS ID Consult: Dr. 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 Multiple calcifications in the brain bilaterally, most tiny in size , too numerous to count. The main differential considerations given the appearance include infectious processes, such as neurocysticercosis or tuberculosis, in the healed/calcified nodular stage Repeat Head CT ordered to assess hydrocephalus * Lexapro 10 mg PO HS * Namenda 10 mg PO daily Prophylaxis SCDs Heparin 5,000u SC q8h Pepcid 20mg daily Bactrim DS BID PT Social Work consult --> help appreciated Disposition: Per Doweling Machine Operator, the patient was denied admission to [facility]. He has a Green Card per daughter. He used to have health insurance down in [place]. [facility] is working with the daughter and the patient's sister (who lives in [place]) to set up care at a long term. They are going to determine if the patient's health insurance is still valid in [place], and if so, possible transfer patient to [place]. The patient's sister has agreed to drive up and take the patient to a long term back in [place] but she does not want to be the sole provider for him. The patient is unable to care for himself any longer due to progression of his HIV/AIDS dementia. Patient unable to be discharged to [place] due to his current mental status. Patient currently pending to get Medicaid in [place].
--- NOTE | 2017-11-26 06:56 | CP.PCM.PN ---
Subjective - Date & Time of Evaluation Date of Evaluation: 11/26/17 Time of Evaluation: 07:00 - Subjective Subjective: PGY1- Progress Note Patient was seen and examined at bedside. Patient was resting comfortably in bed. Patient reports that he is doing well and has no acute complaints. Patient does not know the date, but is able to remember it after seeing it written in his room. Patient tells me today that he wishes he were working. Patient denies fever, chills, SOB, palpitations, chest pain, abdominal pain, nausea, vomiting. Objective - Vital Signs/Intake and Output Vital Signs (last 24 hours): Temp Pulse Resp BP Pulse Ox 98.2 F 71 20 102/65 99 11/25/17 23:20 11/25/17 23:20 11/25/17 23:20 11/25/17 23:20 11/25/17 23:20 Intake and Output: 11/25/17 11/26/17 18:59 06:59 Intake Total 400 500 Balance 400 500 - Medications Medications: Current Medications Divalproex Sodium (Depakote Dr) 500 mg PO BID [facility] Last Admin: 11/25/17 18:25 Dose: 500 mg Dolutegravir Sodium (Tivicay) 50 mg PO DAILY [facility] PRN Reason: Protocol Last Admin: 11/25/17 09:53 Dose: 50 mg Emtricitabine/Tenofovir (Truvada 200 Mg-300 Mg) 1 tab PO DAILY [facility] PRN Reason: Protocol Last Admin: 11/25/17 09:53 Dose: 1 tab Escitalopram Oxalate (Lexapro) 10 mg PO HS [facility] Last Admin: 11/25/17 22:22 Dose: 10 mg Famotidine (Pepcid) 20 mg PO DAILY [facility] Last Admin: 11/25/17 09:53 Dose: 20 mg Heparin Sodium (Porcine) (Heparin) 5,000 units SC Q8 [facility] Last Admin: 11/26/17 06:01 Dose: 5,000 units Memantine (Namenda) 10 mg PO DAILY [facility] Last Admin: 11/25/17 09:53 Dose: 10 mg - Labs Labs: 11/24/17 06:24 11/24/17 06:24 - Additional Findings Additional findings: - Constitutional Appears: Well, No Acute Distress - Head Exam Head Exam: ATRAUMATIC, NORMAL INSPECTION - Eye Exam Eye Exam: EOMI, Normal appearance - ENT Exam ENT Exam: Mucous Membranes Moist - Respiratory Exam Respiratory Exam: Clear to Ausculation Bilateral, NORMAL BREATHING PATTERN. absent: Chest Wall Tenderness, Decreased Breath Sounds, Prolonged Expiratory Phase, Rhonchi, Wheezes, Respiratory Distress, Stridor - Cardiovascular Exam Cardiovascular Exam: REGULAR RHYTHM, +S1, +S2. absent: Murmur - GI/Abdominal Exam GI & Abdominal Exam: Soft, Normal Bowel Sounds. absent: Distended, Firm, Guarding, Rigid, Tenderness - Extremities Exam Extremities Exam: Normal Inspection. 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 Wills, help appreciated - Upon discharge, patient to be discharged on Depakote Valproic acid level - 52.7 (4), 28.9 (4/) * continue Depakote 500mg bid Head CT (11/11/17): no intracranial mass or hemorrhage. 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 Chronic white matter ischemic change. 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 Postinfectious/ postinflammatory cortical calcifications diffusely. As per Dr. Alejandro, these findings are probably chronic. HIV/AIDS ID Consult: Dr. 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 Multiple calcifications in the brain bilaterally, most tiny in size , too numerous to count. The main differential considerations given the appearance include infectious processes, such as neurocysticercosis or tuberculosis, in the healed/calcified nodular stage Repeat Head CT ordered to assess hydrocephalus * Lexapro 10 mg PO HS * Namenda 10 mg PO daily Prophylaxis SCDs Heparin 5,000u SC q8h Pepcid 20mg daily Bactrim DS BID PT Social Work consult --> help appreciated Disposition: Per Mirror Silverer, the patient was denied admission to [facility]. He has a Green Card per daughter. He used to have health insurance down in [place]. [facility] is working with the daughter and the patient's sister (who lives in [place]) to set up care at a chcf. They are going to determine if the patient's health insurance is still valid in [place], and if so, possible transfer patient to [place]. The patient's sister has agreed to drive up and take the patient to a chcf back in [place] but she does not want to be the sole provider for him. The patient is unable to care for himself any longer due to progression of his HIV/AIDS dementia. Patient unable to be discharged to street due to his current mental status. Patient currently pending to get Medicaid in [place].
[2017-11-26] MEDS: Divalproex 500 mg DR Tab PO SCH ×2 (10:18→17:39)
[2017-11-26] MEDS: Emtricitabine-Tenofovir 200 mg-300 mg Tab PO SCH (10:19)
[2017-11-27] MEDS: Emtricitabine-Tenofovir 200 mg-300 mg Tab PO SCH (10:38)
[2017-11-27] MEDS: Divalproex 500 mg DR Tab PO SCH ×2 (10:39→18:34)
--- NOTE | 2017-11-27 13:04 | CP.PCM.PN ---
Subjective - Date & Time of Evaluation Date of Evaluation: 11/27/17 Time of Evaluation: 07:00 - Subjective Subjective: PGY1- Progress Note Patient was seen and examined at bedside. Patient was resting comfortably in bed. Patient reports that he is doing well and has no acute complaints. Patient does not know the date, but is able to remember it after seeing it written in his room. Patient denies fever, chills, SOB, palpitations, chest pain, abdominal pain, nausea, vomiting. Objective - Vital Signs/Intake and Output Vital Signs (last 24 hours): Temp Pulse Resp BP Pulse Ox 97.9 F 64 20 113/73 98 11/27/17 07:30 11/27/17 07:30 11/27/17 07:30 11/27/17 07:30 11/27/17 07:30 - Medications Medications: Current Medications Divalproex Sodium (Depakote Dr) 500 mg PO BID [facility] Last Admin: 11/27/17 10:39 Dose: 500 mg Dolutegravir Sodium (Tivicay) 50 mg PO DAILY [facility] PRN Reason: Protocol Last Admin: 11/27/17 10:40 Dose: 50 mg Emtricitabine/Tenofovir (Truvada 200 Mg-300 Mg) 1 tab PO DAILY [facility] PRN Reason: Protocol Last Admin: 11/27/17 10:38 Dose: 1 tab Escitalopram Oxalate (Lexapro) 10 mg PO HS [facility] Last Admin: 11/26/17 21:13 Dose: 10 mg Famotidine (Pepcid) 20 mg PO DAILY [facility] Last Admin: 11/27/17 10:36 Dose: 20 mg Heparin Sodium (Porcine) (Heparin) 5,000 units SC Q8 [facility] Last Admin: 11/27/17 05:38 Dose: 5,000 units Memantine (Namenda) 10 mg PO DAILY [facility] Last Admin: 11/27/17 10:39 Dose: 10 mg - Labs Labs: 11/24/17 06:24 11/24/17 06:24 - Additional Findings Additional findings: - Constitutional Appears: Well, No Acute Distress - Head Exam Head Exam: ATRAUMATIC, NORMAL INSPECTION - Eye Exam Eye Exam: EOMI, Normal appearance - ENT Exam ENT Exam: Mucous Membranes Moist - Respiratory Exam Respiratory Exam: Clear to Ausculation Bilateral, NORMAL BREATHING PATTERN. absent: Chest Wall Tenderness, Decreased Breath Sounds, Prolonged Expiratory Phase, Rhonchi, Wheezes, Respiratory Distress, Stridor - Cardiovascular Exam Cardiovascular Exam: REGULAR RHYTHM, +S1, +S2. absent: Murmur - GI/Abdominal Exam GI & Abdominal Exam: Soft, Normal Bowel Sounds. absent: Distended, Firm, Guarding, Rigid, Tenderness - Extremities Exam Extremities Exam: Normal Inspection. 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 Wills, help appreciated - Upon discharge, patient to be discharged on Depakote Valproic acid level - 52.7 (11/05), 28.9 (11/03) * continue Depakote 500mg bid Head CT (11/11/17): no intracranial mass or hemorrhage. 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 Chronic white matter ischemic change. 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 Postinfectious/ postinflammatory cortical calcifications diffusely. As per Dr. Alejandro, these findings are probably chronic. HIV/AIDS ID Consult: Dr. 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 Multiple calcifications in the brain bilaterally, most tiny in size , too numerous to count. The main differential considerations given the appearance include infectious processes, such as neurocysticercosis or tuberculosis, in the healed/calcified nodular stage Repeat Head CT ordered to assess hydrocephalus * Lexapro 10 mg PO HS * Namenda 10 mg PO daily Prophylaxis SCDs Heparin 5,000u SC q8h Pepcid 20mg daily Bactrim DS BID PT Social Work consult --> help appreciated Disposition: Per Senior Formulation Scientist, the patient was denied admission to [facility]. He has a Green Card per daughter. He used to have health insurance down in [place]. SW is working with the daughter and the patient's sister (who lives in [place]) to set up care at a long term. They are going to determine if the patient's health insurance is still valid in [place], and if so, possible transfer patient to [place]. The patient's sister has agreed to drive up and take the patient to a long term back in [place] but she does not want to be the sole provider for him. The patient is unable to care for himself any longer due to progression of his HIV/AIDS dementia. Patient unable to be discharged to [place] due to his current mental status. Patient currently pending to get Medicaid in [place].
[2017-11-28] MEDS: Divalproex 500 mg DR Tab PO SCH ×2 (10:00→17:34)
[2017-11-28] MEDS: Emtricitabine-Tenofovir 200 mg-300 mg Tab PO SCH (10:01)
--- NOTE | 2017-11-28 12:42 | CP.PCM.PN ---
Subjective - Date & Time of Evaluation Date of Evaluation: 11/28/17 Time of Evaluation: 07:00 - Subjective Subjective: PGY1- Progress Note Patient was seen and examined at bedside. Patient was resting comfortably in bed. Patient reports that he is doing well and has no acute complaints. Patient does not know the date and says it is March. No acute changes in mental status. Patient denies fever, chills, SOB, palpitations, chest pain, abdominal pain, nausea, vomiting. Objective - Vital Signs/Intake and Output Vital Signs (last 24 hours): Temp Pulse Resp BP Pulse Ox 97.6 F 68 20 106/73 98 11/28/17 07:25 11/28/17 07:25 11/28/17 07:25 11/28/17 07:25 11/28/17 07:25 - Medications Medications: Current Medications Divalproex Sodium (Depakote Dr) 500 mg PO BID [facility] Last Admin: 11/28/17 10:00 Dose: 500 mg Dolutegravir Sodium (Tivicay) 50 mg PO DAILY [facility] PRN Reason: Protocol Last Admin: 11/28/17 10:01 Dose: 50 mg Emtricitabine/Tenofovir (Truvada 200 Mg-300 Mg) 1 tab PO DAILY [facility] PRN Reason: Protocol Last Admin: 11/28/17 10:01 Dose: 1 tab Escitalopram Oxalate (Lexapro) 10 mg PO HS [facility] Last Admin: 11/27/17 21:28 Dose: 10 mg Famotidine (Pepcid) 20 mg PO DAILY [facility] Last Admin: 11/28/17 10:00 Dose: 20 mg Heparin Sodium (Porcine) (Heparin) 5,000 units SC Q8 [facility] Last Admin: 11/27/17 21:28 Dose: 5,000 units Memantine (Namenda) 10 mg PO DAILY [facility] Last Admin: 11/28/17 10:00 Dose: 10 mg - Labs Labs: 11/24/17 06:24 11/24/17 06:24 - Additional Findings Additional findings: - Constitutional Appears: Well, No Acute Distress - Head Exam Head Exam: ATRAUMATIC, NORMAL INSPECTION - Eye Exam Eye Exam: EOMI, Normal appearance - ENT Exam ENT Exam: Mucous Membranes Moist - Respiratory Exam Respiratory Exam: Clear to Ausculation Bilateral, NORMAL BREATHING PATTERN. absent: Chest Wall Tenderness, Decreased Breath Sounds, Prolonged Expiratory Phase, Rhonchi, Wheezes, Respiratory Distress, Stridor - Cardiovascular Exam Cardiovascular Exam: REGULAR RHYTHM, +S1, +S2. absent: Murmur - GI/Abdominal Exam GI & Abdominal Exam: Soft, Normal Bowel Sounds. absent: Distended, Firm, Guarding, Rigid, Tenderness - Extremities Exam Extremities Exam: Normal Inspection. 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 Wills, help appreciated - Upon discharge, patient to be discharged on Depakote Valproic acid level - 52.7 (11/05), 28.9 (11/03) * continue Depakote 500mg bid Head CT (11/11/17): no intracranial mass or hemorrhage. 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 Chronic white matter ischemic change. 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 Postinfectious/ postinflammatory cortical calcifications diffusely. As per Dr. Alejandro, these findings are probably chronic. HIV/AIDS ID Consult: Dr. 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 Multiple calcifications in the brain bilaterally, most tiny in size , too numerous to count. The main differential considerations given the appearance include infectious processes, such as neurocysticercosis or tuberculosis, in the healed/calcified nodular stage Repeat Head CT ordered to assess hydrocephalus * Lexapro 10 mg PO HS * Namenda 10 mg PO daily Prophylaxis SCDs Heparin 5,000u SC q8h Pepcid 20mg daily Bactrim DS BID PT Social Work consult --> help appreciated Disposition: Per Automotive Dismantler, the patient was denied admission to [facility]. He has a Green Card per daughter. He used to have health insurance down in [place]. SW is working with the daughter and the patient's sister (who lives in [place]) to set up care at a snf. They are going to determine if the patient's health insurance is still valid in [place], and if so, possible transfer patient to [place]. The patient's sister has agreed to drive up and take the patient to a snf back in [place] but she does not want to be the sole provider for him. The patient is unable to care for himself any longer due to progression of his HIV/AIDS dementia. Patient unable to be discharged to [place] due to his current mental status. Patient currently pending to get Medicaid in [place].
--- NOTE | 2017-11-29 00:09 | CP.PCM.PN ---
<OlegGina - Last Filed: 11/29/17 00:06> Subjective - Date & Time of Evaluation Date of Evaluation: 11/29/17 Time of Evaluation: 00:06 - Subjective Subjective: Patient seen and examined at bedside. Patient resting comfortably in bed with no new complaints at this time. Patient not oriented however this is not new and there is no acute changes in mental status. Patient denies fever, chills, SOB, palpitations, chest pain, abdominal pain, nausea, vomiting. Objective - Vital Signs/Intake and Output Vital Signs (last 24 hours): Temp Pulse Resp BP Pulse Ox 98.0 F 68 20 105/69 97 11/28/17 15:00 11/28/17 15:00 11/28/17 15:00 11/28/17 15:00 11/28/17 15:00 - Medications Medications: Current Medications Divalproex Sodium (Depakote Dr) 500 mg PO BID [facility] Last Admin: 11/28/17 17:34 Dose: 500 mg Dolutegravir Sodium (Tivicay) 50 mg PO DAILY [facility] PRN Reason: Protocol Last Admin: 11/28/17 10:01 Dose: 50 mg Emtricitabine/Tenofovir (Truvada 200 Mg-300 Mg) 1 tab PO DAILY [facility] PRN Reason: Protocol Last Admin: 11/28/17 10:01 Dose: 1 tab Escitalopram Oxalate (Lexapro) 10 mg PO HS [facility] Last Admin: 11/28/17 21:26 Dose: 10 mg Famotidine (Pepcid) 20 mg PO DAILY [facility] Last Admin: 11/28/17 10:00 Dose: 20 mg Heparin Sodium (Porcine) (Heparin) 5,000 units SC Q8 [facility] Last Admin: 11/28/17 21:26 Dose: 5,000 units Memantine (Namenda) 10 mg PO DAILY [facility] Last Admin: 11/28/17 10:00 Dose: 10 mg - Labs Labs: 11/24/17 06:24 11/24/17 06:24 - Additional Findings Additional findings: - Constitutional Appears: Well, No Acute Distress - Head Exam Head Exam: ATRAUMATIC, NORMAL INSPECTION - Eye Exam Eye Exam: EOMI, Normal appearance - ENT Exam ENT Exam: Mucous Membranes Moist - Respiratory Exam Respiratory Exam: Clear to Ausculation Bilateral, NORMAL BREATHING PATTERN. absent: Chest Wall Tenderness, Decreased Breath Sounds, Prolonged Expiratory Phase, Rhonchi, Wheezes, Respiratory Distress, Stridor - Cardiovascular Exam Cardiovascular Exam: REGULAR RHYTHM, +S1, +S2. absent: Murmur - GI/Abdominal Exam GI & Abdominal Exam: Soft, Normal Bowel Sounds. absent: Distended, Firm, Guarding, Rigid, Tenderness - Extremities Exam Extremities Exam: Normal Inspection. 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 Wills, help appreciated - Upon discharge, patient to be discharged on Depakote Valproic acid level - 52.7 (11/05), 28.9 (11/03) * continue Depakote 500mg bid Head CT (11/11/17): no intracranial mass or hemorrhage. 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 Chronic white matter ischemic change. 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 Postinfectious/ postinflammatory cortical calcifications diffusely. As per Dr. Alejandro, these findings are probably chronic. HIV/AIDS ID Consult: Dr. 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 Multiple calcifications in the brain bilaterally, most tiny in size , too numerous to count. The main differential considerations given the appearance include infectious processes, such as neurocysticercosis or tuberculosis, in the healed/calcified nodular stage Repeat Head CT ordered to assess hydrocephalus * Lexapro 10 mg PO HS * Namenda 10 mg PO daily Prophylaxis SCDs Heparin 5,000u SC q8h Pepcid 20mg daily Bactrim DS BID PT Social Work consult --> help appreciated Disposition: Per Gripper Machine Operator, the patient was denied admission to [facility]. He has a Green Card per daughter. He used to have health insurance down in [place]. SW is working with the daughter and the patient's sister (who lives in [place]) to set up care at a retirement. They are going to determine if the patient's health insurance is still valid in [place], and if so, possible transfer patient to [place]. The patient's sister has agreed to drive up and take the patient to a retirement back in [place] but she does not want to be the sole provider for him. The patient is unable to care for himself any longer due to progression of his HIV/AIDS dementia. Patient unable to be discharged to street due to his current mental status. Patient currently pending to get Medicaid in [place]. <Jonathan Charles H - Last Filed: 11/29/17 10:51> Objective - Vital Signs/Intake and Output Vital Signs (last 24 hours): Temp Pulse Resp BP Pulse Ox 97.7 F 70 18 116/72 98 11/29/17 07:30 11/29/17 07:30 11/29/17 07:30 11/29/17 07:30 11/29/17 07:30 - Medications Medications: Current Medications Divalproex Sodium (Depakote Dr) 500 mg PO BID [facility] Last Admin: 11/29/17 09:19 Dose: 500 mg Dolutegravir Sodium (Tivicay) 50 mg PO DAILY [facility] PRN Reason: Protocol Last Admin: 11/29/17 09:20 Dose: 50 mg Emtricitabine/Tenofovir (Truvada 200 Mg-300 Mg) 1 tab PO DAILY [facility] PRN Reason: Protocol Last Admin: 11/29/17 09:20 Dose: 1 tab Escitalopram Oxalate (Lexapro) 10 mg PO HS [facility] Last Admin: 11/28/17 21:26 Dose: 10 mg Famotidine (Pepcid) 20 mg PO DAILY [facility] Last Admin: 11/29/17 09:20 Dose: 20 mg Heparin Sodium (Porcine) (Heparin) 5,000 units SC Q8 [facility] Last Admin: 11/29/17 05:58 Dose: 5,000 units Memantine (Namenda) 10 mg PO DAILY [facility] Last Admin: 11/29/17 09:20 Dose: 10 mg - Labs Labs: 11/24/17 06:24 11/24/17 06:24 Attending/Attestation - Attestation I have personally seen and examined this patient.: Yes I have fully participated in the care of the patient.: Yes I have reviewed all pertinent clinical information, including history, physical exam and plan: Yes Notes (Text): 11/29/17 10:50 Medical attending: Patient was seen by me as well I do not have any new news to report. He is awake, follows 1 step commands. As mentioned previously we are currently pending on potential placement Jonathan Charles
[2017-11-29] MEDS: Divalproex 500 mg DR Tab PO SCH ×2 (09:19→18:00)
[2017-11-29] MEDS: Emtricitabine-Tenofovir 200 mg-300 mg Tab PO SCH (09:20)
--- NOTE | 2017-11-30 02:27 | CP.PCM.PN ---
<OlegArikGina - Last Filed: 11/30/17 02:25> Subjective - Date & Time of Evaluation Date of Evaluation: 11/30/17 Time of Evaluation: 02:25 - Subjective Subjective: Patient seen and examined at bedside. Patient resting comfortably in bed with no new complaints at this time. No acute changes in mental status. Patient denies fever, chills, SOB, palpitations, chest pain, abdominal pain, nausea, vomiting. Objective - Vital Signs/Intake and Output Vital Signs (last 24 hours): Temp Pulse Resp BP Pulse Ox 97.6 F 70 20 97/61 L 97 11/29/17 23:15 11/29/17 23:15 11/29/17 23:15 11/29/17 23:15 11/29/17 23:15 - Medications Medications: Current Medications Divalproex Sodium (Depakote Dr) 500 mg PO BID [facility] Last Admin: 11/29/17 18:00 Dose: 500 mg Dolutegravir Sodium (Tivicay) 50 mg PO DAILY [facility] PRN Reason: Protocol Last Admin: 11/29/17 09:20 Dose: 50 mg Emtricitabine/Tenofovir (Truvada 200 Mg-300 Mg) 1 tab PO DAILY [facility] PRN Reason: Protocol Last Admin: 11/29/17 09:20 Dose: 1 tab Escitalopram Oxalate (Lexapro) 10 mg PO HS [facility] Last Admin: 11/29/17 21:32 Dose: 10 mg Famotidine (Pepcid) 20 mg PO DAILY [facility] Last Admin: 11/29/17 09:20 Dose: 20 mg Heparin Sodium (Porcine) (Heparin) 5,000 units SC Q8 [facility] Last Admin: 11/29/17 21:32 Dose: 5,000 units Memantine (Namenda) 10 mg PO DAILY [facility] Last Admin: 11/29/17 09:20 Dose: 10 mg - Labs Labs: 11/24/17 06:24 11/24/17 06:24 - Additional Findings Additional findings: - Constitutional Appears: Well, No Acute Distress - Head Exam Head Exam: ATRAUMATIC, NORMAL INSPECTION - Eye Exam Eye Exam: EOMI, Normal appearance - ENT Exam ENT Exam: Mucous Membranes Moist - Respiratory Exam Respiratory Exam: Clear to Ausculation Bilateral, NORMAL BREATHING PATTERN. absent: Chest Wall Tenderness, Decreased Breath Sounds, Prolonged Expiratory Phase, Rhonchi, Wheezes, Respiratory Distress, Stridor - Cardiovascular Exam Cardiovascular Exam: REGULAR RHYTHM, +S1, +S2. absent: Murmur - GI/Abdominal Exam GI & Abdominal Exam: Soft, Normal Bowel Sounds. absent: Distended, Firm, Guarding, Rigid, Tenderness - Extremities Exam Extremities Exam: Normal Inspection. 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 Wills, help appreciated - Upon discharge, patient to be discharged on Depakote Valproic acid level - 52.7 (11/05), 28.9 (11/03) * continue Depakote 500mg bid Head CT (11/11/17): no intracranial mass or hemorrhage. 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 Chronic white matter ischemic change. 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 Postinfectious/ postinflammatory cortical calcifications diffusely. As per Dr. Alejandro, these findings are probably chronic. HIV/AIDS ID Consult: Dr. 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 Multiple calcifications in the brain bilaterally, most tiny in size , too numerous to count. The main differential considerations given the appearance include infectious processes, such as neurocysticercosis or tuberculosis, in the healed/calcified nodular stage Repeat Head CT ordered to assess hydrocephalus * Lexapro 10 mg PO HS * Namenda 10 mg PO daily Prophylaxis SCDs Heparin 5,000u SC q8h Pepcid 20mg daily Bactrim DS BID PT Social Work consult --> help appreciated Disposition: Per Soldering Machine Setter, the patient was denied admission to [facility]. He has a Green Card per daughter. He used to have health insurance down in [place]. SW is working with the daughter and the patient's sister (who lives in [place]) to set up care at a residential. They are going to determine if the patient's health insurance is still valid in [place], and if so, possible transfer patient to [place]. The patient's sister has agreed to drive up and take the patient to a residential back in [place] but she does not want to be the sole provider for him. The patient is unable to care for himself any longer due to progression of his HIV/AIDS dementia. Patient unable to be discharged to street due to his current mental status. Patient currently pending to get Medicaid in [place]. <Jonathan Charles - Last Filed: 11/30/17 12:50> Objective - Vital Signs/Intake and Output Vital Signs (last 24 hours): Temp Pulse Resp BP Pulse Ox 97.4 F L 74 20 123/75 96 11/30/17 07:10 11/30/17 07:10 11/30/17 07:10 11/30/17 07:10 11/30/17 07:10 - Medications Medications: Current Medications Dolutegravir Sodium (Tivicay) 50 mg PO DAILY [facility] PRN Reason: Protocol Last Admin: 11/30/17 09:57 Dose: 50 mg Emtricitabine/Tenofovir (Truvada 200 Mg-300 Mg) 1 tab PO DAILY [facility] PRN Reason: Protocol Last Admin: 11/30/17 09:58 Dose: 1 tab Escitalopram Oxalate (Lexapro) 10 mg PO HS [facility] Last Admin: 11/29/17 21:32 Dose: 10 mg Famotidine (Pepcid) 20 mg PO DAILY [facility] Last Admin: 11/30/17 09:57 Dose: 20 mg Heparin Sodium (Porcine) (Heparin) 5,000 units SC Q8 [facility] Last Admin: 11/30/17 05:11 Dose: 5,000 units Memantine (Namenda) 10 mg PO DAILY [facility] Last Admin: 11/30/17 09:57 Dose: 10 mg Valproate Sodium (Depakene Cap) 750 mg PO Q12 [facility] - Labs Labs: 11/24/17 06:24 11/24/17 06:24 Attending/Attestation - Attestation I have personally seen and examined this patient.: Yes I have fully participated in the care of the patient.: Yes I have reviewed all pertinent clinical information, including history, physical exam and plan: Yes Notes (Text): 11/30/17 12:49 Medical attending: Patient was seen and examined by me as well. I do not have any new news to report at the moment. He was watching [employer] on the bedside television He did not have any complaints or concerns Jonathan Charles
[2017-11-30] MEDS: Divalproex 500 mg DR Tab PO SCH (09:57)
[2017-11-30] MEDS: Emtricitabine-Tenofovir 200 mg-300 mg Tab PO SCH (09:58)
--- NOTE | 2017-11-30 10:56 | CP.PCM.PN ---
Subjective - Date & Time of Evaluation Date of Evaluation: 11/30/17 Time of Evaluation: 10:54 - Subjective Subjective: Mr. Grey was seen and examined at the bedside. He is alert, awake, response to question in a slow pace. He denies any headache, dizziness, nausea, or vomiting. He is able to move all extremities without any problem. Valproic level 43.3. There was no untoward events overnight. Objective - Vital Signs/Intake and Output Vital Signs (last 24 hours): Temp Pulse Resp BP Pulse Ox 97.4 F L 74 20 123/75 96 11/30/17 07:10 11/30/17 07:10 11/30/17 07:10 11/30/17 07:10 11/30/17 07:10 - Medications Medications: Current Medications Dolutegravir Sodium (Tivicay) 50 mg PO DAILY [facility] PRN Reason: Protocol Last Admin: 11/30/17 09:57 Dose: 50 mg Emtricitabine/Tenofovir (Truvada 200 Mg-300 Mg) 1 tab PO DAILY [facility] PRN Reason: Protocol Last Admin: 11/30/17 09:58 Dose: 1 tab Escitalopram Oxalate (Lexapro) 10 mg PO HS [facility] Last Admin: 11/29/17 21:32 Dose: 10 mg Famotidine (Pepcid) 20 mg PO DAILY [facility] Last Admin: 11/30/17 09:57 Dose: 20 mg Heparin Sodium (Porcine) (Heparin) 5,000 units SC Q8 [facility] Last Admin: 11/30/17 05:11 Dose: 5,000 units Memantine (Namenda) 10 mg PO DAILY [facility] Last Admin: 11/30/17 09:57 Dose: 10 mg Valproate Sodium (Depakene Cap) 750 mg PO Q12 [facility] - Labs Labs: 11/24/17 06:24 11/24/17 06:24 - Constitutional Appears: No Acute Distress - Head Exam Head Exam: NORMAL INSPECTION - Neurological Exam Neurological Exam: Alert, Awake Neuro motor strength exam: Left Upper Extremity: 4, Right Upper Extremity: 4, Left Lower Extremity: 4, Right Lower Extremity: 4 Additional comments: Alert, able to move all extremities, sensation intact. Assessment and Plan (1) Seizure Assessment & Plan: Case discussed with Dr. Alejandro, continue all current medical regimen. Recommend to increase depakote form 500 mg PO Q 12 to 750 mg PO Q 12. Recommend monitoring valproic level. Status: Acute
[2017-12-01 06:55] LABS: BASO % 0.6 % (0.0-2.0); EOS # 0.2 K/uL (0.0-0.7); EOS % 3.2 % (0.0-4.0); HEMOGLOBIN 14.4 g/dL (12.0-18.0); LYMPH # 2.5 K/uL (1.0-4.3); LYMPH % 49.7 % (20.0-40.0); MEAN CELL VOLUME 98.8 fL (80.0-94.0); MEAN CORPUSCULAR HEMOGLOBIN 33.6 pg (27.0-31.0); MEAN PLATELET VOLUME 9.1 fL (7.2-11.7); MONO # 0.5 K/uL (0.0-0.8); MONO % 10.5 % (0.0-10.0); NEUT # 1.8 K/uL (1.8-7.0); NRBC % 0.1 % (0.0-2.0); RBC 4.28 Mil/uL (4.40-5.90); RED CELL DISTRIBUTION WIDTH 14.4 % (11.5-14.5); WHITE BLOOD COUNT 5.1 K/uL (4.8-10.8)
[2017-12-01 07:04] LABS: ALBUMIN 3.9 g/dL (3.5-5.0); ALT/SGPT 57 U/L (21-72); AST/SGOT 44 U/L (17-59); BLOOD UREA NITROGEN 21 mg/dL (9-20); CALCIUM 9.4 mg/dl (8.6-10.4); GFR AFRICAN-AMERICAN > 60; GFR NON-AFRICAN AMERICAN 53
--- NOTE | 2017-12-01 07:41 | CP.PCM.PN ---
Subjective - Date & Time of Evaluation Date of Evaluation: 12/01/17 Time of Evaluation: 07:41 - Subjective Subjective: Mr. Grey was seen and examined at the bedside. He is alert, awake, response to question in a slow pace. He denies any headache, dizziness, nausea, or vomiting. He is able to move all extremities and ambulate within his room without any problem. There was no untoward events overnight. Objective - Vital Signs/Intake and Output Vital Signs (last 24 hours): Temp Pulse Resp BP Pulse Ox 97.9 F 74 20 106/67 97 11/30/17 23:22 11/30/17 23:22 11/30/17 23:22 11/30/17 23:22 11/30/17 23:22 - Medications Medications: Current Medications Dolutegravir Sodium (Tivicay) 50 mg PO DAILY [facility] PRN Reason: Protocol Last Admin: 11/30/17 09:57 Dose: 50 mg Emtricitabine/Tenofovir (Truvada 200 Mg-300 Mg) 1 tab PO DAILY [facility] PRN Reason: Protocol Last Admin: 11/30/17 09:58 Dose: 1 tab Escitalopram Oxalate (Lexapro) 10 mg PO HS [facility] Last Admin: 11/30/17 22:03 Dose: 10 mg Famotidine (Pepcid) 20 mg PO DAILY [facility] Last Admin: 11/30/17 09:57 Dose: 20 mg Memantine (Namenda) 10 mg PO DAILY [facility] Last Admin: 11/30/17 09:57 Dose: 10 mg Valproate Sodium (Depakene Cap) 750 mg PO Q12 [facility] Last Admin: 11/30/17 22:02 Dose: 750 mg - Labs Labs: 12/01/17 06:45 12/01/17 06:45 - Constitutional Appears: No Acute Distress - Head Exam Head Exam: NORMAL INSPECTION - Neurological Exam Neurological Exam: Alert, Awake Neuro motor strength exam: Left Upper Extremity: 5, Right Upper Extremity: 5, Left Lower Extremity: 5, Right Lower Extremity: 5 Additional comments: Neurological unchanged from previous examination. Assessment and Plan (1) Seizure Assessment & Plan: Case discussed with Dr. Wills, continue all current medical regimen. Recommend to regular monitoring valproic and liver enzymes level regularly. Status: Acute
[2017-12-01] MEDS: Emtricitabine-Tenofovir 200 mg-300 mg Tab PO SCH (09:13)
[2017-12-01] MEDS: Tmp-Smz 800 mg-160 mg DS Tab PO SCH ×2 (12:31→23:28)
--- NOTE | 2017-12-01 16:52 | CP.PCM.PN ---
<Татьяна FoxOsvaldo - Last Filed: 12/01/17 16:55> Subjective - Date & Time of Evaluation Date of Evaluation: 12/01/17 Time of Evaluation: 07:00 - Subjective Subjective: PGY1- Medicine Note Patient seen and examined at bedside. Patient resting comfortably in bed with no new complaints at this time. No acute changes in mental status. Patient denies fever, chills, SOB, palpitations, chest pain, abdominal pain, nausea, vomiting. Objective - Vital Signs/Intake and Output Vital Signs (last 24 hours): Temp Pulse Resp BP Pulse Ox 98.0 F 70 20 111/71 96 12/01/17 15:00 12/01/17 15:00 12/01/17 15:00 12/01/17 15:00 12/01/17 15:00 - Medications Medications: Current Medications Dolutegravir Sodium (Tivicay) 50 mg PO DAILY [facility] PRN Reason: Protocol Last Admin: 12/01/17 09:14 Dose: 50 mg Emtricitabine/Tenofovir (Truvada 200 Mg-300 Mg) 1 tab PO DAILY [facility] PRN Reason: Protocol Last Admin: 12/01/17 09:13 Dose: 1 tab Escitalopram Oxalate (Lexapro) 10 mg PO HS [facility] Last Admin: 11/30/17 22:03 Dose: 10 mg Famotidine (Pepcid) 20 mg PO DAILY [facility] Last Admin: 12/01/17 09:13 Dose: 20 mg Memantine (Namenda) 10 mg PO DAILY [facility] Last Admin: 12/01/17 09:14 Dose: 10 mg Saccharomyces Boulardii (Florastor) 250 mg PO BID [facility] Trimethoprim/Sulfamethoxazole (Bactrim Ds Tab) 1 tab PO Q12H [facility] PRN Reason: Protocol Last Admin: 12/01/17 12:31 Dose: 1 tab Valproate Sodium (Depakene Cap) 750 mg PO Q12 [facility] Last Admin: 12/01/17 09:14 Dose: 750 mg - Labs Labs: 12/01/17 06:45 12/01/17 06:45 - Additional Findings Additional findings: - Constitutional Appears: Well, No Acute Distress - Head Exam Head Exam: ATRAUMATIC, NORMAL INSPECTION - Eye Exam Eye Exam: EOMI, Normal appearance - ENT Exam ENT Exam: Mucous Membranes Moist - Respiratory Exam Respiratory Exam: Clear to Ausculation Bilateral, NORMAL BREATHING PATTERN. absent: Chest Wall Tenderness, Decreased Breath Sounds, Prolonged Expiratory Phase, Rhonchi, Wheezes, Respiratory Distress, Stridor - Cardiovascular Exam Cardiovascular Exam: REGULAR RHYTHM, +S1, +S2. absent: Murmur - GI/Abdominal Exam GI & Abdominal Exam: Soft, Normal Bowel Sounds. absent: Distended, Firm, Guarding, Rigid, Tenderness - Extremities Exam Extremities Exam: Normal Inspection. 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 Wills, help appreciated - Upon discharge, patient to be discharged on Depakote f/u Valproic acid level * Depakote increased to 750mg q12h Head CT (11/11/17): no intracranial mass or hemorrhage. 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 Chronic white matter ischemic change. 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 Postinfectious/ postinflammatory cortical calcifications diffusely. As per Dr. Alejandro, these findings are probably chronic. HIV/AIDS ID Consult: Dr. 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 Multiple calcifications in the brain bilaterally, most tiny in size , too numerous to count. The main differential considerations given the appearance include infectious processes, such as neurocysticercosis or tuberculosis, in the healed/calcified nodular stage Repeat Head CT ordered to assess hydrocephalus * Lexapro 10 mg PO HS * Namenda 10 mg PO daily Prophylaxis SCDs Heparin 5,000u SC q8h Pepcid 20mg daily Bactrim DS BID PT Social Work consult --> help appreciated Disposition: Per Video Systems Engineer, the patient was denied admission to [facility]. He has a Green Card per daughter. He used to have health insurance down in [place]. [facility] is working with the daughter and the patient's sister (who lives in [place]) to set up care at a group home. They are going to determine if the patient's health insurance is still valid in [place], and if so, possible transfer patient to [place]. The patient's sister has agreed to drive up and take the patient to a group home back in [place] but she does not want to be the sole provider for him. The patient is unable to care for himself any longer due to progression of his HIV/AIDS dementia. Patient unable to be discharged to [facility] due to his current mental status. [place] Medicaid to start tomorrow, will wait for patient to be accepted to [facility] in [place] <Salinas Philip - Last Filed: 12/01/17 19:28> Objective - Vital Signs/Intake and Output Vital Signs (last 24 hours): Temp Pulse Resp BP Pulse Ox 98.0 F 70 20 111/71 96 12/01/17 15:00 12/01/17 15:00 12/01/17 15:00 12/01/17 15:00 12/01/17 15:00 - Medications Medications: Current Medications Dolutegravir Sodium (Tivicay) 50 mg PO DAILY [facility] PRN Reason: Protocol Last Admin: 12/01/17 09:14 Dose: 50 mg Emtricitabine/Tenofovir (Truvada 200 Mg-300 Mg) 1 tab PO DAILY [facility] PRN Reason: Protocol Last Admin: 12/01/17 09:13 Dose: 1 tab Escitalopram Oxalate (Lexapro) 10 mg PO HS [facility] Last Admin: 11/30/17 22:03 Dose: 10 mg Famotidine (Pepcid) 20 mg PO DAILY [facility] Last Admin: 12/01/17 09:13 Dose: 20 mg Heparin Sodium (Porcine) (Heparin) 5,000 units SC Q8 [facility] Last Admin: 12/01/17 17:36 Dose: 5,000 units Memantine (Namenda) 10 mg PO DAILY [facility] Last Admin: 12/01/17 09:14 Dose: 10 mg Saccharomyces Boulardii (Florastor) 250 mg PO BID [facility] Last Admin: 12/01/17 17:36 Dose: 250 mg Trimethoprim/Sulfamethoxazole (Bactrim Ds Tab) 1 tab PO Q12H [facility] PRN Reason: Protocol Last Admin: 12/01/17 12:31 Dose: 1 tab Valproate Sodium (Depakene Cap) 750 mg PO Q12 [facility] Last Admin: 12/01/17 09:14 Dose: 750 mg - Labs Labs: 12/01/17 06:45 12/01/17 06:45 Attending/Attestation - Attestation I have personally seen and examined this patient.: Yes I have fully participated in the care of the patient.: Yes I have reviewed all pertinent clinical information, including history, physical exam and plan: Yes Notes (Text): 12/01/17 19:26 Patient was seen and examined at 11:45 AM Exam, assessment and plan were gone over with the resident. Spoke with Video Systems Engineer Eboni and awaiting for [facility] Salinas Philip D.O.
[2017-12-01] MEDS: Saccharomyces Boulardi 250 mg Cap PO SCH (17:36)
--- NOTE | 2017-12-02 06:24 | CP.PCM.PN ---
<Татьяна Fox - Last Filed: 12/02/17 17:31> Subjective - Date & Time of Evaluation Date of Evaluation: 12/02/17 Time of Evaluation: 07:00 - Subjective Subjective: PGY1- Medicine Note Patient seen and examined at bedside. Patient resting comfortably in bed with no new complaints at this time. No acute changes in mental status. Patient denies fever, chills, SOB, palpitations, chest pain, abdominal pain, nausea, vomiting. Objective - Vital Signs/Intake and Output Vital Signs (last 24 hours): Temp Pulse Resp BP Pulse Ox 98.0 F 76 20 100/63 95 12/01/17 23:09 12/01/17 23:09 12/01/17 23:09 12/01/17 23:09 12/01/17 23:09 - Medications Medications: Current Medications Dolutegravir Sodium (Tivicay) 50 mg PO DAILY [facility] PRN Reason: Protocol Last Admin: 12/01/17 09:14 Dose: 50 mg Emtricitabine/Tenofovir (Truvada 200 Mg-300 Mg) 1 tab PO DAILY [facility] PRN Reason: Protocol Last Admin: 12/01/17 09:13 Dose: 1 tab Escitalopram Oxalate (Lexapro) 10 mg PO HS [facility] Last Admin: 12/01/17 21:26 Dose: 10 mg Famotidine (Pepcid) 20 mg PO DAILY [facility] Last Admin: 12/01/17 09:13 Dose: 20 mg Heparin Sodium (Porcine) (Heparin) 5,000 units SC Q8 [facility] Last Admin: 12/02/17 05:01 Dose: 5,000 units Memantine (Namenda) 10 mg PO DAILY [facility] Last Admin: 12/01/17 09:14 Dose: 10 mg Saccharomyces Boulardii (Florastor) 250 mg PO BID [facility] Last Admin: 12/01/17 17:36 Dose: 250 mg Trimethoprim/Sulfamethoxazole (Bactrim Ds Tab) 1 tab PO Q12H [facility] PRN Reason: Protocol Last Admin: 12/01/17 23:28 Dose: 1 tab Valproate Sodium (Depakene Cap) 750 mg PO Q12 [facility] Last Admin: 12/01/17 21:26 Dose: 750 mg - Labs Labs: 12/01/17 06:45 12/01/17 06:45 - Additional Findings Additional findings: - Constitutional Appears: Well, No Acute Distress - Head Exam Head Exam: ATRAUMATIC, NORMAL INSPECTION - Eye Exam Eye Exam: EOMI, Normal appearance - ENT Exam ENT Exam: Mucous Membranes Moist - Respiratory Exam Respiratory Exam: Clear to Ausculation Bilateral, NORMAL BREATHING PATTERN. absent: Chest Wall Tenderness, Decreased Breath Sounds, Prolonged Expiratory Phase, Rhonchi, Wheezes, Respiratory Distress, Stridor - Cardiovascular Exam Cardiovascular Exam: REGULAR RHYTHM, +S1, +S2. absent: Murmur - GI/Abdominal Exam GI & Abdominal Exam: Soft, Normal Bowel Sounds. absent: Distended, Firm, Guarding, Rigid, Tenderness - Extremities Exam Extremities Exam: Normal Inspection. 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 Wills, help appreciated - Upon discharge, patient to be discharged on Depakote f/u Valproic acid level * Depakote increased to 750mg q12h Head CT (11/11/17): no intracranial mass or hemorrhage. 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 Chronic white matter ischemic change. 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 Postinfectious/ postinflammatory cortical calcifications diffusely. As per Dr. Alejandro, these findings are probably chronic. HIV/AIDS ID Consult: Dr. Mays, help appreciated CD4 83 (07/10/17) --> CD4 227 (10/14/17) - CD4 (11/04) 215 - Viral Load 4.55 (high) Hep Panel - negative * Tivicay 50 mg PO daily * Truvada 200-300 mg PO daily * Bactrim DS po daily for Pneumocystis jirovecii prophylaxis History of AIDS dementia on previous [place] admission Head CT (10/14/17): - Findings suspicious for mild hydrocephalus, cause not identified. Multiple calcifications in the brain bilaterally, most tiny in size , too numerous to count. The main differential considerations given the appearance include infectious processes, such as neurocysticercosis or tuberculosis, in the healed/calcified nodular stage Repeat Head CT ordered to assess hydrocephalus * Lexapro 10 mg PO HS * Namenda 10 mg PO daily Prophylaxis SCDs Heparin 5,000u SC q8h Pepcid 20mg daily Bactrim DS BID PT Social Work consult --> help appreciated Disposition: Per Net Sql Developer, the patient was denied admission to [facility]. He has a Green Card per daughter. He used to have health insurance down in [place]. [facility] is working with the daughter and the patient's sister (who lives in [place]) to set up care at a half-way. They are going to determine if the patient's health insurance is still valid in [place], and if so, possible transfer patient to [place]. The patient's sister has agreed to drive up and take the patient to a half-way back in [place] but she does not want to be the sole provider for him. The patient is unable to care for himself any longer due to progression of his HIV/AIDS dementia. Patient unable to be discharged to street due to his current mental status. [place] Medicaid to start tomorrow, will wait for patient to be accepted to [facility] in [place] <Salinas Philip - Last Filed: 12/02/17 19:51> Objective - Vital Signs/Intake and Output Vital Signs (last 24 hours): Temp Pulse Resp BP Pulse Ox 97.8 F 78 20 124/73 95 12/02/17 16:00 12/02/17 16:00 12/02/17 16:00 12/02/17 16:00 12/02/17 16:00 - Medications Medications: Current Medications Dolutegravir Sodium (Tivicay) 50 mg PO DAILY [facility] PRN Reason: Protocol Last Admin: 12/02/17 09:07 Dose: 50 mg Emtricitabine/Tenofovir (Truvada 200 Mg-300 Mg) 1 tab PO DAILY [facility] PRN Reason: Protocol Last Admin: 12/02/17 09:07 Dose: 1 tab Escitalopram Oxalate (Lexapro) 10 mg PO HS [facility] Last Admin: 12/01/17 21:26 Dose: 10 mg Famotidine (Pepcid) 20 mg PO DAILY [facility] Last Admin: 12/02/17 09:07 Dose: 20 mg Heparin Sodium (Porcine) (Heparin) 5,000 units SC Q8 [facility] Last Admin: 12/02/17 13:12 Dose: 5,000 units Memantine (Namenda) 10 mg PO DAILY [facility] Last Admin: 12/02/17 09:07 Dose: 10 mg Saccharomyces Boulardii (Florastor) 250 mg PO BID [facility] Last Admin: 12/02/17 17:09 Dose: 250 mg Trimethoprim/Sulfamethoxazole (Bactrim Ds Tab) 1 tab PO Q12H [facility] PRN Reason: Protocol Last Admin: 12/02/17 12:34 Dose: 1 tab Valproate Sodium (Depakene Cap) 750 mg PO Q12 [facility] Last Admin: 12/02/17 09:08 Dose: 750 mg - Labs Labs: 12/01/17 06:45 12/01/17 06:45 Attending/Attestation - Attestation I have personally seen and examined this patient.: Yes I have fully participated in the care of the patient.: Yes I have reviewed all pertinent clinical information, including history, physical exam and plan: Yes
[2017-12-02] MEDS: Emtricitabine-Tenofovir 200 mg-300 mg Tab PO SCH (09:07)
[2017-12-02] MEDS: Saccharomyces Boulardi 250 mg Cap PO SCH ×2 (09:07→17:09)
[2017-12-02] MEDS: Tmp-Smz 800 mg-160 mg DS Tab PO SCH ×2 (12:34→23:54)
--- NOTE | 2017-12-03 07:06 | CP.PCM.PN ---
Subjective - Date & Time of Evaluation Date of Evaluation: 12/03/17 Time of Evaluation: 07:06 - Subjective Subjective: Mr. Grey was seen and examined at the bedside. He is alert, awake, response to question in a slow pace. He denies any headache, dizziness, nausea, or vomiting. He is able to move all extremities and ambulate within his room without any problem. He likes watching TV in his room. Valproic level of 61.6.There was no untoward events overnight. Objective - Vital Signs/Intake and Output Vital Signs (last 24 hours): Temp Pulse Resp BP Pulse Ox 97.9 F 85 20 100/65 95 12/02/17 23:00 12/02/17 23:00 12/02/17 23:00 12/02/17 23:00 12/02/17 23:00 Intake and Output: 12/03/17 12/03/17 06:59 18:59 Intake Total 100 Balance 100 - Medications Medications: Current Medications Dolutegravir Sodium (Tivicay) 50 mg PO DAILY [facility] PRN Reason: Protocol Last Admin: 12/02/17 09:07 Dose: 50 mg Emtricitabine/Tenofovir (Truvada 200 Mg-300 Mg) 1 tab PO DAILY [facility] PRN Reason: Protocol Last Admin: 12/02/17 09:07 Dose: 1 tab Escitalopram Oxalate (Lexapro) 10 mg PO HS [facility] BEDS AT [facility] Last Admin: 12/02/17 21:48 Dose: 10 mg Famotidine (Pepcid) 20 mg PO DAILY [facility] Last Admin: 12/02/17 09:07 Dose: 20 mg Heparin Sodium (Porcine) (Heparin) 5,000 units SC Q8 [facility] Last Admin: 12/03/17 06:07 Dose: 5,000 units Memantine (Namenda) 10 mg PO DAILY [facility] Last Admin: 12/02/17 09:07 Dose: 10 mg Saccharomyces Boulardii (Florastor) 250 mg PO BID [facility] Last Admin: 12/02/17 17:09 Dose: 250 mg Trimethoprim/Sulfamethoxazole (Bactrim Ds Tab) 1 tab PO Q12H [facility] PRN Reason: Protocol Last Admin: 12/02/17 23:54 Dose: 1 tab Valproate Sodium (Depakene Cap) 750 mg PO Q12 [facility] Last Admin: 12/02/17 21:47 Dose: 750 mg - Labs Labs: 12/01/17 06:45 12/01/17 06:45 - Constitutional Appears: No Acute Distress - Head Exam Head Exam: NORMAL INSPECTION - Neurological Exam Neurological Exam: Alert, Awake, Oriented x3 Neuro motor strength exam: Left Upper Extremity: 5, Right Upper Extremity: 5, Left Lower Extremity: 5, Right Lower Extremity: 5 Additional comments: Neurological unchanged from previous examination. Assessment and Plan (1) Seizure Assessment & Plan: Case discussed with Dr. Wills, continue all current medical regimen including AED. Recommend to repeat valproic and liver enzymes next week. Status: Acute
--- NOTE | 2017-12-03 07:07 | CP.PCM.PN ---
<Татьяна Fox - Last Filed: 12/03/17 17:25> Subjective - Date & Time of Evaluation Date of Evaluation: 12/03/17 Time of Evaluation: 07:00 - Subjective Subjective: PGY1- Medicine Note Patient seen and examined at bedside. Patient resting comfortably in bed with no new complaints at this time. No acute changes in mental status. Patient denies fever, chills, SOB, palpitations, chest pain, abdominal pain, nausea, vomiting. Objective - Vital Signs/Intake and Output Vital Signs (last 24 hours): Temp Pulse Resp BP Pulse Ox 97.9 F 85 20 100/65 95 12/02/17 23:00 12/02/17 23:00 12/02/17 23:00 12/02/17 23:00 12/02/17 23:00 Intake and Output: 12/03/17 12/03/17 06:59 18:59 Intake Total 100 Balance 100 - Medications Medications: Current Medications Dolutegravir Sodium (Tivicay) 50 mg PO DAILY [facility] PRN Reason: Protocol Last Admin: 12/02/17 09:07 Dose: 50 mg Emtricitabine/Tenofovir (Truvada 200 Mg-300 Mg) 1 tab PO DAILY [facility] PRN Reason: Protocol Last Admin: 12/02/17 09:07 Dose: 1 tab Escitalopram Oxalate (Lexapro) 10 mg PO HS [facility] Last Admin: 12/02/17 21:48 Dose: 10 mg Famotidine (Pepcid) 20 mg PO DAILY [facility] Last Admin: 12/02/17 09:07 Dose: 20 mg Heparin Sodium (Porcine) (Heparin) 5,000 units SC Q8 [facility] Last Admin: 12/03/17 06:07 Dose: 5,000 units Memantine (Namenda) 10 mg PO DAILY [facility] Last Admin: 12/02/17 09:07 Dose: 10 mg Saccharomyces Boulardii (Florastor) 250 mg PO BID [facility] Last Admin: 12/02/17 17:09 Dose: 250 mg Trimethoprim/Sulfamethoxazole (Bactrim Ds Tab) 1 tab PO Q12H [facility] PRN Reason: Protocol Last Admin: 12/02/17 23:54 Dose: 1 tab Valproate Sodium (Depakene Cap) 750 mg PO Q12 [facility] Last Admin: 12/02/17 21:47 Dose: 750 mg - Labs Labs: 12/01/17 06:45 12/01/17 06:45 - Additional Findings Additional findings: - Constitutional Appears: Well, No Acute Distress - Head Exam Head Exam: ATRAUMATIC, NORMAL INSPECTION - Eye Exam Eye Exam: EOMI, Normal appearance - ENT Exam ENT Exam: Mucous Membranes Moist - Respiratory Exam Respiratory Exam: Clear to Ausculation Bilateral, NORMAL BREATHING PATTERN. absent: Chest Wall Tenderness, Decreased Breath Sounds, Prolonged Expiratory Phase, Rhonchi, Wheezes, Respiratory Distress, Stridor - Cardiovascular Exam Cardiovascular Exam: REGULAR RHYTHM, +S1, +S2. absent: Murmur - GI/Abdominal Exam GI & Abdominal Exam: Soft, Normal Bowel Sounds. absent: Distended, Firm, Guarding, Rigid, Tenderness - Extremities Exam Extremities Exam: Normal Inspection. 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 Wills, help appreciated - Upon discharge, patient to be discharged on Depakote f/u Valproic acid level * Depakote increased to 750mg q12h Head CT (11/11/17): no intracranial mass or hemorrhage. 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 Chronic white matter ischemic change. 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 Postinfectious/ postinflammatory cortical calcifications diffusely. As per Dr. Alejandro, these findings are probably chronic. HIV/AIDS ID Consult: Dr. 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 Multiple calcifications in the brain bilaterally, most tiny in size , too numerous to count. The main differential considerations given the appearance include infectious processes, such as neurocysticercosis or tuberculosis, in the healed/calcified nodular stage Repeat Head CT ordered to assess hydrocephalus * Lexapro 10 mg PO HS * Namenda 10 mg PO daily Prophylaxis SCDs Heparin 5,000u SC q8h Pepcid 20mg daily Bactrim DS BID PT Social Work consult --> help appreciated Disposition: Per Pocket Setter, the patient was denied admission to [facility]. He has a Green Card per daughter. He used to have health insurance down in [place]. [facility] is working with the daughter and the patient's sister (who lives in [place]) to set up care at a residential. They are going to determine if the patient's health insurance is still valid in [place], and if so, possible transfer patient to [place]. The patient's sister has agreed to drive up and take the patient to a residential back in [place] but she does not want to be the sole provider for him. The patient is unable to care for himself any longer due to progression of his HIV/AIDS dementia. Patient unable to be discharged to [facility] due to his current mental status. [place] Medicaid to start tomorrow, will wait for patient to be accepted to [facility] in [place] <Salinas Philip - Last Filed: 12/03/17 18:51> Objective - Vital Signs/Intake and Output Vital Signs (last 24 hours): Temp Pulse Resp BP Pulse Ox 98.3 F 75 20 115/75 96 12/03/17 16:04 12/03/17 16:04 12/03/17 16:04 12/03/17 16:04 12/03/17 16:04 Intake and Output: 12/03/17 12/03/17 06:59 18:59 Intake Total 100 Balance 100 - Medications Medications: Current Medications Dolutegravir Sodium (Tivicay) 50 mg PO DAILY [facility] PRN Reason: Protocol Last Admin: 12/03/17 09:09 Dose: 50 mg Emtricitabine/Tenofovir (Truvada 200 Mg-300 Mg) 1 tab PO DAILY [facility] PRN Reason: Protocol Last Admin: 12/03/17 09:09 Dose: 1 tab Escitalopram Oxalate (Lexapro) 10 mg PO HS [facility] Last Admin: 12/02/17 21:48 Dose: 10 mg Heparin Sodium (Porcine) (Heparin) 5,000 units SC Q8 [facility] Last Admin: 12/03/17 14:16 Dose: 5,000 units Memantine (Namenda) 10 mg PO DAILY [facility] Last Admin: 12/03/17 09:09 Dose: 10 mg Saccharomyces Boulardii (Florastor) 250 mg PO BID [facility] Last Admin: 12/03/17 17:14 Dose: 250 mg Trimethoprim/Sulfamethoxazole (Bactrim Ds Tab) 1 tab PO Q12H [facility] PRN Reason: Protocol Last Admin: 12/03/17 11:30 Dose: 1 tab Valproate Sodium (Depakene Cap) 750 mg PO Q12 [facility] Last Admin: 12/03/17 09:09 Dose: 750 mg - Labs Labs: 12/01/17 06:45 12/01/17 06:45 Attending/Attestation - Attestation I have personally seen and examined this patient.: Yes I have fully participated in the care of the patient.: Yes I have reviewed all pertinent clinical information, including history, physical exam and plan: Yes
[2017-12-03] MEDS: Emtricitabine-Tenofovir 200 mg-300 mg Tab PO SCH (09:09)
[2017-12-03] MEDS: Saccharomyces Boulardi 250 mg Cap PO SCH ×2 (09:09→17:14)
[2017-12-03] MEDS: Tmp-Smz 800 mg-160 mg DS Tab PO SCH ×2 (11:30→23:54)
--- NOTE | 2017-12-04 07:03 | CP.PCM.PN ---
<DominiqueТатьяна L. - Last Filed: 12/04/17 19:28> Subjective - Date & Time of Evaluation Date of Evaluation: 12/04/17 Time of Evaluation: 07:00 - Subjective Subjective: PGY1- Medicine Note Patient seen and examined at bedside. Patient resting comfortably in bed with no new complaints at this time. No acute changes in mental status. Patient denies fever, chills, SOB, palpitations, chest pain, abdominal pain, nausea, vomiting. Objective - Vital Signs/Intake and Output Vital Signs (last 24 hours): Temp Pulse Resp BP Pulse Ox 98.4 F 82 20 120/80 97 12/03/17 23:53 12/03/17 23:53 12/03/17 23:53 12/03/17 23:53 12/03/17 23:53 - Medications Medications: Current Medications Dolutegravir Sodium (Tivicay) 50 mg PO DAILY [facility] PRN Reason: Protocol Last Admin: 12/03/17 09:09 Dose: 50 mg Emtricitabine/Tenofovir (Truvada 200 Mg-300 Mg) 1 tab PO DAILY [facility] PRN Reason: Protocol Last Admin: 12/03/17 09:09 Dose: 1 tab Escitalopram Oxalate (Lexapro) 10 mg PO HS [facility] Last Admin: 12/03/17 21:14 Dose: 10 mg Heparin Sodium (Porcine) (Heparin) 5,000 units SC Q8 [facility] Last Admin: 12/04/17 05:21 Dose: 5,000 units Memantine (Namenda) 10 mg PO DAILY [facility] Last Admin: 12/03/17 09:09 Dose: 10 mg Saccharomyces Boulardii (Florastor) 250 mg PO BID [facility] Last Admin: 12/03/17 17:14 Dose: 250 mg Trimethoprim/Sulfamethoxazole (Bactrim Ds Tab) 1 tab PO Q12H [facility] PRN Reason: Protocol Last Admin: 12/03/17 23:54 Dose: 1 tab Valproate Sodium (Depakene Cap) 750 mg PO Q12 [facility] Last Admin: 12/03/17 21:13 Dose: 750 mg - Labs Labs: 12/01/17 06:45 12/01/17 06:45 - Additional Findings Additional findings: - Constitutional Appears: Well, No Acute Distress - Head Exam Head Exam: ATRAUMATIC, NORMAL INSPECTION - Eye Exam Eye Exam: EOMI, Normal appearance - ENT Exam ENT Exam: Mucous Membranes Moist - Respiratory Exam Respiratory Exam: Clear to Ausculation Bilateral, NORMAL BREATHING PATTERN. absent: Chest Wall Tenderness, Decreased Breath Sounds, Prolonged Expiratory Phase, Rhonchi, Wheezes, Respiratory Distress, Stridor - Cardiovascular Exam Cardiovascular Exam: REGULAR RHYTHM, +S1, +S2. absent: Murmur - GI/Abdominal Exam GI & Abdominal Exam: Soft, Normal Bowel Sounds. absent: Distended, Firm, Guarding, Rigid, Tenderness - Extremities Exam Extremities Exam: Normal Inspection. 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 Wills, help appreciated - Upon discharge, patient to be discharged on Depakote f/u Valproic acid level * Depakote increased to 750mg q12h Head CT (11/11/17): no intracranial mass or hemorrhage. 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 Chronic white matter ischemic change. 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 Postinfectious/ postinflammatory cortical calcifications diffusely. As per Dr. Alejandro, these findings are probably chronic. HIV/AIDS ID Consult: Dr. 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 Multiple calcifications in the brain bilaterally, most tiny in size , too numerous to count. The main differential considerations given the appearance include infectious processes, such as neurocysticercosis or tuberculosis, in the healed/calcified nodular stage Repeat Head CT ordered to assess hydrocephalus * Lexapro 10 mg PO HS * Namenda 10 mg PO daily Prophylaxis SCDs Heparin 5,000u SC q8h Pepcid 20mg daily Bactrim DS BID PT Social Work consult --> help appreciated Disposition: Per Dot Net Developer, the patient was denied admission to [facility]. He has a Green Card per daughter. He used to have health insurance down in [place]. [facility] is working with the daughter and the patient's sister (who lives in [place]) to set up care at a retirement. They are going to determine if the patient's health insurance is still valid in [place], and if so, possible transfer patient to [place]. The patient's sister has agreed to drive up and take the patient to a retirement back in [place] but she does not want to be the sole provider for him. The patient is unable to care for himself any longer due to progression of his HIV/AIDS dementia. Patient unable to be discharged to [facility] due to his current mental status. [place] Medicaid to start tomorrow, will wait for patient to be accepted to [facility] in [place] <Salinas Philip - Last Filed: 12/04/17 19:54> Objective - Vital Signs/Intake and Output Vital Signs (last 24 hours): Temp Pulse Resp BP Pulse Ox 98.1 F 81 20 121/86 95 12/04/17 16:02 12/04/17 16:02 12/04/17 16:02 12/04/17 16:02 12/04/17 16:02 - Medications Medications: Current Medications Dolutegravir Sodium (Tivicay) 50 mg PO DAILY [facility] PRN Reason: Protocol Last Admin: 12/04/17 10:01 Dose: 50 mg Emtricitabine/Tenofovir (Truvada 200 Mg-300 Mg) 1 tab PO DAILY [facility] PRN Reason: Protocol Last Admin: 12/04/17 10:01 Dose: 1 tab Escitalopram Oxalate (Lexapro) 10 mg PO HS [facility] Last Admin: 12/03/17 21:14 Dose: 10 mg Heparin Sodium (Porcine) (Heparin) 5,000 units SC Q8 [facility] Last Admin: 12/04/17 13:28 Dose: 5,000 units Memantine (Namenda) 10 mg PO DAILY [facility] Last Admin: 12/04/17 10:01 Dose: 10 mg Saccharomyces Boulardii (Florastor) 250 mg PO BID [facility] Last Admin: 12/04/17 17:09 Dose: 250 mg Trimethoprim/Sulfamethoxazole (Bactrim Ds Tab) 1 tab PO Q12H [facility] PRN Reason: Protocol Last Admin: 12/04/17 12:05 Dose: 1 tab Valproate Sodium (Depakene Cap) 750 mg PO Q12 [facility] Last Admin: 12/04/17 10:01 Dose: 750 mg - Labs Labs: 12/01/17 06:45 12/01/17 06:45 Attending/Attestation - Attestation I have personally seen and examined this patient.: Yes I have fully participated in the care of the patient.: Yes I have reviewed all pertinent clinical information, including history, physical exam and plan: Yes
[2017-12-04] MEDS: Emtricitabine-Tenofovir 200 mg-300 mg Tab PO SCH (10:01)
[2017-12-04] MEDS: Saccharomyces Boulardi 250 mg Cap PO SCH ×2 (10:02→17:09)
[2017-12-04] MEDS: Tmp-Smz 800 mg-160 mg DS Tab PO SCH ×2 (12:05→23:48)
--- NOTE | 2017-12-05 06:42 | CP.PCM.PN ---
Subjective - Date & Time of Evaluation Date of Evaluation: 12/05/17 Time of Evaluation: 06:42 - Subjective Subjective: Mr. Grey was seen and examined at the bedside. He is alert, awake, response to question in a slow pace. He denies any headache, dizziness, nausea, or vomiting. He is able to move all extremities and ambulate within his room without any problem. He likes watching TV in his room. There was no untoward events overnight. Objective - Vital Signs/Intake and Output Vital Signs (last 24 hours): Temp Pulse Resp BP Pulse Ox 98 F 83 20 102/67 95 12/04/17 23:15 12/04/17 23:15 12/04/17 23:15 12/04/17 23:15 12/04/17 23:15 Intake and Output: 12/04/17 12/05/17 18:59 06:59 Intake Total 240 Balance 240 - Medications Medications: Current Medications Dolutegravir Sodium (Tivicay) 50 mg PO DAILY [facility] PRN Reason: Protocol Last Admin: 12/04/17 10:01 Dose: 50 mg Emtricitabine/Tenofovir (Truvada 200 Mg-300 Mg) 1 tab PO DAILY [facility] PRN Reason: Protocol Last Admin: 12/04/17 10:01 Dose: 1 tab Escitalopram Oxalate (Lexapro) 10 mg PO HS [facility] Last Admin: 12/04/17 21:07 Dose: 10 mg Heparin Sodium (Porcine) (Heparin) 5,000 units SC Q8 [facility] Last Admin: 12/05/17 05:08 Dose: 5,000 units Memantine (Namenda) 10 mg PO DAILY [facility] Last Admin: 12/04/17 10:01 Dose: 10 mg Saccharomyces Boulardii (Florastor) 250 mg PO BID [facility] Last Admin: 12/04/17 17:09 Dose: 250 mg Trimethoprim/Sulfamethoxazole (Bactrim Ds Tab) 1 tab PO Q12H [facility] PRN Reason: Protocol Last Admin: 12/04/17 23:48 Dose: 1 tab Valproate Sodium (Depakene Cap) 750 mg PO Q12 [facility] Last Admin: 12/04/17 21:07 Dose: 750 mg - Labs Labs: 12/01/17 06:45 12/01/17 06:45 - Constitutional Appears: No Acute Distress - Head Exam Head Exam: NORMAL INSPECTION - Neurological Exam Neurological Exam: Awake Neuro motor strength exam: Left Upper Extremity: 5, Right Upper Extremity: 5, Left Lower Extremity: 5, Right Lower Extremity: 5 Additional comments: Neurological unchanged from previous examination. Assessment and Plan (1) Seizure Assessment & Plan: Case discussed with Dr. Wills, continue all current medical regimen. There is no new recommendations from neurology. Status: Acute
[2017-12-05] MEDS: Emtricitabine-Tenofovir 200 mg-300 mg Tab PO SCH (09:05)
[2017-12-05] MEDS: Saccharomyces Boulardi 250 mg Cap PO SCH ×2 (09:06→18:46)
[2017-12-05] MEDS: Tmp-Smz 800 mg-160 mg DS Tab PO SCH ×2 (13:47→22:29)
--- NOTE | 2017-12-05 14:27 | CP.PCM.PN ---
<DominiqueТатьяна L. - Last Filed: 12/05/17 14:25> Subjective - Date & Time of Evaluation Date of Evaluation: 12/05/17 Time of Evaluation: 07:00 - Subjective Subjective: PGY1- Medicine Note Patient seen and examined at bedside. Patient resting comfortably in bed with no new complaints at this time. No acute changes in mental status. Patient denies fever, chills, SOB, palpitations, chest pain, abdominal pain, nausea, vomiting. Objective - Vital Signs/Intake and Output Vital Signs (last 24 hours): Temp Pulse Resp BP Pulse Ox 97.7 F 76 20 118/79 95 12/05/17 07:15 12/05/17 07:15 12/05/17 07:15 12/05/17 07:15 12/05/17 07:15 Intake and Output: 12/05/17 12/05/17 06:59 18:59 Intake Total 240 Balance 240 - Medications Medications: Current Medications Dolutegravir Sodium (Tivicay) 50 mg PO DAILY [facility] PRN Reason: Protocol Last Admin: 12/05/17 09:05 Dose: 50 mg Emtricitabine/Tenofovir (Truvada 200 Mg-300 Mg) 1 tab PO DAILY [facility] PRN Reason: Protocol Last Admin: 12/05/17 09:05 Dose: 1 tab Escitalopram Oxalate (Lexapro) 10 mg PO HS [facility] Last Admin: 12/04/17 21:07 Dose: 10 mg Heparin Sodium (Porcine) (Heparin) 5,000 units SC Q8 [facility] Last Admin: 12/05/17 13:34 Dose: 5,000 units Memantine (Namenda) 10 mg PO DAILY [facility] Last Admin: 12/05/17 09:05 Dose: 10 mg Saccharomyces Boulardii (Florastor) 250 mg PO BID [facility] Last Admin: 12/05/17 09:06 Dose: 250 mg Trimethoprim/Sulfamethoxazole (Bactrim Ds Tab) 1 tab PO Q12 [facility] PRN Reason: Protocol Last Admin: 12/05/17 13:47 Dose: 1 tab Valproate Sodium (Depakene Cap) 750 mg PO Q12 [facility] Last Admin: 12/05/17 09:06 Dose: 750 mg - Labs Labs: 12/01/17 06:45 12/01/17 06:45 - Additional Findings Additional findings: - Constitutional Appears: Well, No Acute Distress - Head Exam Head Exam: ATRAUMATIC, NORMAL INSPECTION - Eye Exam Eye Exam: EOMI, Normal appearance - ENT Exam ENT Exam: Mucous Membranes Moist - Respiratory Exam Respiratory Exam: Clear to Ausculation Bilateral, NORMAL BREATHING PATTERN. absent: Chest Wall Tenderness, Decreased Breath Sounds, Prolonged Expiratory Phase, Rhonchi, Wheezes, Respiratory Distress, Stridor - Cardiovascular Exam Cardiovascular Exam: REGULAR RHYTHM, +S1, +S2. absent: Murmur - GI/Abdominal Exam GI & Abdominal Exam: Soft, Normal Bowel Sounds. absent: Distended, Firm, Guarding, Rigid, Tenderness - Extremities Exam Extremities Exam: Normal Inspection. 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 Wills, help appreciated - Upon discharge, patient to be discharged on Depakote f/u Valproic acid level * Depakote increased to 750mg q12h Head CT (11/11/17): no intracranial mass or hemorrhage. 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 Chronic white matter ischemic change. 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 Postinfectious/ postinflammatory cortical calcifications diffusely. As per Dr. Alejandro, these findings are probably chronic. HIV/AIDS ID Consult: Dr. 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 Multiple calcifications in the brain bilaterally, most tiny in size , too numerous to count. The main differential considerations given the appearance include infectious processes, such as neurocysticercosis or tuberculosis, in the healed/calcified nodular stage Repeat Head CT ordered to assess hydrocephalus * Lexapro 10 mg PO HS * Namenda 10 mg PO daily Prophylaxis SCDs Heparin 5,000u SC q8h Pepcid 20mg daily Bactrim DS BID PT Social Work consult --> help appreciated Disposition: Per Flying Squad Worker, the patient was denied admission to [facility]. He has a Green Card per daughter. He used to have health insurance down in [place]. [facility] is working with the daughter and the patient's sister (who lives in [place]) to set up care at a [place] health care facility. They are going to determine if the patient's health insurance is still valid in [place], and if so, possible transfer patient to [place]. The patient's sister has agreed to drive up and take the patient to a [place] health care facility back in [place] but she does not want to be the sole provider for him. The patient is unable to care for himself any longer due to progression of his HIV/AIDS dementia. Patient unable to be discharged [facility] due to his current mental status. [place] Medicaid to start tomorrow, will wait for patient to be accepted to [facility] in [place] <Salinas Philip - Last Filed: 12/05/17 19:12> Objective - Vital Signs/Intake and Output Vital Signs (last 24 hours): Temp Pulse Resp BP Pulse Ox 98.9 F 81 18 102/90 95 12/05/17 16:38 12/05/17 16:38 12/05/17 16:38 12/05/17 16:38 12/05/17 16:38 - Medications Medications: Current Medications Dolutegravir Sodium (Tivicay) 50 mg PO DAILY [facility] PRN Reason: Protocol Last Admin: 12/05/17 09:05 Dose: 50 mg Emtricitabine/Tenofovir (Truvada 200 Mg-300 Mg) 1 tab PO DAILY [facility] PRN Reason: Protocol Last Admin: 12/05/17 09:05 Dose: 1 tab Escitalopram Oxalate (Lexapro) 10 mg PO HS [facility] Last Admin: 12/04/17 21:07 Dose: 10 mg Heparin Sodium (Porcine) (Heparin) 5,000 units SC Q8 [facility] Last Admin: 12/05/17 13:34 Dose: 5,000 units Memantine (Namenda) 10 mg PO DAILY [facility] Last Admin: 12/05/17 09:05 Dose: 10 mg Saccharomyces Boulardii (Florastor) 250 mg PO BID [facility] Last Admin: 12/05/17 18:46 Dose: 250 mg Trimethoprim/Sulfamethoxazole (Bactrim Ds Tab) 1 tab PO Q12 [facility] PRN Reason: Protocol Last Admin: 12/05/17 13:47 Dose: 1 tab Valproate Sodium (Depakene Cap) 750 mg PO Q12 [facility] Last Admin: 12/05/17 09:06 Dose: 750 mg - Labs Labs: 12/01/17 06:45 12/01/17 06:45 Attending/Attestation - Attestation I have personally seen and examined this patient.: Yes I have fully participated in the care of the patient.: Yes I have reviewed all pertinent clinical information, including history, physical exam and plan: Yes Notes (Text): 12/05/17 19:12 Patient was seen and examined at 4:10 PM Exam, assessment and plan were gone over with the resident. Sal[place] Philip D.O.
--- NOTE | 2017-12-06 00:15 | CP.PCM.PN ---
<CintiaMisael pope - Last Filed: 12/06/17 00:11> Subjective - Date & Time of Evaluation Date of Evaluation: 12/06/17 Time of Evaluation: 00:11 - Subjective Subjective: Patient seen and examined at bedside Complaining of pain in the R. leg with ambulation No other complaints at this time Objective - Vital Signs/Intake and Output Vital Signs (last 24 hours): Temp Pulse Resp BP Pulse Ox 98.9 F 81 18 102/90 95 12/05/17 16:38 12/05/17 16:38 12/05/17 16:38 12/05/17 16:38 12/05/17 16:38 - Medications Medications: Current Medications Dolutegravir Sodium (Tivicay) 50 mg PO DAILY [facility] PRN Reason: Protocol Last Admin: 12/05/17 09:05 Dose: 50 mg Emtricitabine/Tenofovir (Truvada 200 Mg-300 Mg) 1 tab PO DAILY [facility] PRN Reason: Protocol Last Admin: 12/05/17 09:05 Dose: 1 tab Escitalopram Oxalate (Lexapro) 10 mg PO HS [facility] Last Admin: 12/05/17 22:29 Dose: 10 mg Heparin Sodium (Porcine) (Heparin) 5,000 units SC Q8 [facility] Last Admin: 12/05/17 22:30 Dose: 5,000 units Memantine (Namenda) 10 mg PO DAILY [facility] Last Admin: 12/05/17 09:05 Dose: 10 mg Saccharomyces Boulardii (Florastor) 250 mg PO BID [facility] Last Admin: 12/05/17 18:46 Dose: 250 mg Trimethoprim/Sulfamethoxazole (Bactrim Ds Tab) 1 tab PO Q12 [facility] PRN Reason: Protocol Last Admin: 12/05/17 22:29 Dose: 1 tab Valproate Sodium (Depakene Cap) 750 mg PO Q12 [facility] Last Admin: 12/05/17 22:29 Dose: 750 mg - Labs Labs: 12/01/17 06:45 12/01/17 06:45 - Constitutional Appears: Well - Head Exam Head Exam: ATRAUMATIC, NORMAL INSPECTION, NORMOCEPHALIC - Eye Exam Eye Exam: EOMI, Normal appearance, PERRL Pupil Exam: NORMAL ACCOMODATION, PERRL - ENT Exam ENT Exam: Mucous Membranes Moist, Normal Exam - Neck Exam Neck Exam: Full ROM, Normal Inspection. absent: Lymphadenopathy - Respiratory Exam Respiratory Exam: Clear to Ausculation Bilateral, NORMAL BREATHING PATTERN - Cardiovascular Exam Cardiovascular Exam: REGULAR RHYTHM, +S1, +S2. absent: Murmur - GI/Abdominal Exam GI & Abdominal Exam: Soft, Normal Bowel Sounds. absent: Tenderness - Extremities Exam Extremities Exam: Full ROM, Normal Capillary Refill, Normal Inspection. absent : Joint Swelling, Pedal Edema - Back Exam Back Exam: NORMAL INSPECTION - Neurological Exam Neurological Exam: Alert, Awake, CN II-XII Intact, Normal Gait, Oriented x3 - Psychiatric Exam Psychiatric exam: Normal Affect, Normal Mood - Skin Skin Exam: Dry, Intact, Normal Color, Warm Assessment and Plan (1) Complex partial epilepsy Assessment & Plan: Neurology ([facility]) Depakote 750mg q12h Head CT (11/11/17): no intracranial mass or hemorrhage. 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 Chronic white matter ischemic change. 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 Postinfectious/ postinflammatory cortical calcifications diffusely. As per Dr. Alejandro, these findings are probably chronic. Status: Chronic (2) AIDS Assessment & Plan: ID ([facility]) Hep Panel - negative Tivicay 50 mg PO daily Truvada 200-300 mg PO daily Bactrim DS po daily for Pneumocystis jirovecii prophylaxis History of AIDS dementia * Head CT (10/14/17): - Findings suspicious for mild hydrocephalus, cause not identified. Multiple calcifications in the brain bilaterally, most tiny in size , too numerous to count. The main differential considerations given the appearance include infectious processes, such as neurocysticercosis or tuberculosis, in the healed/calcified nodular stage Lexapro 10 mg PO HS Namenda 10 mg PO daily Status: Chronic (3) Prophylactic measure Assessment & Plan: SCDs Heparin 5,000u SC q8h Pepcid 20mg daily PT Social Work consult --> help appreciated Disposition: Per Mobility Engineer, the patient was denied admission to [facility]. He has a Green Card per daughter. He used to have health insurance down in [place]. [facility] is working with the daughter and the patient's sister (who lives in [place]) to set up care at a prison. They are going to determine if the patient's health insurance is still valid in [place], and if so, possible transfer patient to [place]. The patient's sister has agreed to drive up and take the patient to a prison back in [place] but she does not want to be the sole provider for him. The patient is unable to care for himself any longer due to progression of his HIV/AIDS dementia. Patient unable to be discharged to street due to his current mental status. [place] Medicaid to start tomorrow, will wait for patient to be accepted to [facility] in [place] Status: Acute <Salinas Philip - Last Filed: 12/06/17 17:31> Objective - Vital Signs/Intake and Output Vital Signs (last 24 hours): Temp Pulse Resp BP Pulse Ox 98.3 F 110 H 20 159/115 H 95 12/06/17 16:24 12/06/17 16:24 12/06/17 16:24 12/06/17 16:24 12/06/17 16:24 Intake and Output: 12/06/17 12/06/17 06:59 18:59 Intake Total 480 Balance 480 - Medications Medications: Current Medications Dolutegravir Sodium (Tivicay) 50 mg PO DAILY [facility] PRN Reason: Protocol Last Admin: 12/06/17 09:11 Dose: 50 mg Emtricitabine/Tenofovir (Truvada 200 Mg-300 Mg) 1 tab PO DAILY [facility] PRN Reason: Protocol Last Admin: 12/06/17 09:10 Dose: 1 tab Escitalopram Oxalate (Lexapro) 10 mg PO HS [facility] Last Admin: 12/05/17 22:29 Dose: 10 mg Heparin Sodium (Porcine) (Heparin) 5,000 units SC Q8 [facility] Last Admin: 12/06/17 13:11 Dose: 5,000 units Memantine (Namenda) 10 mg PO DAILY [facility] Last Admin: 12/06/17 09:11 Dose: 10 mg Saccharomyces Boulardii (Florastor) 250 mg PO BID [facility] Last Admin: 12/06/17 17:14 Dose: 250 mg Trimethoprim/Sulfamethoxazole (Bactrim Ds Tab) 1 tab PO Q12 [facility] PRN Reason: Protocol Last Admin: 12/06/17 09:11 Dose: 1 tab Valproate Sodium (Depakene Cap) 750 mg PO Q12 [facility] Last Admin: 12/06/17 09:11 Dose: 750 mg - Labs Labs: 12/01/17 06:45 12/01/17 06:45 Attending/Attestation - Attestation I have personally seen and examined this patient.: Yes I have fully participated in the care of the patient.: Yes I have reviewed all pertinent clinical information, including history, physical exam and plan: Yes
[2017-12-06] MEDS: Emtricitabine-Tenofovir 200 mg-300 mg Tab PO SCH (09:10)
[2017-12-06] MEDS: Saccharomyces Boulardi 250 mg Cap PO SCH ×2 (09:11→17:14)
[2017-12-06] MEDS: Tmp-Smz 800 mg-160 mg DS Tab PO SCH ×2 (09:11→23:01)
--- NOTE | 2017-12-07 01:55 | CP.PCM.PN ---
<Misael Mallory - Last Filed: 12/07/17 01:53> Subjective - Date & Time of Evaluation Date of Evaluation: 12/07/17 Time of Evaluation: 01:53 - Subjective Subjective: Patient seen and examined at bedside on 1:1 as he is trying to leave Still complaining of some pain in the leg with ambulation mostly around the R. groin No other complaints at this time Objective - Vital Signs/Intake and Output Vital Signs (last 24 hours): Temp Pulse Resp BP Pulse Ox 98.2 F 93 H 20 125/84 95 12/06/17 23:07 12/06/17 23:07 12/06/17 23:07 12/06/17 23:07 12/06/17 23:07 Intake and Output: 12/06/17 12/07/17 18:59 06:59 Intake Total 480 Balance 480 - Medications Medications: Current Medications Dolutegravir Sodium (Tivicay) 50 mg PO DAILY [facility] PRN Reason: Protocol Last Admin: 12/06/17 09:11 Dose: 50 mg Emtricitabine/Tenofovir (Truvada 200 Mg-300 Mg) 1 tab PO DAILY [facility] PRN Reason: Protocol Last Admin: 12/06/17 09:10 Dose: 1 tab Escitalopram Oxalate (Lexapro) 10 mg PO HS [facility] Last Admin: 12/06/17 21:38 Dose: 10 mg Heparin Sodium (Porcine) (Heparin) 5,000 units SC Q8 [facility] Last Admin: 12/06/17 21:38 Dose: 5,000 units Memantine (Namenda) 10 mg PO DAILY [facility] Last Admin: 12/06/17 09:11 Dose: 10 mg Saccharomyces Boulardii (Florastor) 250 mg PO BID [facility] Last Admin: 12/06/17 17:14 Dose: 250 mg Trimethoprim/Sulfamethoxazole (Bactrim Ds Tab) 1 tab PO Q12 [facility] PRN Reason: Protocol Last Admin: 12/06/17 23:01 Dose: 1 tab Valproate Sodium (Depakene Cap) 750 mg PO Q12 [facility] Last Admin: 12/06/17 21:38 Dose: 750 mg - Labs Labs: 12/01/17 06:45 12/01/17 06:45 - Constitutional Appears: Well - Head Exam Head Exam: ATRAUMATIC, NORMAL INSPECTION, NORMOCEPHALIC - Eye Exam Eye Exam: EOMI, Normal appearance, PERRL Pupil Exam: NORMAL ACCOMODATION, PERRL - ENT Exam ENT Exam: Mucous Membranes Moist, Normal Exam - Neck Exam Neck Exam: Full ROM, Normal Inspection. absent: Lymphadenopathy - Respiratory Exam Respiratory Exam: Clear to Ausculation Bilateral, NORMAL BREATHING PATTERN - Cardiovascular Exam Cardiovascular Exam: REGULAR RHYTHM, +S1, +S2. absent: Murmur - GI/Abdominal Exam GI & Abdominal Exam: Soft, Normal Bowel Sounds. absent: Tenderness - Extremities Exam Extremities Exam: Full ROM, Normal Capillary Refill, Normal Inspection. absent : Joint Swelling, Pedal Edema - Back Exam Back Exam: NORMAL INSPECTION - Neurological Exam Neurological Exam: Alert, Awake, CN II-XII Intact, Normal Gait - Psychiatric Exam Psychiatric exam: Normal Affect, Normal Mood - Skin Skin Exam: Dry, Intact, Normal Color, Warm Assessment and Plan (1) Complex partial epilepsy Assessment & Plan: Neurology ([facility]) Depakote 750mg q12h Head CT (11/11/17): no intracranial mass or hemorrhage. 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 Chronic white matter ischemic change. 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 Postinfectious/ postinflammatory cortical calcifications diffusely. As per Dr. Alejandro, these findings are probably chronic. Status: Chronic (2) AIDS Assessment & Plan: ID ([facility]) Hep Panel - negative Tivicay 50 mg PO daily Truvada 200-300 mg PO daily Bactrim DS po daily for Pneumocystis jirovecii prophylaxis History of AIDS dementia * Head CT (10/14/17): - Findings suspicious for mild hydrocephalus, cause not identified. Multiple calcifications in the brain bilaterally, most tiny in size , too numerous to count. The main differential considerations given the appearance include infectious processes, such as neurocysticercosis or tuberculosis, in the healed/calcified nodular stage Lexapro 10 mg PO HS Namenda 10 mg PO daily Status: Chronic (3) Prophylactic measure Assessment & Plan: SCDs Heparin 5,000u SC q8h Pepcid 20mg daily PT Social Work consult --> help appreciated Disposition: Per Senior Litigation Paralegal, the patient was denied admission to [facility]. He has a Green Card per daughter. He used to have health insurance down in [place]. SW is working with the daughter and the patient's sister (who lives in [place]) to set up care at a snf. They are going to determine if the patient's health insurance is still valid in [place], and if so, possible transfer patient to [place]. The patient's sister has agreed to drive up and take the patient to a snf back in [place] but she does not want to be the sole provider for him. The patient is unable to care for himself any longer due to progression of his HIV/AIDS dementia. Patient unable to be discharged to street due to his current mental status. Will wait for patient to be accepted to [facility] in [place] Status: Acute <Salinas Philip - Last Filed: 12/07/17 12:07> Objective - Vital Signs/Intake and Output Vital Signs (last 24 hours): Temp Pulse Resp BP Pulse Ox 97.6 F 81 20 119/82 96 12/07/17 07:20 12/07/17 07:20 12/07/17 07:20 12/07/17 07:20 12/07/17 07:20 - Medications Medications: Current Medications Dolutegravir Sodium (Tivicay) 50 mg PO DAILY [facility] PRN Reason: Protocol Last Admin: 12/07/17 09:28 Dose: 50 mg Emtricitabine/Tenofovir (Truvada 200 Mg-300 Mg) 1 tab PO DAILY [facility] PRN Reason: Protocol Last Admin: 12/07/17 09:28 Dose: 1 tab Escitalopram Oxalate (Lexapro) 10 mg PO HS [facility] Last Admin: 12/06/17 21:38 Dose: 10 mg Heparin Sodium (Porcine) (Heparin) 5,000 units SC Q8 [facility] Last Admin: 12/07/17 05:00 Dose: 5,000 units Memantine (Namenda) 10 mg PO DAILY [facility] Last Admin: 12/07/17 09:28 Dose: 10 mg Saccharomyces Boulardii (Florastor) 250 mg PO BID [facility] Last Admin: 12/07/17 09:28 Dose: 250 mg Trimethoprim/Sulfamethoxazole (Bactrim Ds Tab) 1 tab PO Q12 [facility] PRN Reason: Protocol Last Admin: 12/07/17 09:27 Dose: 1 tab Valproate Sodium (Depakene Cap) 750 mg PO Q12 [facility] Last Admin: 12/07/17 09:28 Dose: 750 mg - Labs Labs: 12/01/17 06:45 12/01/17 06:45 Attending/Attestation - Attestation I have personally seen and examined this patient.: Yes I have fully participated in the care of the patient.: Yes I have reviewed all pertinent clinical information, including history, physical exam and plan: Yes Notes (Text): 12/07/17 12:04 Patient was seen and examined at 11:55 AM 12/07/17 556 B Patient actually speaks [place] as during exam today he stated "I have to tell you something, I have HIV." I explained to him in [place] that the Medicine Team knows this and have been treating him with the appropriate medications since his admission. Also explained to him that the Surveillance Sensor Officer/Senior Litigation Paralegal here having been trying to find him a facility that would accept him: [facility] in [place] so that he would have a place to stay and be able to have his HIV medications. He gave me a thumbs up sign and smiled. Discontinue 1:1 Room is right next to nursing station. Salinas Philip D.O.
[2017-12-07] MEDS: Tmp-Smz 800 mg-160 mg DS Tab PO SCH ×2 (09:27→21:17)
[2017-12-07] MEDS: Emtricitabine-Tenofovir 200 mg-300 mg Tab PO SCH (09:28)
[2017-12-07] MEDS: Saccharomyces Boulardi 250 mg Cap PO SCH ×2 (09:28→17:53)
--- NOTE | 2017-12-07 12:08 | CP.PCM.PCO ---
Physician Communication Note - Physician Communication Note Physician Communication Note: Follow up Valproic Acid level on 12/09/17
[2017-12-08 07:36] LABS: BASO % 0.5 % (0.0-2.0); EOS # 0.1 K/uL (0.0-0.7); LYMPH # 2.3 K/uL (1.0-4.3); LYMPH % 44.7 % (20.0-40.0); MEAN CELL VOLUME 97.7 fL (80.0-94.0); MEAN CORPUSCULAR HEMOGLOBIN 33.7 pg (27.0-31.0); MEAN CORPUSCULAR HGB CONC 34.5 g/dL (33.0-37.0); MEAN PLATELET VOLUME 9.4 fL (7.2-11.7); MONO # 0.7 K/uL (0.0-0.8); MONO % 14.1 % (0.0-10.0); NEUT % 38.7 % (50.0-75.0); NRBC % 0.3 % (0.0-2.0); RBC 4.95 Mil/uL (4.40-5.90); RED CELL DISTRIBUTION WIDTH 14.3 % (11.5-14.5); WHITE BLOOD COUNT 5.1 K/uL (4.8-10.8)
[2017-12-08 07:48] LABS: HEMOGLOBIN 16.7 g/dL (12.0-18.0)
[2017-12-08 08:14] LABS: ALBUMIN 4.7 g/dL (3.5-5.0)
[2017-12-08] MEDS: Tmp-Smz 800 mg-160 mg DS Tab PO SCH ×2 (10:08→21:21)
[2017-12-08] MEDS: Saccharomyces Boulardi 250 mg Cap PO SCH ×2 (10:08→17:25)
[2017-12-08] MEDS: Emtricitabine-Tenofovir 200 mg-300 mg Tab PO SCH (10:09)
--- NOTE | 2017-12-08 10:47 | CP.PCM.PN ---
<Татьяна Fox - Last Filed: 12/08/17 13:57> Subjective - Date & Time of Evaluation Date of Evaluation: 12/08/17 Time of Evaluation: 07:00 - Subjective Subjective: PGY-1, Progress note Patient seen and examined at bedside and in no acute distress. Patient denies any complaints. As per nursing, no acute events overnight. Patient ate his breakfast. Patient denies any nausea, vomiting, constipation, or diarrhea. Objective - Vital Signs/Intake and Output Vital Signs (last 24 hours): Temp Pulse Resp BP Pulse Ox 97.9 F 96 H 20 122/83 95 12/08/17 07:20 12/08/17 07:20 12/08/17 07:20 12/08/17 07:20 12/08/17 07:20 - Medications Medications: Current Medications Dolutegravir Sodium (Tivicay) 50 mg PO DAILY [facility] PRN Reason: Protocol Last Admin: 12/08/17 10:08 Dose: 50 mg Emtricitabine/Tenofovir (Truvada 200 Mg-300 Mg) 1 tab PO DAILY [facility] PRN Reason: Protocol Last Admin: 12/08/17 10:09 Dose: 1 tab Escitalopram Oxalate (Lexapro) 10 mg PO HS [facility] Last Admin: 12/07/17 21:17 Dose: 10 mg Heparin Sodium (Porcine) (Heparin) 5,000 units SC Q8 [facility] Last Admin: 12/08/17 05:02 Dose: 5,000 units Sodium Chloride (Sodium Chloride 0.9%) 1,000 mls @ 75 mls/hr IV .[id number] [facility] Memantine (Namenda) 10 mg PO DAILY [facility] Last Admin: 12/08/17 10:08 Dose: 10 mg Saccharomyces Boulardii (Florastor) 250 mg PO BID [facility] Last Admin: 12/08/17 10:08 Dose: 250 mg Trimethoprim/Sulfamethoxazole (Bactrim Ds Tab) 1 tab PO Q12 [facility] PRN Reason: Protocol Last Admin: 12/08/17 10:08 Dose: 1 tab Valproate Sodium (Depakene Cap) 750 mg PO Q12 [facility] Last Admin: 12/08/17 10:08 Dose: 750 mg - Labs Labs: 12/08/17 07:12 12/08/17 07:12 - Additional Findings Additional findings: - Constitutional Appears: Well - Head Exam Head Exam: ATRAUMATIC, NORMAL INSPECTION, NORMOCEPHALIC - Eye Exam Eye Exam: EOMI, Normal appearance, PERRL Pupil Exam: NORMAL ACCOMODATION, PERRL - ENT Exam ENT Exam: Mucous Membranes Moist, Normal Exam - Neck Exam Neck Exam: Full ROM, Normal Inspection. absent: Lymphadenopathy - Respiratory Exam Respiratory Exam: Clear to Ausculation Bilateral, NORMAL BREATHING PATTERN - Cardiovascular Exam Cardiovascular Exam: REGULAR RHYTHM, +S1, +S2. absent: Murmur - GI/Abdominal Exam GI & Abdominal Exam: Soft, Normal Bowel Sounds. absent: Tenderness - Extremities Exam Extremities Exam: Full ROM, Normal Capillary Refill, Normal Inspection. absent : Joint Swelling, Pedal Edema - Back Exam Back Exam: NORMAL INSPECTION - Neurological Exam Neurological Exam: Alert, Awake, CN II-XII Intact, Normal Gait - Psychiatric Exam Psychiatric exam: Normal Affect, Normal Mood - Skin Skin Exam: Dry, Intact, Normal Color, Warm Assessment and Plan - Assessment and Plan (Free Text) Assessment: (1) Complex partial epilepsy Assessment & Plan: Neurology ([facility]) f/u depakote level Depakote 750mg q12h Head CT (11/11/17): no intracranial mass or hemorrhage. 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 Chronic white matter ischemic change. 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 Postinfectious/ postinflammatory cortical calcifications diffusely. As per Dr. Alejandro, these findings are probably chronic. Status: Chronic (2) AIDS Assessment & Plan: ID ([facility]) Hep Panel - negative Tivicay 50 mg PO daily Truvada 200-300 mg PO daily Bactrim DS po daily for Pneumocystis jirovecii prophylaxis History of AIDS dementia * Head CT (10/14/17): - Findings suspicious for mild hydrocephalus, cause not identified. Multiple calcifications in the brain bilaterally, most tiny in size , too numerous to count. The main differential considerations given the appearance include infectious processes, such as neurocysticercosis or tuberculosis, in the healed/calcified nodular stage Lexapro 10 mg PO HS Namenda 10 mg PO daily Status: Chronic (3) GRACE Creatinine: 1.8 from 1.4 start NS @ 75cc/hr Status: Acute (4) Transaminitis AST: 103 ALT: 128 hep panel negative f/u Depakote level monitor, if no improvement will order abdominal u/s Status: Acute (5) Prophylactic measure Assessment & Plan: SCDs Heparin 5,000u SC q8h Pepcid 20mg daily PT Social Work consult --> help appreciated Status: Acute Disposition: Per Fat Purification Worker, the patient was denied admission to [facility]. He has a Green Card per daughter. He used to have health insurance down in [place]. SW is working with the daughter and the patient's sister (who lives in [place]) to set up care at a care home. They are going to determine if the patient's health insurance is still valid in [place], and if so, possible transfer patient to [place]. The patient's sister has agreed to drive up and take the patient to a care home back in [place] but she does not want to be the sole provider for him. The patient is unable to care for himself any longer due to progression of his HIV/AIDS dementia. Patient unable to be discharged to street due to his current mental status. Will wait for patient to be accepted to [facility] in [place] Status: Acute <Susana Matson V - Last Filed: 12/08/17 14:17> Objective - Vital Signs/Intake and Output Vital Signs (last 24 hours): Temp Pulse Resp BP Pulse Ox 97.9 F 96 H 20 122/83 95 12/08/17 07:20 12/08/17 07:20 12/08/17 07:20 12/08/17 07:20 12/08/17 07:20 - Medications Medications: Current Medications Dolutegravir Sodium (Tivicay) 50 mg PO DAILY [facility] PRN Reason: Protocol Last Admin: 12/08/17 10:08 Dose: 50 mg Emtricitabine/Tenofovir (Truvada 200 Mg-300 Mg) 1 tab PO DAILY [facility] PRN Reason: Protocol Last Admin: 12/08/17 10:09 Dose: 1 tab Escitalopram Oxalate (Lexapro) 10 mg PO HS [facility] Last Admin: 12/07/17 21:17 Dose: 10 mg Heparin Sodium (Porcine) (Heparin) 5,000 units SC Q8 [facility] Last Admin: 12/08/17 13:18 Dose: 5,000 units Sodium Chloride (Sodium Chloride 0.9%) 1,000 mls @ 75 mls/hr IV .[id number] [facility] Last Admin: 12/08/17 11:00 Dose: 75 mls/hr Memantine (Namenda) 10 mg PO DAILY [facility] Last Admin: 12/08/17 10:08 Dose: 10 mg Saccharomyces Boulardii (Florastor) 250 mg PO BID [facility] Last Admin: 12/08/17 10:08 Dose: 250 mg Trimethoprim/Sulfamethoxazole (Bactrim Ds Tab) 1 tab PO Q12 [facility] PRN Reason: Protocol Last Admin: 12/08/17 10:08 Dose: 1 tab Valproate Sodium (Depakene Cap) 750 mg PO Q12 [facility] Last Admin: 12/08/17 10:08 Dose: 750 mg - Labs Labs: 12/08/17 07:12 12/08/17 07:12 Attending/Attestation - Attestation I have personally seen and examined this patient.: Yes I have fully participated in the care of the patient.: Yes I have reviewed all pertinent clinical information, including history, physical exam and plan: Yes Notes (Text): Patient seen, examined, and case discussed with hospital medical assistant. This is my first encounter with the patient. Patient with known hx of HIV/AIDS dementia. He is awaiting placement at this time during course of hospitalization. Patient has rise in creatinine and in liver functions. We will start IV fluids and monitor renal and liver function. Patient is pending Depakote level. Assessment/Plan (1) Complex partial epilepsy Assessment & Plan: * Neurology ([facility]) on board-->help appreciated * f/u depakote level * c/w Depakote 750mg q12h on 11/30/17 * Head CT (11/11/17): no intracranial mass or hemorrhage. 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 Chronic white matter ischemic change. 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 Postinfectious/ postinflammatory cortical calcifications diffusely. Status: Chronic (2) AIDS AIDS Dementia Assessment & Plan: * ID ([facility]) on board-->help appreciated * Hep Panel - negative * Tivicay 50 mg PO daily * Truvada 200-300 mg PO daily * Bactrim DS po daily for Pneumocystis jirovecii prophylaxis * Head CT (10/14/17): - Findings suspicious for mild hydrocephalus, cause not identified. Multiple calcifications in the brain bilaterally, most tiny in size , too numerous to count. The main differential considerations given the appearance include infectious processes, such as neurocysticercosis or tuberculosis, in the healed/calcified nodular stage Lexapro 10 mg PO HS Namenda 10 mg PO daily Status: Chronic (3) Acute Kidney Insufficiency * Creatinine: 1.8 from 1.4 * start NS @ 75cc/hr * Monitor Status: Acute (4) Transaminitis * AST: 103 * ALT: 128 * hep panel negative * f/u Depakote level * monitor, if no improvement will order abdominal u/s Status: Acute (5) Prophylactic measure Assessment & Plan: * SCDs * Heparin 5,000u SC q8h * Pepcid 20mg daily * Social Work consult --> help appreciated * Florastor 250mg PO BID Status: Acute Disposition: pending placement to [facility]. f/u with case management and social work
[2017-12-08] MEDS: Sodium Chloride 0.9% 1,000 ML IV SCH (11:00)
[2017-12-09] MEDS: Sodium Chloride 0.9% 1,000 ML IV SCH ×2 (01:06→21:26)
[2017-12-09 07:51] LABS: BASO % 0.7 % (0.0-2.0); EOS # 0.1 K/uL (0.0-0.7); EOS % 2.1 % (0.0-4.0); LYMPH # 2.2 K/uL (1.0-4.3); MEAN CELL VOLUME 98.3 fL (80.0-94.0); MEAN CORPUSCULAR HEMOGLOBIN 33.9 pg (27.0-31.0); MEAN CORPUSCULAR HGB CONC 34.5 g/dL (33.0-37.0); MEAN PLATELET VOLUME 9.7 fL (7.2-11.7); MONO # 0.6 K/uL (0.0-0.8); MONO % 11.8 % (0.0-10.0); NEUT # 1.8 K/uL (1.8-7.0); NEUT % 38.4 % (50.0-75.0); NRBC % 0.1 % (0.0-2.0); RBC 4.43 Mil/uL (4.40-5.90); RED CELL DISTRIBUTION WIDTH 13.9 % (11.5-14.5); WHITE BLOOD COUNT 4.7 K/uL (4.8-10.8)
[2017-12-09 08:05] LABS: ALB/GLOB RATIO 1.1 (1.0-2.1); ALBUMIN 4.1 g/dL (3.5-5.0); CALCIUM 9.1 mg/dl (8.6-10.4)
[2017-12-09] MEDS: Emtricitabine-Tenofovir 200 mg-300 mg Tab PO SCH (09:38)
[2017-12-09] MEDS: Saccharomyces Boulardi 250 mg Cap PO SCH ×2 (09:38→17:14)
--- NOTE | 2017-12-09 09:45 | CP.PCM.PN ---
<Татьяна Fox - Last Filed: 12/09/17 13:04> Subjective - Date & Time of Evaluation Date of Evaluation: 12/09/17 Time of Evaluation: 07:00 - Subjective Subjective: PGY1- Medicine Note Patient seen and examined at bedside and in no acute distress. Patient resting comfortably. Patient has no complaints. Patient denies any headache, chest pain , abdominal pain, nausea, vomiting, constipation, or diarrhea. Objective - Vital Signs/Intake and Output Vital Signs (last 24 hours): Temp Pulse Resp BP Pulse Ox 98.1 F 90 18 138/83 96 12/09/17 07:30 12/09/17 07:30 12/09/17 07:30 12/09/17 07:30 12/09/17 07:30 Intake and Output: 12/09/17 12/09/17 06:59 18:59 Intake Total 580 600 Balance 580 600 - Medications Medications: Current Medications Dolutegravir Sodium (Tivicay) 50 mg PO DAILY JEFF PRN Reason: Protocol Last Admin: 12/08/17 10:08 Dose: 50 mg Emtricitabine/Tenofovir (Truvada 200 Mg-300 Mg) 1 tab PO DAILY JEFF PRN Reason: Protocol Last Admin: 12/08/17 10:09 Dose: 1 tab Escitalopram Oxalate (Lexapro) 10 mg PO HS [facility] Last Admin: 12/08/17 21:21 Dose: 10 mg Heparin Sodium (Porcine) (Heparin) 5,000 units SC Q8 [facility] Last Admin: 12/09/17 05:10 Dose: 5,000 units Sodium Chloride (Sodium Chloride 0.9%) 1,000 mls @ 75 mls/hr IV .[id number] [facility] Last Admin: 12/09/17 01:06 Dose: 75 mls/hr Memantine (Namenda) 10 mg PO DAILY [facility] Last Admin: 12/08/17 10:08 Dose: 10 mg Saccharomyces Boulardii (Florastor) 250 mg PO BID [facility] Last Admin: 12/08/17 17:25 Dose: 250 mg Valproate Sodium (Depakene Cap) 750 mg PO Q12 [facility] Last Admin: 12/08/17 21:21 Dose: 750 mg - Labs Labs: 12/09/17 07:31 12/09/17 07:31 - Additional Findings Additional findings: - Constitutional Appears: Well - Head Exam Head Exam: ATRAUMATIC, NORMAL INSPECTION, NORMOCEPHALIC - Eye Exam Eye Exam: EOMI, Normal appearance, PERRL Pupil Exam: NORMAL ACCOMODATION, PERRL - ENT Exam ENT Exam: Mucous Membranes Moist, Normal Exam - Neck Exam Neck Exam: Full ROM, Normal Inspection. absent: Lymphadenopathy - Respiratory Exam Respiratory Exam: Clear to Ausculation Bilateral, NORMAL BREATHING PATTERN - Cardiovascular Exam Cardiovascular Exam: REGULAR RHYTHM, +S1, +S2. absent: Murmur - GI/Abdominal Exam GI & Abdominal Exam: Soft, Normal Bowel Sounds. absent: Tenderness - Extremities Exam Extremities Exam: Full ROM, Normal Capillary Refill, Normal Inspection. absent : Joint Swelling, Pedal Edema - Back Exam Back Exam: NORMAL INSPECTION - Neurological Exam Neurological Exam: Alert, Awake, CN II-XII Intact, Normal Gait - Psychiatric Exam Psychiatric exam: Normal Affect, Normal Mood - Skin Skin Exam: Dry, Intact, Normal Color, Warm Assessment and Plan - Assessment and Plan (Free Text) Assessment: (1) Complex partial epilepsy Assessment & Plan: Neurology (Wills) depakote level: 84.7 Depakote 750mg q12h Head CT (11/11/17): no intracranial mass or hemorrhage. 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 Chronic white matter ischemic change. 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 Postinfectious/ postinflammatory cortical calcifications diffusely. As per Dr. Alejandro, these findings are probably chronic. Status: Chronic (2) AIDS Assessment & Plan: ID (Mangia) Hep Panel - negative Tivicay 50 mg PO daily Truvada 200-300 mg PO daily Bactrim DS po daily for Pneumocystis jirovecii prophylaxis History of AIDS dementia * Head CT (10/14/17): - Findings suspicious for mild hydrocephalus, cause not identified. Multiple calcifications in the brain bilaterally, most tiny in size , too numerous to count. The main differential considerations given the appearance include infectious processes, such as neurocysticercosis or tuberculosis, in the healed/calcified nodular stage Lexapro 10 mg PO HS Namenda 10 mg PO daily Status: Chronic (3) GRACE Creatinine: 1.7 on 12/09 from 1.8 from 1.4 continue NS @ 75cc/hr Status: Acute (4) Transaminitis downtrending AST: 69 from 103 ALT: 107 from 128 hep panel negative Depakote level: 84.7 monitor, if no improvement will order abdominal u/s Status: Acute (5) Prophylactic measure Assessment & Plan: SCDs Heparin 5,000u SC q8h Pepcid 20mg daily PT Social Work consult --> help appreciated Status: Acute Disposition: Insurance transferred to [place] (from [place]). Waiting for new information about insurance. Will wait for patient to be accepted to [facility] in [place] Status: Acute <RobbymayelinSusana V - Last Filed: 12/09/17 17:26> Objective - Vital Signs/Intake and Output Vital Signs (last 24 hours): Temp Pulse Resp BP Pulse Ox 98.7 F 90 18 106/67 98 12/09/17 16:00 12/09/17 16:00 12/09/17 16:00 12/09/17 16:00 12/09/17 16:00 Intake and Output: 12/09/17 12/09/17 06:59 18:59 Intake Total 580 1200 Balance 580 1200 - Medications Medications: Current Medications Dolutegravir Sodium (Tivicay) 50 mg PO DAILY JEFF PRN Reason: Protocol Last Admin: 12/09/17 09:38 Dose: 50 mg Emtricitabine/Tenofovir (Truvada 200 Mg-300 Mg) 1 tab PO DAILY JEFF PRN Reason: Protocol Last Admin: 12/09/17 09:38 Dose: 1 tab Escitalopram Oxalate (Lexapro) 10 mg PO HS [facility] Last Admin: 12/08/17 21:21 Dose: 10 mg Heparin Sodium (Porcine) (Heparin) 5,000 units SC Q8 [facility] Last Admin: 12/09/17 13:09 Dose: 5,000 units Sodium Chloride (Sodium Chloride 0.9%) 1,000 mls @ 75 mls/hr IV .[id number] [facility] Last Admin: 12/09/17 01:06 Dose: 75 mls/hr Memantine (Namenda) 10 mg PO DAILY [facility] Last Admin: 12/09/17 09:38 Dose: 10 mg Saccharomyces Boulardii (Florastor) 250 mg PO BID [facility] Last Admin: 12/09/17 17:14 Dose: 250 mg Trimethoprim/Sulfamethoxazole (Bactrim Ds Tab) 1 tab PO Q12H [facility]FF PRN Reason: Protocol Valproate Sodium (Depakene Cap) 750 mg PO Q12 [facility] Last Admin: 12/09/17 09:38 Dose: 750 mg - Labs Labs: 12/09/17 07:31 12/09/17 07:31 Attending/Attestation - Attestation I have personally seen and examined this patient.: Yes I have fully participated in the care of the patient.: Yes I have reviewed all pertinent clinical information, including history, physical exam and plan: Yes Notes (Text): Patient seen, examined, and case discussed with medical collector. Patient with known hx of HIV/AIDS dementia. He is awaiting placement at this time during course of hospitalization. Patient has rise in creatinine and in liver functions yesterday. Improving today. Will continue IV fluids and monitor renal and liver function. Assessment/Plan (1) Complex partial epilepsy Assessment & Plan: * Neurology (Johann) on board-->help appreciated * Depakote level therapuetic * c/w Depakote 750mg q12h on 11/30/17 * Head CT (11/11/17): no intracranial mass or hemorrhage. 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 Chronic white matter ischemic change. 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 Postinfectious/ postinflammatory cortical calcifications diffusely. Status: Chronic (2) AIDS AIDS Dementia Assessment & Plan: * ID (Davon) on board-->help appreciated * Hep Panel - negative * Tivicay 50 mg PO daily * Truvada 200-300 mg PO daily * Bactrim DS po daily for Pneumocystis jirovecii prophylaxis * Head CT (10/14/17): - Findings suspicious for mild hydrocephalus, cause not identified. Multiple calcifications in the brain bilaterally, most tiny in size , too numerous to count. The main differential considerations given the appearance include infectious processes, such as neurocysticercosis or tuberculosis, in the healed/calcified nodular stage Lexapro 10 mg PO HS Namenda 10 mg PO daily Status: Chronic (3) Acute Kidney Insufficiency * start NS @ 75cc/hr * Monitor * Improving Status: Acute (4) Transaminitis * Improving * hep panel negative * f/u Depakote level * monitor, if no improvement will order abdominal u/s Status: Acute (5) Prophylactic measure Assessment & Plan: * SCDs * Heparin 5,000u SC q8h * Pepcid 20mg daily * Social Work consult --> help appreciated * Florastor 250mg PO BID Status: Acute Disposition: pending placement to [facility] in [place]. f/u with case management and social work
[2017-12-09] MEDS: Tmp-Smz 800 mg-160 mg DS Tab PO SCH (18:01)
[2017-12-10] MEDS: Sodium Chloride 0.9% 1,000 ML IV SCH ×2 (03:45→21:47)
[2017-12-10] MEDS: Tmp-Smz 800 mg-160 mg DS Tab PO SCH ×2 (05:40→17:02)
[2017-12-10 07:35] LABS: BASO % 0.8 % (0.0-2.0); EOS # 0.1 K/uL (0.0-0.7); EOS % 2.3 % (0.0-4.0); HEMOGLOBIN 14.6 g/dL (12.0-18.0); LYMPH # 1.8 K/uL (1.0-4.3); LYMPH % 54.4 % (20.0-40.0); MEAN CELL VOLUME 98.9 fL (80.0-94.0); MEAN CORPUSCULAR HEMOGLOBIN 33.9 pg (27.0-31.0); MEAN CORPUSCULAR HGB CONC 34.2 g/dL (33.0-37.0); MEAN PLATELET VOLUME 9.2 fL (7.2-11.7); MONO # 0.3 K/uL (0.0-0.8); MONO % 10.5 % (0.0-10.0); NEUT # 1.1 K/uL (1.8-7.0); NRBC % 0.1 % (0.0-2.0); RBC 4.3 Mil/uL (4.40-5.90); RED CELL DISTRIBUTION WIDTH 14.1 % (11.5-14.5); WHITE BLOOD COUNT 3.3 K/uL (4.8-10.8)
[2017-12-10 08:20] LABS: ALB/GLOB RATIO 1.1 (1.0-2.1); ALBUMIN 4.1 g/dL (3.5-5.0); CALCIUM 9.7 mg/dl (8.6-10.4)
[2017-12-10] MEDS: Saccharomyces Boulardi 250 mg Cap PO SCH ×2 (09:58→17:02)
[2017-12-10] MEDS: Emtricitabine-Tenofovir 200 mg-300 mg Tab PO SCH (09:58)
--- NOTE | 2017-12-10 10:14 | CP.PCM.PN ---
<Татьяна Fox - Last Filed: 12/10/17 12:41> Subjective - Date & Time of Evaluation Date of Evaluation: 12/10/17 Time of Evaluation: 07:00 - Subjective Subjective: PGY1- Medicine Note Patient seen and examined at bedside and in no acute distress. Patient resting comfortably. Patient has no complaints. Patient encouraged to drink more water. Patient says he drinks about 3 cups per day and told he should drink 6-8 cups per day. Patient denies any headache, chest pain, abdominal pain, nausea, vomiting, constipation, or diarrhea. Objective - Vital Signs/Intake and Output Vital Signs (last 24 hours): Temp Pulse Resp BP Pulse Ox 98.2 F 76 20 102/61 95 12/10/17 07:40 12/10/17 07:40 12/10/17 07:40 12/10/17 07:40 12/10/17 07:40 Intake and Output: 12/10/17 12/10/17 06:59 18:59 Intake Total 1300 Output Total 700 Balance 600 - Medications Medications: Current Medications Dolutegravir Sodium (Tivicay) 50 mg PO DAILY JEFF PRN Reason: Protocol Last Admin: 12/10/17 09:58 Dose: 50 mg Emtricitabine/Tenofovir (Truvada 200 Mg-300 Mg) 1 tab PO DAILY JEFF PRN Reason: Protocol Last Admin: 12/10/17 09:58 Dose: 1 tab Escitalopram Oxalate (Lexapro) 10 mg PO HS [facility] Last Admin: 12/09/17 21:21 Dose: 10 mg Heparin Sodium (Porcine) (Heparin) 5,000 units SC Q8 [facility] Last Admin: 12/10/17 05:39 Dose: 5,000 units Sodium Chloride (Sodium Chloride 0.9%) 1,000 mls @ 75 mls/hr IV .[id number] [facility] Last Admin: 12/10/17 03:45 Dose: Not Given Memantine (Namenda) 10 mg PO DAILY [facility] Last Admin: 12/10/17 09:58 Dose: 10 mg Saccharomyces Boulardii (Florastor) 250 mg PO BID [facility] Last Admin: 12/10/17 09:58 Dose: 250 mg Trimethoprim/Sulfamethoxazole (Bactrim Ds Tab) 1 tab PO Q12H [facility] PRN Reason: Protocol Last Admin: 12/10/17 05:40 Dose: 1 tab Valproate Sodium (Depakene Cap) 750 mg PO Q12 [facility] Last Admin: 12/10/17 09:58 Dose: 750 mg - Labs Labs: 12/10/17 07:22 12/10/17 07:22 - Additional Findings Additional findings: - Constitutional Appears: Well - Head Exam Head Exam: ATRAUMATIC, NORMAL INSPECTION, NORMOCEPHALIC - Eye Exam Eye Exam: EOMI, Normal appearance, PERRL Pupil Exam: NORMAL ACCOMODATION, PERRL - ENT Exam ENT Exam: Mucous Membranes Moist, Normal Exam - Neck Exam Neck Exam: Full ROM, Normal Inspection. absent: Lymphadenopathy - Respiratory Exam Respiratory Exam: Clear to Ausculation Bilateral, NORMAL BREATHING PATTERN - Cardiovascular Exam Cardiovascular Exam: REGULAR RHYTHM, +S1, +S2. absent: Murmur - GI/Abdominal Exam GI & Abdominal Exam: Soft, Normal Bowel Sounds. absent: Tenderness - Extremities Exam Extremities Exam: Full ROM, Normal Capillary Refill, Normal Inspection. absent : Joint Swelling, Pedal Edema - Back Exam Back Exam: NORMAL INSPECTION - Neurological Exam Neurological Exam: Alert, Awake, CN II-XII Intact, Normal Gait - Psychiatric Exam Psychiatric exam: Normal Affect, Normal Mood - Skin Skin Exam: Dry, Intact, Normal Color, Warm Assessment and Plan - Assessment and Plan (Free Text) Assessment: (1) Complex partial epilepsy Assessment & Plan: Neurology (Wills) depakote level: 84.7 Depakote 750mg q12h Head CT (11/11/17): no intracranial mass or hemorrhage. 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 Chronic white matter ischemic change. 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 Postinfectious/ postinflammatory cortical calcifications diffusely. As per Dr. Alejandro, these findings are probably chronic. Status: Chronic (2) AIDS Assessment & Plan: ID (Mangia) Hep Panel - negative Tivicay 50 mg PO daily Truvada 200-300 mg PO daily Bactrim DS po daily for Pneumocystis jirovecii prophylaxis History of AIDS dementia * Head CT (10/14/17): - Findings suspicious for mild hydrocephalus, cause not identified. Multiple calcifications in the brain bilaterally, most tiny in size , too numerous to count. The main differential considerations given the appearance include infectious processes, such as neurocysticercosis or tuberculosis, in the healed/calcified nodular stage Lexapro 10 mg PO HS Namenda 10 mg PO daily Status: Chronic (3) GRACE Creatinine: 1.6 on .9 1.7 on 12/09 from 1.8 from 1.4 NS @ 100cc/hr on 12/10/17 (increased from 75cc/hr) Status: Acute (4) Transaminitis downtrending AST: 57 from 69 from 103 ALT: 99 from 107 from 128 hep panel negative Depakote level: 84.7 monitor, if no improvement will order abdominal u/s Status: Acute (5) Prophylactic measure Assessment & Plan: SCDs Heparin 5,000u SC q8h Florastor BID PT Social Work consult --> help appreciated Status: Acute Disposition: Insurance transferred to [place] (from [place]). Waiting for new information about insurance. Will wait for patient to be accepted to [facility] in [place]. no updates at this time. Status: Acute <Susana Matson V - Last Filed: 12/10/17 17:36> Objective - Vital Signs/Intake and Output Vital Signs (last 24 hours): Temp Pulse Resp BP Pulse Ox 98.4 F 85 20 142/80 97 12/10/17 15:35 12/10/17 15:35 12/10/17 15:35 12/10/17 15:35 12/10/17 15:35 Intake and Output: 12/10/17 12/10/17 06:59 18:59 Intake Total 1300 Output Total 700 Balance 600 - Medications Medications: Current Medications Dolutegravir Sodium (Tivicay) 50 mg PO DAILY JEFF PRN Reason: Protocol Last Admin: 12/10/17 09:58 Dose: 50 mg Emtricitabine/Tenofovir (Truvada 200 Mg-300 Mg) 1 tab PO DAILY JEFF PRN Reason: Protocol Last Admin: 12/10/17 09:58 Dose: 1 tab Escitalopram Oxalate (Lexapro) 10 mg PO HS [facility] Last Admin: 12/09/17 21:21 Dose: 10 mg Heparin Sodium (Porcine) (Heparin) 5,000 units SC Q8 [facility] Last Admin: 12/10/17 13:06 Dose: 5,000 units Sodium Chloride (Sodium Chloride 0.9%) 1,000 mls @ 100 mls/hr IV .Q10H JEFF Memantine (Namenda) 10 mg PO DAILY [facility] Last Admin: 12/10/17 09:58 Dose: 10 mg Saccharomyces Boulardii (Florastor) 250 mg PO BID [facility] Last Admin: 12/10/17 17:02 Dose: 250 mg Trimethoprim/Sulfamethoxazole (Bactrim Ds Tab) 1 tab PO Q12H [facility] PRN Reason: Protocol Last Admin: 12/10/17 17:02 Dose: 1 tab Valproate Sodium (Depakene Cap) 750 mg PO Q12 [facility] Last Admin: 12/10/17 09:58 Dose: 750 mg - Labs Labs: 12/10/17 07:22 12/10/17 07:22 Attending/Attestation - Attestation I have personally seen and examined this patient.: Yes I have fully participated in the care of the patient.: Yes I have reviewed all pertinent clinical information, including history, physical exam and plan: Yes Notes (Text): Patient seen, examined, and case discussed with medical payment poster. Patient with known hx of HIV/AIDS dementia. He is awaiting placement at this time during course of hospitalization. Patient has rise in creatinine and in liver functions on Friday. Improving today. Will continue IV fluids and monitor renal and liver function. Patient is encouraged to increase PO hydration. Assessment/Plan (1) Complex partial epilepsy Assessment & Plan: * Neurology (Wills) on board-->help appreciated * Depakote level therapuetic * c/w Depakote 750mg q12h on 11/30/17 * Head CT (11/11/17): no intracranial mass or hemorrhage. 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 Chronic white matter ischemic change. 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 Postinfectious/ postinflammatory cortical calcifications diffusely. Status: Chronic (2) AIDS AIDS Dementia Assessment & Plan: * ID (Mangia) on board-->help appreciated * Hep Panel - negative * Tivicay 50 mg PO daily * Truvada 200-300 mg PO daily * Bactrim DS po daily for Pneumocystis jirovecii prophylaxis * Head CT (10/14/17): - Findings suspicious for mild hydrocephalus, cause not identified. Multiple calcifications in the brain bilaterally, most tiny in size , too numerous to count. The main differential considerations given the appearance include infectious processes, such as neurocysticercosis or tuberculosis, in the healed/calcified nodular stage Lexapro 10 mg PO HS Namenda 10 mg PO daily Status: Chronic (3) Acute Kidney Insufficiency * c/w NS @ 100cc/hr * Monitor * Improving Status: Acute (4) Transaminitis * Improving * hep panel negative * f/u Depakote level * monitor, if no improvement will order abdominal u/s Status: Acute (5) Prophylactic measure Assessment & Plan: * SCDs * Heparin 5,000u SC q8h * Pepcid 20mg daily * Social Work consult --> help appreciated * Florastor 250mg PO BID Status: Acute Disposition: pending placement to [facility]. f/u with case management and social work
[2017-12-11] MEDS: Tmp-Smz 800 mg-160 mg DS Tab PO SCH ×2 (04:41→17:17)
[2017-12-11 07:50] LABS: BASO % 0.6 % (0.0-2.0); EOS # 0.1 K/uL (0.0-0.7); EOS % 2.8 % (0.0-4.0); HEMOGLOBIN 14.7 g/dL (12.0-18.0); LYMPH # 1.9 K/uL (1.0-4.3); LYMPH % 55.7 % (20.0-40.0); MEAN CELL VOLUME 98.7 fL (80.0-94.0); MEAN CORPUSCULAR HEMOGLOBIN 33.8 pg (27.0-31.0); MEAN CORPUSCULAR HGB CONC 34.2 g/dL (33.0-37.0); MEAN PLATELET VOLUME 9.5 fL (7.2-11.7); MONO # 0.4 K/uL (0.0-0.8); MONO % 11.1 % (0.0-10.0); NEUT % 29.8 % (50.0-75.0); NRBC % 0.5 % (0.0-2.0); RBC 4.34 Mil/uL (4.40-5.90); RED CELL DISTRIBUTION WIDTH 13.9 % (11.5-14.5); WHITE BLOOD COUNT 3.4 K/uL (4.8-10.8)
[2017-12-11 08:01] LABS: ALT/SGPT 92 U/L (21-72); AST/SGOT 57 U/L (17-59); BLOOD UREA NITROGEN 18 mg/dL (9-20); CALCIUM 9.7 mg/dl (8.6-10.4); GFR AFRICAN-AMERICAN > 60; GFR NON-AFRICAN AMERICAN 53
[2017-12-11] MEDS: Sodium Chloride 0.9% 1,000 ML IV SCH ×3 (08:04→19:03)
[2017-12-11] MEDS: Saccharomyces Boulardi 250 mg Cap PO SCH ×2 (09:34→17:17)
[2017-12-11] MEDS: Emtricitabine-Tenofovir 200 mg-300 mg Tab PO SCH (09:35)
--- NOTE | 2017-12-11 10:12 | CP.PCM.PN ---
<Татьяна Fox - Last Filed: 12/11/17 11:25> Subjective - Date & Time of Evaluation Date of Evaluation: 12/11/17 Time of Evaluation: 07:00 - Subjective Subjective: PGY1- Medicine Note Patient seen and examined at bedside and in no acute distress. Patient resting comfortably. Patient has no complaints. Patient says he is trying to drink more water. Patient denies any headache, chest pain, abdominal pain, nausea, vomiting , constipation, or diarrhea. Objective - Vital Signs/Intake and Output Vital Signs (last 24 hours): Temp Pulse Resp BP Pulse Ox 98.3 F 78 20 102/82 97 12/11/17 07:30 12/11/17 07:30 12/11/17 07:30 12/11/17 07:30 12/11/17 07:30 Intake and Output: 12/11/17 12/11/17 06:59 18:59 Intake Total 2200 Balance 2200 - Medications Medications: Current Medications Dolutegravir Sodium (Tivicay) 50 mg PO DAILY JEFF PRN Reason: Protocol Last Admin: 12/11/17 09:35 Dose: 50 mg Emtricitabine/Tenofovir (Truvada 200 Mg-300 Mg) 1 tab PO DAILY JEFF PRN Reason: Protocol Last Admin: 12/11/17 09:35 Dose: 1 tab Escitalopram Oxalate (Lexapro) 10 mg PO HS [facility] Last Admin: 12/10/17 21:46 Dose: 10 mg Heparin Sodium (Porcine) (Heparin) 5,000 units SC Q8 JEFF Last Admin: 12/11/17 05:36 Dose: 5,000 units Sodium Chloride (Sodium Chloride 0.9%) 1,000 mls @ 100 mls/hr IV .Q10H JEFF Last Admin: 12/11/17 09:35 Dose: 100 mls/hr Memantine (Namenda) 10 mg PO DAILY JEFF Last Admin: 12/11/17 09:34 Dose: 10 mg Saccharomyces Boulardii (Florastor) 250 mg PO BID [facility] Last Admin: 12/11/17 09:34 Dose: 250 mg Trimethoprim/Sulfamethoxazole (Bactrim Ds Tab) 1 tab PO Q12H JEFF PRN Reason: Protocol Last Admin: 12/11/17 04:41 Dose: 1 tab Valproate Sodium (Depakene Cap) 750 mg PO Q12 JEFF Last Admin: 12/11/17 09:34 Dose: 750 mg - Labs Labs: 12/11/17 07:24 12/11/17 07:24 - Additional Findings Additional findings: - Constitutional Appears: Well - Head Exam Head Exam: ATRAUMATIC, NORMAL INSPECTION, NORMOCEPHALIC - Eye Exam Eye Exam: EOMI, Normal appearance, PERRL Pupil Exam: NORMAL ACCOMODATION, PERRL - ENT Exam ENT Exam: Mucous Membranes Moist, Normal Exam - Neck Exam Neck Exam: Full ROM, Normal Inspection. absent: Lymphadenopathy - Respiratory Exam Respiratory Exam: Clear to Ausculation Bilateral, NORMAL BREATHING PATTERN - Cardiovascular Exam Cardiovascular Exam: REGULAR RHYTHM, +S1, +S2. absent: Murmur - GI/Abdominal Exam GI & Abdominal Exam: Soft, Normal Bowel Sounds. absent: Tenderness - Extremities Exam Extremities Exam: Full ROM, Normal Capillary Refill, Normal Inspection. absent : Joint Swelling, Pedal Edema - Back Exam Back Exam: NORMAL INSPECTION - Neurological Exam Neurological Exam: Alert, Awake, CN II-XII Intact, Normal Gait - Psychiatric Exam Psychiatric exam: Normal Affect, Normal Mood - Skin Skin Exam: Dry, Intact, Normal Color, Warm Assessment and Plan - Assessment and Plan (Free Text) Assessment: (1) Complex partial epilepsy Assessment & Plan: Neurology (Wills) depakote level: 84.7 Depakote 750mg q12h Head CT (11/11/17): no intracranial mass or hemorrhage. 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 Chronic white matter ischemic change. 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 Postinfectious/ postinflammatory cortical calcifications diffusely. As per Dr. Alejandro, these findings are probably chronic. Status: Chronic (2) AIDS Assessment & Plan: ID (Mangia) Hep Panel - negative Tivicay 50 mg PO daily Truvada 200-300 mg PO daily Bactrim DS po daily for Pneumocystis jirovecii prophylaxis History of AIDS dementia * Head CT (10/14/17): - Findings suspicious for mild hydrocephalus, cause not identified. Multiple calcifications in the brain bilaterally, most tiny in size , too numerous to count. The main differential considerations given the appearance include infectious processes, such as neurocysticercosis or tuberculosis, in the healed/calcified nodular stage Lexapro 10 mg PO HS Namenda 10 mg PO daily Status: Chronic (3) GRACE Creatinine: 1.4 on 12/11 1.6 on 12/10 1.7 on 12/09 from 1.8 from 1.4 continue NS @ 100cc/hr on 12/10/17 (increased from 75cc/hr) Status: Acute (4) Transaminitis downtrending AST: 57 from 57 from 69 from 103 ALT: 92 from 99 from 107 from 128 hep panel negative Depakote level: 84.7 (12/08) monitor, if no improvement will order abdominal u/s Status: Acute (5) Prophylactic measure Assessment & Plan: SCDs Heparin 5,000u SC q8h Florastor BID PT Social Work consult --> help appreciated Status: Acute Disposition: Insurance transferred to [place] (from [place]). Waiting for new information about insurance. Will wait for patient to be accepted to [facility] in [place]. no updates at this time. Status: Acute <Susana Matson V - Last Filed: 12/12/17 09:48> Objective - Vital Signs/Intake and Output Vital Signs (last 24 hours): Temp Pulse Resp BP Pulse Ox 98.2 F 70 18 118/73 97 12/12/17 07:00 12/12/17 07:00 12/12/17 07:00 12/12/17 07:00 12/12/17 07:00 Intake and Output: 12/12/17 12/12/17 06:59 18:59 Intake Total 1000 Output Total 700 Balance 300 - Medications Medications: Current Medications Dolutegravir Sodium (Tivicay) 50 mg PO DAILY JEFF PRN Reason: Protocol Last Admin: 12/12/17 09:14 Dose: 50 mg Emtricitabine/Tenofovir (Truvada 200 Mg-300 Mg) 1 tab PO DAILY JEFF PRN Reason: Protocol Last Admin: 12/12/17 09:15 Dose: 1 tab Escitalopram Oxalate (Lexapro) 10 mg PO HS JEFF Last Admin: 12/11/17 21:17 Dose: 10 mg Heparin Sodium (Porcine) (Heparin) 5,000 units SC Q8 JEFF Last Admin: 12/12/17 06:20 Dose: 5,000 units Sodium Chloride (Sodium Chloride 0.9%) 1,000 mls @ 100 mls/hr IV .Q10H JEFF Last Admin: 12/12/17 08:41 Dose: 100 mls/hr Memantine (Namenda) 10 mg PO DAILY [facility] Last Admin: 12/12/17 09:14 Dose: 10 mg Saccharomyces Boulardii (Florastor) 250 mg PO BID [facility] Last Admin: 12/12/17 09:14 Dose: 250 mg Trimethoprim/Sulfamethoxazole (Bactrim Ds Tab) 1 tab PO Q12H [facility] PRN Reason: Protocol Last Admin: 12/12/17 06:20 Dose: 1 tab Valproate Sodium (Depakene Cap) 750 mg PO Q12 [facility] Last Admin: 12/12/17 09:14 Dose: 750 mg - Labs Labs: 12/11/17 07:24 12/11/17 07:24 Attending/Attestation - Attestation I have personally seen and examined this patient.: Yes I have fully participated in the care of the patient.: Yes I have reviewed all pertinent clinical information, including history, physical exam and plan: Yes Notes (Text): This is late computer entry for 12/11/17. Patient seen, examined, and case discussed with medical accounts receivable specialist. Patient with known hx of HIV/AIDS dementia. He is awaiting placement at this time during course of hospitalization. Patient had risen in creatinine and in liver functions on Friday. Improving today. Will continue IV fluids and monitor renal and liver function. Patient is encouraged to increase PO hydration. Assessment/Plan (1) Complex partial epilepsy Assessment & Plan: * Neurology (Johann) on board-->help appreciated * Depakote level therapuetic * c/w Depakote 750mg q12h on 11/30/17 * Head CT (11/11/17): no intracranial mass or hemorrhage. 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 Chronic white matter ischemic change. 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 Postinfectious/ postinflammatory cortical calcifications diffusely. Status: Chronic (2) AIDS AIDS Dementia Assessment & Plan: * ID (Mangia) on board-->help appreciated * Hep Panel - negative * Tivicay 50 mg PO daily * Truvada 200-300 mg PO daily * Bactrim DS po daily for Pneumocystis jirovecii prophylaxis * Head CT (10/14/17): - Findings suspicious for mild hydrocephalus, cause not identified. Multiple calcifications in the brain bilaterally, most tiny in size , too numerous to count. The main differential considerations given the appearance include infectious processes, such as neurocysticercosis or tuberculosis, in the healed/calcified nodular stage Lexapro 10 mg PO HS Namenda 10 mg PO daily Status: Chronic (3) Acute Kidney Insufficiency * c/w NS @ 100cc/hr * Monitor * Improving Status: Acute (4) Transaminitis * Improving * hep panel negative * monitor, if no improvement will order abdominal u/s Status: Acute (5) Prophylactic measure Assessment & Plan: * SCDs * Heparin 5,000u SC q8h * Pepcid 20mg daily * Social Work consult --> help appreciated * Florastor 250mg PO BID Status: Acute Disposition: pending placement to [facility]. f/u with case management and social work
[2017-12-12] MEDS: Sodium Chloride 0.9% 1,000 ML IV SCH ×3 (04:30→13:43)
[2017-12-12] MEDS: Tmp-Smz 800 mg-160 mg DS Tab PO SCH ×2 (06:20→17:40)
--- NOTE | 2017-12-12 07:12 | CP.PCM.PN ---
Subjective - Date & Time of Evaluation Date of Evaluation: 12/12/17 Time of Evaluation: 07:11 - Subjective Subjective: Mr. Grey was seen and examined at the bedside. He is alert, awake, response to question in a slow pace. He denies any headache, dizziness, nausea, or vomiting. He is able to move all extremities and ambulate within his room without any problem. He likes watching TV in his room. He is receiving IVF due to elevated BUN and creatinine, tolerating well. Ecourage patient to increase PO intake.There was no untoward events overnight. Objective - Vital Signs/Intake and Output Vital Signs (last 24 hours): Temp Pulse Resp BP Pulse Ox 97.2 F L 80 20 107/71 97 12/11/17 23:51 12/11/17 23:51 12/11/17 23:51 12/11/17 23:51 12/11/17 23:51 Intake and Output: 12/12/17 12/12/17 06:59 18:59 Intake Total 1000 Output Total 700 Balance 300 - Medications Medications: Current Medications Dolutegravir Sodium (Tivicay) 50 mg PO DAILY JEFF PRN Reason: Protocol Last Admin: 12/11/17 09:35 Dose: 50 mg Emtricitabine/Tenofovir (Truvada 200 Mg-300 Mg) 1 tab PO DAILY JEFF PRN Reason: Protocol Last Admin: 12/11/17 09:35 Dose: 1 tab Escitalopram Oxalate (Lexapro) 10 mg PO HS JEFF Last Admin: 12/11/17 21:17 Dose: 10 mg Heparin Sodium (Porcine) (Heparin) 5,000 units SC Q8 JEFF Last Admin: 12/12/17 06:20 Dose: 5,000 units Sodium Chloride (Sodium Chloride 0.9%) 1,000 mls @ 100 mls/hr IV .Q10H JEFF Last Admin: 12/12/17 04:30 Dose: Not Given Memantine (Namenda) 10 mg PO DAILY [facility] Last Admin: 12/11/17 09:34 Dose: 10 mg Saccharomyces Boulardii (Florastor) 250 mg PO BID JEFF Last Admin: 12/11/17 17:17 Dose: 250 mg Trimethoprim/Sulfamethoxazole (Bactrim Ds Tab) 1 tab PO Q12H JEFF PRN Reason: Protocol Last Admin: 12/12/17 06:20 Dose: 1 tab Valproate Sodium (Depakene Cap) 750 mg PO Q12 JEFF Last Admin: 12/11/17 21:17 Dose: 750 mg - Labs Labs: 12/11/17 07:24 12/11/17 07:24 - Constitutional Appears: No Acute Distress - Head Exam Head Exam: NORMAL INSPECTION - Neurological Exam Neurological Exam: Alert, Awake Neuro motor strength exam: Left Upper Extremity: 5, Right Upper Extremity: 5, Left Lower Extremity: 5, Right Lower Extremity: 5 Additional comments: Neurological unchanged from previous examination. Assessment and Plan (1) Seizure Assessment & Plan: Case discussed with Dr. Alejandro, continue all current medical regimen. Recommend to monitor valproic level next week. Recommend to treat any electrolytes abnormalities. Status: Acute
[2017-12-12] MEDS: Saccharomyces Boulardi 250 mg Cap PO SCH ×2 (09:14→17:37)
[2017-12-12] MEDS: Emtricitabine-Tenofovir 200 mg-300 mg Tab PO SCH (09:15)
--- NOTE | 2017-12-12 11:34 | CP.PCM.PN ---
<Татьяна Fox - Last Filed: 12/12/17 11:31> Subjective - Date & Time of Evaluation Date of Evaluation: 12/12/17 Time of Evaluation: 07:00 - Subjective Subjective: PGY1- Medicine Note Patient seen and examined at bedside and in no acute distress. Patient is complaining of some mild right sided abdominal pain. Patient denies shortness of breath, chest pain, nausea, vomiting, constipation, or diarrhea. Objective - Vital Signs/Intake and Output Vital Signs (last 24 hours): Temp Pulse Resp BP Pulse Ox 98.2 F 70 18 118/73 97 12/12/17 07:00 12/12/17 07:00 12/12/17 07:00 12/12/17 07:00 12/12/17 07:00 Intake and Output: 12/12/17 12/12/17 06:59 18:59 Intake Total 1000 Output Total 700 Balance 300 - Medications Medications: Current Medications Dolutegravir Sodium (Tivicay) 50 mg PO DAILY JEFF PRN Reason: Protocol Last Admin: 12/12/17 09:14 Dose: 50 mg Emtricitabine/Tenofovir (Truvada 200 Mg-300 Mg) 1 tab PO DAILY JEFF PRN Reason: Protocol Last Admin: 12/12/17 09:15 Dose: 1 tab Escitalopram Oxalate (Lexapro) 10 mg PO HS [facility] Last Admin: 12/11/17 21:17 Dose: 10 mg Heparin Sodium (Porcine) (Heparin) 5,000 units SC Q8 JEFF Last Admin: 12/12/17 06:20 Dose: 5,000 units Sodium Chloride (Sodium Chloride 0.9%) 1,000 mls @ 100 mls/hr IV .Q10H JEFF Last Admin: 12/12/17 08:41 Dose: 100 mls/hr Memantine (Namenda) 10 mg PO DAILY JEFF Last Admin: 12/12/17 09:14 Dose: 10 mg Saccharomyces Boulardii (Florastor) 250 mg PO BID [facility] Last Admin: 12/12/17 09:14 Dose: 250 mg Trimethoprim/Sulfamethoxazole (Bactrim Ds Tab) 1 tab PO Q12H JEFF PRN Reason: Protocol Last Admin: 12/12/17 06:20 Dose: 1 tab Valproate Sodium (Depakene Cap) 750 mg PO Q12 JEFF Last Admin: 12/12/17 09:14 Dose: 750 mg - Labs Labs: 12/11/17 07:24 12/11/17 07:24 - Constitutional Appears: Non-toxic, No Acute Distress - Head Exam Head Exam: ATRAUMATIC, NORMAL INSPECTION, NORMOCEPHALIC - Eye Exam Eye Exam: EOMI, Normal appearance Pupil Exam: NORMAL ACCOMODATION - ENT Exam ENT Exam: Mucous Membranes Moist - Respiratory Exam Respiratory Exam: Clear to Ausculation Bilateral, NORMAL BREATHING PATTERN. absent: Rales, Rhonchi, Wheezes, Stridor - Cardiovascular Exam Cardiovascular Exam: REGULAR RHYTHM, RRR, +S1, +S2 - GI/Abdominal Exam GI & Abdominal Exam: Distended, Soft, Tenderness (mild r sided abdominal tenderness ), Normal Bowel Sounds - Extremities Exam Extremities Exam: Full ROM, Normal Inspection. absent: Pedal Edema - Neurological Exam Neurological Exam: Alert, Awake, Oriented x3 - Psychiatric Exam Psychiatric exam: Normal Affect, Normal Mood - Skin Skin Exam: Intact, Normal Color, Warm Assessment and Plan - Assessment and Plan (Free Text) Assessment: (1) Complex partial epilepsy Assessment & Plan: Neurology (Wills) depakote level: 84.7 Depakote 750mg q12h Head CT (11/11/17): no intracranial mass or hemorrhage. 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 Chronic white matter ischemic change. 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 Postinfectious/ postinflammatory cortical calcifications diffusely. As per Dr. Alejandro, these findings are probably chronic. Status: Chronic (2) AIDS Assessment & Plan: ID (Mangia) Hep Panel - negative Tivicay 50 mg PO daily Truvada 200-300 mg PO daily Bactrim DS po daily for Pneumocystis jirovecii prophylaxis History of AIDS dementia * Head CT (10/14/17): - Findings suspicious for mild hydrocephalus, cause not identified. Multiple calcifications in the brain bilaterally, most tiny in size , too numerous to count. The main differential considerations given the appearance include infectious processes, such as neurocysticercosis or tuberculosis, in the healed/calcified nodular stage Lexapro 10 mg PO HS Namenda 10 mg PO daily Status: Chronic (3) GRACE Creatinine: 1.4 on 12/11 1.6 on 12/10 1.7 on 12/09 from 1.8 from 1.4 continue NS @ 100cc/hr on 12/10/17 (increased from 75cc/hr) Status: Acute (4) Transaminitis downtrending AST: 57 from 57 from 69 from 103 ALT: 92 from 99 from 107 from 128 hep panel negative Depakote level: 84.7 (12/08) monitor, if no improvement will order abdominal u/s Status: Acute (5) Constipation Assessment & Plan: lactulose x 1 Status: Acute (6) Prophylactic measure Assessment & Plan: SCDs Heparin 5,000u SC q8h Florastor BID PT Social Work consult --> help appreciated Status: Acute Disposition: Insurance transferred to [place] (from [place]). Waiting for new information about insurance. Will wait for patient to be accepted to [facility] in [place]. no updates at this time. Status: Acute <Susana Matson V - Last Filed: 12/12/17 20:14> Objective - Vital Signs/Intake and Output Vital Signs (last 24 hours): Temp Pulse Resp BP Pulse Ox 98 F 71 20 132/83 97 12/12/17 16:00 12/12/17 16:00 12/12/17 16:00 12/12/17 16:00 12/12/17 16:00 - Medications Medications: Current Medications Dolutegravir Sodium (Tivicay) 50 mg PO DAILY [facility] PRN Reason: Protocol Last Admin: 12/12/17 09:14 Dose: 50 mg Emtricitabine/Tenofovir (Truvada 200 Mg-300 Mg) 1 tab PO DAILY JEFF PRN Reason: Protocol Last Admin: 12/12/17 09:15 Dose: 1 tab Escitalopram Oxalate (Lexapro) 10 mg PO HS [facility] Last Admin: 12/11/17 21:17 Dose: 10 mg Heparin Sodium (Porcine) (Heparin) 5,000 units SC Q8 [facility] Last Admin: 12/12/17 13:39 Dose: 5,000 units Sodium Chloride (Sodium Chloride 0.9%) 1,000 mls @ 100 mls/hr IV .Q10H [facility] Last Admin: 12/12/17 13:43 Dose: Not Given Memantine (Namenda) 10 mg PO DAILY [facility] Last Admin: 12/12/17 09:14 Dose: 10 mg Saccharomyces Boulardii (Florastor) 250 mg PO BID [facility] Last Admin: 12/12/17 17:37 Dose: 250 mg Trimethoprim/Sulfamethoxazole (Bactrim Ds Tab) 1 tab PO Q12H [facility] PRN Reason: Protocol Last Admin: 12/12/17 17:40 Dose: 1 tab Valproate Sodium (Depakene Cap) 750 mg PO Q12 [facility] Last Admin: 12/12/17 09:14 Dose: 750 mg - Labs Labs: 12/11/17 07:24 12/11/17 07:24 Attending/Attestation - Attestation I have personally seen and examined this patient.: Yes I have fully participated in the care of the patient.: Yes I have reviewed all pertinent clinical information, including history, physical exam and plan: Yes Notes (Text): Patient seen, examined, and case discussed with medical clerical assistant. Patient with known hx of HIV/AIDS dementia. He is awaiting placement at this time during course of hospitalization. Patient had risen in creatinine and in liver functions on Friday. Will continue IV fluids and monitor renal and liver function. Will check tomorrow's blood work to determine to discontinue IV fluids or not. Patient is encouraged to increase PO hydration. Assessment/Plan (1) Complex partial epilepsy Assessment & Plan: * Neurology (Wills) on board-->help appreciated * Depakote level therapuetic * c/w Depakote 750mg q12h on 11/30/17 * Head CT (11/11/17): no intracranial mass or hemorrhage. 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 Chronic white matter ischemic change. 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 Postinfectious/ postinflammatory cortical calcifications diffusely. Status: Chronic (2) AIDS AIDS Dementia Assessment & Plan: * ID (Mangia) on board-->help appreciated * Hep Panel - negative * Tivicay 50 mg PO daily * Truvada 200-300 mg PO daily * Bactrim DS po daily for Pneumocystis jirovecii prophylaxis * Head CT (10/14/17): - Findings suspicious for mild hydrocephalus, cause not identified. Multiple calcifications in the brain bilaterally, most tiny in size , too numerous to count. The main differential considerations given the appearance include infectious processes, such as neurocysticercosis or tuberculosis, in the healed/calcified nodular stage Lexapro 10 mg PO HS Namenda 10 mg PO daily Status: Chronic (3) Acute Kidney Insufficiency * c/w NS @ 100cc/hr * Monitor * Improving Status: Acute (4) Transaminitis * Improving * hep panel negative * monitor, if no improvement will order abdominal u/s Status: Acute (5) Prophylactic measure Assessment & Plan: * SCDs * Heparin 5,000u SC q8h * Pepcid 20mg daily * Social Work consult --> help appreciated * Florastor 250mg PO BID Status: Acute Disposition: pending placement to [facility]. f/u with case management and social work
--- NOTE | 2017-12-13 02:56 | CP.PCM.PN ---
<Argenis Hernandez - Last Filed: 12/13/17 02:53> Subjective - Date & Time of Evaluation Date of Evaluation: 12/13/17 Time of Evaluation: 02:55 - Subjective Subjective: Progress Note Patient seen and examined at bedside and in no acute distress. Patient is complaining of some mild right sided abdominal pain. Patient denies shortness of breath, chest pain, nausea, vomiting, constipation, or diarrhea. Objective - Vital Signs/Intake and Output Vital Signs (last 24 hours): Temp Pulse Resp BP Pulse Ox 97.5 F L 74 20 106/69 99 12/13/17 00:03 12/13/17 00:03 12/13/17 00:03 12/13/17 00:03 12/13/17 00:03 - Medications Medications: Current Medications Dolutegravir Sodium (Tivicay) 50 mg PO DAILY [facility] PRN Reason: Protocol Last Admin: 12/12/17 09:14 Dose: 50 mg Emtricitabine/Tenofovir (Truvada 200 Mg-300 Mg) 1 tab PO DAILY [facility] PRN Reason: Protocol Last Admin: 12/12/17 09:15 Dose: 1 tab Escitalopram Oxalate (Lexapro) 10 mg PO HS [facility] Last Admin: 12/12/17 21:57 Dose: 10 mg Heparin Sodium (Porcine) (Heparin) 5,000 units SC Q8 [facility] Last Admin: 12/12/17 21:57 Dose: 5,000 units Sodium Chloride (Sodium Chloride 0.9%) 1,000 mls @ 100 mls/hr IV .Q10H [facility] Last Admin: 12/12/17 13:43 Dose: Not Given Memantine (Namenda) 10 mg PO DAILY [facility] Last Admin: 12/12/17 09:14 Dose: 10 mg Saccharomyces Boulardii (Florastor) 250 mg PO BID [facility] Last Admin: 12/12/17 17:37 Dose: 250 mg Trimethoprim/Sulfamethoxazole (Bactrim Ds Tab) 1 tab PO Q12H [facility] PRN Reason: Protocol Last Admin: 12/12/17 17:40 Dose: 1 tab Valproate Sodium (Depakene Cap) 750 mg PO Q12 [facility] Last Admin: 12/12/17 21:57 Dose: 750 mg - Labs Labs: 12/11/17 07:24 12/11/17 07:24 - Additional Findings Additional findings: - Constitutional Appears: Non-toxic, No Acute Distress - Head Exam Head Exam: ATRAUMATIC, NORMAL INSPECTION, NORMOCEPHALIC - Eye Exam Eye Exam: EOMI, Normal appearance Pupil Exam: NORMAL ACCOMODATION - ENT Exam ENT Exam: Mucous Membranes Moist - Respiratory Exam Respiratory Exam: Clear to Ausculation Bilateral, NORMAL BREATHING PATTERN. absent: Rales, Rhonchi, Wheezes, Stridor - Cardiovascular Exam Cardiovascular Exam: REGULAR RHYTHM, RRR, +S1, +S2 - GI/Abdominal Exam GI & Abdominal Exam: Distended, Soft, Tenderness (mild r sided abdominal tenderness ), Normal Bowel Sounds - Extremities Exam Extremities Exam: Full ROM, Normal Inspection. absent: Pedal Edema - Neurological Exam Neurological Exam: Alert, Awake, Oriented x3 - Psychiatric Exam Psychiatric exam: Normal Affect, Normal Mood - Skin Skin Exam: Intact, Normal Color, Warm Assessment and Plan - Assessment and Plan (Free Text) Assessment: Assessment and Plan - Assessment and Plan (Free Text) Assessment: (1) Complex partial epilepsy Assessment & Plan: Neurology (Wills) Depakote 750mg q12h monitor depakote level Head CT (11/11/17): no intracranial mass or hemorrhage. 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 Chronic white matter ischemic change. 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 Postinfectious/ postinflammatory cortical calcifications diffusely. As per Dr. Alejandro, these findings are probably chronic. Status: Chronic (2) AIDS Assessment & Plan: ID (Mangia) Hep Panel - negative Tivicay 50 mg PO daily Truvada 200-300 mg PO daily Bactrim DS po daily for Pneumocystis jirovecii prophylaxis History of AIDS dementia * Head CT (10/14/17): - Findings suspicious for mild hydrocephalus, cause not identified. Multiple calcifications in the brain bilaterally, most tiny in size , too numerous to count. The main differential considerations given the appearance include infectious processes, such as neurocysticercosis or tuberculosis, in the healed/calcified nodular stage Lexapro 10 mg PO HS Namenda 10 mg PO daily Status: Chronic (3) GRACE monitor creatinine continue NS @ 100cc/hr on 12/10/17 (increased from 75cc/hr) Status: Acute (4) Transaminitis downtrending hep panel negative Depakote level: 84.7 (12/08) monitor, if no improvement will order abdominal u/s Status: Acute (5) Constipation Assessment & Plan: lactulose x 1 Status: Acute (6) Prophylactic measure Assessment & Plan: SCDs Heparin 5,000u SC q8h Florastor BID PT Social Work consult Status: Acute Disposition: Insurance transferred to [place] (from [place]). Waiting for new information about insurance. Will wait for patient to be accepted to [facility] [place]. no updates at this time. f/u with social work Status: Acute to be discussed with Dr. Dano Hernandez, DO PGY1 <Susana Matson V - Last Filed: 12/13/17 15:58> Objective - Vital Signs/Intake and Output Vital Signs (last 24 hours): Temp Pulse Resp BP Pulse Ox 98.0 F 63 18 128/80 99 12/13/17 07:10 12/13/17 07:10 12/13/17 07:10 12/13/17 07:10 12/13/17 07:10 Intake and Output: 12/13/17 12/13/17 06:59 18:59 Intake Total 1280 Output Total 1000 Balance 280 - Medications Medications: Current Medications Dolutegravir Sodium (Tivicay) 50 mg PO DAILY [facility] PRN Reason: Protocol Last Admin: 12/13/17 09:01 Dose: 50 mg Emtricitabine/Tenofovir (Truvada 200 Mg-300 Mg) 1 tab PO DAILY [facility] PRN Reason: Protocol Last Admin: 12/13/17 09:02 Dose: 1 tab Escitalopram Oxalate (Lexapro) 10 mg PO HS [facility] Last Admin: 12/12/17 21:57 Dose: 10 mg Heparin Sodium (Porcine) (Heparin) 5,000 units SC Q8 [facility] Last Admin: 12/13/17 13:07 Dose: 5,000 units Memantine (Namenda) 10 mg PO DAILY [facility] Last Admin: 12/13/17 09:02 Dose: 10 mg Saccharomyces Boulardii (Florastor) 250 mg PO BID [facility] Last Admin: 12/13/17 09:02 Dose: 250 mg Trimethoprim/Sulfamethoxazole (Bactrim Ds Tab) 1 tab PO Q12H [facility] PRN Reason: Protocol Last Admin: 12/13/17 05:20 Dose: 1 tab Valproate Sodium (Depakene Cap) 750 mg PO Q12 [facility] Last Admin: 12/13/17 09:02 Dose: 750 mg - Labs Labs: 12/13/17 07:40 12/13/17 07:40 Attending/Attestation - Attestation I have personally seen and examined this patient.: Yes I have fully participated in the care of the patient.: Yes I have reviewed all pertinent clinical information, including history, physical exam and plan: Yes Notes (Text): Patient seen, examined, and case discussed with medical device sales. Patient with known hx of HIV/AIDS dementia. He is awaiting placement at this time during course of hospitalization. Patient had risen in creatinine and in liver functions on Friday. Will continue IV fluids and monitor renal and liver function. Patient is encouraged to increase PO hydration. Patient reports mild pain over right lower quadrant on DEEP palpation but is not in acute pain and quite comfortable in bed. Assessment/Plan (1) Complex partial epilepsy Assessment & Plan: * Neurology (Johann) on board-->help appreciated * Depakote level therapuetic * c/w Depakote 750mg q12h on 11/30/17 * Head CT (11/11/17): no intracranial mass or hemorrhage. 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 Chronic white matter ischemic change. 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 Postinfectious/ postinflammatory cortical calcifications diffusely. Status: Chronic (2) AIDS AIDS Dementia Assessment & Plan: * ID (Davon) on board-->help appreciated * Hep Panel - negative * Tivicay 50 mg PO daily * Truvada 200-300 mg PO daily * Bactrim DS po daily for Pneumocystis jirovecii prophylaxis * Head CT (10/14/17): - Findings suspicious for mild hydrocephalus, cause not identified. Multiple calcifications in the brain bilaterally, most tiny in size , too numerous to count. The main differential considerations given the appearance include infectious processes, such as neurocysticercosis or tuberculosis, in the healed/calcified nodular stage Lexapro 10 mg PO HS Namenda 10 mg PO daily Status: Chronic (3) Acute Kidney Insufficiency * c/w NS @ 100cc/hr * Monitor * Improving Status: Acute (4) Transaminitis * Improving * hep panel negative * monitor, if no improvement will order abdominal u/s Status: Acute (5) Prophylactic measure Assessment & Plan: * SCDs * Heparin 5,000u SC q8h * Pepcid 20mg daily * Social Work consult --> help appreciated * Florastor 250mg PO BID Status: Acute Disposition: pending placement to [facility] [place]. f/u with case management and social work
[2017-12-13] MEDS: Tmp-Smz 800 mg-160 mg DS Tab PO SCH ×2 (05:20→17:14)
[2017-12-13] MEDS: Sodium Chloride 0.9% 1,000 ML IV SCH ×3 (05:28→13:03)
[2017-12-13 07:51] LABS: BASO % 0.5 % (0.0-2.0); EOS # 0.1 K/uL (0.0-0.7); EOS % 3.4 % (0.0-4.0); HEMOGLOBIN 15.9 g/dL (12.0-18.0); MEAN CELL VOLUME 98.3 fL (80.0-94.0); MEAN CORPUSCULAR HEMOGLOBIN 33.8 pg (27.0-31.0); MEAN CORPUSCULAR HGB CONC 34.4 g/dL (33.0-37.0); MEAN PLATELET VOLUME 9.6 fL (7.2-11.7); MONO # 0.4 K/uL (0.0-0.8); MONO % 10.6 % (0.0-10.0); NEUT # 1.5 K/uL (1.8-7.0); NEUT % 37.5 % (50.0-75.0); NRBC % 0.2 % (0.0-2.0); RBC 4.71 Mil/uL (4.40-5.90); RED CELL DISTRIBUTION WIDTH 13.7 % (11.5-14.5); WHITE BLOOD COUNT 4.1 K/uL (4.8-10.8)
[2017-12-13 08:19] LABS: ALB/GLOB RATIO 1.1 (1.0-2.1); ALBUMIN 4.5 g/dL (3.5-5.0); ALT/SGPT 92 U/L (21-72); AST/SGOT 62 U/L (17-59); BLOOD UREA NITROGEN 15 mg/dL (9-20); CALCIUM 9.6 mg/dl (8.6-10.4); GFR AFRICAN-AMERICAN > 60; GFR NON-AFRICAN AMERICAN 53
[2017-12-13] MEDS: Emtricitabine-Tenofovir 200 mg-300 mg Tab PO SCH (09:02)
[2017-12-13] MEDS: Saccharomyces Boulardi 250 mg Cap PO SCH ×2 (09:02→17:15)
--- NOTE | 2017-12-14 05:18 | CP.PCM.PN ---
<Argenis Hernandez - Last Filed: 12/14/17 05:18> Subjective - Date & Time of Evaluation Date of Evaluation: 12/14/17 Time of Evaluation: :17 - Subjective Subjective: Progress Note Patient seen and examined at bedside and in no acute distress. Patient is tolerating pain well. Patient denies shortness of breath, chest pain, nausea, vomiting, constipation, or diarrhea. Objective - Vital Signs/Intake and Output Vital Signs (last 24 hours): Temp Pulse Resp BP Pulse Ox 98.1 F 74 20 114/74 95 12/13/17 23:10 12/13/17 23:10 12/13/17 23:10 12/13/17 23:10 12/13/17 23:10 Intake and Output: 12/13/17 12/14/17 18:59 06:59 Intake Total 1280 Output Total 1000 1500 Balance 280 -1500 - Medications Medications: Current Medications Dolutegravir Sodium (Tivicay) 50 mg PO DAILY [facility] PRN Reason: Protocol Last Admin: 12/13/17 09:01 Dose: 50 mg Emtricitabine/Tenofovir (Truvada 200 Mg-300 Mg) 1 tab PO DAILY [facility] PRN Reason: Protocol Last Admin: 12/13/17 09:02 Dose: 1 tab Escitalopram Oxalate (Lexapro) 10 mg PO HS [facility] Last Admin: 12/13/17 21:19 Dose: 10 mg Heparin Sodium (Porcine) (Heparin) 5,000 units SC Q8 [facility] Last Admin: 12/13/17 21:18 Dose: 5,000 units Memantine (Namenda) 10 mg PO DAILY [facility] Last Admin: 12/13/17 09:02 Dose: 10 mg Saccharomyces Boulardii (Florastor) 250 mg PO BID [facility] Last Admin: 12/13/17 17:15 Dose: 250 mg Trimethoprim/Sulfamethoxazole (Bactrim Ds Tab) 1 tab PO Q12H [facility] PRN Reason: Protocol Last Admin: 12/13/17 17:14 Dose: 1 tab Valproate Sodium (Depakene Cap) 750 mg PO Q12 [facility] Last Admin: 12/13/17 21:18 Dose: 750 mg - Labs Labs: 12/13/17 07:40 12/13/17 07:40 - Additional Findings Additional findings: - Constitutional Appears: Non-toxic, No Acute Distress - Head Exam Head Exam: ATRAUMATIC, NORMAL INSPECTION, NORMOCEPHALIC - Eye Exam Eye Exam: EOMI, Normal appearance Pupil Exam: NORMAL ACCOMODATION - ENT Exam ENT Exam: Mucous Membranes Moist - Respiratory Exam Respiratory Exam: Clear to Ausculation Bilateral, NORMAL BREATHING PATTERN. absent: Rales, Rhonchi, Wheezes, Stridor - Cardiovascular Exam Cardiovascular Exam: REGULAR RHYTHM, RRR, +S1, +S2 - GI/Abdominal Exam GI & Abdominal Exam: Distended, Soft, Tenderness (mild r sided abdominal tenderness ), Normal Bowel Sounds - Extremities Exam Extremities Exam: Full ROM, Normal Inspection. absent: Pedal Edema - Neurological Exam Neurological Exam: Alert, Awake, Oriented x3 - Psychiatric Exam Psychiatric exam: Normal Affect, Normal Mood - Skin Skin Exam: Intact, Normal Color, Warm Assessment and Plan - Assessment and Plan (Free Text) Assessment: - Assessment and Plan (Free Text) Assessment: (1) Complex partial epilepsy Assessment & Plan: Neurology (Wills) Depakote 750mg q12h monitor depakote level Head CT (11/11/17): no intracranial mass or hemorrhage. 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 Chronic white matter ischemic change. 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 Postinfectious/ postinflammatory cortical calcifications diffusely. As per Dr. Alejandro, these findings are probably chronic. Status: Chronic (2) AIDS Assessment & Plan: ID (Mangia) Hep Panel - negative Tivicay 50 mg PO daily Truvada 200-300 mg PO daily Bactrim DS po daily for Pneumocystis jirovecii prophylaxis History of AIDS dementia * Head CT (10/14/17): - Findings suspicious for mild hydrocephalus, cause not identified. Multiple calcifications in the brain bilaterally, most tiny in size , too numerous to count. The main differential considerations given the appearance include infectious processes, such as neurocysticercosis or tuberculosis, in the healed/calcified nodular stage Lexapro 10 mg PO HS Namenda 10 mg PO daily Status: Chronic (3) GRACE monitor creatinine continue NS @ 100cc/hr on 12/10/17 (increased from 75cc/hr) Status: Acute (4) Transaminitis downtrending hep panel negative Depakote level: 84.7 (12/08) monitor, if no improvement will order abdominal u/s Status: Acute (5) Constipation Assessment & Plan: lactulose x 1 Status: Acute (6) Prophylactic measure Assessment & Plan: SCDs Heparin 5,000u SC q8h Florastor BID PT Social Work consult Status: Acute Disposition: Insurance transferred to [place] (from [place]). Waiting for new information about insurance. Will wait for patient to be accepted to [facility] in [place]. no updates at this time. f/u with social work Status: Acute to be discussed with Dr. Dano Hernandez, DO PGY1 <Susana Matson V - Last Filed: 12/14/17 16:06> Objective - Vital Signs/Intake and Output Vital Signs (last 24 hours): Temp Pulse Resp BP Pulse Ox 98.1 F 69 18 99/68 L 96 12/14/17 07:10 12/14/17 07:10 12/14/17 07:10 12/14/17 07:10 12/14/17 07:10 Intake and Output: 12/14/17 12/14/17 06:59 18:59 Output Total 1500 Balance -1500 - Medications Medications: Current Medications Dolutegravir Sodium (Tivicay) 50 mg PO DAILY [facility] PRN Reason: Protocol Last Admin: 12/14/17 09:50 Dose: 50 mg Emtricitabine/Tenofovir (Truvada 200 Mg-300 Mg) 1 tab PO DAILY [facility] PRN Reason: Protocol Last Admin: 12/14/17 09:49 Dose: 1 tab Escitalopram Oxalate (Lexapro) 10 mg PO HS [facility] Last Admin: 12/13/17 21:19 Dose: 10 mg Memantine (Namenda) 10 mg PO DAILY [facility] Last Admin: 12/14/17 09:50 Dose: 10 mg Saccharomyces Boulardii (Florastor) 250 mg PO BID [facility] Last Admin: 12/14/17 09:50 Dose: 250 mg Trimethoprim/Sulfamethoxazole (Bactrim Ds Tab) 1 tab PO Q12H [facility] PRN Reason: Protocol Last Admin: 12/14/17 05:57 Dose: 1 tab Valproate Sodium (Depakene Cap) 750 mg PO Q12 [facility] Last Admin: 12/14/17 09:48 Dose: 750 mg - Labs Labs: 12/13/17 07:40 12/13/17 07:40 Attending/Attestation - Attestation I have personally seen and examined this patient.: Yes I have fully participated in the care of the patient.: Yes I have reviewed all pertinent clinical information, including history, physical exam and plan: Yes Notes (Text): Patient seen, examined, and case discussed with lead medical technologist. Patient with known hx of HIV/AIDS dementia. He is awaiting placement at this time during course of hospitalization. Patient had risen in creatinine and in liver functions on Friday. Will continue IV fluids and monitor renal and liver function. Patient is encouraged to increase PO hydration. Patient comfortable at bedside. Assessment/Plan (1) Complex partial epilepsy Assessment & Plan: * Neurology (Johann) on board-->help appreciated * Depakote level therapuetic * c/w Depakote 750mg q12h on 11/30/17 * Head CT (11/11/17): no intracranial mass or hemorrhage. 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 Chronic white matter ischemic change. 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 Postinfectious/ postinflammatory cortical calcifications diffusely. Status: Chronic (2) AIDS AIDS Dementia Assessment & Plan: * ID (Davon) on board-->help appreciated * Hep Panel - negative * Tivicay 50 mg PO daily * Truvada 200-300 mg PO daily * Bactrim DS po daily for Pneumocystis jirovecii prophylaxis * Head CT (10/14/17): - Findings suspicious for mild hydrocephalus, cause not identified. Multiple calcifications in the brain bilaterally, most tiny in size , too numerous to count. The main differential considerations given the appearance include infectious processes, such as neurocysticercosis or tuberculosis, in the healed/calcified nodular stage Lexapro 10 mg PO HS Namenda 10 mg PO daily Status: Chronic (3) Acute Kidney Insufficiency * c/w NS @ 100cc/hr * Monitor * Improving Status: Acute (4) Transaminitis * Improving * hep panel negative * monitor, if no improvement will order abdominal u/s Status: Acute (5) Prophylactic measure Assessment & Plan: * SCDs * Heparin 5,000u SC q8h * Pepcid 20mg daily * Social Work consult --> help appreciated * Florastor 250mg PO BID Status: Acute Disposition: pending placement to [facility] in [place]. f/u with case management and social work
[2017-12-14] MEDS: Tmp-Smz 800 mg-160 mg DS Tab PO SCH ×2 (05:57→17:16)
[2017-12-14] MEDS: Emtricitabine-Tenofovir 200 mg-300 mg Tab PO SCH (09:49)
[2017-12-14] MEDS: Saccharomyces Boulardi 250 mg Cap PO SCH ×2 (09:50→17:16)
--- NOTE | 2017-12-15 07:53 | CP.PCM.PN ---
Subjective - Date & Time of Evaluation Date of Evaluation: 12/15/17 Time of Evaluation: 07:52 - Subjective Subjective: Mr. Grey was seen and examined at the bedside. He is alert, awake, response to question in a slow pace. He denies any headache, dizziness, nausea, or vomiting. He is able to move all extremities and ambulate within his room without any problem. He complains of abdominal pain with slight distention noted in his abdomen. He was not able to move his bowel movements for couple days.Ecourage patient to increase PO intake.There was no untoward events overnight. Objective - Vital Signs/Intake and Output Vital Signs (last 24 hours): Temp Pulse Resp BP Pulse Ox 98.2 F 86 20 109/71 96 12/14/17 23:45 12/14/17 23:45 12/14/17 23:45 12/14/17 23:45 12/14/17 23:45 - Medications Medications: Current Medications Dolutegravir Sodium (Tivicay) 50 mg PO DAILY [facility] PRN Reason: Protocol Last Admin: 12/14/17 09:50 Dose: 50 mg Emtricitabine/Tenofovir (Truvada 200 Mg-300 Mg) 1 tab PO DAILY [facility] PRN Reason: Protocol Last Admin: 12/14/17 09:49 Dose: 1 tab Escitalopram Oxalate (Lexapro) 10 mg PO HS [facility] Last Admin: 12/14/17 21:15 Dose: 10 mg Memantine (Namenda) 10 mg PO DAILY [facility] Last Admin: 12/14/17 09:50 Dose: 10 mg Saccharomyces Boulardii (Florastor) 250 mg PO BID [facility] Last Admin: 12/14/17 17:16 Dose: 250 mg Trimethoprim/Sulfamethoxazole (Bactrim Ds Tab) 1 tab PO Q12H [facility] PRN Reason: Protocol Valproate Sodium (Depakene Cap) 750 mg PO Q12 [facility] Last Admin: 12/14/17 21:15 Dose: 750 mg - Labs Labs: 12/13/17 07:40 12/13/17 07:40 - Constitutional Appears: No Acute Distress - Head Exam Head Exam: NORMAL INSPECTION - GI/Abdominal Exam GI & Abdominal Exam: Distended, Hypoactive Bowel Sounds - Neurological Exam Neurological Exam: Awake Neuro motor strength exam: Left Upper Extremity: 4, Right Upper Extremity: 4, Left Lower Extremity: 4, Right Lower Extremity: 4 Additional comments: Neurological unchanged from previous examination. Assessment and Plan (1) Seizure Assessment & Plan: Case discussed with Dr. Wills, continue all current medical regimen. Recommend to monitor valproic level next week. Recommend to treat any electrolytes abnormalities. Recommend CT scan of the abdomen to evaluate abd. distention and please refer to primary team for any treatment. Status: Acute
[2017-12-15 08:09] LABS: BASO % 0.4 % (0.0-2.0); EOS # 0.2 K/uL (0.0-0.7); HEMOGLOBIN 15.4 g/dL (12.0-18.0); LYMPH # 2.1 K/uL (1.0-4.3); LYMPH % 41.1 % (20.0-40.0); MEAN CELL VOLUME 97.3 fL (80.0-94.0); MEAN CORPUSCULAR HEMOGLOBIN 33.9 pg (27.0-31.0); MEAN CORPUSCULAR HGB CONC 34.8 g/dL (33.0-37.0); MONO # 0.5 K/uL (0.0-0.8); MONO % 9.7 % (0.0-10.0); NEUT # 2.4 K/uL (1.8-7.0); NEUT % 45.8 % (50.0-75.0); NRBC % 0.1 % (0.0-2.0); RBC 4.55 Mil/uL (4.40-5.90); RED CELL DISTRIBUTION WIDTH 13.7 % (11.5-14.5); WHITE BLOOD COUNT 5.1 K/uL (4.8-10.8)
[2017-12-15] MEDS: Tmp-Smz 800 mg-160 mg DS Tab PO SCH ×2 (08:21→18:36)
--- NOTE | 2017-12-15 08:39 | CP.PCM.PN ---
<Татьяна FoxOsvaldo - Last Filed: 12/15/17 15:43> Subjective - Date & Time of Evaluation Date of Evaluation: 12/15/17 Time of Evaluation: 07:00 - Subjective Subjective: PGY1- Medicine Note Patient seen and examined at bedside and in no acute distress. Patient has no complaints. Patient denies chest pain, abdominal pain, nausea, vomiting, diarrhea, constipation. Patient seen walking with PT and continue to have shuffling gait. Objective - Vital Signs/Intake and Output Vital Signs (last 24 hours): Temp Pulse Resp BP Pulse Ox 98.6 F 83 20 116/82 96 12/15/17 08:32 12/15/17 08:32 12/15/17 08:32 12/15/17 08:32 12/15/17 08:32 - Medications Medications: Current Medications Dolutegravir Sodium (Tivicay) 50 mg PO DAILY [facility] PRN Reason: Protocol Last Admin: 12/14/17 09:50 Dose: 50 mg Emtricitabine/Tenofovir (Truvada 200 Mg-300 Mg) 1 tab PO DAILY [facility] PRN Reason: Protocol Last Admin: 12/14/17 09:49 Dose: 1 tab Escitalopram Oxalate (Lexapro) 10 mg PO HS [facility] Last Admin: 12/14/17 21:15 Dose: 10 mg Memantine (Namenda) 10 mg PO DAILY [facility] Last Admin: 12/14/17 09:50 Dose: 10 mg Saccharomyces Boulardii (Florastor) 250 mg PO BID [facility] Last Admin: 12/14/17 17:16 Dose: 250 mg Trimethoprim/Sulfamethoxazole (Bactrim Ds Tab) 1 tab PO Q12H [facility] PRN Reason: Protocol Last Admin: 12/15/17 08:21 Dose: 1 tab Valproate Sodium (Depakene Cap) 750 mg PO Q12 [facility] Last Admin: 12/14/17 21:15 Dose: 750 mg - Labs Labs: 12/15/17 07:58 12/13/17 07:40 - Additional Findings Additional findings: - Constitutional Appears: Non-toxic, No Acute Distress - Head Exam Head Exam: ATRAUMATIC, NORMAL INSPECTION, NORMOCEPHALIC - Eye Exam Eye Exam: EOMI, Normal appearance Pupil Exam: NORMAL ACCOMODATION - ENT Exam ENT Exam: Mucous Membranes Moist - Respiratory Exam Respiratory Exam: Clear to Ausculation Bilateral, NORMAL BREATHING PATTERN. absent: Rales, Rhonchi, Wheezes, Stridor - Cardiovascular Exam Cardiovascular Exam: REGULAR RHYTHM, RRR, +S1, +S2 - GI/Abdominal Exam GI & Abdominal Exam: Distended, Soft, Tenderness (mild r sided abdominal tenderness ), Normal Bowel Sounds - Extremities Exam Extremities Exam: Full ROM, Normal Inspection. absent: Pedal Edema - Neurological Exam Neurological Exam: Alert, Awake, Oriented x3 - Psychiatric Exam Psychiatric exam: Normal Affect, Normal Mood - Skin Skin Exam: Intact, Normal Color, Warm Assessment and Plan - Assessment and Plan (Free Text) Assessment: (1) Complex partial epilepsy Assessment & Plan: Neurology (Wills) Depakote 750mg q12h monitor depakote level Head CT (11/11/17): no intracranial mass or hemorrhage. 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 Chronic white matter ischemic change. 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 Postinfectious/ postinflammatory cortical calcifications diffusely. As per Dr. Alejandro, these findings are probably chronic. Status: Chronic (2) AIDS Assessment & Plan: ID (Mangia) Hep Panel - negative Tivicay 50 mg PO daily Truvada 200-300 mg PO daily Bactrim DS po daily for Pneumocystis jirovecii prophylaxis History of AIDS dementia * Head CT (10/14/17): - Findings suspicious for mild hydrocephalus, cause not identified. Multiple calcifications in the brain bilaterally, most tiny in size , too numerous to count. The main differential considerations given the appearance include infectious processes, such as neurocysticercosis or tuberculosis, in the healed/calcified nodular stage Lexapro 10 mg PO HS Namenda 10 mg PO daily Status: Chronic (3) GRACE monitor creatinine IVF discontinued continue encourageing increased po water intake Status: Acute (4) Transaminitis downtrending hep panel negative Depakote level: 84.7 (12/08) Status: Acute (5) Constipation Assessment & Plan: f/u abd xray: prominent amount of retained stool Colace 100mg po TID dulcolax given prune juice BID increase po intake Status: Acute (6) Prophylactic measure Assessment & Plan: SCDs Heparin 5,000u [place] q8h Florastor BID PT Social Work consult Status: Acute Disposition: Insurance transferred to [place] (from [place]). Waiting for new information about insurance. Will wait for patient to be accepted to [facility] in [place]. no updates at this time. <Ibrahima Philipkarel Shea - Last Filed: 12/15/17 19:47> Objective - Vital Signs/Intake and Output Vital Signs (last 24 hours): Temp Pulse Resp BP Pulse Ox 99.0 F 88 20 124/88 97 12/15/17 15:20 12/15/17 15:20 12/15/17 15:20 12/15/17 15:20 12/15/17 15:20 - Medications Medications: Current Medications Docusate Sodium (Colace) 100 mg PO TID [facility] Last Admin: 12/15/17 18:36 Dose: 100 mg Dolutegravir Sodium (Tivicay) 50 mg PO DAILY [facility] PRN Reason: Protocol Last Admin: 12/15/17 10:45 Dose: 50 mg Emtricitabine/Tenofovir (Truvada 200 Mg-300 Mg) 1 tab PO DAILY [facility] PRN Reason: Protocol Last Admin: 12/15/17 10:45 Dose: 1 tab Escitalopram Oxalate (Lexapro) 10 mg PO HS [facility] Last Admin: 12/14/17 21:15 Dose: 10 mg Memantine (Namenda) 10 mg PO DAILY [facility] Last Admin: 12/15/17 10:51 Dose: 10 mg Saccharomyces Boulardii (Florastor) 250 mg PO BID [facility] Last Admin: 12/15/17 18:37 Dose: 250 mg Trimethoprim/Sulfamethoxazole (Bactrim Ds Tab) 1 tab PO Q12H [facility] PRN Reason: Protocol Last Admin: 12/15/17 18:36 Dose: 1 tab Valproate Sodium (Depakene Cap) 750 mg PO Q12 [facility] Last Admin: 12/15/17 10:45 Dose: 750 mg - Labs Labs: 12/15/17 07:58 12/15/17 07:58 Attending/Attestation - Attestation I have personally seen and examined this patient.: Yes I have fully participated in the care of the patient.: Yes I have reviewed all pertinent clinical information, including history, physical exam and plan: Yes Notes (Text): 12/15/17 19:44 Care of this patient was thoroughly discussed with the resident. Ambulation was encouraged. He explained to Neurology DRY CELL TESTER that he had not moved his bowels in 4 days while telling me that he moved his bowels night of 12/14/17. NO complaint of n/v. Colace 100 mg PO TID ordered. Will make sure patient gets Prune Juice daily. Sal[place] Philip D.O.
[2017-12-15 08:46] LABS: ALBUMIN 4.4 g/dL (3.5-5.0); CALCIUM 9.8 mg/dl (8.6-10.4)
--- NOTE | 2017-12-15 10:32 | RAD ---
HISTORY: abdominal distention COMPARISON: No prior. FINDINGS: BOWEL: Prominent amount of retained colonic stool. No obstruction. No free air. BONES: Normal. OTHER FINDINGS: None. IMPRESSION: Prominent amount of retained colonic stool.
[2017-12-15] MEDS: Emtricitabine-Tenofovir 200 mg-300 mg Tab PO SCH (10:45)
[2017-12-15] MEDS: Saccharomyces Boulardi 250 mg Cap PO SCH ×2 (10:51→18:37)
[2017-12-15] MEDS ORDERED: Bisacodyl 5mg EC Tab PO ONE ×2 (12:46→14:15)
[2017-12-16] MEDS: Tmp-Smz 800 mg-160 mg DS Tab PO SCH ×2 (08:23→19:47)
--- NOTE | 2017-12-16 08:49 | CP.PCM.PN ---
<DominiqueТатьяна L. - Last Filed: 12/16/17 08:49> Subjective - Date & Time of Evaluation Date of Evaluation: 12/16/17 Time of Evaluation: 07:00 - Subjective Subjective: PGY1- Medicine Note Patient seen and examined at bedside and in no acute distress. Patient has no complaints. Patient denies chest pain, abdominal pain, nausea, vomiting, diarrhea, constipation. Patient encouraged to drink more water. Objective - Vital Signs/Intake and Output Vital Signs (last 24 hours): Temp Pulse Resp BP Pulse Ox 98.3 F 77 20 104/70 96 12/16/17 08:22 12/16/17 08:22 12/16/17 08:22 12/16/17 08:22 12/16/17 08:22 Intake and Output: 12/16/17 12/16/17 06:59 18:59 Intake Total 0 Balance 0 - Medications Medications: Current Medications Docusate Sodium (Colace) 100 mg PO TID [facility] Last Admin: 12/15/17 18:36 Dose: 100 mg Dolutegravir Sodium (Tivicay) 50 mg PO DAILY [facility] PRN Reason: Protocol Last Admin: 12/15/17 10:45 Dose: 50 mg Emtricitabine/Tenofovir (Truvada 200 Mg-300 Mg) 1 tab PO DAILY [facility] PRN Reason: Protocol Last Admin: 12/15/17 10:45 Dose: 1 tab Escitalopram Oxalate (Lexapro) 10 mg PO HS [facility] Last Admin: 12/15/17 22:02 Dose: 10 mg Memantine (Namenda) 10 mg PO DAILY [facility] Last Admin: 12/15/17 10:51 Dose: 10 mg Saccharomyces Boulardii (Florastor) 250 mg PO BID [facility] Last Admin: 12/15/17 18:37 Dose: 250 mg Trimethoprim/Sulfamethoxazole (Bactrim Ds Tab) 1 tab PO Q12H [facility] PRN Reason: Protocol Last Admin: 12/16/17 08:23 Dose: 1 tab Valproate Sodium (Depakene Cap) 750 mg PO Q12 [facility] Last Admin: 12/15/17 21:24 Dose: 750 mg - Labs Labs: 12/15/17 07:58 12/15/17 07:58 - Additional Findings Additional findings: - Constitutional Appears: Non-toxic, No Acute Distress - Head Exam Head Exam: ATRAUMATIC, NORMAL INSPECTION, NORMOCEPHALIC - Eye Exam Eye Exam: EOMI, Normal appearance Pupil Exam: NORMAL ACCOMODATION - ENT Exam ENT Exam: Mucous Membranes Moist - Respiratory Exam Respiratory Exam: Clear to Ausculation Bilateral, NORMAL BREATHING PATTERN. absent: Rales, Rhonchi, Wheezes, Stridor - Cardiovascular Exam Cardiovascular Exam: REGULAR RHYTHM, RRR, +S1, +S2 - GI/Abdominal Exam GI & Abdominal Exam: Distended, Soft, Tenderness (mild r sided abdominal tenderness ), Normal Bowel Sounds - Extremities Exam Extremities Exam: Full ROM, Normal Inspection. absent: Pedal Edema - Neurological Exam Neurological Exam: Alert, Awake, Oriented x3 - Psychiatric Exam Psychiatric exam: Normal Affect, Normal Mood - Skin Skin Exam: Intact, Normal Color, Warm Assessment and Plan - Assessment and Plan (Free Text) Assessment: (1) Complex partial epilepsy Assessment & Plan: Neurology (Wills) Depakote 750mg q12h monitor depakote level Head CT (11/11/17): no intracranial mass or hemorrhage. 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 Chronic white matter ischemic change. 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 Postinfectious/ postinflammatory cortical calcifications diffusely. As per Dr. Alejandro, these findings are probably chronic. Status: Chronic (2) AIDS Assessment & Plan: ID (Mangia) Hep Panel - negative Tivicay 50 mg PO daily Truvada 200-300 mg PO daily Bactrim DS po daily for Pneumocystis jirovecii prophylaxis History of AIDS dementia * Head CT (10/14/17): - Findings suspicious for mild hydrocephalus, cause not identified. Multiple calcifications in the brain bilaterally, most tiny in size , too numerous to count. The main differential considerations given the appearance include infectious processes, such as neurocysticercosis or tuberculosis, in the healed/calcified nodular stage Lexapro 10 mg PO HS Namenda 10 mg PO daily Status: Chronic (3) GRACE monitor creatinine IVF discontinued continue encouraging increased po water intake Status: Acute (4) Transaminitis downtrending hep panel negative Depakote level: 60.5 (12/16) Status: Acute (5) Constipation Assessment & Plan: f/u abd xray: prominent amount of retained stool Colace 100mg po TID dulcolax given prune juice BID increase po intake of water Status: Acute (6) Prophylactic measure Assessment & Plan: SCDs Heparin 5,000u [place] q8h Florastor BID PT Social Work consult Status: Acute Disposition: Insurance transferred to [place] (from [place]). Waiting for new information about insurance. Will wait for patient to be accepted to [facility] in [place]. no updates at this time. <Salinas Philip - Last Filed: 12/16/17 14:59> Objective - Vital Signs/Intake and Output Vital Signs (last 24 hours): Temp Pulse Resp BP Pulse Ox 98.3 F 77 20 104/70 96 12/16/17 08:22 12/16/17 08:22 12/16/17 08:22 12/16/17 08:22 12/16/17 08:22 Intake and Output: 12/16/17 12/16/17 06:59 18:59 Intake Total 0 Balance 0 - Medications Medications: Current Medications Docusate Sodium (Colace) 100 mg PO TID [facility] Last Admin: 12/16/17 13:56 Dose: 100 mg Dolutegravir Sodium (Tivicay) 50 mg PO DAILY [facility] PRN Reason: Protocol Last Admin: 12/16/17 10:42 Dose: 50 mg Emtricitabine/Tenofovir (Truvada 200 Mg-300 Mg) 1 tab PO DAILY [facility] PRN Reason: Protocol Last Admin: 12/16/17 10:42 Dose: 1 tab Escitalopram Oxalate (Lexapro) 10 mg PO HS [facility] Last Admin: 12/15/17 22:02 Dose: 10 mg Heparin Sodium (Porcine) (Heparin) 5,000 units SC Q8 [facility] Last Admin: 12/16/17 13:56 Dose: 5,000 units Memantine (Namenda) 10 mg PO DAILY [facility] Last Admin: 12/16/17 10:26 Dose: 10 mg Saccharomyces Boulardii (Florastor) 250 mg PO BID [facility] Last Admin: 12/16/17 10:25 Dose: 250 mg Trimethoprim/Sulfamethoxazole (Bactrim Ds Tab) 1 tab PO Q12H [facility] PRN Reason: Protocol Last Admin: 12/16/17 08:23 Dose: 1 tab Valproate Sodium (Depakene Cap) 750 mg PO Q12 [facility] Last Admin: 12/16/17 10:42 Dose: 750 mg - Labs Labs: 12/15/17 07:58 12/16/17 10:01 Attending/Attestation - Attestation I have personally seen and examined this patient.: Yes I have fully participated in the care of the patient.: Yes I have reviewed all pertinent clinical information, including history, physical exam and plan: Yes Notes (Text): 12/16/17 14:58 Patient was seen and examined at 12:00 PM Exam, assessment and plan were discussed with resident. Patient stated that he had normal bowel movement. He was encouraged to drink plenty of water throughout the day. Repeat BMP in morning and if the Bun/Cr worsen will have to restart IVF. Salinas Philip D.O.
[2017-12-16 10:21] LABS: ALB/GLOB RATIO 1.1 (1.0-2.1); ALBUMIN 4.3 g/dL (3.5-5.0); CALCIUM 10.1 mg/dl (8.6-10.4)
[2017-12-16] MEDS: Saccharomyces Boulardi 250 mg Cap PO SCH ×2 (10:25→18:05)
[2017-12-16] MEDS: Emtricitabine-Tenofovir 200 mg-300 mg Tab PO SCH (10:42)
[2017-12-17 08:03] LABS: CALCIUM 9.8 mg/dl (8.6-10.4)
[2017-12-17] MEDS: Tmp-Smz 800 mg-160 mg DS Tab PO SCH ×2 (08:22→20:06)
--- NOTE | 2017-12-17 08:23 | CP.PCM.PN ---
Subjective - Date & Time of Evaluation Date of Evaluation: 12/17/17 Time of Evaluation: 08:23 - Subjective Subjective: Mr. Grey was seen and examined at the bedside. He is alert, awake, response to question in a slow pace. He denies any headache, dizziness, nausea, or vomiting. He is able to move all extremities and ambulate within his room without any problem. Seen eating his breakfast without any problem.Ecourage patient to increase PO intake.There was no untoward events overnight. Objective - Vital Signs/Intake and Output Vital Signs (last 24 hours): Temp Pulse Resp BP Pulse Ox 97.7 F 80 20 93/59 L 96 12/16/17 23:40 12/16/17 23:40 12/16/17 23:40 12/16/17 23:40 12/16/17 23:40 Intake and Output: 12/17/17 12/17/17 06:59 18:59 Intake Total 0 Balance 0 - Medications Medications: Current Medications Docusate Sodium (Colace) 100 mg PO TID [facility] Last Admin: 12/16/17 18:04 Dose: 100 mg Dolutegravir Sodium (Tivicay) 50 mg PO DAILY [facility] PRN Reason: Protocol Last Admin: 12/16/17 10:42 Dose: 50 mg Emtricitabine/Tenofovir (Truvada 200 Mg-300 Mg) 1 tab PO DAILY [facility] PRN Reason: Protocol Last Admin: 12/16/17 10:42 Dose: 1 tab Escitalopram Oxalate (Lexapro) 10 mg PO HS [facility] Last Admin: 12/16/17 22:24 Dose: 10 mg Heparin Sodium (Porcine) (Heparin) 5,000 units [place] Q8 [facility] Last Admin: 12/17/17 06:45 Dose: 5,000 units Memantine (Namenda) 10 mg PO DAILY [facility] Last Admin: 12/16/17 10:26 Dose: 10 mg Saccharomyces Boulardii (Florastor) 250 mg PO BID [facility] Last Admin: 12/16/17 18:05 Dose: 250 mg Trimethoprim/Sulfamethoxazole (Bactrim Ds Tab) 1 tab PO Q12H [facility] PRN Reason: Protocol Last Admin: 12/17/17 08:22 Dose: 1 tab Valproate Sodium (Depakene Cap) 750 mg PO Q12 [facility] Last Admin: 12/16/17 21:36 Dose: 750 mg - Labs Labs: 12/15/17 07:58 12/17/17 07:26 - Constitutional Appears: No Acute Distress - Head Exam Head Exam: NORMAL INSPECTION - Neurological Exam Neurological Exam: Alert, Awake Neuro motor strength exam: Left Upper Extremity: 5, Right Upper Extremity: 5, Left Lower Extremity: 5, Right Lower Extremity: 5 Additional comments: Neurological unchanged from previous examination. Assessment and Plan (1) Seizure Assessment & Plan: Case discussed with Dr. Wills, continue all current medical regimen. Recommend to monitor valproic level next week. Recommend to treat any electrolytes abnormalities. Status: Acute
--- NOTE | 2017-12-17 09:30 | CP.PCM.PN ---
<Татьяна Fox - Last Filed: 12/17/17 13:31> Subjective - Date & Time of Evaluation Date of Evaluation: 12/17/17 Time of Evaluation: 07:00 - Subjective Subjective: PGY1- Medicine Note Patient seen and examined at bedside and in no acute distress. Patient has no complaints. Patient denies chest pain, abdominal pain, nausea, vomiting, diarrhea, constipation. Patient encouraged to drink more water. Objective - Vital Signs/Intake and Output Vital Signs (last 24 hours): Temp Pulse Resp BP Pulse Ox 97.9 F 76 20 102/68 95 12/17/17 08:31 12/17/17 08:31 12/17/17 08:31 12/17/17 08:31 12/17/17 08:31 Intake and Output: 12/17/17 12/17/17 06:59 18:59 Intake Total 0 Balance 0 - Medications Medications: Current Medications Docusate Sodium (Colace) 100 mg PO TID [facility] Last Admin: 12/16/17 18:04 Dose: 100 mg Dolutegravir Sodium (Tivicay) 50 mg PO DAILY [facility] PRN Reason: Protocol Last Admin: 12/16/17 10:42 Dose: 50 mg Emtricitabine/Tenofovir (Truvada 200 Mg-300 Mg) 1 tab PO DAILY [facility] PRN Reason: Protocol Last Admin: 12/16/17 10:42 Dose: 1 tab Escitalopram Oxalate (Lexapro) 10 mg PO HS [facility] Last Admin: 12/16/17 22:24 Dose: 10 mg Heparin Sodium (Porcine) (Heparin) 5,000 units [place] Q8 [facility] Last Admin: 12/17/17 06:45 Dose: 5,000 units Memantine (Namenda) 10 mg PO DAILY [facility] Last Admin: 12/16/17 10:26 Dose: 10 mg Saccharomyces Boulardii (Florastor) 250 mg PO BID [facility] Last Admin: 12/16/17 18:05 Dose: 250 mg Trimethoprim/Sulfamethoxazole (Bactrim Ds Tab) 1 tab PO Q12H [facility] PRN Reason: Protocol Last Admin: 12/17/17 08:22 Dose: 1 tab Valproate Sodium (Depakene Cap) 750 mg PO Q12 [facility] Last Admin: 12/16/17 21:36 Dose: 750 mg - Labs Labs: 12/15/17 07:58 12/17/17 07:26 - Additional Findings Additional findings: - Constitutional Appears: Non-toxic, No Acute Distress - Head Exam Head Exam: ATRAUMATIC, NORMAL INSPECTION, NORMOCEPHALIC - Eye Exam Eye Exam: EOMI, Normal appearance Pupil Exam: NORMAL ACCOMODATION - ENT Exam ENT Exam: Mucous Membranes Moist - Respiratory Exam Respiratory Exam: Clear to Ausculation Bilateral, NORMAL BREATHING PATTERN. absent: Rales, Rhonchi, Wheezes, Stridor - Cardiovascular Exam Cardiovascular Exam: REGULAR RHYTHM, RRR, +S1, +S2 - GI/Abdominal Exam GI & Abdominal Exam: Distended, Soft, Tenderness (mild r sided abdominal tenderness ), Normal Bowel Sounds - Extremities Exam Extremities Exam: Full ROM, Normal Inspection. absent: Pedal Edema - Neurological Exam Neurological Exam: Alert, Awake, Oriented x3 - Psychiatric Exam Psychiatric exam: Normal Affect, Normal Mood - Skin Skin Exam: Intact, Normal Color, Warm Assessment and Plan - Assessment and Plan (Free Text) Assessment: (1) Complex partial epilepsy Assessment & Plan: Neurology (Wills) Depakote 750mg q12h monitor depakote level Head CT (11/11/17): no intracranial mass or hemorrhage. 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 Chronic white matter ischemic change. 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 Postinfectious/ postinflammatory cortical calcifications diffusely. As per Dr. Alejandro, these findings are probably chronic. Status: Chronic (2) AIDS Assessment & Plan: ID (Mangia) Hep Panel - negative Tivicay 50 mg PO daily Truvada 200-300 mg PO daily Bactrim DS po daily for Pneumocystis jirovecii prophylaxis History of AIDS dementia * Head CT (10/14/17): - Findings suspicious for mild hydrocephalus, cause not identified. Multiple calcifications in the brain bilaterally, most tiny in size , too numerous to count. The main differential considerations given the appearance include infectious processes, such as neurocysticercosis or tuberculosis, in the healed/calcified nodular stage Lexapro 10 mg PO HS Namenda 10 mg PO daily Status: Chronic (3) GRACE monitor creatinine IVF discontinued continue encouraging increased po water intake Status: Acute (4) Transaminitis downtrending hep panel negative Depakote level: 60.5 (12/16) Status: Acute (5) Constipation Assessment & Plan: f/u abd xray: prominent amount of retained stool Colace 100mg po TID dulcolax given prune juice BID increase po intake of water Status: Acute (6) Prophylactic measure Assessment & Plan: SCDs Heparin 5,000u [place] q8h Florastor BID PT Social Work consult Status: Acute Disposition: Insurance transferred to [place] (from [place]). Waiting for new information about insurance. Will wait for patient to be accepted to [facility] in [place]. no updates at this time. <Salinas Philip - Last Filed: 12/17/17 18:52> Objective - Vital Signs/Intake and Output Vital Signs (last 24 hours): Temp Pulse Resp BP Pulse Ox 98.5 F 77 20 133/75 95 12/17/17 15:15 12/17/17 15:15 12/17/17 15:15 12/17/17 15:15 12/17/17 15:15 Intake and Output: 12/17/17 12/17/17 06:59 18:59 Intake Total 0 Balance 0 - Medications Medications: Current Medications Docusate Sodium (Colace) 100 mg PO TID [facility] Last Admin: 12/17/17 18:05 Dose: 100 mg Dolutegravir Sodium (Tivicay) 50 mg PO DAILY [facility] PRN Reason: Protocol Last Admin: 12/17/17 10:08 Dose: 50 mg Emtricitabine/Tenofovir (Truvada 200 Mg-300 Mg) 1 tab PO DAILY [facility] PRN Reason: Protocol Last Admin: 12/17/17 10:09 Dose: 1 tab Escitalopram Oxalate (Lexapro) 10 mg PO HS [facility] Last Admin: 12/16/17 22:24 Dose: 10 mg Heparin Sodium (Porcine) (Heparin) 5,000 units [place] Q8 [facility] Last Admin: 12/17/17 14:25 Dose: 5,000 units Memantine (Namenda) 10 mg PO DAILY [facility] Last Admin: 12/17/17 10:08 Dose: 10 mg Saccharomyces Boulardii (Florastor) 250 mg PO BID [facility] Last Admin: 12/17/17 18:05 Dose: 250 mg Trimethoprim/Sulfamethoxazole (Bactrim Ds Tab) 1 tab PO Q12H [facility] PRN Reason: Protocol Last Admin: 12/17/17 08:22 Dose: 1 tab Valproate Sodium (Depakene Cap) 750 mg PO Q12 [facility] Last Admin: 12/17/17 10:08 Dose: 750 mg - Labs Labs: 12/15/17 07:58 12/17/17 07:26 Attending/Attestation - Attestation I have personally seen and examined this patient.: Yes I have fully participated in the care of the patient.: Yes I have reviewed all pertinent clinical information, including history, physical exam and plan: Yes
[2017-12-17] MEDS: Saccharomyces Boulardi 250 mg Cap PO SCH ×2 (10:09→18:05)
[2017-12-17] MEDS: Emtricitabine-Tenofovir 200 mg-300 mg Tab PO SCH (10:09)
--- NOTE | 2017-12-18 07:45 | CP.PCM.PN ---
<Татьяна Fox - Last Filed: 12/18/17 16:08> Subjective - Date & Time of Evaluation Date of Evaluation: 12/18/17 Time of Evaluation: 07:00 - Subjective Subjective: PGY1- Medicine Note Patient seen and examined at bedside and in no acute distress. Patient has no complaints. Patient denies chest pain, abdominal pain, nausea, vomiting, diarrhea, constipation. Patient encouraged to drink more water. Objective - Vital Signs/Intake and Output Vital Signs (last 24 hours): Temp Pulse Resp BP Pulse Ox 97.7 F 82 20 113/75 95 12/17/17 23:20 12/17/17 23:20 12/17/17 23:20 12/17/17 23:20 12/17/17 23:20 - Medications Medications: Current Medications Docusate Sodium (Colace) 100 mg PO TID [facility] Last Admin: 12/17/17 18:05 Dose: 100 mg Dolutegravir Sodium (Tivicay) 50 mg PO DAILY [facility] PRN Reason: Protocol Last Admin: 12/17/17 10:08 Dose: 50 mg Emtricitabine/Tenofovir (Truvada 200 Mg-300 Mg) 1 tab PO DAILY [facility] PRN Reason: Protocol Last Admin: 12/17/17 10:09 Dose: 1 tab Escitalopram Oxalate (Lexapro) 10 mg PO HS [facility] Last Admin: 12/17/17 21:55 Dose: 10 mg Heparin Sodium (Porcine) (Heparin) 5,000 units SC Q8 [facility] Last Admin: 12/18/17 05:13 Dose: 5,000 units Memantine (Namenda) 10 mg PO DAILY [facility] Last Admin: 12/17/17 10:08 Dose: 10 mg Saccharomyces Boulardii (Florastor) 250 mg PO BID [facility] Last Admin: 12/17/17 18:05 Dose: 250 mg Trimethoprim/Sulfamethoxazole (Bactrim Ds Tab) 1 tab PO Q12H [facility] PRN Reason: Protocol Last Admin: 12/17/17 20:06 Dose: 1 tab Valproate Sodium (Depakene Cap) 750 mg PO Q12 [facility] Last Admin: 12/17/17 21:55 Dose: 750 mg - Labs Labs: 12/15/17 07:58 12/17/17 07:26 - Additional Findings Additional findings: - Constitutional Appears: Non-toxic, No Acute Distress - Head Exam Head Exam: ATRAUMATIC, NORMAL INSPECTION, NORMOCEPHALIC - Eye Exam Eye Exam: EOMI, Normal appearance Pupil Exam: NORMAL ACCOMODATION - ENT Exam ENT Exam: Mucous Membranes Moist - Respiratory Exam Respiratory Exam: Clear to Ausculation Bilateral, NORMAL BREATHING PATTERN. absent: Rales, Rhonchi, Wheezes, Stridor - Cardiovascular Exam Cardiovascular Exam: REGULAR RHYTHM, RRR, +S1, +S2 - GI/Abdominal Exam GI & Abdominal Exam: Distended, Soft, Tenderness (mild r sided abdominal tenderness ), Normal Bowel Sounds - Extremities Exam Extremities Exam: Full ROM, Normal Inspection. absent: Pedal Edema - Neurological Exam Neurological Exam: Alert, Awake, Oriented x3 - Psychiatric Exam Psychiatric exam: Normal Affect, Normal Mood - Skin Skin Exam: Intact, Normal Color, Warm Assessment and Plan - Assessment and Plan (Free Text) Assessment: (1) Complex partial epilepsy Assessment & Plan: Neurology (Wills) Depakote 750mg q12h monitor depakote level Head CT (11/11/17): no intracranial mass or hemorrhage. 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 Chronic white matter ischemic change. 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 Postinfectious/ postinflammatory cortical calcifications diffusely. As per Dr. Alejandro, these findings are probably chronic. Status: Chronic (2) AIDS Assessment & Plan: ID (Mangia) Hep Panel - negative Tivicay 50 mg PO daily Truvada 200-300 mg PO daily Bactrim DS po daily for Pneumocystis jirovecii prophylaxis History of AIDS dementia * Head CT (10/14/17): - Findings suspicious for mild hydrocephalus, cause not identified. Multiple calcifications in the brain bilaterally, most tiny in size , too numerous to count. The main differential considerations given the appearance include infectious processes, such as neurocysticercosis or tuberculosis, in the healed/calcified nodular stage Lexapro 10 mg PO HS Namenda 10 mg PO daily Status: Chronic (3) GRACE monitor creatinine IVF discontinued continue encouraging increased po water intake Status: Acute (4) Transaminitis downtrending hep panel negative Depakote level: 60.5 (12/16) Status: Acute (5) Constipation Assessment & Plan: f/u abd xray: prominent amount of retained stool Colace 100mg po TID dulcolax given prune juice BID increase po intake of water Status: Acute (6) Prophylactic measure Assessment & Plan: SCDs Heparin 5,000u SC q8h Florastor BID PT Social Work consult Status: Acute Disposition: Insurance transferred to [place] (from [place]). Waiting for new information about insurance. Will wait for patient to be accepted to [facility] in [place]. no updates at this time. <Salinas Philip - Last Filed: 12/18/17 18:34> Objective - Vital Signs/Intake and Output Vital Signs (last 24 hours): Temp Pulse Resp BP Pulse Ox 98.1 F 74 18 111/72 97 12/18/17 15:37 12/18/17 15:37 12/18/17 15:37 12/18/17 15:37 12/18/17 15:37 - Medications Medications: Current Medications Docusate Sodium (Colace) 100 mg PO TID [facility] Last Admin: 12/18/17 17:19 Dose: 100 mg Dolutegravir Sodium (Tivicay) 50 mg PO DAILY [facility] PRN Reason: Protocol Last Admin: 12/18/17 09:42 Dose: 50 mg Emtricitabine/Tenofovir (Truvada 200 Mg-300 Mg) 1 tab PO DAILY [facility] PRN Reason: Protocol Last Admin: 12/18/17 09:41 Dose: 1 tab Escitalopram Oxalate (Lexapro) 10 mg PO HS [facility] Last Admin: 12/17/17 21:55 Dose: 10 mg Heparin Sodium (Porcine) (Heparin) 5,000 units SC Q8 [facility] Last Admin: 12/18/17 14:20 Dose: 5,000 units Memantine (Namenda) 10 mg PO DAILY [facility] Last Admin: 12/18/17 09:42 Dose: 10 mg Saccharomyces Boulardii (Florastor) 250 mg PO BID [facility] Last Admin: 12/18/17 17:19 Dose: 250 mg Trimethoprim/Sulfamethoxazole (Bactrim Ds Tab) 1 tab PO Q12H [facility] PRN Reason: Protocol Last Admin: 12/18/17 09:36 Dose: 1 tab Valproate Sodium (Depakene Cap) 750 mg PO Q12 [facility] Last Admin: 12/18/17 09:39 Dose: 750 mg - Labs Labs: 12/15/17 07:58 12/17/17 07:26 Attending/Attestation - Attestation I have personally seen and examined this patient.: Yes I have fully participated in the care of the patient.: Yes I have reviewed all pertinent clinical information, including history, physical exam and plan: Yes Notes (Text): 12/18/17 18:32 Patient was seen and examined at 8:30 AM Exam, assessment and plan were gone over with the resident. Salinas Philip D.O.
--- NOTE | 2017-12-18 08:01 | CP.PCM.PN ---
Subjective - Date & Time of Evaluation Date of Evaluation: 12/18/17 Time of Evaluation: 08:01 - Subjective Subjective: Mr. Grey was seen and examined at the bedside. He is alert, awake, response to question in a slow pace. He denies any headache, dizziness, nausea, or vomiting. He is able to move all extremities and ambulate within his room without any problem. Encourage patient to increase PO intake.There was no untoward events overnight. Objective - Vital Signs/Intake and Output Vital Signs (last 24 hours): Temp Pulse Resp BP Pulse Ox 97.7 F 82 20 113/75 95 12/17/17 23:20 12/17/17 23:20 12/17/17 23:20 12/17/17 23:20 12/17/17 23:20 - Medications Medications: Current Medications Docusate Sodium (Colace) 100 mg PO TID [facility] Last Admin: 12/17/17 18:05 Dose: 100 mg Dolutegravir Sodium (Tivicay) 50 mg PO DAILY [facility] PRN Reason: Protocol Last Admin: 12/17/17 10:08 Dose: 50 mg Emtricitabine/Tenofovir (Truvada 200 Mg-300 Mg) 1 tab PO DAILY [facility] PRN Reason: Protocol Last Admin: 12/17/17 10:09 Dose: 1 tab Escitalopram Oxalate (Lexapro) 10 mg PO HS [facility] Last Admin: 12/17/17 21:55 Dose: 10 mg Heparin Sodium (Porcine) (Heparin) 5,000 units SC Q8 [facility] Last Admin: 12/18/17 05:13 Dose: 5,000 units Memantine (Namenda) 10 mg PO DAILY [facility] Last Admin: 12/17/17 10:08 Dose: 10 mg Saccharomyces Boulardii (Florastor) 250 mg PO BID [facility] Last Admin: 12/17/17 18:05 Dose: 250 mg Trimethoprim/Sulfamethoxazole (Bactrim Ds Tab) 1 tab PO Q12H [facility] PRN Reason: Protocol Last Admin: 12/17/17 20:06 Dose: 1 tab Valproate Sodium (Depakene Cap) 750 mg PO Q12 [facility] Last Admin: 12/17/17 21:55 Dose: 750 mg - Labs Labs: 12/15/17 07:58 12/17/17 07:26 - Constitutional Appears: No Acute Distress - Head Exam Head Exam: NORMAL INSPECTION - Neurological Exam Neurological Exam: Alert, Awake Neuro motor strength exam: Left Upper Extremity: 5, Right Upper Extremity: 5, Left Lower Extremity: 5, Right Lower Extremity: 5 Additional comments: Neurological unchanged from previous examination. Assessment and Plan (1) Seizure Assessment & Plan: Case discussed with Dr. Wills, continue all current medical regimen. Recommend to treat any electrolytes abnormalities. Status: Acute
[2017-12-18] MEDS: Tmp-Smz 800 mg-160 mg DS Tab PO SCH ×2 (09:36→19:29)
[2017-12-18] MEDS: Emtricitabine-Tenofovir 200 mg-300 mg Tab PO SCH (09:41)
[2017-12-18] MEDS: Saccharomyces Boulardi 250 mg Cap PO SCH ×2 (09:41→17:19)
[2017-12-19] MEDS: Tmp-Smz 800 mg-160 mg DS Tab PO SCH ×2 (06:39→19:36)
[2017-12-19 08:13] LABS: CALCIUM 9.7 mg/dl (8.6-10.4)
--- NOTE | 2017-12-19 08:42 | CP.PCM.PN ---
<Татьяна Fox - Last Filed: 12/19/17 15:48> Subjective - Date & Time of Evaluation Date of Evaluation: 12/19/17 Time of Evaluation: 07:00 - Subjective Subjective: PGY1- Medicine Note Patient seen and examined at bedside and in no acute distress. Patient has no complaints. Patient denies chest pain, abdominal pain, nausea, vomiting, diarrhea, constipation. Patient encouraged to drink more water. No overnight events. Objective - Vital Signs/Intake and Output Vital Signs (last 24 hours): Temp Pulse Resp BP Pulse Ox 98.2 F 70 20 111/76 95 12/19/17 07:00 12/19/17 07:00 12/19/17 07:00 12/19/17 07:00 12/19/17 07:00 Intake and Output: 12/19/17 12/19/17 06:59 18:59 Intake Total 0 Balance 0 - Medications Medications: Current Medications Docusate Sodium (Colace) 100 mg PO TID [facility] Last Admin: 12/18/17 17:19 Dose: 100 mg Dolutegravir Sodium (Tivicay) 50 mg PO DAILY [facility] PRN Reason: Protocol Last Admin: 12/18/17 09:42 Dose: 50 mg Emtricitabine/Tenofovir (Truvada 200 Mg-300 Mg) 1 tab PO DAILY [facility] PRN Reason: Protocol Last Admin: 12/18/17 09:41 Dose: 1 tab Escitalopram Oxalate (Lexapro) 10 mg PO HS [facility] Last Admin: 12/18/17 21:19 Dose: 10 mg Heparin Sodium (Porcine) (Heparin) 5,000 units SC Q8 [facility] Last Admin: 12/19/17 06:39 Dose: 5,000 units Memantine (Namenda) 10 mg PO DAILY [facility] Last Admin: 12/18/17 09:42 Dose: 10 mg Saccharomyces Boulardii (Florastor) 250 mg PO BID [facility] Last Admin: 12/18/17 17:19 Dose: 250 mg Trimethoprim/Sulfamethoxazole (Bactrim Ds Tab) 1 tab PO Q12H [facility] PRN Reason: Protocol Last Admin: 12/19/17 06:39 Dose: 1 tab Valproate Sodium (Depakene Cap) 750 mg PO Q12 [facility] Last Admin: 12/18/17 21:19 Dose: 750 mg - Labs Labs: 12/15/17 07:58 12/19/17 07:35 - Additional Findings Additional findings: - Constitutional Appears: Non-toxic, No Acute Distress - Head Exam Head Exam: ATRAUMATIC, NORMAL INSPECTION, NORMOCEPHALIC - Eye Exam Eye Exam: EOMI, Normal appearance Pupil Exam: NORMAL ACCOMODATION - ENT Exam ENT Exam: Mucous Membranes Moist - Respiratory Exam Respiratory Exam: Clear to Ausculation Bilateral, NORMAL BREATHING PATTERN. absent: Rales, Rhonchi, Wheezes, Stridor - Cardiovascular Exam Cardiovascular Exam: REGULAR RHYTHM, RRR, +S1, +S2 - GI/Abdominal Exam GI & Abdominal Exam: Distended, Soft, Tenderness (mild r sided abdominal tenderness ), Normal Bowel Sounds - Extremities Exam Extremities Exam: Full ROM, Normal Inspection. absent: Pedal Edema - Neurological Exam Neurological Exam: Alert, Awake, Oriented x3 - Psychiatric Exam Psychiatric exam: Normal Affect, Normal Mood - Skin Skin Exam: Intact, Normal Color, Warm Assessment and Plan - Assessment and Plan (Free Text) Assessment: (1) Complex partial epilepsy Assessment & Plan: Neurology (Wills) Depakote 750mg q12h monitor depakote level Head CT (11/11/17): no intracranial mass or hemorrhage. 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 Chronic white matter ischemic change. 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 Postinfectious/ postinflammatory cortical calcifications diffusely. As per Dr. Alejandro, these findings are probably chronic. Status: Chronic (2) AIDS Assessment & Plan: ID (Mangia) Hep Panel - negative Tivicay 50 mg PO daily Truvada 200-300 mg PO daily Bactrim DS po daily for Pneumocystis jirovecii prophylaxis History of AIDS dementia * Head CT (10/14/17): - Findings suspicious for mild hydrocephalus, cause not identified. Multiple calcifications in the brain bilaterally, most tiny in size , too numerous to count. The main differential considerations given the appearance include infectious processes, such as neurocysticercosis or tuberculosis, in the healed/calcified nodular stage Lexapro 10 mg PO HS Namenda 10 mg PO daily Status: Chronic (3) GRACE monitor creatinine IVF discontinued continue encouraging increased po water intake Status: Acute (4) Transaminitis downtrending hep panel negative Depakote level: 60.5 (12/16) Status: Acute (5) Constipation Assessment & Plan: f/u abd xray: prominent amount of retained stool Colace 100mg po TID dulcolax given prune juice BID increase po intake of water Status: Acute (6) Prophylactic measure Assessment & Plan: SCDs Heparin 5,000u SC q8h Florastor BID PT Social Work consult Status: Acute Disposition: Insurance transferred to [place] (from [place]). Waiting for new information about insurance. [facility] in [place] will not accept patient's insurance. Awaiting approval from [facility]. <Salinas Philip - Last Filed: 12/19/17 18:31> Objective - Vital Signs/Intake and Output Vital Signs (last 24 hours): Temp Pulse Resp BP Pulse Ox 98.1 F 71 18 120/80 95 12/19/17 15:52 12/19/17 15:52 12/19/17 15:52 12/19/17 15:52 12/19/17 15:52 Intake and Output: 12/19/17 12/19/17 06:59 18:59 Intake Total 0 400 Balance 0 400 - Medications Medications: Current Medications Docusate Sodium (Colace) 100 mg PO TID [facility] Last Admin: 12/19/17 17:55 Dose: 100 mg Dolutegravir Sodium (Tivicay) 50 mg PO DAILY [facility] PRN Reason: Protocol Last Admin: 12/19/17 09:45 Dose: 50 mg Emtricitabine/Tenofovir (Truvada 200 Mg-300 Mg) 1 tab PO DAILY [facility] PRN Reason: Protocol Last Admin: 12/19/17 09:45 Dose: 1 tab Escitalopram Oxalate (Lexapro) 10 mg PO HS [facility] Last Admin: 12/18/17 21:19 Dose: 10 mg Heparin Sodium (Porcine) (Heparin) 5,000 units SC Q8 [facility] Last Admin: 12/19/17 13:22 Dose: 5,000 units Memantine (Namenda) 10 mg PO DAILY [facility] Last Admin: 12/19/17 09:45 Dose: 10 mg Saccharomyces Boulardii (Florastor) 250 mg PO BID [facility] Last Admin: 12/19/17 17:56 Dose: 250 mg Trimethoprim/Sulfamethoxazole (Bactrim Ds Tab) 1 tab PO Q12H [facility] PRN Reason: Protocol Last Admin: 12/19/17 06:39 Dose: 1 tab Valproate Sodium (Depakene Cap) 750 mg PO Q12 [facility] Last Admin: 12/19/17 09:45 Dose: 750 mg - Labs Labs: 12/15/17 07:58 12/19/17 07:35 Attending/Attestation - Attestation I have personally seen and examined this patient.: Yes I have fully participated in the care of the patient.: Yes I have reviewed all pertinent clinical information, including history, physical exam and plan: Yes Notes (Text): 12/19/17 18:26 Patient was seen and examined at 7:45 AM Exam, assessment and plan were gone over with the resident. Tableau Analyst Keiko has informed me that [facility] is likely not going to be able to take patient due to insurance issues. She is working towards terminal operations supervisor placement with [facility] and stated that she will place paperwork to be completed by Medicine Team in the patient chart. Salinas Philip D.O.
[2017-12-19] MEDS: Emtricitabine-Tenofovir 200 mg-300 mg Tab PO SCH (09:45)
[2017-12-19] MEDS: Saccharomyces Boulardi 250 mg Cap PO SCH ×2 (09:45→17:56)
--- NOTE | 2017-12-19 20:29 | CP.PCM.PN ---
<Pallavi Sahu - Last Filed: 12/20/17 06:05> Subjective - Date & Time of Evaluation Date of Evaluation: 12/20/17 Time of Evaluation: 06:00 - Subjective Subjective: Medicine Progress Note: Patient seen and examined at bedside in the AM and in no acute distress. Patient has no complaints. Patient denies chest pain, abdominal pain, nausea, vomiting, diarrhea, constipation. Patient encouraged to drink more water. No overnight events. Objective - Vital Signs/Intake and Output Vital Signs (last 24 hours): Temp Pulse Resp BP Pulse Ox 98.1 F 71 18 120/80 95 12/19/17 15:52 12/19/17 15:52 12/19/17 15:52 12/19/17 15:52 12/19/17 15:52 Intake and Output: 12/19/17 12/20/17 18:59 06:59 Intake Total 400 Balance 400 - Medications Medications: Current Medications Docusate Sodium (Colace) 100 mg PO TID [facility] Last Admin: 12/19/17 17:55 Dose: 100 mg Dolutegravir Sodium (Tivicay) 50 mg PO DAILY [facility] PRN Reason: Protocol Last Admin: 12/19/17 09:45 Dose: 50 mg Emtricitabine/Tenofovir (Truvada 200 Mg-300 Mg) 1 tab PO DAILY [facility] PRN Reason: Protocol Last Admin: 12/19/17 09:45 Dose: 1 tab Escitalopram Oxalate (Lexapro) 10 mg PO HS [facility] Last Admin: 12/18/17 21:19 Dose: 10 mg Heparin Sodium (Porcine) (Heparin) 5,000 units SC Q8 [facility] Last Admin: 12/19/17 13:22 Dose: 5,000 units Memantine (Namenda) 10 mg PO DAILY [facility] Last Admin: 12/19/17 09:45 Dose: 10 mg Saccharomyces Boulardii (Florastor) 250 mg PO BID [facility] Last Admin: 12/19/17 17:56 Dose: 250 mg Trimethoprim/Sulfamethoxazole (Bactrim Ds Tab) 1 tab PO Q12H [facility] PRN Reason: Protocol Last Admin: 12/19/17 19:36 Dose: 1 tab Valproate Sodium (Depakene Cap) 750 mg PO Q12 [facility] Last Admin: 12/19/17 09:45 Dose: 750 mg - Labs Labs: 12/15/17 07:58 12/19/17 07:35 - Constitutional Appears: Non-toxic, No Acute Distress - Head Exam Head Exam: ATRAUMATIC, NORMAL INSPECTION - Eye Exam Eye Exam: EOMI, Normal appearance - Respiratory Exam Respiratory Exam: Clear to Ausculation Bilateral, NORMAL BREATHING PATTERN - Cardiovascular Exam Cardiovascular Exam: REGULAR RHYTHM, +S1, +S2 - GI/Abdominal Exam GI & Abdominal Exam: Soft, Normal Bowel Sounds - Extremities Exam Extremities Exam: Normal Inspection - Neurological Exam Neurological Exam: Alert, Awake, Oriented x3 - Psychiatric Exam Psychiatric exam: Normal Affect, Normal Mood Assessment and Plan - Assessment and Plan (Free Text) Assessment: (1) Complex partial epilepsy Assessment & Plan: Neurology (Wills) Depakote 750mg q12h monitor depakote level Head CT (11/11/17): no intracranial mass or hemorrhage. 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 Chronic white matter ischemic change. 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 Postinfectious/ postinflammatory cortical calcifications diffusely. As per Dr. Alejandro, these findings are probably chronic. Status: Chronic (2) AIDS Assessment & Plan: ID (Mangia) Hep Panel - negative Tivicay 50 mg PO daily Truvada 200-300 mg PO daily Bactrim DS po daily for Pneumocystis jirovecii prophylaxis History of AIDS dementia * Head CT (10/14/17): - Findings suspicious for mild hydrocephalus, cause not identified. Multiple calcifications in the brain bilaterally, most tiny in size , too numerous to count. The main differential considerations given the appearance include infectious processes, such as neurocysticercosis or tuberculosis, in the healed/calcified nodular stage Lexapro 10 mg PO HS Namenda 10 mg PO daily Status: Chronic (3) GRACE monitor creatinine IVF discontinued continue encouraging increased po water intake Status: Acute (4) Transaminitis downtrending hep panel negative Depakote level: 60.5 (12/16) Status: Acute (5) Constipation Assessment & Plan: f/u abd xray: prominent amount of retained stool Colace 100mg po TID dulcolax given prune juice BID increase po intake of water Status: Acute (6) Prophylactic measure Assessment & Plan: SCDs Heparin 5,000u SC q8h Florastor BID PT Social Work consult Status: Acute Disposition: Insurance transferred to [place] (from [place]). Waiting for new information about insurance. [facility] in [place] will not accept patient's insurance. Awaiting approval from [facility]. <Salinas Philip - Last Filed: 12/20/17 10:15> Objective - Vital Signs/Intake and Output Vital Signs (last 24 hours): Temp Pulse Resp BP Pulse Ox 98.6 F 83 20 130/89 97 12/20/17 08:52 12/20/17 08:52 12/20/17 08:52 12/20/17 08:52 12/20/17 08:52 Intake and Output: 12/20/17 12/20/17 06:59 18:59 Intake Total 720 Output Total 525 Balance 195 - Medications Medications: Current Medications Docusate Sodium (Colace) 100 mg PO TID [facility] Last Admin: 12/20/17 09:46 Dose: 100 mg Dolutegravir Sodium (Tivicay) 50 mg PO DAILY [facility] PRN Reason: Protocol Last Admin: 12/20/17 09:46 Dose: 50 mg Emtricitabine/Tenofovir (Truvada 200 Mg-300 Mg) 1 tab PO DAILY [facility] PRN Reason: Protocol Last Admin: 12/20/17 09:46 Dose: 1 tab Escitalopram Oxalate (Lexapro) 10 mg PO HS [facility] Last Admin: 12/19/17 21:38 Dose: 10 mg Heparin Sodium (Porcine) (Heparin) 5,000 units SC Q8 [facility] Last Admin: 12/20/17 06:48 Dose: 5,000 units Memantine (Namenda) 10 mg PO DAILY [facility] Last Admin: 12/20/17 09:46 Dose: 10 mg Saccharomyces Boulardii (Florastor) 250 mg PO BID [facility] Last Admin: 12/20/17 09:46 Dose: 250 mg Trimethoprim/Sulfamethoxazole (Bactrim Ds Tab) 1 tab PO Q12H [facility] PRN Reason: Protocol Last Admin: 12/20/17 06:50 Dose: 1 tab Valproate Sodium (Depakene Cap) 750 mg PO Q12 [facility] Last Admin: 12/20/17 09:46 Dose: 750 mg - Labs Labs: 12/15/17 07:58 12/19/17 07:35 Attending/Attestation - Attestation I have personally seen and examined this patient.: Yes I have fully participated in the care of the patient.: Yes I have reviewed all pertinent clinical information, including history, physical exam and plan: Yes
[2017-12-20] MEDS: Tmp-Smz 800 mg-160 mg DS Tab PO SCH ×2 (06:50→18:46)
[2017-12-20] MEDS: Emtricitabine-Tenofovir 200 mg-300 mg Tab PO SCH (09:46)
[2017-12-20] MEDS: Saccharomyces Boulardi 250 mg Cap PO SCH ×2 (09:46→17:30)
--- NOTE | 2017-12-20 22:03 | CP.PCM.PN ---
<Luis AlbertoPallavi PeytonOsvaldo - Last Filed: 12/21/17 07:13> Subjective - Date & Time of Evaluation Date of Evaluation: 12/21/17 Time of Evaluation: 06:00 - Subjective Subjective: Medicine Progress Note: Patient seen and examined at bedside in the AM and in no acute distress. Patient has no complaints. Patient denies chest pain, abdominal pain, nausea, vomiting, diarrhea, constipation. Patient encouraged to drink more water. No overnight events. Objective - Vital Signs/Intake and Output Vital Signs (last 24 hours): Temp Pulse Resp BP Pulse Ox 98.4 F 88 20 142/92 H 95 12/20/17 15:05 12/20/17 15:05 12/20/17 15:05 12/20/17 15:05 12/20/17 15:05 - Medications Medications: Current Medications Docusate Sodium (Colace) 100 mg PO TID [facility] Last Admin: 12/20/17 17:30 Dose: 100 mg Dolutegravir Sodium (Tivicay) 50 mg PO DAILY [facility] PRN Reason: Protocol Last Admin: 12/20/17 09:46 Dose: 50 mg Emtricitabine/Tenofovir (Truvada 200 Mg-300 Mg) 1 tab PO DAILY [facility] PRN Reason: Protocol Last Admin: 12/20/17 09:46 Dose: 1 tab Escitalopram Oxalate (Lexapro) 10 mg PO HS [facility] Last Admin: 12/20/17 21:35 Dose: 10 mg Heparin Sodium (Porcine) (Heparin) 5,000 units SC Q8 [facility] Last Admin: 12/20/17 21:35 Dose: 5,000 units Memantine (Namenda) 10 mg PO DAILY [facility] Last Admin: 12/20/17 09:46 Dose: 10 mg Saccharomyces Boulardii (Florastor) 250 mg PO BID [facility] Last Admin: 12/20/17 17:30 Dose: 250 mg Trimethoprim/Sulfamethoxazole (Bactrim Ds Tab) 1 tab PO Q12H [facility] PRN Reason: Protocol Last Admin: 12/20/17 18:46 Dose: 1 tab Valproate Sodium (Depakene Cap) 750 mg PO Q12 [facility] Last Admin: 12/20/17 21:35 Dose: 750 mg - Labs Labs: 12/15/17 07:58 12/19/17 07:35 - Constitutional Appears: Non-toxic, No Acute Distress - Head Exam Head Exam: ATRAUMATIC, NORMAL INSPECTION - Eye Exam Eye Exam: EOMI, Normal appearance - ENT Exam ENT Exam: Mucous Membranes Moist - Respiratory Exam Respiratory Exam: Clear to Ausculation Bilateral, NORMAL BREATHING PATTERN - Cardiovascular Exam Cardiovascular Exam: REGULAR RHYTHM, +S1, +S2 - GI/Abdominal Exam GI & Abdominal Exam: Soft, Normal Bowel Sounds. absent: Tenderness - Extremities Exam Extremities Exam: Normal Inspection - Neurological Exam Neurological Exam: Alert, Awake - Psychiatric Exam Psychiatric exam: Normal Affect Assessment and Plan - Assessment and Plan (Free Text) Assessment: (1) Complex partial epilepsy Assessment & Plan: Neurology ([facility]) Depakote 750mg q12h f/u depakote level Friday12/22/[address] (11/11/17): no intracranial mass or hemorrhage. 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 Chronic white matter ischemic change. 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 Postinfectious/ postinflammatory cortical calcifications diffusely. As per Dr. Alejandro, these findings are probably chronic. Status: Chronic (2) AIDS Assessment & Plan: ID ([facility]) Hep Panel - negative Tivicay 50 mg PO daily Truvada 200-300 mg PO daily Bactrim DS po daily for Pneumocystis jirovecii prophylaxis History of AIDS dementia * Head CT (10/14/17): - Findings suspicious for mild hydrocephalus, cause not identified. Multiple calcifications in the brain bilaterally, most tiny in size , too numerous to count. The main differential considerations given the appearance include infectious processes, such as neurocysticercosis or tuberculosis, in the healed/calcified nodular stage Lexapro 10 mg PO HS Namenda 10 mg PO daily Status: Chronic (3) GRACE monitor creatinine IVF discontinued continue encouraging increased po water intake Status: Acute (4) Transaminitis downtrending hep panel negative Depakote level: 60.5 (12/16) Status: Acute (5) Constipation Assessment & Plan: f/u abd xray: prominent amount of retained stool Colace 100mg po TID dulcolax given prune juice BID increase po intake of water Status: Acute (6) Prophylactic measure Assessment & Plan: SCDs Heparin 5,000u SC q8h Florastor BID PT Social Work consult Status: Acute Disposition: Insurance transferred to [place] (from [place]). Waiting for new information about insurance. [facility] in [place] will not accept patient's insurance. Awaiting approval from [facility]. <Salinas Philip - Last Filed: 12/21/17 22:06> Objective - Vital Signs/Intake and Output Vital Signs (last 24 hours): Temp Pulse Resp BP Pulse Ox 98.3 F 80 20 113/78 96 12/21/17 16:30 12/21/17 16:30 12/21/17 16:30 12/21/17 16:30 12/21/17 16:30 Intake and Output: 12/21/17 12/22/17 18:59 06:59 Intake Total 400 Balance 400 - Medications Medications: Current Medications Docusate Sodium (Colace) 100 mg PO TID [facility] Last Admin: 12/21/17 17:39 Dose: 100 mg Dolutegravir Sodium (Tivicay) 50 mg PO DAILY [facility] PRN Reason: Protocol Last Admin: 12/21/17 10:30 Dose: 50 mg Emtricitabine/Tenofovir (Truvada 200 Mg-300 Mg) 1 tab PO DAILY [facility] PRN Reason: Protocol Last Admin: 12/21/17 10:30 Dose: 1 tab Escitalopram Oxalate (Lexapro) 10 mg PO HS [facility] Last Admin: 12/21/17 21:36 Dose: 10 mg Heparin Sodium (Porcine) (Heparin) 5,000 units SC Q8 [facility] Last Admin: 12/21/17 21:36 Dose: 5,000 units Memantine (Namenda) 10 mg PO DAILY [facility] Last Admin: 12/21/17 10:29 Dose: 10 mg Saccharomyces Boulardii (Florastor) 250 mg PO BID [facility] Last Admin: 12/21/17 17:39 Dose: 250 mg Trimethoprim/Sulfamethoxazole (Bactrim Ds Tab) 1 tab PO Q12H [facility] PRN Reason: Protocol Last Admin: 12/21/17 19:35 Dose: 1 tab Valproate Sodium (Depakene Cap) 750 mg PO Q12 [facility] Last Admin: 12/21/17 21:36 Dose: 750 mg - Labs Labs: 12/15/17 07:58 12/19/17 07:35 Attending/Attestation - Attestation I have personally seen and examined this patient.: Yes I have fully participated in the care of the patient.: Yes I have reviewed all pertinent clinical information, including history, physical exam and plan: Yes Notes (Text): 12/21/17 22:05 Patient was seen and examined at 8:00 AM Medicine Team: please complete paperwork for placement at [facility]. Garage Hand Keiko to place this paperwork in front of chart. Salinas Philip D.O.
[2017-12-21] MEDS: Tmp-Smz 800 mg-160 mg DS Tab PO SCH ×2 (06:57→19:35)
[2017-12-21] MEDS: Saccharomyces Boulardi 250 mg Cap PO SCH ×2 (10:29→17:39)
[2017-12-21] MEDS: Emtricitabine-Tenofovir 200 mg-300 mg Tab PO SCH (10:30)
[2017-12-22 06:29] LABS: ALB/GLOB RATIO 1.2 (1.0-2.1); ALBUMIN 4.6 g/dL (3.5-5.0); CALCIUM 9.3 mg/dl (8.6-10.4)
[2017-12-22 06:30] LABS: BASO % 0.6 % (0.0-2.0); EOS # 0.3 K/uL (0.0-0.7); EOS % 4.6 % (0.0-4.0); HEMOGLOBIN 14.6 g/dL (12.0-18.0); LYMPH # 2.5 K/uL (1.0-4.3); LYMPH % 43.5 % (20.0-40.0); MEAN CELL VOLUME 97.2 fL (80.0-94.0); MEAN CORPUSCULAR HEMOGLOBIN 33.8 pg (27.0-31.0); MEAN CORPUSCULAR HGB CONC 34.7 g/dL (33.0-37.0); MEAN PLATELET VOLUME 8.7 fL (7.2-11.7); MONO # 0.7 K/uL (0.0-0.8); MONO % 11.7 % (0.0-10.0); NEUT # 2.3 K/uL (1.8-7.0); NEUT % 39.6 % (50.0-75.0); NRBC % 0.1 % (0.0-2.0); RBC 4.33 Mil/uL (4.40-5.90); RED CELL DISTRIBUTION WIDTH 13.7 % (11.5-14.5); WHITE BLOOD COUNT 5.7 K/uL (4.8-10.8)
[2017-12-22] MEDS: Tmp-Smz 800 mg-160 mg DS Tab PO SCH ×2 (06:41→18:39)
--- NOTE | 2017-12-22 09:56 | CP.PCM.PN ---
<Татьяна Yun - Last Filed: 12/22/17 17:20> Subjective - Date & Time of Evaluation Date of Evaluation: 12/22/17 Time of Evaluation: 09:56 - Subjective Subjective: Medicine progress note for Dr. Matson's service Patient was seen and examined at bedside in no acute distress. Patient reports feeling well and has no complaints. Patient reports having a normal BM this morning, denies discomfort and blood in stool. Patient denies chest pain, palpitations, dyspnea, nausea, vomiting, fevers, headaches, dysuria. Objective - Vital Signs/Intake and Output Vital Signs (last 24 hours): Temp Pulse Resp BP Pulse Ox 98 F 78 20 127/80 97 12/21/17 23:20 12/21/17 23:20 12/21/17 23:20 12/21/17 23:20 12/21/17 23:20 Intake and Output: 12/22/17 12/22/17 06:59 18:59 Intake Total 350 Balance 350 - Medications Medications: Current Medications Docusate Sodium (Colace) 100 mg PO TID [facility] Last Admin: 12/21/17 17:39 Dose: 100 mg Dolutegravir Sodium (Tivicay) 50 mg PO DAILY [facility] PRN Reason: Protocol Last Admin: 12/21/17 10:30 Dose: 50 mg Emtricitabine/Tenofovir (Truvada 200 Mg-300 Mg) 1 tab PO DAILY [facility] PRN Reason: Protocol Last Admin: 12/21/17 10:30 Dose: 1 tab Escitalopram Oxalate (Lexapro) 10 mg PO HS [facility] Last Admin: 12/21/17 21:36 Dose: 10 mg Heparin Sodium (Porcine) (Heparin) 5,000 units SC Q8 [facility] Last Admin: 12/22/17 06:40 Dose: 5,000 units Memantine (Namenda) 10 mg PO DAILY [facility] Last Admin: 12/21/17 10:29 Dose: 10 mg Saccharomyces Boulardii (Florastor) 250 mg PO BID [facility] Last Admin: 12/21/17 17:39 Dose: 250 mg Trimethoprim/Sulfamethoxazole (Bactrim Ds Tab) 1 tab PO Q12H [facility] PRN Reason: Protocol Last Admin: 12/22/17 06:41 Dose: 1 tab Valproate Sodium (Depakene Cap) 750 mg PO Q12 [facility] Last Admin: 12/21/17 21:36 Dose: 750 mg - Labs Labs: 12/22/17 06:09 12/22/17 06:09 - Constitutional Appears: No Acute Distress - Head Exam Head Exam: ATRAUMATIC, NORMAL INSPECTION - Eye Exam Eye Exam: EOMI, Normal appearance - ENT Exam ENT Exam: Mucous Membranes Moist - Respiratory Exam Respiratory Exam: Decreased Breath Sounds, NORMAL BREATHING PATTERN. absent: Rales, Rhonchi, Wheezes - Cardiovascular Exam Cardiovascular Exam: REGULAR RHYTHM, +S1, +S2 - GI/Abdominal Exam GI & Abdominal Exam: Soft, Normal Bowel Sounds. absent: Distended, Tenderness - Extremities Exam Extremities Exam: Normal Inspection - Neurological Exam Neurological Exam: Alert, Awake - Psychiatric Exam Psychiatric exam: Flat Affect, Normal Mood - Skin Skin Exam: Dry, Intact, Normal Color, Warm Assessment and Plan - Assessment and Plan (Free Text) Plan: - Assessment and Plan (Free Text) Assessment: (1) Complex partial epilepsy Assessment & Plan: Neurology ([facility]) Depakote 750mg q12h Depakote level Friday12/22/17- 56.[address] (11/11/17): no intracranial mass or hemorrhage. 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 Chronic white matter ischemic change. 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 Postinfectious/ postinflammatory cortical calcifications diffusely. As per Dr. Alejandro, these findings are probably chronic. Status: Chronic (2) AIDS Assessment & Plan: ID ([facility]) Hep Panel - negative Tivicay 50 mg PO daily Truvada 200-300 mg PO daily Bactrim DS po daily for Pneumocystis jirovecii prophylaxis History of AIDS dementia * Head CT (10/14/17): - Findings suspicious for mild hydrocephalus, cause not identified. Multiple calcifications in the brain bilaterally, most tiny in size , too numerous to count. The main differential considerations given the appearance include infectious processes, such as neurocysticercosis or tuberculosis, in the healed/calcified nodular stage Lexapro 10 mg PO HS Namenda 10 mg PO daily Status: Chronic (3) GRACE monitor creatinine IVF discontinued continue encouraging increased po water intake Status: Acute (4) Transaminitis downtrending hep panel negative Depakote level: 60.5 (12/16) Continue to monitor Status: Acute (5) Constipation Assessment & Plan: abd xray: prominent amount of retained stool Colace 100mg po TID dulcolax given prune juice BID increase PO intake of water Status: Acute (6) Prophylactic measure Assessment & Plan: SCDs Heparin 5,000u SC q8h Florastor BID PT Social Work consult Status: Acute Disposition: Insurance transferred to [place] (from [place]). Waiting for new information about insurance. [facility] in [place] will not accept patient's insurance. Awaiting approval from [facility]. <Susana Matson V - Last Filed: 12/23/17 07:27> Objective - Vital Signs/Intake and Output Vital Signs (last 24 hours): Temp Pulse Resp BP Pulse Ox 98.6 F 82 20 122/76 97 12/22/17 23:20 12/22/17 23:20 12/22/17 23:20 12/22/17 23:20 12/22/17 23:20 Intake and Output: 12/23/17 12/23/17 06:59 18:59 Output Total 200 Balance -200 - Medications Medications: Current Medications Docusate Sodium (Colace) 100 mg PO TID [facility] Last Admin: 12/22/17 18:39 Dose: 100 mg Dolutegravir Sodium (Tivicay) 50 mg PO DAILY [facility] PRN Reason: Protocol Last Admin: 12/22/17 10:21 Dose: 50 mg Emtricitabine/Tenofovir (Truvada 200 Mg-300 Mg) 1 tab PO DAILY [facility] PRN Reason: Protocol Last Admin: 12/22/17 10:21 Dose: 1 tab Escitalopram Oxalate (Lexapro) 10 mg PO HS [facility] Last Admin: 12/22/17 21:29 Dose: 10 mg Heparin Sodium (Porcine) (Heparin) 5,000 units SC Q8 [facility] Last Admin: 12/23/17 06:39 Dose: 5,000 units Memantine (Namenda) 10 mg PO DAILY [facility] Last Admin: 12/22/17 10:21 Dose: 10 mg Saccharomyces Boulardii (Florastor) 250 mg PO BID [facility] Last Admin: 12/22/17 18:39 Dose: 250 mg Trimethoprim/Sulfamethoxazole (Bactrim Ds Tab) 1 tab PO Q12H [facility] PRN Reason: Protocol Last Admin: 12/23/17 06:40 Dose: 1 tab Valproate Sodium (Depakene Cap) 750 mg PO Q12 [facility] Last Admin: 12/22/17 21:29 Dose: 750 mg - Labs Labs: 12/22/17 06:09 12/22/17 06:09 Attending/Attestation - Attestation I have personally seen and examined this patient.: Yes I have fully participated in the care of the patient.: Yes I have reviewed all pertinent clinical information, including history, physical exam and plan: Yes Notes (Text): This is late computer entry for 12/22/17. Patient seen, examined, and case discussed with medical technologist microbiology. Patient with known hx of HIV/AIDS dementia. He is awaiting placement at this time during course of hospitalization. Discussed with social work, we will need to fill out PAS-5 forms to help with discharge planning for the patient. Patient is currently off IV fluids. We will need to encourage PO hydration. Patient reports he had a small bowel movement this morning. Abdomen is soft on exam. Assessment/Plan (1) Complex partial epilepsy Assessment & Plan: * Neurology ([facility]) on board-->help appreciated * Depakote level therapuetic * c/w Depakote 750mg q12h on 11/30/17 * Head CT (11/11/17): no intracranial mass or hemorrhage. 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 Chronic white matter ischemic change. 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 Postinfectious/ postinflammatory cortical calcifications diffusely. * Valproic acid: 56.1 Status: Chronic (2) AIDS AIDS Dementia Assessment & Plan: * ID ([facility]ang[facility]) on board-->help appreciated * Hep Panel - negative * Tivicay 50 mg PO daily * Truvada 200-300 mg PO daily * Bactrim DS po daily for Pneumocystis jirovecii prophylaxis * Head CT (10/14/17): - Findings suspicious for mild hydrocephalus, cause not identified. Multiple calcifications in the brain bilaterally, most tiny in size , too numerous to count. The main differential considerations given the appearance include infectious processes, such as neurocysticercosis or tuberculosis, in the healed/calcified nodular stage Lexapro 10 mg PO HS Namenda 10 mg PO daily Status: Chronic (3) Acute Kidney Insufficiency * Monitor * Improving Status: Acute (4) Transaminitis * Improving * hep panel negative * monitor, if no improvement will order abdominal u/s Status: Acute (5) Prophylactic measure Assessment & Plan: * SCDs * Heparin 5,000u SC q8h * Pepcid 20mg daily * Social Work consult --> help appreciated * Florastor 250mg PO BID Status: Acute Disposition: pending placement; will need to fill out social work forms to assist in discharge planning
[2017-12-22] MEDS: Emtricitabine-Tenofovir 200 mg-300 mg Tab PO SCH (10:21)
[2017-12-22] MEDS: Saccharomyces Boulardi 250 mg Cap PO SCH ×2 (10:21→18:39)
[2017-12-23] MEDS: Tmp-Smz 800 mg-160 mg DS Tab PO SCH ×2 (06:40→19:21)
--- NOTE | 2017-12-23 07:13 | CP.PCM.PN ---
<Татьяна Yun - Last Filed: 12/23/17 15:57> Subjective - Date & Time of Evaluation Date of Evaluation: 12/23/17 Time of Evaluation: 07:13 - Subjective Subjective: Medicine progress note for Dr. Matson's service Patient was seen and examined at bedside in no acute distress. Patient reports having a normal BM yesterday morning, denies discomfort and blood in stool. Patient denies chest pain, palpitations, dyspnea, nausea, vomiting, fevers, headaches, dysuria. Patient was later seen walking with PT and a walker. Patient has no complaints. Objective - Vital Signs/Intake and Output Vital Signs (last 24 hours): Temp Pulse Resp BP Pulse Ox 98.6 F 82 20 122/76 97 12/22/17 23:20 12/22/17 23:20 12/22/17 23:20 12/22/17 23:20 12/22/17 23:20 Intake and Output: 12/23/17 12/23/17 06:59 18:59 Output Total 200 Balance -200 - Medications Medications: Current Medications Docusate Sodium (Colace) 100 mg PO TID [facility] Last Admin: 12/22/17 18:39 Dose: 100 mg Dolutegravir Sodium (Tivicay) 50 mg PO DAILY [facility] PRN Reason: Protocol Last Admin: 12/22/17 10:21 Dose: 50 mg Emtricitabine/Tenofovir (Truvada 200 Mg-300 Mg) 1 tab PO DAILY [facility] PRN Reason: Protocol Last Admin: 12/22/17 10:21 Dose: 1 tab Escitalopram Oxalate (Lexapro) 10 mg PO HS [facility] Last Admin: 12/22/17 21:29 Dose: 10 mg Heparin Sodium (Porcine) (Heparin) 5,000 units SC Q8 [facility] Last Admin: 12/23/17 06:39 Dose: 5,000 units Memantine (Namenda) 10 mg PO DAILY [facility] Last Admin: 12/22/17 10:21 Dose: 10 mg Saccharomyces Boulardii (Florastor) 250 mg PO BID [facility] Last Admin: 12/22/17 18:39 Dose: 250 mg Trimethoprim/Sulfamethoxazole (Bactrim Ds Tab) 1 tab PO Q12H [facility] PRN Reason: Protocol Last Admin: 12/23/17 06:40 Dose: 1 tab Valproate Sodium (Depakene Cap) 750 mg PO Q12 [facility] Last Admin: 12/22/17 21:29 Dose: 750 mg - Labs Labs: 12/22/17 06:09 12/22/17 06:09 - Additional Findings Additional findings: - Constitutional Appears: No Acute Distress - Head Exam Head Exam: ATRAUMATIC, NORMAL INSPECTION - Eye Exam Eye Exam: EOMI, Normal appearance - ENT Exam ENT Exam: Mucous Membranes Moist - Respiratory Exam Respiratory Exam: Decreased Breath Sounds, NORMAL BREATHING PATTERN. absent: Rales, Rhonchi, Wheezes - Cardiovascular Exam Cardiovascular Exam: REGULAR RHYTHM, +S1, +S2 - GI/Abdominal Exam GI & Abdominal Exam: Soft, Normal Bowel Sounds. absent: Distended, Tenderness - Extremities Exam Extremities Exam: Normal Inspection - Neurological Exam Neurological Exam: Alert, Awake - Psychiatric Exam Psychiatric exam: Flat Affect, Normal Mood - Skin Skin Exam: Dry, Intact, Normal Color, Warm Assessment and Plan - Assessment and Plan (Free Text) Plan: (1) Complex partial epilepsy Assessment & Plan: Neurology consulted ([facility]) Depakote 750mg q12h Depakote level Friday12/22/17- 56.[address] (11/11/17): no intracranial mass or hemorrhage. 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 Chronic white matter ischemic change. 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 Postinfectious/ postinflammatory cortical calcifications diffusely. As per Dr. Alejandro, these findings are probably chronic. (2) AIDS Assessment & Plan: ID consulted ([facility]) History of AIDS dementia * Head CT (10/14/17): - Findings suspicious for mild hydrocephalus, cause not identified. Multiple calcifications in the brain bilaterally, most tiny in size , too numerous to count. The main differential considerations given the appearance include infectious processes, such as neurocysticercosis or tuberculosis, in the healed/calcified nodular stage Medications: Tivicay 50 mg PO daily Truvada 200-300 mg PO daily Bactrim DS po daily for Pneumocystis jirovecii prophylaxis Lexapro 10 mg PO HS Namenda 10 mg PO daily (3) GRACE monitor creatinine IVF discontinued continue encouraging increased po water intake (4) Transaminitis Downtrending hep panel negative Depakote level: 60.5 (12/16) Continue to monitor (5) Constipation Assessment & Plan: abd xray: prominent amount of retained stool Colace 100mg po TID prune juice BID dulcolax given Miralax given increase PO intake of water (6) Prophylactic measure Assessment & Plan: SCDs Heparin 5,000u SC q8h Florastor BID PT Social Work consult Disposition: Insurance transferred to [place] (from [place]). Waiting for new information about insurance. [facility] in [place] will not accept patient's insurance. Awaiting approval from [facility]. <Susana Matson V - Last Filed: 12/24/17 00:06> Objective - Vital Signs/Intake and Output Vital Signs (last 24 hours): Temp Pulse Resp BP Pulse Ox 98.1 F 77 20 94/55 L 98 12/23/17 16:00 12/23/17 16:00 12/23/17 16:00 12/23/17 16:00 12/23/17 16:00 Intake and Output: 12/23/17 12/24/17 18:59 06:59 Intake Total 400 500 Output Total 300 Balance 100 500 - Medications Medications: Current Medications Docusate Sodium (Colace) 100 mg PO TID [facility] Last Admin: 12/23/17 17:09 Dose: 100 mg Dolutegravir Sodium (Tivicay) 50 mg PO DAILY [facility] PRN Reason: Protocol Last Admin: 12/23/17 09:39 Dose: 50 mg Emtricitabine/Tenofovir (Truvada 200 Mg-300 Mg) 1 tab PO DAILY [facility] PRN Reason: Protocol Last Admin: 12/23/17 09:40 Dose: 1 tab Escitalopram Oxalate (Lexapro) 10 mg PO HS [facility] Last Admin: 12/23/17 21:49 Dose: 10 mg Heparin Sodium (Porcine) (Heparin) 5,000 units SC Q8 [facility] Last Admin: 12/23/17 21:49 Dose: 5,000 units Memantine (Namenda) 10 mg PO DAILY [facility] Last Admin: 12/23/17 09:39 Dose: 10 mg Saccharomyces Boulardii (Florastor) 250 mg PO BID [facility] Last Admin: 12/23/17 17:09 Dose: 250 mg Trimethoprim/Sulfamethoxazole (Bactrim Ds Tab) 1 tab PO Q12H [facility] PRN Reason: Protocol Last Admin: 12/23/17 19:21 Dose: 1 tab Valproate Sodium (Depakene Cap) 750 mg PO Q12 [facility] Last Admin: 12/23/17 21:49 Dose: 750 mg - Labs Labs: 12/22/17 06:09 12/22/17 06:09 Attending/Attestation - Attestation I have personally seen and examined this patient.: Yes I have fully participated in the care of the patient.: Yes I have reviewed all pertinent clinical information, including history, physical exam and plan: Yes Notes (Text): This is late computer entry for 12/23/17 Patient seen, examined, and case discussed with medical practice manager. Patient with known hx of HIV/AIDS dementia. He is awaiting placement at this time during course of hospitalization. Discussed with social work, we will need to fill out PAS-5 forms to help with discharge planning for the patient. Resident and I have completed the forms this afternoon will f/u with social work in the morning. Patient is currently off IV fluids. We will need to encourage PO hydration. Patient reports he had a small bowel movement. Abdomen is soft on exam. Patient seen with physical therapy; observed shuffling gait. Assessment/Plan (1) Complex partial epilepsy Assessment & Plan: * Neurology ([facility]) on board-->help appreciated * Depakote level therapuetic * c/w Depakote 750mg q12h on 11/30/17 * Head CT (11/11/17): no intracranial mass or hemorrhage. 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 Chronic white matter ischemic change. 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 Postinfectious/ postinflammatory cortical calcifications diffusely. * Valproic acid: 56.1 Status: Chronic (2) AIDS AIDS Dementia Assessment & Plan: * ID ([facility]) on board-->help appreciated * Hep Panel - negative * Tivicay 50 mg PO daily * Truvada 200-300 mg PO daily * Bactrim DS po daily for Pneumocystis jirovecii prophylaxis * Head CT (10/14/17): - Findings suspicious for mild hydrocephalus, cause not identified. Multiple calcifications in the brain bilaterally, most tiny in size , too numerous to count. The main differential considerations given the appearance include infectious processes, such as neurocysticercosis or tuberculosis, in the healed/calcified nodular stage Lexapro 10 mg PO HS Namenda 10 mg PO daily Status: Chronic (3) Acute Kidney Insufficiency * Monitor * Improving Status: Acute (4) Transaminitis * Improving * hep panel negative * monitor, if no improvement will order abdominal u/s Status: Acute (5) Prophylactic measure Assessment & Plan: * SCDs * Heparin 5,000u SC q8h * Pepcid 20mg daily * Social Work consult --> help appreciated * Florastor 250mg PO BID Status: Acute Disposition: pending placement; will need to fill out social work forms to assist in discharge planning
[2017-12-23] MEDS: Saccharomyces Boulardi 250 mg Cap PO SCH ×2 (09:39→17:09)
[2017-12-23] MEDS: Emtricitabine-Tenofovir 200 mg-300 mg Tab PO SCH (09:40)
[2017-12-23] MEDS ORDERED: POLYETHYLENE GLYCOL 3350 17 GM/Dose PACKET PO ONE (13:15)
[2017-12-24] MEDS: Tmp-Smz 800 mg-160 mg DS Tab PO SCH ×2 (06:30→19:46)
--- NOTE | 2017-12-24 06:55 | CP.PCM.PN ---
<Татьяна Yun - Last Filed: 12/24/17 11:21> Subjective - Date & Time of Evaluation Date of Evaluation: 12/24/17 Time of Evaluation: 06:55 - Subjective Subjective: Medicine progress note for Dr. Matson's service Patient was seen and examined at bedside in no acute distress. Patient feels well and has no complaints. Patient is aaox3. He reports having a normal BM yesterday and is tolerating his diet. Patient denies chest pain, palpitations, dyspnea, nausea, vomiting, fevers, headaches, dysuria. Objective - Vital Signs/Intake and Output Vital Signs (last 24 hours): Temp Pulse Resp BP Pulse Ox 97.7 F 84 20 103/67 96 12/23/17 23:20 12/23/17 23:20 12/23/17 23:20 12/23/17 23:20 12/23/17 23:20 Intake and Output: 12/23/17 12/24/17 18:59 06:59 Intake Total 400 500 Output Total 300 Balance 100 500 - Medications Medications: Current Medications Docusate Sodium (Colace) 100 mg PO TID [facility] Last Admin: 12/23/17 17:09 Dose: 100 mg Dolutegravir Sodium (Tivicay) 50 mg PO DAILY [facility] PRN Reason: Protocol Last Admin: 12/23/17 09:39 Dose: 50 mg Emtricitabine/Tenofovir (Truvada 200 Mg-300 Mg) 1 tab PO DAILY [facility] PRN Reason: Protocol Last Admin: 12/23/17 09:40 Dose: 1 tab Escitalopram Oxalate (Lexapro) 10 mg PO HS [facility] Last Admin: 12/23/17 21:49 Dose: 10 mg Heparin Sodium (Porcine) (Heparin) 5,000 units SC Q8 [facility] Last Admin: 12/24/17 06:30 Dose: 5,000 units Memantine (Namenda) 10 mg PO DAILY [facility] Last Admin: 12/23/17 09:39 Dose: 10 mg Saccharomyces Boulardii (Florastor) 250 mg PO BID [facility] Last Admin: 12/23/17 17:09 Dose: 250 mg Trimethoprim/Sulfamethoxazole (Bactrim Ds Tab) 1 tab PO Q12H [facility] PRN Reason: Protocol Last Admin: 12/24/17 06:30 Dose: 1 tab Valproate Sodium (Depakene Cap) 750 mg PO Q12 [facility] Last Admin: 12/23/17 21:49 Dose: 750 mg - Labs Labs: 12/22/17 06:09 12/22/17 06:09 - Additional Findings Additional findings: - Constitutional Appears: No Acute Distress - Head Exam Head Exam: ATRAUMATIC, NORMAL INSPECTION - Eye Exam Eye Exam: EOMI, Normal appearance - ENT Exam ENT Exam: Mucous Membranes Moist - Respiratory Exam Respiratory Exam: Decreased Breath Sounds, NORMAL BREATHING PATTERN. absent: Rales, Rhonchi, Wheezes - Cardiovascular Exam Cardiovascular Exam: REGULAR RHYTHM, +S1, +S2 - GI/Abdominal Exam GI & Abdominal Exam: Soft, Normal Bowel Sounds. absent: Distended, Tenderness - Extremities Exam Extremities Exam: Normal Inspection - Neurological Exam Neurological Exam: Alert, Awake, Abnormal gait (shuffling) - Psychiatric Exam Psychiatric exam: Flat Affect, Normal Mood - Skin Skin Exam: Dry, Intact, Normal Color, Warm Assessment and Plan - Assessment and Plan (Free Text) Plan: (1) Complex partial epilepsy Assessment & Plan: Neurology consulted (Johann) Depakote 750mg q12h Depakote level Friday12/22/17- 56.[address] (11/11/17): no intracranial mass or hemorrhage. 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 Chronic white matter ischemic change. 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 Postinfectious/ postinflammatory cortical calcifications diffusely. As per Dr. Alejandro, these findings are probably chronic. (2) AIDS Assessment & Plan: ID consulted (Davon) History of AIDS dementia * Head CT (10/14/17): - Findings suspicious for mild hydrocephalus, cause not identified. Multiple calcifications in the brain bilaterally, most tiny in size , too numerous to count. The main differential considerations given the appearance include infectious processes, such as neurocysticercosis or tuberculosis, in the healed/calcified nodular stage Medications: Tivicay 50 mg PO daily Truvada 200-300 mg PO daily Bactrim DS po daily for Pneumocystis jirovecii prophylaxis Lexapro 10 mg PO HS Namenda 10 mg PO daily (3) GRACE monitor creatinine IVF discontinued continue encouraging increased po water intake (4) Transaminitis Downtrending hep panel negative Depakote level: 60.5 (12/16) Continue to monitor (5) Constipation Assessment & Plan: abd xray: prominent amount of retained stool Colace 100mg po TID prune juice BID dulcolax given Miralax given increase PO intake of water (6) Prophylactic measure Assessment & Plan: SCDs Heparin 5,000u SC q8h Florastor BID PT Social Work consult Disposition: Insurance transferred to [place] (from [place]). Waiting for new information about insurance. [facility] in [place] will not accept patient's insurance. Awaiting approval from [facility]. Forms filled out and given to social work team. <Susana Matson V - Last Filed: 12/25/17 07:47> Objective - Vital Signs/Intake and Output Vital Signs (last 24 hours): Temp Pulse Resp BP Pulse Ox 98.2 F 74 20 105/67 98 12/24/17 23:27 12/24/17 23:27 12/24/17 23:27 12/24/17 23:27 12/24/17 23:27 - Medications Medications: Current Medications Docusate Sodium (Colace) 100 mg PO TID [facility] Last Admin: 12/24/17 17:33 Dose: 100 mg Dolutegravir Sodium (Tivicay) 50 mg PO DAILY [facility] PRN Reason: Protocol Last Admin: 12/24/17 09:55 Dose: 50 mg Emtricitabine/Tenofovir (Truvada 200 Mg-300 Mg) 1 tab PO DAILY [facility] PRN Reason: Protocol Last Admin: 12/24/17 09:54 Dose: 1 tab Escitalopram Oxalate (Lexapro) 10 mg PO HS [facility] Last Admin: 12/24/17 21:22 Dose: 10 mg Heparin Sodium (Porcine) (Heparin) 5,000 units SC Q8 [facility] Last Admin: 12/25/17 06:00 Dose: 5,000 units Memantine (Namenda) 10 mg PO DAILY [facility] Last Admin: 12/24/17 09:54 Dose: 10 mg Saccharomyces Boulardii (Florastor) 250 mg PO BID [facility] Last Admin: 12/24/17 17:33 Dose: 250 mg Trimethoprim/Sulfamethoxazole (Bactrim Ds Tab) 1 tab PO Q12H [facility] PRN Reason: Protocol Last Admin: 12/24/17 19:46 Dose: 1 tab Valproate Sodium (Depakene Cap) 750 mg PO Q12 [facility] Last Admin: 12/24/17 21:22 Dose: 750 mg - Labs Labs: 12/22/17 06:09 12/22/17 06:09 Attending/Attestation - Attestation I have personally seen and examined this patient.: Yes I have fully participated in the care of the patient.: Yes I have reviewed all pertinent clinical information, including history, physical exam and plan: Yes Notes (Text): This is late computer entry for 12/24/17 Patient seen, examined, and case discussed with curator medical museum. Patient with known hx of HIV/AIDS dementia. He is awaiting placement at this time during course of hospitalization. Discussed with social work and case management, we have provided the medical portion of the PAS-5 forms to help with discharge planning for the patient; I have asked social work to make a copy to included in paper chart if they go missing. Patient is currently off IV fluids. We will need to encourage PO hydration. Patient reports he had a small bowel movement. Abdomen is soft on exam. Patient seen with physical therapy; observed shuffling gait; discussed with physical therapy, patient will likely need assistive device. Assessment/Plan (1) Complex partial epilepsy Assessment & Plan: * Neurology (Wills) on board-->help appreciated * Depakote level therapuetic * c/w Depakote 750mg q12h on 11/30/17 * Head CT (11/11/17): no intracranial mass or hemorrhage. 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 Chronic white matter ischemic change. 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 Postinfectious/ postinflammatory cortical calcifications diffusely. * Valproic acid: 56.1 Status: Chronic (2) AIDS AIDS Dementia Assessment & Plan: * ID (Mangia) on board-->help appreciated * Hep Panel - negative * Tivicay 50 mg PO daily * Truvada 200-300 mg PO daily * Bactrim DS po daily for Pneumocystis jirovecii prophylaxis * Head CT (10/14/17): - Findings suspicious for mild hydrocephalus, cause not identified. Multiple calcifications in the brain bilaterally, most tiny in size , too numerous to count. The main differential considerations given the appearance include infectious processes, such as neurocysticercosis or tuberculosis, in the healed/calcified nodular stage Lexapro 10 mg PO HS Namenda 10 mg PO daily Status: Chronic (3) Acute Kidney Insufficiency * Monitor * Improving Status: Acute (4) Transaminitis * Improving * hep panel negative * monitor, if no improvement will order abdominal u/s Status: Acute (5) Prophylactic measure Assessment & Plan: * SCDs * Heparin 5,000u SC q8h * Pepcid 20mg daily * Social Work consult --> help appreciated * Florastor 250mg PO BID Status: Acute Disposition: pending placement
[2017-12-24] MEDS: Emtricitabine-Tenofovir 200 mg-300 mg Tab PO SCH (09:54)
[2017-12-24] MEDS: Saccharomyces Boulardi 250 mg Cap PO SCH ×2 (09:54→17:33)
--- NOTE | 2017-12-25 05:56 | CP.PCM.PN ---
Subjective - Date & Time of Evaluation Date of Evaluation: 12/25/17 Time of Evaluation: 05:56 - Subjective Subjective: Mr. Grey was seen and examined at the bedside. He is alert, awake, response to question in a slow pace. He denies any headache, dizziness, nausea, or vomiting. He is able to move all extremities and ambulate within his room without any problem. Encourage patient to increase PO intake. Latest valproic level 56.1.There was no untoward events overnight. Objective - Vital Signs/Intake and Output Vital Signs (last 24 hours): Temp Pulse Resp BP Pulse Ox 98.2 F 74 20 105/67 98 12/24/17 23:27 12/24/17 23:27 12/24/17 23:27 12/24/17 23:27 12/24/17 23:27 Intake and Output: 12/24/17 12/25/17 18:59 06:59 Intake Total 400 Balance 400 - Medications Medications: Current Medications Docusate Sodium (Colace) 100 mg PO TID [facility] Last Admin: 12/24/17 17:33 Dose: 100 mg Dolutegravir Sodium (Tivicay) 50 mg PO DAILY [facility] PRN Reason: Protocol Last Admin: 12/24/17 09:55 Dose: 50 mg Emtricitabine/Tenofovir (Truvada 200 Mg-300 Mg) 1 tab PO DAILY [facility] PRN Reason: Protocol Last Admin: 12/24/17 09:54 Dose: 1 tab Escitalopram Oxalate (Lexapro) 10 mg PO HS [facility] Last Admin: 12/24/17 21:22 Dose: 10 mg Heparin Sodium (Porcine) (Heparin) 5,000 units SC Q8 [facility] Last Admin: 12/24/17 21:22 Dose: 5,000 units Memantine (Namenda) 10 mg PO DAILY [facility] Last Admin: 12/24/17 09:54 Dose: 10 mg Saccharomyces Boulardii (Florastor) 250 mg PO BID [facility] Last Admin: 12/24/17 17:33 Dose: 250 mg Trimethoprim/Sulfamethoxazole (Bactrim Ds Tab) 1 tab PO Q12H [facility] PRN Reason: Protocol Last Admin: 12/24/17 19:46 Dose: 1 tab Valproate Sodium (Depakene Cap) 750 mg PO Q12 [facility] Last Admin: 12/24/17 21:22 Dose: 750 mg - Labs Labs: 12/22/17 06:09 12/22/17 06:09 - Constitutional Appears: No Acute Distress - Head Exam Head Exam: NORMAL INSPECTION - Eye Exam Pupil Exam: PERRL - Neurological Exam Neurological Exam: Alert, Awake Neuro motor strength exam: Left Upper Extremity: 5, Right Upper Extremity: 5, Left Lower Extremity: 5, Right Lower Extremity: 5 Additional comments: Neurological unchanged from previous examination. Assessment and Plan (1) Seizure Assessment & Plan: Case discussed with Dr. Alejandro, continue all current medical regimen. Recommend to treat any electrolytes abnormalities.Recommend to monitor valproic level next week, if its within normal limits will repeat valproic level q 2 weeks. Please encourage to increase PO fluid. Status: Acute
--- NOTE | 2017-12-25 06:55 | CP.PCM.PN ---
<Татьяна Yun - Last Filed: 12/25/17 10:18> Subjective - Date & Time of Evaluation Date of Evaluation: 12/25/17 Time of Evaluation: 06:55 - Subjective Subjective: Medicine progress note for Dr. Matson's service Patient was seen and examined at bedside in no acute distress. Patient reports feeling well and has no complains. Per nursing, no acute events however, patient does get out of bed frequently and walks around. Patient is unsteady and has an unstable gait. Per nursing staff, patient has a normal BM this morning. Patient denies chest pain abdominal pain, dyspnea, nausea, vomiting, fevers, headaches. Objective - Vital Signs/Intake and Output Vital Signs (last 24 hours): Temp Pulse Resp BP Pulse Ox 98.2 F 74 20 105/67 98 12/24/17 23:27 12/24/17 23:27 12/24/17 23:27 12/24/17 23:27 12/24/17 23:27 Intake and Output: 12/24/17 12/25/17 18:59 06:59 Intake Total 400 Balance 400 - Medications Medications: Current Medications Docusate Sodium (Colace) 100 mg PO TID [facility] Last Admin: 12/24/17 17:33 Dose: 100 mg Dolutegravir Sodium (Tivicay) 50 mg PO DAILY [facility] PRN Reason: Protocol Last Admin: 12/24/17 09:55 Dose: 50 mg Emtricitabine/Tenofovir (Truvada 200 Mg-300 Mg) 1 tab PO DAILY [facility] PRN Reason: Protocol Last Admin: 12/24/17 09:54 Dose: 1 tab Escitalopram Oxalate (Lexapro) 10 mg PO HS [facility] Last Admin: 12/24/17 21:22 Dose: 10 mg Heparin Sodium (Porcine) (Heparin) 5,000 units SC Q8 [facility] Last Admin: 12/25/17 06:00 Dose: 5,000 units Memantine (Namenda) 10 mg PO DAILY [facility] Last Admin: 12/24/17 09:54 Dose: 10 mg Saccharomyces Boulardii (Florastor) 250 mg PO BID [facility] Last Admin: 12/24/17 17:33 Dose: 250 mg Trimethoprim/Sulfamethoxazole (Bactrim Ds Tab) 1 tab PO Q12H [facility] PRN Reason: Protocol Last Admin: 12/24/17 19:46 Dose: 1 tab Valproate Sodium (Depakene Cap) 750 mg PO Q12 [facility] Last Admin: 12/24/17 21:22 Dose: 750 mg - Labs Labs: 12/22/17 06:09 12/22/17 06:09 - Additional Findings Additional findings: - Constitutional Appears: No Acute Distress - Head Exam Head Exam: ATRAUMATIC, NORMAL INSPECTION - Eye Exam Eye Exam: EOMI, Normal appearance - ENT Exam ENT Exam: Mucous Membranes Moist - Respiratory Exam Respiratory Exam: Decreased Breath Sounds, NORMAL BREATHING PATTERN. absent: Rales, Rhonchi, Wheezes - Cardiovascular Exam Cardiovascular Exam: REGULAR RHYTHM, +S1, +S2 - GI/Abdominal Exam GI & Abdominal Exam: Soft, Normal Bowel Sounds. absent: Distended, Tenderness - Extremities Exam Extremities Exam: Normal Inspection - Neurological Exam Neurological Exam: Alert, Awake, Abnormal gait (shuffling) - Psychiatric Exam Psychiatric exam: Normal Mood - Skin Skin Exam: Dry, Intact, Normal Color, Warm Assessment and Plan - Assessment and Plan (Free Text) Plan: (1) Complex partial epilepsy Assessment & Plan: Neurology consulted (Johann) Depakote 750mg q12h Depakote level Friday12/22/17- 56.[address] (11/11/17): no intracranial mass or hemorrhage. 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 Chronic white matter ischemic change. 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 Postinfectious/ postinflammatory cortical calcifications diffusely. As per Dr. Alejandro, these findings are probably chronic. (2) AIDS Assessment & Plan: ID consulted (Davon) History of AIDS dementia * Head CT (10/14/17): - Findings suspicious for mild hydrocephalus, cause not identified. Multiple calcifications in the brain bilaterally, most tiny in size , too numerous to count. The main differential considerations given the appearance include infectious processes, such as neurocysticercosis or tuberculosis, in the healed/calcified nodular stage Medications: Tivicay 50 mg PO daily Truvada 200-300 mg PO daily Bactrim DS po daily for Pneumocystis jirovecii prophylaxis Lexapro 10 mg PO HS Namenda 10 mg PO daily (3) GRACE monitor creatinine IVF discontinued continue encouraging increased po water intake (4) Transaminitis Downtrending hep panel negative Depakote level: 60.5 (12/16) Continue to monitor (5) Constipation Assessment & Plan: abd xray: prominent amount of retained stool Colace 100mg po TID prune juice BID dulcolax given Miralax given increase PO intake of water (6) Prophylactic measure Assessment & Plan: SCDs Heparin 5,000u SC q8h Florastor BID PT Social Work consult 1:1 sitter/observation- Fall risk (patient frequently gets out of bed, unstable on feet; needs walker when ambulating) Disposition: Insurance transferred to [place] (from [place]). Waiting for new information about insurance. [facility] in [place] will not accept patient's insurance. Awaiting approval from [facility]. Forms filled out and given to social work team. <Susana Matson V - Last Filed: 12/26/17 15:35> Objective - Vital Signs/Intake and Output Vital Signs (last 24 hours): Temp Pulse Resp BP Pulse Ox 97.9 F 64 20 111/75 97 12/26/17 08:00 12/26/17 08:00 12/26/17 08:00 12/26/17 08:00 12/26/17 08:00 Intake and Output: 12/26/17 12/26/17 06:59 18:59 Intake Total 550 240 Balance 550 240 - Medications Medications: Current Medications Docusate Sodium (Colace) 100 mg PO TID [facility] Last Admin: 12/26/17 14:38 Dose: 100 mg Dolutegravir Sodium (Tivicay) 50 mg PO DAILY [facility] PRN Reason: Protocol Last Admin: 12/26/17 09:05 Dose: 50 mg Emtricitabine/Tenofovir (Truvada 200 Mg-300 Mg) 1 tab PO DAILY [facility] PRN Reason: Protocol Last Admin: 12/26/17 09:06 Dose: 1 tab Escitalopram Oxalate (Lexapro) 10 mg PO HS [facility] Last Admin: 12/25/17 21:15 Dose: 10 mg Memantine (Namenda) 10 mg PO DAILY [facility] Last Admin: 12/26/17 09:06 Dose: 10 mg Saccharomyces Boulardii (Florastor) 250 mg PO BID [facility] Last Admin: 12/26/17 09:06 Dose: 250 mg Trimethoprim/Sulfamethoxazole (Bactrim Ds Tab) 1 tab PO Q12H [facility] PRN Reason: Protocol Last Admin: 12/26/17 08:30 Dose: 1 tab Valproate Sodium (Depakene Cap) 750 mg PO Q12 [facility] Last Admin: 12/26/17 09:06 Dose: 750 mg - Labs Labs: 12/22/17 06:09 12/22/17 06:09 Attending/Attestation - Attestation I have personally seen and examined this patient.: Yes I have fully participated in the care of the patient.: Yes I have reviewed all pertinent clinical information, including history, physical exam and plan: Yes Notes (Text): This is late computer entry for 12/25/17. Patient seen, examined, and case discussed with director medical affairs. Patient with known hx of HIV/AIDS dementia. He is awaiting placement at this time during course of hospitalization. Discussed with social work and case management, we have provided the medical portion of the PAS-5 forms to help with discharge planning for the patient; I have asked social work to make a copy to included in paper chart if they go missing. Patient is currently off IV fluids. We will need to encourage PO hydration. Patient reports he had a small bowel movement. Abdomen is soft on exam. Patient seen with physical therapy; observed shuffling gait; discussed with physical therapy, patient will likely need assistive device. Assessment/Plan (1) Complex partial epilepsy Assessment & Plan: * Neurology (Wills) on board-->help appreciated * Depakote level therapuetic * c/w Depakote 750mg q12h on 11/30/17 * Head CT (11/11/17): no intracranial mass or hemorrhage. 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 Chronic white matter ischemic change. 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 Postinfectious/ postinflammatory cortical calcifications diffusely. * Valproic acid: 56.1 Status: Chronic (2) AIDS AIDS Dementia Assessment & Plan: * ID (Mangia) on board-->help appreciated * Hep Panel - negative * Tivicay 50 mg PO daily * Truvada 200-300 mg PO daily * Bactrim DS po daily for Pneumocystis jirovecii prophylaxis * Head CT (10/14/17): - Findings suspicious for mild hydrocephalus, cause not identified. Multiple calcifications in the brain bilaterally, most tiny in size , too numerous to count. The main differential considerations given the appearance include infectious processes, such as neurocysticercosis or tuberculosis, in the healed/calcified nodular stage Lexapro 10 mg PO HS Namenda 10 mg PO daily Status: Chronic (3) Acute Kidney Insufficiency * Monitor * Improving Status: Acute (4) Transaminitis * Improving * hep panel negative * monitor, if no improvement will order abdominal u/s Status: Acute (5) Prophylactic measure Assessment & Plan: * SCDs * Heparin 5,000u SC q8h * Pepcid 20mg daily * Social Work consult --> help appreciated * Florastor 250mg PO BID Status: Acute Disposition: pending placement to [facility]
[2017-12-25] MEDS: Tmp-Smz 800 mg-160 mg DS Tab PO SCH ×2 (08:29→18:42)
[2017-12-25] MEDS: Emtricitabine-Tenofovir 200 mg-300 mg Tab PO SCH (10:02)
[2017-12-25] MEDS: Saccharomyces Boulardi 250 mg Cap PO SCH ×2 (10:08→17:17)
--- NOTE | 2017-12-26 07:16 | CP.PCM.PN ---
<Pallavi Sahu - Last Filed: 12/26/17 15:43> Subjective - Date & Time of Evaluation Date of Evaluation: 12/26/17 Time of Evaluation: 07:00 - Subjective Subjective: Medicine Progress Note: Patient was seen and examined at bedside in the AM. Per nurse no acute events overnight. Patient reports feeling well and has no complains. Patient is unsteady and has an unstable gait. Patient denies chest pain abdominal pain, dyspnea, nausea, vomiting, fevers, headaches. Objective - Vital Signs/Intake and Output Vital Signs (last 24 hours): Temp Pulse Resp BP Pulse Ox 98.2 F 76 20 100/65 95 12/25/17 16:00 12/25/17 16:00 12/25/17 16:00 12/25/17 16:00 12/25/17 16:00 Intake and Output: 12/26/17 12/26/17 06:59 18:59 Intake Total 550 Balance 550 - Medications Medications: Current Medications Docusate Sodium (Colace) 100 mg PO TID [facility] Last Admin: 12/25/17 17:17 Dose: 100 mg Dolutegravir Sodium (Tivicay) 50 mg PO DAILY [facility] PRN Reason: Protocol Last Admin: 12/25/17 10:02 Dose: 50 mg Emtricitabine/Tenofovir (Truvada 200 Mg-300 Mg) 1 tab PO DAILY [facility] PRN Reason: Protocol Last Admin: 12/25/17 10:02 Dose: 1 tab Escitalopram Oxalate (Lexapro) 10 mg PO HS [facility] Last Admin: 12/25/17 21:15 Dose: 10 mg Heparin Sodium (Porcine) (Heparin) 5,000 units SC Q8 JEFF Last Admin: 12/26/17 05:54 Dose: 5,000 units Memantine (Namenda) 10 mg PO DAILY [facility] Last Admin: 12/25/17 10:02 Dose: 10 mg Saccharomyces Boulardii (Florastor) 250 mg PO BID [facility] Last Admin: 12/25/17 17:17 Dose: 250 mg Trimethoprim/Sulfamethoxazole (Bactrim Ds Tab) 1 tab PO Q12H [facility] PRN Reason: Protocol Last Admin: 12/25/17 18:42 Dose: 1 tab Valproate Sodium (Depakene Cap) 750 mg PO Q12 [facility] Last Admin: 12/25/17 21:15 Dose: 750 mg - Labs Labs: 12/22/17 06:09 12/22/17 06:09 - Constitutional Appears: No Acute Distress - Head Exam Head Exam: ATRAUMATIC, NORMAL INSPECTION - ENT Exam ENT Exam: Mucous Membranes Moist - Respiratory Exam Respiratory Exam: NORMAL BREATHING PATTERN - Cardiovascular Exam Cardiovascular Exam: REGULAR RHYTHM, +S1, +S2 - GI/Abdominal Exam GI & Abdominal Exam: Soft, Normal Bowel Sounds. absent: Tenderness - Extremities Exam Extremities Exam: Normal Inspection - Neurological Exam Neurological Exam: Alert, Awake - Psychiatric Exam Psychiatric exam: Normal Mood - Skin Skin Exam: Normal Color Assessment and Plan - Assessment and Plan (Free Text) Assessment: Disposition: Insurance transferred to [place] (from [place]). Waiting for new information about insurance. Pending a form from family for approval for [facility]. (1) Complex partial epilepsy Assessment & Plan: Neurology consulted (Johann) Depakote 750mg q12h Depakote level Friday12/22/17- 56.[address] (11/11/17): no intracranial mass or hemorrhage. 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 Chronic white matter ischemic change. 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 Postinfectious/ postinflammatory cortical calcifications diffusely. As per Dr. Alejandro, these findings are probably chronic. (2) AIDS Assessment & Plan: ID consulted (Davon) History of AIDS dementia * Head CT (10/14/17): - Findings suspicious for mild hydrocephalus, cause not identified. Multiple calcifications in the brain bilaterally, most tiny in size , too numerous to count. The main differential considerations given the appearance include infectious processes, such as neurocysticercosis or tuberculosis, in the healed/calcified nodular stage Medications: Tivicay 50 mg PO daily Truvada 200-300 mg PO daily Bactrim DS po daily for Pneumocystis jirovecii prophylaxis Lexapro 10 mg PO HS Namenda 10 mg PO daily (3) GRACE monitor creatinine IVF discontinued continue encouraging increased po water intake (4) Transaminitis Downtrending hep panel negative Depakote level: 60.5 (12/16) Continue to monitor (5) Constipation Assessment & Plan: abd xray: prominent amount of retained stool Colace 100mg po TID prune juice BID dulcolax given Miralax given increase PO intake of water (6) Prophylactic measure Assessment & Plan: SCDs Heparin 5,000u SC q8h Florastor BID PT Social Work consult 1:1 sitter/observation- Fall risk (patient frequently gets out of bed, unstable on feet; needs walker when ambulating) <Susana Matson V - Last Filed: 12/26/17 18:09> Objective - Vital Signs/Intake and Output Vital Signs (last 24 hours): Temp Pulse Resp BP Pulse Ox 98.3 F 75 20 109/76 94 L 12/26/17 16:00 12/26/17 16:00 12/26/17 16:00 12/26/17 16:00 12/26/17 16:00 Intake and Output: 12/26/17 12/26/17 06:59 18:59 Intake Total 550 740 Balance 550 740 - Medications Medications: Current Medications Docusate Sodium (Colace) 100 mg PO TID [facility] Last Admin: 12/26/17 14:38 Dose: 100 mg Dolutegravir Sodium (Tivicay) 50 mg PO DAILY [facility] PRN Reason: Protocol Last Admin: 12/26/17 09:05 Dose: 50 mg Emtricitabine/Tenofovir (Truvada 200 Mg-300 Mg) 1 tab PO DAILY [facility] PRN Reason: Protocol Last Admin: 12/26/17 09:06 Dose: 1 tab Escitalopram Oxalate (Lexapro) 10 mg PO HS [facility] Last Admin: 12/25/17 21:15 Dose: 10 mg Memantine (Namenda) 10 mg PO DAILY [facility] Last Admin: 12/26/17 09:06 Dose: 10 mg Saccharomyces Boulardii (Florastor) 250 mg PO BID [facility] Last Admin: 12/26/17 09:06 Dose: 250 mg Trimethoprim/Sulfamethoxazole (Bactrim Ds Tab) 1 tab PO Q12H [facility] PRN Reason: Protocol Last Admin: 12/26/17 08:30 Dose: 1 tab Valproate Sodium (Depakene Cap) 750 mg PO Q12 [facility] Last Admin: 12/26/17 09:06 Dose: 750 mg - Labs Labs: 12/22/17 06:09 12/22/17 06:09 Attending/Attestation - Attestation I have personally seen and examined this patient.: Yes I have fully participated in the care of the patient.: Yes I have reviewed all pertinent clinical information, including history, physical exam and plan: Yes Notes (Text): Patient seen, examined, and case discussed with medical communication specialist. Patient with known hx of HIV/AIDS dementia. He is awaiting placement at this time during course of hospitalization. Discussed with social work and case management, we have provided the medical portion of the PAS-5 forms to help with discharge planning for the patient; I have asked social work to make a copy to included in paper chart if they go missing. Discussed with social work and case management, patient has been accepted [facility]; they are awaiting financial paperwork from the family for discharge. Assessment/Plan (1) Complex partial epilepsy Assessment & Plan: * Neurology (Johann) on board-->help appreciated * Depakote level therapuetic * c/w Depakote 750mg q12h on 11/30/17 * Head CT (11/11/17): no intracranial mass or hemorrhage. 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 Chronic white matter ischemic change. 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 Postinfectious/ postinflammatory cortical calcifications diffusely. * Valproic acid: 56.1 Status: Chronic (2) AIDS AIDS Dementia Assessment & Plan: * ID (Manggalina) on board-->help appreciated * Hep Panel - negative * Tivicay 50 mg PO daily * Truvada 200-300 mg PO daily * Bactrim DS po daily for Pneumocystis jirovecii prophylaxis * Head CT (10/14/17): - Findings suspicious for mild hydrocephalus, cause not identified. Multiple calcifications in the brain bilaterally, most tiny in size , too numerous to count. The main differential considerations given the appearance include infectious processes, such as neurocysticercosis or tuberculosis, in the healed/calcified nodular stage * Lexapro 10 mg PO HS * Namenda 10 mg PO daily Status: Chronic (3) Acute Kidney Insufficiency * Monitor * Improving Status: Acute (4) Transaminitis * Improving * hep panel negative * monitor, if no improvement will order abdominal u/s Status: Acute (5) Prophylactic measure Assessment & Plan: * SCDs * Heparin 5,000u SC q8h * Pepcid 20mg daily * Social Work consult --> help appreciated * Florastor 250mg PO BID Status: Acute Disposition: Patient is accepted [facility]; case management is awaiting financial paperwork from the patient's family.
[2017-12-26] MEDS: Tmp-Smz 800 mg-160 mg DS Tab PO SCH ×4 (08:30→19:10)
[2017-12-26] MEDS: Saccharomyces Boulardi 250 mg Cap PO SCH ×2 (09:06→18:26)
[2017-12-26] MEDS: Emtricitabine-Tenofovir 200 mg-300 mg Tab PO SCH (09:06)
--- NOTE | 2017-12-27 04:35 | CP.PCM.PN ---
<Татьяна Yun - Last Filed: 12/27/17 04:32> Subjective - Date & Time of Evaluation Date of Evaluation: 12/27/17 Time of Evaluation: 04:32 - Subjective Subjective: Medicine progress note for Dr. Matson's service Patient was seen and examined at bedside in no acute distress. Patient reports feeling "perfect" and has no complaints. No acute events overnight. Patient denies chest pain abdominal pain, dyspnea, nausea, vomiting, fevers, headaches. Objective - Vital Signs/Intake and Output Vital Signs (last 24 hours): Temp Pulse Resp BP Pulse Ox 97.7 F 70 20 115/74 96 12/26/17 23:45 12/26/17 23:45 12/26/17 23:45 12/26/17 23:45 12/26/17 23:45 Intake and Output: 12/26/17 12/27/17 18:59 06:59 Intake Total 740 450 Balance 740 450 - Medications Medications: Current Medications Docusate Sodium (Colace) 100 mg PO TID [facility] Last Admin: 12/26/17 18:26 Dose: 100 mg Dolutegravir Sodium (Tivicay) 50 mg PO DAILY [facility] PRN Reason: Protocol Last Admin: 12/26/17 09:05 Dose: 50 mg Emtricitabine/Tenofovir (Truvada 200 Mg-300 Mg) 1 tab PO DAILY [facility] PRN Reason: Protocol Last Admin: 12/26/17 09:06 Dose: 1 tab Escitalopram Oxalate (Lexapro) 10 mg PO HS [facility] Last Admin: 12/26/17 21:31 Dose: 10 mg Memantine (Namenda) 10 mg PO DAILY [facility] Last Admin: 12/26/17 09:06 Dose: 10 mg Saccharomyces Boulardii (Florastor) 250 mg PO BID [facility] Last Admin: 12/26/17 18:26 Dose: 250 mg Trimethoprim/Sulfamethoxazole (Bactrim Ds Tab) 1 tab PO Q12H [facility] PRN Reason: Protocol Last Admin: 12/26/17 19:10 Dose: Not Given Valproate Sodium (Depakene Cap) 750 mg PO Q12 [facility] Last Admin: 12/26/17 21:30 Dose: 750 mg - Labs Labs: 12/22/17 06:09 12/22/17 06:09 - Additional Findings Additional findings: - Constitutional Appears: No Acute Distress - Head Exam Head Exam: ATRAUMATIC, NORMAL INSPECTION - Eye Exam Eye Exam: EOMI, Normal appearance - ENT Exam ENT Exam: Mucous Membranes Moist - Respiratory Exam Respiratory Exam: Decreased Breath Sounds, NORMAL BREATHING PATTERN. absent: Rales, Rhonchi, Wheezes - Cardiovascular Exam Cardiovascular Exam: REGULAR RHYTHM, +S1, +S2 - GI/Abdominal Exam GI & Abdominal Exam: Soft, Normal Bowel Sounds. absent: Distended, Tenderness - Extremities Exam Extremities Exam: Normal Inspection - Neurological Exam Neurological Exam: Alert, Awake, Abnormal gait (shuffling) - Psychiatric Exam Psychiatric exam: Normal Mood - Skin Skin Exam: Dry, Intact, Normal Color, Warm Assessment and Plan - Assessment and Plan (Free Text) Plan: (1) Complex partial epilepsy Assessment & Plan: Neurology consulted (Johann) Depakote 750mg q12h Depakote level Friday12/22/17- 56.[address] (11/11/17): no intracranial mass or hemorrhage. 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 Chronic white matter ischemic change. 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 Postinfectious/ postinflammatory cortical calcifications diffusely. As per Dr. Alejandro, these findings are probably chronic. (2) AIDS Assessment & Plan: ID consulted (Davon) History of AIDS dementia * Head CT (10/14/17): - Findings suspicious for mild hydrocephalus, cause not identified. Multiple calcifications in the brain bilaterally, most tiny in size , too numerous to count. The main differential considerations given the appearance include infectious processes, such as neurocysticercosis or tuberculosis, in the healed/calcified nodular stage Medications: Tivicay 50 mg PO daily Truvada 200-300 mg PO daily Bactrim DS po daily for Pneumocystis jirovecii prophylaxis Lexapro 10 mg PO HS Namenda 10 mg PO daily (3) GRACE monitor creatinine IVF discontinued continue encouraging increased po water intake (4) Transaminitis Downtrending hep panel negative Depakote level: 60.5 (12/16) Continue to monitor (5) Constipation Assessment & Plan: abd xray: prominent amount of retained stool Colace 100mg po TID prune juice BID dulcolax given Miralax given increase PO intake of water (6) Prophylactic measure Assessment & Plan: SCDs Heparin 5,000u SC q8h Florastor BID PT Social Work consult 1:1 sitter/observation- Fall risk (patient frequently gets out of bed, unstable on feet; needs walker when ambulating) Disposition: Insurance transferred to [place] (from [place]). Waiting for new information about insurance. [facility] in [place] will not accept patient's insurance. Awaiting approval from [facility]. Forms filled out and given to social work team. <Susana Matson V - Last Filed: 12/27/17 20:18> Objective - Vital Signs/Intake and Output Vital Signs (last 24 hours): Temp Pulse Resp BP Pulse Ox 98.1 F 80 20 108/63 96 12/27/17 15:43 12/27/17 15:43 12/27/17 15:43 12/27/17 15:43 12/27/17 15:43 Intake and Output: 12/27/17 12/28/17 18:59 06:59 Intake Total 720 Balance 720 - Medications Medications: Current Medications Docusate Sodium (Colace) 100 mg PO TID [facility] Last Admin: 12/27/17 17:29 Dose: 100 mg Dolutegravir Sodium (Tivicay) 50 mg PO DAILY [facility] PRN Reason: Protocol Last Admin: 12/27/17 11:02 Dose: 50 mg Emtricitabine/Tenofovir (Truvada 200 Mg-300 Mg) 1 tab PO DAILY [facility] PRN Reason: Protocol Last Admin: 12/27/17 11:05 Dose: 1 tab Escitalopram Oxalate (Lexapro) 10 mg PO HS [facility] Last Admin: 12/26/17 21:31 Dose: 10 mg Memantine (Namenda) 10 mg PO DAILY [facility] Last Admin: 12/27/17 11:02 Dose: 10 mg Saccharomyces Boulardii (Florastor) 250 mg PO BID [facility] Last Admin: 12/27/17 17:32 Dose: 250 mg Trimethoprim/Sulfamethoxazole (Bactrim Ds Tab) 1 tab PO Q12H [facility] PRN Reason: Protocol Last Admin: 12/27/17 08:26 Dose: 1 tab Valproate Sodium (Depakene Cap) 750 mg PO Q12 [facility] Last Admin: 12/27/17 11:06 Dose: 750 mg - Labs Labs: 12/22/17 06:09 12/22/17 06:09 Attending/Attestation - Attestation I have personally seen and examined this patient.: Yes I have fully participated in the care of the patient.: Yes I have reviewed all pertinent clinical information, including history, physical exam and plan: Yes Notes (Text): Patient seen, examined, and case discussed with director of graduate medical education. Patient with known hx of HIV/AIDS dementia. He is awaiting placement at this time during course of hospitalization. Discussed with social work and case management prior to the weekend, patient's discharge is pending family bringing in financial paperwork necessary. [facility] is [facility]. Patient on abdominal exam is soft, distended, nontender--->will ordered for Lactulose since he is unreliable at times in regards to using the bathroom. Assessment/Plan (1) Complex partial epilepsy Assessment & Plan: * Neurology (Johann) on board-->help appreciated * Depakote level therapuetic * c/w Depakote 750mg q12h on 11/30/17 * Head CT (11/11/17): no intracranial mass or hemorrhage. 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 Chronic white matter ischemic change. 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 Postinfectious/ postinflammatory cortical calcifications diffusely. * Valproic acid: 56.1 Status: Chronic (2) AIDS AIDS Dementia Assessment & Plan: * ID (Manggalina) on board-->help appreciated * Hep Panel - negative * Tivicay 50 mg PO daily * Truvada 200-300 mg PO daily * Bactrim DS po daily for Pneumocystis jirovecii prophylaxis * Head CT (10/14/17): - Findings suspicious for mild hydrocephalus, cause not identified. Multiple calcifications in the brain bilaterally, most tiny in size , too numerous to count. The main differential considerations given the appearance include infectious processes, such as neurocysticercosis or tuberculosis, in the healed/calcified nodular stage * Lexapro 10 mg PO HS * Namenda 10 mg PO daily Status: Chronic (3) Acute Kidney Insufficiency * Monitor * Improving Status: Acute (4) Transaminitis * Improving * hep panel negative * monitor, if no improvement will order abdominal u/s Status: Acute (5) Prophylactic measure Assessment & Plan: * SCDs * Heparin 5,000u SC q8h * Pepcid 20mg daily * Social Work consult --> help appreciated * Florastor 250mg PO BID Status: Acute Disposition: Patient is accepted [facility]; case management is awaiting financial paperwork from the patient's family.
[2017-12-27] MEDS: Tmp-Smz 800 mg-160 mg DS Tab PO SCH ×2 (08:26→20:38)
[2017-12-27] MEDS: Saccharomyces Boulardi 250 mg Cap PO SCH ×2 (11:02→17:32)
[2017-12-27] MEDS: Emtricitabine-Tenofovir 200 mg-300 mg Tab PO SCH (11:05)
--- NOTE | 2017-12-28 03:10 | CP.PCM.PN ---
<Татьяна Yun - Last Filed: 12/28/17 03:04> Subjective - Date & Time of Evaluation Date of Evaluation: 12/28/17 Time of Evaluation: 03:04 - Subjective Subjective: Medicine progress note for Dr. Matson's service Patient was seen and examined at bedside in no acute distress. Patient states he has no complaints. He says he is having normal bowel movements and no urinary complaints. Patient denies chest pain abdominal pain, dyspnea, nausea, vomiting, fevers, headaches. No acute events overnight. Objective - Vital Signs/Intake and Output Vital Signs (last 24 hours): Temp Pulse Resp BP Pulse Ox 98.4 F 77 20 115/74 95 12/27/17 23:58 12/27/17 23:58 12/27/17 23:58 12/27/17 23:58 12/27/17 23:58 Intake and Output: 12/27/17 12/28/17 18:59 06:59 Intake Total 720 Balance 720 - Medications Medications: Current Medications Docusate Sodium (Colace) 100 mg PO TID [facility] Last Admin: 12/27/17 17:29 Dose: 100 mg Dolutegravir Sodium (Tivicay) 50 mg PO DAILY [facility] PRN Reason: Protocol Last Admin: 12/27/17 11:02 Dose: 50 mg Emtricitabine/Tenofovir (Truvada 200 Mg-300 Mg) 1 tab PO DAILY [facility] PRN Reason: Protocol Last Admin: 12/27/17 11:05 Dose: 1 tab Escitalopram Oxalate (Lexapro) 10 mg PO HS [facility] Last Admin: 12/27/17 21:46 Dose: 10 mg Memantine (Namenda) 10 mg PO DAILY [facility] Last Admin: 12/27/17 11:02 Dose: 10 mg Saccharomyces Boulardii (Florastor) 250 mg PO BID [facility] Last Admin: 12/27/17 17:32 Dose: 250 mg Trimethoprim/Sulfamethoxazole (Bactrim Ds Tab) 1 tab PO Q12H [facility] PRN Reason: Protocol Last Admin: 12/27/17 20:38 Dose: 1 tab Valproate Sodium (Depakene Cap) 750 mg PO Q12 [facility] Last Admin: 12/27/17 22:12 Dose: 750 mg - Labs Labs: 12/22/17 06:09 12/22/17 06:09 - Additional Findings Additional findings: - Constitutional Appears: No Acute Distress - Head Exam Head Exam: ATRAUMATIC, NORMAL INSPECTION - Eye Exam Eye Exam: EOMI, Normal appearance - ENT Exam ENT Exam: Mucous Membranes Moist - Respiratory Exam Respiratory Exam: Decreased Breath Sounds, NORMAL BREATHING PATTERN. absent: Rales, Rhonchi, Wheezes - Cardiovascular Exam Cardiovascular Exam: REGULAR RHYTHM, +S1, +S2 - GI/Abdominal Exam GI & Abdominal Exam: Soft, Normal Bowel Sounds. absent: Distended, Tenderness - Extremities Exam Extremities Exam: Normal Inspection - Neurological Exam Neurological Exam: Alert, Awake, Abnormal gait (shuffling) - Psychiatric Exam Psychiatric exam: Normal Mood - Skin Skin Exam: Dry, Intact, Normal Color, Warm Assessment and Plan - Assessment and Plan (Free Text) Plan: (1) Complex partial epilepsy Assessment & Plan: Neurology consulted (Johann) Depakote 750mg q12h Depakote level Friday12/22/17- 56.[address] (11/11/17): no intracranial mass or hemorrhage. 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 Chronic white matter ischemic change. 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 Postinfectious/ postinflammatory cortical calcifications diffusely. As per Dr. Alejandro, these findings are probably chronic. (2) AIDS Assessment & Plan: ID consulted (Davon) History of AIDS dementia * Head CT (10/14/17): - Findings suspicious for mild hydrocephalus, cause not identified. Multiple calcifications in the brain bilaterally, most tiny in size , too numerous to count. The main differential considerations given the appearance include infectious processes, such as neurocysticercosis or tuberculosis, in the healed/calcified nodular stage Medications: Tivicay 50 mg PO daily Truvada 200-300 mg PO daily Bactrim DS po daily for Pneumocystis jirovecii prophylaxis Lexapro 10 mg PO HS Namenda 10 mg PO daily (3) GRACE monitor creatinine IVF discontinued continue encouraging increased po water intake (4) Transaminitis Downtrending hep panel negative Depakote level: 60.5 (12/16) Continue to monitor (5) Constipation Assessment & Plan: abd xray: prominent amount of retained stool Colace 100mg po TID prune juice BID dulcolax given Miralax given increase PO intake of water (6) Prophylactic measure Assessment & Plan: SCDs Heparin 5,000u SC q8h Florastor BID PT Social Work consult 1:1 sitter/observation- Fall risk (patient frequently gets out of bed, unstable on feet; needs walker when ambulating) Disposition: Insurance transferred to [place] (from [place]). Patient accepted to [facility]. Discharge pending financial paperwork that family will bring in. <Susana Matson V - Last Filed: 12/28/17 09:30> Objective - Vital Signs/Intake and Output Vital Signs (last 24 hours): Temp Pulse Resp BP Pulse Ox 98.1 F 72 20 106/63 95 12/28/17 08:37 12/28/17 08:37 12/28/17 08:37 12/28/17 08:37 12/28/17 08:37 Intake and Output: 12/28/17 12/28/17 06:59 18:59 Intake Total 500 Balance 500 - Medications Medications: Current Medications Docusate Sodium (Colace) 100 mg PO TID [facility] Last Admin: 12/27/17 17:29 Dose: 100 mg Dolutegravir Sodium (Tivicay) 50 mg PO DAILY [facility] PRN Reason: Protocol Last Admin: 12/27/17 11:02 Dose: 50 mg Emtricitabine/Tenofovir (Truvada 200 Mg-300 Mg) 1 tab PO DAILY [facility] PRN Reason: Protocol Last Admin: 12/27/17 11:05 Dose: 1 tab Escitalopram Oxalate (Lexapro) 10 mg PO HS [facility] Last Admin: 12/27/17 21:46 Dose: 10 mg Memantine (Namenda) 10 mg PO DAILY [facility] Last Admin: 12/27/17 11:02 Dose: 10 mg Saccharomyces Boulardii (Florastor) 250 mg PO BID [facility] Last Admin: 12/27/17 17:32 Dose: 250 mg Trimethoprim/Sulfamethoxazole (Bactrim Ds Tab) 1 tab PO Q12H [facility] PRN Reason: Protocol Last Admin: 12/27/17 20:38 Dose: 1 tab Valproate Sodium (Depakene Cap) 750 mg PO Q12 [facility] Last Admin: 12/27/17 22:12 Dose: 750 mg - Labs Labs: 12/22/17 06:09 12/22/17 06:09 Attending/Attestation - Attestation I have personally seen and examined this patient.: Yes I have fully participated in the care of the patient.: Yes I have reviewed all pertinent clinical information, including history, physical exam and plan: Yes Notes (Text): Patient seen, examined, and case discussed with regional medical director. Patient with known hx of HIV/AIDS dementia. He is awaiting placement at this time during course of hospitalization. Discussed with social work and case management prior to the weekend, patient's discharge is pending family bringing in financial paperwork necessary. He is accepted to [facility]. Abdominal exam is improved. Patient is ordered for blood work and Valproic acid level tomorrow. Assessment/Plan (1) Complex partial epilepsy Assessment & Plan: * Neurology (Wills) on board-->help appreciated * Depakote level therapuetic * c/w Depakote 750mg q12h on 11/30/17 * Head CT (11/11/17): no intracranial mass or hemorrhage. 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 Chronic white matter ischemic change. 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 Postinfectious/ postinflammatory cortical calcifications diffusely. * Valproic acid: 56.1 Status: Chronic (2) AIDS AIDS Dementia Assessment & Plan: * ID (Mangia) on board-->help appreciated * Hep Panel - negative * Tivicay 50 mg PO daily * Truvada 200-300 mg PO daily * Bactrim DS po daily for Pneumocystis jirovecii prophylaxis * Head CT (10/14/17): - Findings suspicious for mild hydrocephalus, cause not identified. Multiple calcifications in the brain bilaterally, most tiny in size , too numerous to count. The main differential considerations given the appearance include infectious processes, such as neurocysticercosis or tuberculosis, in the healed/calcified nodular stage * Lexapro 10 mg PO HS * Namenda 10 mg PO daily Status: Chronic (3) Acute Kidney Insufficiency * Monitor Status: Acute (4) Transaminitis * Improving * hep panel negative Status: Acute (5) Prophylactic measure Assessment & Plan: * SCDs * Heparin 5,000u SC q8h * Pepcid 20mg daily * Social Work consult --> help appreciated * Florastor 250mg PO BID Status: Acute Disposition: Patient is accepted to [facility]; case management is awaiting financial paperwork from the patient's family.
[2017-12-28] MEDS: Saccharomyces Boulardi 250 mg Cap PO SCH ×2 (11:02→17:31)
[2017-12-28] MEDS: Tmp-Smz 800 mg-160 mg DS Tab PO SCH ×2 (11:02→19:24)
[2017-12-28] MEDS: Emtricitabine-Tenofovir 200 mg-300 mg Tab PO SCH (11:05)
--- NOTE | 2017-12-29 03:13 | CP.PCM.PN ---
<Samir Wright - Last Filed: 12/29/17 03:15> Subjective - Date & Time of Evaluation Date of Evaluation: 12/29/17 Time of Evaluation: 03:15 - Subjective Subjective: Progress note. Patient seen and examined at bedside. No acute distress. Patient states he has no complaints. He says he is having normal bowel movements and no urinary complaints. Patient denies chest pain abdominal pain, dyspnea, nausea, vomiting , fevers, headaches. No acute events overnight. Objective - Vital Signs/Intake and Output Vital Signs (last 24 hours): Temp Pulse Resp BP Pulse Ox 98.7 F 80 20 101/67 98 12/29/17 00:00 12/29/17 00:00 12/29/17 00:00 12/29/17 00:00 12/29/17 00:00 Intake and Output: 12/28/17 12/29/17 18:59 06:59 Intake Total 1100 Balance 1100 - Medications Medications: Current Medications Docusate Sodium (Colace) 100 mg PO TID [facility] Last Admin: 12/28/17 17:30 Dose: 100 mg Dolutegravir Sodium (Tivicay) 50 mg PO DAILY [facility] PRN Reason: Protocol Last Admin: 12/28/17 11:06 Dose: 50 mg Emtricitabine/Tenofovir (Truvada 200 Mg-300 Mg) 1 tab PO DAILY [facility] PRN Reason: Protocol Last Admin: 12/28/17 11:05 Dose: 1 tab Escitalopram Oxalate (Lexapro) 10 mg PO HS [facility] Last Admin: 12/28/17 21:17 Dose: 10 mg Memantine (Namenda) 10 mg PO DAILY [facility] Last Admin: 12/28/17 11:02 Dose: 10 mg Saccharomyces Boulardii (Florastor) 250 mg PO BID [facility] Last Admin: 12/28/17 17:31 Dose: 250 mg Trimethoprim/Sulfamethoxazole (Bactrim Ds Tab) 1 tab PO Q12H [facility] PRN Reason: Protocol Last Admin: 12/28/17 19:24 Dose: 1 tab Valproate Sodium (Depakene Cap) 750 mg PO Q12 [facility] Last Admin: 12/28/17 21:17 Dose: 750 mg - Labs Labs: 12/22/17 06:09 12/22/17 06:09 - Constitutional Appears: Non-toxic, No Acute Distress - Head Exam Head Exam: ATRAUMATIC, NORMAL INSPECTION, NORMOCEPHALIC - Eye Exam Eye Exam: EOMI - ENT Exam ENT Exam: Mucous Membranes Moist - Neck Exam Neck Exam: Full ROM, Normal Inspection - Respiratory Exam Respiratory Exam: Decreased Breath Sounds. absent: Respiratory Distress - Cardiovascular Exam Cardiovascular Exam: +S1, +S2 - GI/Abdominal Exam GI & Abdominal Exam: Soft, Normal Bowel Sounds. absent: Tenderness - Extremities Exam Extremities Exam: Full ROM, Normal Inspection - Back Exam Back Exam: NORMAL INSPECTION - Neurological Exam Neurological Exam: Alert, Awake, Oriented x3 - Psychiatric Exam Psychiatric exam: Normal Affect, Normal Mood - Skin Skin Exam: Dry, Intact, Normal Color, Warm Assessment and Plan - Assessment and Plan (Free Text) Assessment: This is a 57 yo male with 1. Complex partial epilepsy -Neurology consulted (Johann). recs appreciated. -Depakote 750mg q12 hrs -Depakote level Friday12/22/17- 56.1 -Head CT (11/11/17): no intracranial mass or hemorrhage. 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 Chronic white matter ischemic change. 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 Postinfectious/ postinflammatory cortical calcifications diffusely. -As per Dr. Alejandro, these findings are probably chronic. 2. Hx of AIDS -ID consulted (Davon). recs appreciated. -History of AIDS dementia -Head CT (10/14/17): - Findings suspicious for mild hydrocephalus, cause not identified. Multiple calcifications in the brain bilaterally, most tiny in size , too numerous to count. The main differential considerations given the appearance include infectious processes, such as neurocysticercosis or tuberculosis, in the healed/calcified nodular stage -Tivicay 50 mg PO daily -Truvada 200-300 mg PO daily -Bactrim DS po daily for Pneumocystis jirovecii prophylaxis -Lexapro 10 mg PO HS -Namenda 10 mg PO daily 3. Acute kidney injury -monitor creatinine -IVF discontinued -continue encouraging increased po water intake 4. Transaminitis -Downtrending -hep panel negative -Depakote level: 60.5 (12/16) -Continue to monitor 5. Constipation -abd xray: prominent amount of retained stool -Colace 100mg po TID -prune juice BID -dulcolax given -Miralax given -increase PO intake of water 6. GI/DVT ppx -SCDs -Heparin 5,000 units SC q8 hrs -Florastor BID -PT -Social Work consult -1:1 sitter/observation- Fall risk (patient frequently gets out of bed, unstable on feet; needs walker when ambulating) Disposition: Insurance transferred to [place] (from [place]). Patient accepted to [facility]. Discharge pending financial paperwork that family will bring in. <Salinas Philip - Last Filed: 12/29/17 20:00> Objective - Vital Signs/Intake and Output Vital Signs (last 24 hours): Temp Pulse Resp BP Pulse Ox 98.0 F 74 20 118/67 96 12/29/17 16:16 12/29/17 16:16 12/29/17 16:16 12/29/17 16:16 12/29/17 16:16 - Medications Medications: Current Medications Docusate Sodium (Colace) 100 mg PO TID [facility] Last Admin: 12/29/17 17:33 Dose: 100 mg Dolutegravir Sodium (Tivicay) 50 mg PO DAILY [facility] PRN Reason: Protocol Last Admin: 12/29/17 11:08 Dose: 50 mg Emtricitabine/Tenofovir (Truvada 200 Mg-300 Mg) 1 tab PO DAILY [facility] PRN Reason: Protocol Last Admin: 12/29/17 11:08 Dose: 1 tab Escitalopram Oxalate (Lexapro) 10 mg PO HS [facility] Last Admin: 12/28/17 21:17 Dose: 10 mg Memantine (Namenda) 10 mg PO DAILY [facility] Last Admin: 12/29/17 11:07 Dose: 10 mg Saccharomyces Boulardii (Florastor) 250 mg PO BID [facility] Last Admin: 12/29/17 17:33 Dose: 250 mg Trimethoprim/Sulfamethoxazole (Bactrim Ds Tab) 1 tab PO Q12H [facility] PRN Reason: Protocol Last Admin: 12/29/17 06:44 Dose: 1 tab Valproate Sodium (Depakene Cap) 750 mg PO Q12 [facility] Last Admin: 12/29/17 11:07 Dose: 750 mg - Labs Labs: 12/29/17 07:13 12/29/17 07:13 Attending/Attestation - Attestation I have personally seen and examined this patient.: Yes I have fully participated in the care of the patient.: Yes I have reviewed all pertinent clinical information, including history, physical exam and plan: Yes Notes (Text): 12/29/17 20:00 Patient was seen and examined at 12:00 PM Awaiting [facility] placement. Salinas Philip D.O.
[2017-12-29] MEDS: Tmp-Smz 800 mg-160 mg DS Tab PO SCH ×2 (06:44→20:00)
[2017-12-29 07:39] LABS: BASO % 0.5 % (0.0-2.0); EOS # 0.2 K/uL (0.0-0.7); EOS % 4.7 % (0.0-4.0); LYMPH % 43.3 % (20.0-40.0); MEAN CELL VOLUME 97.7 fL (80.0-94.0); MEAN CORPUSCULAR HEMOGLOBIN 33.8 pg (27.0-31.0); MEAN CORPUSCULAR HGB CONC 34.6 g/dL (33.0-37.0); MEAN PLATELET VOLUME 9.1 fL (7.2-11.7); MONO # 0.5 K/uL (0.0-0.8); MONO % 11.8 % (0.0-10.0); NEUT # 1.8 K/uL (1.8-7.0); NEUT % 39.7 % (50.0-75.0); NRBC % 0.1 % (0.0-2.0); RBC 4.45 Mil/uL (4.40-5.90); RED CELL DISTRIBUTION WIDTH 13.7 % (11.5-14.5); WHITE BLOOD COUNT 4.6 K/uL (4.8-10.8)
[2017-12-29 07:43] LABS: ALB/GLOB RATIO 1.2 (1.0-2.1); ALBUMIN 4.6 g/dL (3.5-5.0); CALCIUM 9.4 mg/dl (8.6-10.4)
[2017-12-29] MEDS: Saccharomyces Boulardi 250 mg Cap PO SCH ×2 (11:07→17:33)
[2017-12-29] MEDS: Emtricitabine-Tenofovir 200 mg-300 mg Tab PO SCH (11:08)
[2017-12-30] MEDS: Tmp-Smz 800 mg-160 mg DS Tab PO SCH ×2 (07:32→19:47)
[2017-12-30] MEDS: Emtricitabine-Tenofovir 200 mg-300 mg Tab PO SCH (10:10)
[2017-12-30] MEDS: Saccharomyces Boulardi 250 mg Cap PO SCH ×2 (10:10→17:31)
--- NOTE | 2017-12-30 10:26 | CP.PCM.PN ---
<Татьяна Yun - Last Filed: 12/30/17 16:16> Subjective - Date & Time of Evaluation Date of Evaluation: 12/30/17 Time of Evaluation: 10:26 - Subjective Subjective: Medicine progress note for Dr. Octavio Philip's service Patient was seen and examined at bedside in no acute distress. Patient states he has no complaints. He say he had a normal bowel movement yesterday and denies urinary complaints. Patient denies chest pain abdominal pain, dyspnea, nausea, vomiting, fevers, headaches. No acute events overnight. Objective - Vital Signs/Intake and Output Vital Signs (last 24 hours): Temp Pulse Resp BP Pulse Ox 98.1 F 76 20 112/68 98 12/30/17 07:00 12/30/17 07:00 12/30/17 07:00 12/30/17 07:00 12/30/17 07:00 Intake and Output: 12/30/17 12/30/17 06:59 18:59 Intake Total 200 Balance 200 - Medications Medications: Current Medications Docusate Sodium (Colace) 100 mg PO TID [facility] Last Admin: 12/30/17 10:10 Dose: 100 mg Dolutegravir Sodium (Tivicay) 50 mg PO DAILY [facility] PRN Reason: Protocol Last Admin: 12/30/17 10:10 Dose: 50 mg Emtricitabine/Tenofovir (Truvada 200 Mg-300 Mg) 1 tab PO DAILY [facility] PRN Reason: Protocol Last Admin: 12/30/17 10:10 Dose: 1 tab Escitalopram Oxalate (Lexapro) 10 mg PO HS [facility] Last Admin: 12/29/17 21:54 Dose: 10 mg Memantine (Namenda) 10 mg PO DAILY [facility] Last Admin: 12/30/17 10:10 Dose: 10 mg Saccharomyces Boulardii (Florastor) 250 mg PO BID [facility] Last Admin: 12/30/17 10:10 Dose: 250 mg Trimethoprim/Sulfamethoxazole (Bactrim Ds Tab) 1 tab PO Q12H [facility] PRN Reason: Protocol Last Admin: 12/30/17 07:32 Dose: 1 tab Valproate Sodium (Depakene Cap) 750 mg PO Q12 [facility] Last Admin: 12/30/17 10:10 Dose: 750 mg - Labs Labs: 12/29/17 07:13 12/29/17 07:13 - Additional Findings Additional findings: - Constitutional Appears: No Acute Distress - Head Exam Head Exam: ATRAUMATIC, NORMAL INSPECTION - Eye Exam Eye Exam: EOMI, Normal appearance - ENT Exam ENT Exam: Mucous Membranes Moist - Respiratory Exam Respiratory Exam: Decreased Breath Sounds, NORMAL BREATHING PATTERN. absent: Rales, Rhonchi, Wheezes - Cardiovascular Exam Cardiovascular Exam: REGULAR RHYTHM, +S1, +S2 - GI/Abdominal Exam GI & Abdominal Exam: Soft, Normal Bowel Sounds. absent: Distended, Tenderness - Extremities Exam Extremities Exam: Normal Inspection - Neurological Exam Neurological Exam: Alert, Awake, Abnormal gait (shuffling) - Psychiatric Exam Psychiatric exam: Normal Mood - Skin Skin Exam: Dry, Intact, Normal Color, Warm Assessment and Plan - Assessment and Plan (Free Text) Plan: (1) Complex partial epilepsy Assessment & Plan: Neurology consulted (Johann) Depakote 750mg q12h Depakote level Friday12/22/17- 56.[address] (11/11/17): no intracranial mass or hemorrhage. 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 Chronic white matter ischemic change. 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 Postinfectious/ postinflammatory cortical calcifications diffusely. As per Dr. Alejandro, these findings are probably chronic. (2) AIDS Assessment & Plan: ID consulted (Davon) History of AIDS dementia * Head CT (10/14/17): - Findings suspicious for mild hydrocephalus, cause not identified. Multiple calcifications in the brain bilaterally, most tiny in size , too numerous to count. The main differential considerations given the appearance include infectious processes, such as neurocysticercosis or tuberculosis, in the healed/calcified nodular stage Medications: Tivicay 50 mg PO daily Truvada 200-300 mg PO daily Bactrim DS po daily for Pneumocystis jirovecii prophylaxis Lexapro 10 mg PO HS Namenda 10 mg PO daily (3) GRACE monitor creatinine IVF discontinued continue encouraging increased po water intake (4) Transaminitis Downtrending hep panel negative Depakote level: 60.5 (12/16) Continue to monitor (5) Constipation Assessment & Plan: abd xray: prominent amount of retained stool Colace 100mg po TID prune juice BID dulcolax given Miralax given increase PO intake of water (6) Prophylactic measure Assessment & Plan: SCDs Heparin 5,000u SC q8h Florastor BID PT Social Work consult 1:1 sitter/observation- Fall risk (patient frequently gets out of bed, unstable on feet; needs walker when ambulating) Disposition: Insurance transferred to [place] (from [place]). Social work on case- no longer waiting for transfer to [facility]; working on placement to [place]. Discharge pending placement. <Salinas Philip - Last Filed: 12/30/17 18:36> Objective - Vital Signs/Intake and Output Vital Signs (last 24 hours): Temp Pulse Resp BP Pulse Ox 98.2 F 76 20 104/68 96 12/30/17 15:00 12/30/17 15:00 12/30/17 15:00 12/30/17 15:00 12/30/17 15:00 Intake and Output: 12/30/17 12/30/17 06:59 18:59 Intake Total 200 500 Output Total 250 Balance 200 250 - Medications Medications: Current Medications Docusate Sodium (Colace) 100 mg PO TID [facility] Last Admin: 12/30/17 17:31 Dose: 100 mg Dolutegravir Sodium (Tivicay) 50 mg PO DAILY [facility] PRN Reason: Protocol Last Admin: 12/30/17 10:10 Dose: 50 mg Emtricitabine/Tenofovir (Truvada 200 Mg-300 Mg) 1 tab PO DAILY [facility] PRN Reason: Protocol Last Admin: 12/30/17 10:10 Dose: 1 tab Escitalopram Oxalate (Lexapro) 10 mg PO HS [facility] Last Admin: 12/29/17 21:54 Dose: 10 mg Memantine (Namenda) 10 mg PO DAILY [facility] Last Admin: 12/30/17 10:10 Dose: 10 mg Saccharomyces Boulardii (Florastor) 250 mg PO BID [facility] Last Admin: 12/30/17 17:31 Dose: 250 mg Trimethoprim/Sulfamethoxazole (Bactrim Ds Tab) 1 tab PO Q12H [facility] PRN Reason: Protocol Last Admin: 12/30/17 07:32 Dose: 1 tab Valproate Sodium (Depakene Cap) 750 mg PO Q12 [facility] Last Admin: 12/30/17 10:10 Dose: 750 mg - Labs Labs: 12/29/17 07:13 12/29/17 07:13 Attending/Attestation - Attestation I have personally seen and examined this patient.: Yes I have fully participated in the care of the patient.: Yes I have reviewed all pertinent clinical information, including history, physical exam and plan: Yes Notes (Text): 12/30/17 18:33 Patient was seen and examined at 12:00 PM Exam, assessment and plan were gone over with resident Dr. Manzo Spoke with ADELINA Schwartz to make sure patient drank at least 2 pitchers of water as his Cr was normal when he actually did this. F/U BMP 12/31/17. Spoke with Nurse Advocate Emmanuel who is working towards placement for patient now at [facility]. She will need to get consent from patient's sister in [place] or Daughter in [place] in light of the patient's AIDS Dementia. Salinas Philip D.O.
--- NOTE | 2017-12-31 07:05 | CP.PCM.PN ---
<Татьяна Yun - Last Filed: 12/31/17 13:06> Subjective - Date & Time of Evaluation Date of Evaluation: 12/31/17 Time of Evaluation: 07:05 - Subjective Subjective: Medicine progress note for Dr. Octavio Philip's service Patient was seen and examined at bedside in no acute distress. Patient is smiling today, pleasant. Patient is oriented to person, place, time ("december 2017" , did not know the day). Patient states he has no complaints. He say he had a normal bowel movement yesterday, denies pain/blood in stool; patient denies urinary complaints. Patient denies chest pain abdominal pain, dyspnea, nausea, vomiting, fevers, headaches. No acute events overnight. Objective - Vital Signs/Intake and Output Vital Signs (last 24 hours): Temp Pulse Resp BP Pulse Ox 98.7 F 71 20 106/61 97 12/30/17 23:47 12/30/17 23:47 12/30/17 23:47 12/30/17 23:47 12/30/17 23:47 Intake and Output: 12/31/17 12/31/17 06:59 18:59 Intake Total 250 Balance 250 - Medications Medications: Current Medications Docusate Sodium (Colace) 100 mg PO TID [facility] Last Admin: 12/30/17 17:31 Dose: 100 mg Dolutegravir Sodium (Tivicay) 50 mg PO DAILY [facility] PRN Reason: Protocol Last Admin: 12/30/17 10:10 Dose: 50 mg Emtricitabine/Tenofovir (Truvada 200 Mg-300 Mg) 1 tab PO DAILY [facility] PRN Reason: Protocol Last Admin: 12/30/17 10:10 Dose: 1 tab Escitalopram Oxalate (Lexapro) 10 mg PO HS [facility] Last Admin: 12/30/17 21:46 Dose: 10 mg Memantine (Namenda) 10 mg PO DAILY [facility] Last Admin: 12/30/17 10:10 Dose: 10 mg Saccharomyces Boulardii (Florastor) 250 mg PO BID [facility] Last Admin: 12/30/17 17:31 Dose: 250 mg Trimethoprim/Sulfamethoxazole (Bactrim Ds Tab) 1 tab PO Q12H [facility] PRN Reason: Protocol Last Admin: 12/30/17 19:47 Dose: 1 tab Valproate Sodium (Depakene Cap) 750 mg PO Q12 [facility] Last Admin: 12/30/17 21:47 Dose: 750 mg - Labs Labs: 12/29/17 07:13 12/29/17 07:13 - Additional Findings Additional findings: - Constitutional Appears: No Acute Distress - Head Exam Head Exam: ATRAUMATIC, NORMAL INSPECTION - Eye Exam Eye Exam: EOMI, Normal appearance - ENT Exam ENT Exam: Mucous Membranes Moist - Respiratory Exam Respiratory Exam: Decreased Breath Sounds, NORMAL BREATHING PATTERN. absent: Rales, Rhonchi, Wheezes - Cardiovascular Exam Cardiovascular Exam: REGULAR RHYTHM, +S1, +S2 - GI/Abdominal Exam GI & Abdominal Exam: Soft, Normal Bowel Sounds. absent: Distended, Tenderness - Extremities Exam Extremities Exam: Normal Inspection - Neurological Exam Neurological Exam: Alert, Awake, Abnormal gait (shuffling) - Psychiatric Exam Psychiatric exam: Normal Mood - Skin Skin Exam: Dry, Intact, Normal Color, Warm Assessment and Plan - Assessment and Plan (Free Text) Plan: (1) Complex partial epilepsy Assessment & Plan: Neurology consulted (Johann) Depakote 750mg q12h Depakote level Friday12/22/17- 56.[address] (11/11/17): no intracranial mass or hemorrhage. 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 Chronic white matter ischemic change. 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 Postinfectious/ postinflammatory cortical calcifications diffusely. As per Dr. Alejandro, these findings are probably chronic. (2) AIDS Assessment & Plan: ID consulted (Davon) History of AIDS dementia * Head CT (10/14/17): - Findings suspicious for mild hydrocephalus, cause not identified. Multiple calcifications in the brain bilaterally, most tiny in size , too numerous to count. The main differential considerations given the appearance include infectious processes, such as neurocysticercosis or tuberculosis, in the healed/calcified nodular stage Medications: Tivicay 50 mg PO daily Truvada 200-300 mg PO daily Bactrim DS po daily for Pneumocystis jirovecii prophylaxis Lexapro 10 mg PO HS Namenda 10 mg PO daily (3) GRACE monitor creatinine IVF discontinued continue encouraging increased po water intake (4) Transaminitis Downtrending hep panel negative Depakote level: 60.5 (12/16) Continue to monitor (5) Constipation Assessment & Plan: abd xray: prominent amount of retained stool Colace 100mg po TID prune juice BID dulcolax given Miralax given increase PO intake of water (6) Prophylactic measure Assessment & Plan: SCDs Heparin 5,000u SC q8h Florastor BID PT Social Work consult 1:1 sitter/observation- Fall risk (patient frequently gets out of bed, unstable on feet; needs walker when ambulating) Dis[facility] [place] Social work on case- no longer waiting for transfer to [facility]; working on placement to [place]. Discharge pending placement. <Salinas Philip - Last Filed: 12/31/17 18:33> Objective - Vital Signs/Intake and Output Vital Signs (last 24 hours): Temp Pulse Resp BP Pulse Ox 98.2 F 74 20 105/66 95 12/31/17 16:00 12/31/17 16:00 12/31/17 16:00 12/31/17 16:00 12/31/17 16:00 Intake and Output: 12/31/17 12/31/17 06:59 18:59 Intake Total 250 500 Balance 250 500 - Medications Medications: Current Medications Docusate Sodium (Colace) 100 mg PO TID [facility] Last Admin: 12/31/17 17:23 Dose: 100 mg Dolutegravir Sodium (Tivicay) 50 mg PO DAILY [facility] PRN Reason: Protocol Last Admin: 12/31/17 09:30 Dose: 50 mg Emtricitabine/Tenofovir (Truvada 200 Mg-300 Mg) 1 tab PO DAILY [facility] PRN Reason: Protocol Last Admin: 12/31/17 09:31 Dose: 1 tab Escitalopram Oxalate (Lexapro) 10 mg PO HS [facility] Last Admin: 12/30/17 21:46 Dose: 10 mg Memantine (Namenda) 10 mg PO DAILY [facility] Last Admin: 12/31/17 09:31 Dose: 10 mg Saccharomyces Boulardii (Florastor) 250 mg PO BID [facility] Last Admin: 12/31/17 17:23 Dose: 250 mg Trimethoprim/Sulfamethoxazole (Bactrim Ds Tab) 1 tab PO Q12H [facility] PRN Reason: Protocol Last Admin: 12/31/17 09:30 Dose: 1 tab Valproate Sodium (Depakene Cap) 750 mg PO Q12 [facility] Last Admin: 12/31/17 09:30 Dose: 750 mg - Labs Labs: 12/29/17 07:13 12/31/17 07:15 Attending/Attestation - Attestation I have personally seen and examined this patient.: Yes I have fully participated in the care of the patient.: Yes I have reviewed all pertinent clinical information, including history, physical exam and plan: Yes Notes (Text): 12/31/17 18:33 Patient was seen and examined at 9:45 AM
[2017-12-31 07:48] LABS: CALCIUM 9.2 mg/dl (8.6-10.4)
[2017-12-31] MEDS: Saccharomyces Boulardi 250 mg Cap PO SCH ×2 (09:29→17:23)
[2017-12-31] MEDS: Tmp-Smz 800 mg-160 mg DS Tab PO SCH ×2 (09:30→20:00)
[2017-12-31] MEDS: Emtricitabine-Tenofovir 200 mg-300 mg Tab PO SCH (09:31)
--- NOTE | 2018-01-01 06:41 | CP.PCM.PN ---
<Татьяна Yun - Last Filed: 01/01/18 10:22> Subjective - Date & Time of Evaluation Date of Evaluation: 01/01/18 Time of Evaluation: 06:41 - Subjective Subjective: Medicine progress note for Dr. Octavio Philip's service Patient was seen and examined at bedside in no acute distress. Patient states he has mild pain in his RLQ, otherwise has no complaints. He say he had a normal bowel movement yesterday, denies pain/blood in stool; patient denies urinary complaints. Patient denies chest pain abdominal pain, dyspnea, nausea, vomiting, fevers, headaches. No acute events overnight. Patient encouraged to drink two pink pitchers of water daily and he reports he has been. Objective - Vital Signs/Intake and Output Vital Signs (last 24 hours): Temp Pulse Resp BP Pulse Ox 98.7 F 70 20 104/68 97 01/01/18 00:00 01/01/18 00:00 01/01/18 00:00 01/01/18 00:00 01/01/18 00:00 Intake and Output: 12/31/17 01/01/18 18:59 06:59 Intake Total 500 Balance 500 - Medications Medications: Current Medications Docusate Sodium (Colace) 100 mg PO TID [facility] Last Admin: 12/31/17 17:23 Dose: 100 mg Dolutegravir Sodium (Tivicay) 50 mg PO DAILY [facility] PRN Reason: Protocol Last Admin: 12/31/17 09:30 Dose: 50 mg Emtricitabine/Tenofovir (Truvada 200 Mg-300 Mg) 1 tab PO DAILY [facility] PRN Reason: Protocol Last Admin: 12/31/17 09:31 Dose: 1 tab Escitalopram Oxalate (Lexapro) 10 mg PO HS [facility] Last Admin: 12/31/17 21:12 Dose: 10 mg Memantine (Namenda) 10 mg PO DAILY [facility] Last Admin: 12/31/17 09:31 Dose: 10 mg Saccharomyces Boulardii (Florastor) 250 mg PO BID [facility] Last Admin: 12/31/17 17:23 Dose: 250 mg Trimethoprim/Sulfamethoxazole (Bactrim Ds Tab) 1 tab PO Q12H [facility] PRN Reason: Protocol Last Admin: 12/31/17 20:00 Dose: 1 tab Valproate Sodium (Depakene Cap) 750 mg PO Q12 [facility] Last Admin: 12/31/17 21:11 Dose: 750 mg - Labs Labs: 12/29/17 07:13 12/31/17 07:15 - Additional Findings Additional findings: - Constitutional Appears: No Acute Distress - Head Exam Head Exam: ATRAUMATIC, NORMAL INSPECTION - Eye Exam Eye Exam: EOMI, Normal appearance - ENT Exam ENT Exam: Mucous Membranes Moist - Respiratory Exam Respiratory Exam: Decreased Breath Sounds, NORMAL BREATHING PATTERN. absent: Rales, Rhonchi, Wheezes - Cardiovascular Exam Cardiovascular Exam: REGULAR RHYTHM, +S1, +S2 - GI/Abdominal Exam GI & Abdominal Exam: Soft, Normal Bowel Sounds. absent: Distended, Tenderness - Extremities Exam Extremities Exam: Normal Inspection - Neurological Exam Neurological Exam: Alert, Awake, Abnormal gait (shuffling) - Psychiatric Exam Psychiatric exam: Normal Mood - Skin Skin Exam: Dry, Intact, Normal Color, Warm Assessment and Plan - Assessment and Plan (Free Text) Plan: (1) Complex partial epilepsy Assessment & Plan: Neurology consulted (Johann) Depakote 750mg q12h Depakote level Friday12/22/17- 56.[address] (11/11/17): no intracranial mass or hemorrhage. 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 Chronic white matter ischemic change. 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 Postinfectious/ postinflammatory cortical calcifications diffusely. As per Dr. Alejandro, these findings are probably chronic. (2) AIDS Assessment & Plan: ID consulted (Davon) History of AIDS dementia * Head CT (10/14/17): - Findings suspicious for mild hydrocephalus, cause not identified. Multiple calcifications in the brain bilaterally, most tiny in size , too numerous to count. The main differential considerations given the appearance include infectious processes, such as neurocysticercosis or tuberculosis, in the healed/calcified nodular stage Medications: Tivicay 50 mg PO daily Truvada 200-300 mg PO daily Bactrim DS po daily for Pneumocystis jirovecii prophylaxis Lexapro 10 mg PO HS Namenda 10 mg PO daily (3) GRACE monitor creatinine IVF discontinued continue encouraging increased po water intake (4) Transaminitis Downtrending hep panel negative Depakote level: 60.5 (12/16) Continue to monitor (5) Constipation Assessment & Plan: abd xray: prominent amount of retained stool Colace 100mg po TID prune juice BID dulcolax given Miralax given increase PO intake of water (6) Prophylactic measure Assessment & Plan: SCDs Heparin 5,000u SC q8h Florastor BID PT Social Work consult 1:1 sitter/observation- Fall risk (patient frequently gets out of bed, unstable on feet; needs walker when ambulating) Disposition: Insurance transferred to [place] (from [place]). Social work on case- no longer waiting for transfer to [facility]; working on placement to [place]. Discharge pending placement. <Salinas Philip - Last Filed: 01/02/18 18:52> Objective - Vital Signs/Intake and Output Vital Signs (last 24 hours): Temp Pulse Resp BP Pulse Ox 98.4 F 81 20 100/65 94 L 01/02/18 16:55 01/02/18 16:55 01/02/18 16:55 01/02/18 16:55 01/02/18 16:55 Intake and Output: 01/02/18 01/02/18 06:59 18:59 Intake Total 300 600 Output Total 300 Balance 0 600 - Medications Medications: Current Medications Docusate Sodium (Colace) 100 mg PO TID [facility] Last Admin: 01/02/18 17:21 Dose: 100 mg Dolutegravir Sodium (Tivicay) 50 mg PO DAILY [facility] PRN Reason: Protocol Last Admin: 01/02/18 10:08 Dose: 50 mg Emtricitabine/Tenofovir (Truvada 200 Mg-300 Mg) 1 tab PO DAILY [facility] PRN Reason: Protocol Last Admin: 01/02/18 10:08 Dose: 1 tab Escitalopram Oxalate (Lexapro) 10 mg PO HS [facility] Last Admin: 01/01/18 21:33 Dose: 10 mg Memantine (Namenda) 10 mg PO DAILY [facility] Last Admin: 01/02/18 10:08 Dose: 10 mg Saccharomyces Boulardii (Florastor) 250 mg PO BID [facility] Last Admin: 01/02/18 17:21 Dose: 250 mg Trimethoprim/Sulfamethoxazole (Bactrim Ds Tab) 1 tab PO Q12H [facility] PRN Reason: Protocol Last Admin: 01/02/18 08:26 Dose: 1 tab Valproate Sodium (Depakene Cap) 750 mg PO Q12 [facility] Last Admin: 01/02/18 10:07 Dose: 750 mg - Labs Labs: 12/29/17 07:13 12/31/17 07:15 Attending/Attestation - Attestation I have personally seen and examined this patient.: Yes I have fully participated in the care of the patient.: Yes I have reviewed all pertinent clinical information, including history, physical exam and plan: Yes Notes (Text): 01/02/18 18:52 Patient was seen and examined on 01/01/18. Salinas Philip D.O.
[2018-01-01] MEDS: Emtricitabine-Tenofovir 200 mg-300 mg Tab PO SCH (09:31)
[2018-01-01] MEDS: Tmp-Smz 800 mg-160 mg DS Tab PO SCH ×2 (09:31→20:44)
[2018-01-01] MEDS: Saccharomyces Boulardi 250 mg Cap PO SCH ×2 (09:32→17:32)
--- NOTE | 2018-01-02 06:52 | CP.PCM.PN ---
<Татьяна Yun - Last Filed: 01/02/18 14:51> Subjective - Date & Time of Evaluation Date of Evaluation: 01/02/18 Time of Evaluation: 06:50 - Subjective Subjective: Medicine progress note for Dr. Octavio Philip's service Patient was seen and examined at bedside in no acute distress. Patient denies chest pain abdominal pain, dyspnea, nausea, vomiting, fevers, headaches. No acute events overnight. Patient encouraged to drink two pink pitchers of water daily. Objective - Vital Signs/Intake and Output Vital Signs (last 24 hours): Temp Pulse Resp BP Pulse Ox 97.1 F L 67 18 111/70 98 01/01/18 23:14 01/01/18 23:14 01/01/18 23:14 01/01/18 23:14 01/01/18 23:14 Intake and Output: 01/01/18 01/02/18 18:59 06:59 Intake Total 300 Output Total 300 Balance 0 - Medications Medications: Current Medications Docusate Sodium (Colace) 100 mg PO TID [facility] Last Admin: 01/01/18 17:32 Dose: 100 mg Dolutegravir Sodium (Tivicay) 50 mg PO DAILY [facility] PRN Reason: Protocol Last Admin: 01/01/18 09:31 Dose: 50 mg Emtricitabine/Tenofovir (Truvada 200 Mg-300 Mg) 1 tab PO DAILY [facility] PRN Reason: Protocol Last Admin: 01/01/18 09:31 Dose: 1 tab Escitalopram Oxalate (Lexapro) 10 mg PO HS [facility] Last Admin: 01/01/18 21:33 Dose: 10 mg Memantine (Namenda) 10 mg PO DAILY [facility] Last Admin: 01/01/18 09:32 Dose: 10 mg Saccharomyces Boulardii (Florastor) 250 mg PO BID [facility] Last Admin: 01/01/18 17:32 Dose: 250 mg Trimethoprim/Sulfamethoxazole (Bactrim Ds Tab) 1 tab PO Q12H [facility] PRN Reason: Protocol Last Admin: 01/01/18 20:44 Dose: 1 tab Valproate Sodium (Depakene Cap) 750 mg PO Q12 [facility] Last Admin: 01/01/18 21:33 Dose: 750 mg - Labs Labs: 12/29/17 07:13 12/31/17 07:15 - Additional Findings Additional findings: - Constitutional Appears: No Acute Distress - Head Exam Head Exam: ATRAUMATIC, NORMAL INSPECTION - Eye Exam Eye Exam: EOMI, Normal appearance - ENT Exam ENT Exam: Mucous Membranes Moist - Respiratory Exam Respiratory Exam: Decreased Breath Sounds, NORMAL BREATHING PATTERN. absent: Rales, Rhonchi, Wheezes - Cardiovascular Exam Cardiovascular Exam: REGULAR RHYTHM, +S1, +S2 - GI/Abdominal Exam GI & Abdominal Exam: Soft, Normal Bowel Sounds. absent: Distended, Tenderness - Extremities Exam Extremities Exam: Normal Inspection - Neurological Exam Neurological Exam: Alert, Awake, Abnormal gait (shuffling) - Psychiatric Exam Psychiatric exam: Normal Mood - Skin Skin Exam: Dry, Intact, Normal Color, Warm Assessment and Plan - Assessment and Plan (Free Text) Plan: (1) Complex partial epilepsy Assessment & Plan: Neurology consulted (Johann) Depakote 750mg q12h Depakote level Friday12/22/17- 56.[address] (11/11/17): no intracranial mass or hemorrhage. 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 Chronic white matter ischemic change. 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 Postinfectious/ postinflammatory cortical calcifications diffusely. As per Dr. Alejandro, these findings are probably chronic. (2) AIDS Assessment & Plan: ID consulted (Davon) History of AIDS dementia * Head CT (10/14/17): - Findings suspicious for mild hydrocephalus, cause not identified. Multiple calcifications in the brain bilaterally, most tiny in size , too numerous to count. The main differential considerations given the appearance include infectious processes, such as neurocysticercosis or tuberculosis, in the healed/calcified nodular stage Medications: Tivicay 50 mg PO daily Truvada 200-300 mg PO daily Bactrim DS po daily for Pneumocystis jirovecii prophylaxis Lexapro 10 mg PO HS Namenda 10 mg PO daily (3) GRACE monitor creatinine IVF discontinued continue encouraging increased po water intake (4) Transaminitis Downtrending hep panel negative Depakote level: 60.5 (12/16) Continue to monitor (5) Constipation Assessment & Plan: abd xray: prominent amount of retained stool Colace 100mg po TID prune juice BID dulcolax given Miralax given increase PO intake of water (6) Prophylactic measure Assessment & Plan: SCDs Heparin 5,000u SC q8h Florastor BID PT Social Work consult 1:1 sitter/observation- Fall risk (patient frequently gets out of bed, unstable on feet; needs walker when ambulating) Disposition: Insurance transferred to [place] (from [place]). Social work on case- no longer waiting for transfer to [facility]; working on placement to [place]. Discharge pending placement. <Salinas Philip - Last Filed: 01/02/18 18:49> Objective - Vital Signs/Intake and Output Vital Signs (last 24 hours): Temp Pulse Resp BP Pulse Ox 98.4 F 81 20 100/65 94 L 01/02/18 16:55 01/02/18 16:55 01/02/18 16:55 01/02/18 16:55 01/02/18 16:55 Intake and Output: 01/02/18 01/02/18 06:59 18:59 Intake Total 300 600 Output Total 300 Balance 0 600 - Medications Medications: Current Medications Docusate Sodium (Colace) 100 mg PO TID [facility] Last Admin: 01/02/18 17:21 Dose: 100 mg Dolutegravir Sodium (Tivicay) 50 mg PO DAILY [facility] PRN Reason: Protocol Last Admin: 01/02/18 10:08 Dose: 50 mg Emtricitabine/Tenofovir (Truvada 200 Mg-300 Mg) 1 tab PO DAILY [facility] PRN Reason: Protocol Last Admin: 01/02/18 10:08 Dose: 1 tab Escitalopram Oxalate (Lexapro) 10 mg PO HS [facility] Last Admin: 01/01/18 21:33 Dose: 10 mg Memantine (Namenda) 10 mg PO DAILY [facility] Last Admin: 01/02/18 10:08 Dose: 10 mg Saccharomyces Boulardii (Florastor) 250 mg PO BID [facility] Last Admin: 01/02/18 17:21 Dose: 250 mg Trimethoprim/Sulfamethoxazole (Bactrim Ds Tab) 1 tab PO Q12H [facility] PRN Reason: Protocol Last Admin: 01/02/18 08:26 Dose: 1 tab Valproate Sodium (Depakene Cap) 750 mg PO Q12 [facility] Last Admin: 01/02/18 10:07 Dose: 750 mg - Labs Labs: 12/29/17 07:13 12/31/17 07:15 Attending/Attestation - Attestation I have personally seen and examined this patient.: Yes I have fully participated in the care of the patient.: Yes I have reviewed all pertinent clinical information, including history, physical exam and plan: Yes Notes (Text): 01/02/18 18:48 Patient was seen and examined at 10:30 AM. Exam, assessment and plan were gone over with resident Dr. Manzo. Salinas Philip D.O.
[2018-01-02] MEDS: Tmp-Smz 800 mg-160 mg DS Tab PO SCH ×2 (08:26→19:00)
[2018-01-02 09:05] VITALS: RESP 20
[2018-01-02] MEDS: Emtricitabine-Tenofovir 200 mg-300 mg Tab PO SCH (10:08)
[2018-01-02] MEDS: Saccharomyces Boulardi 250 mg Cap PO SCH ×2 (10:08→17:21)
--- NOTE | 2018-01-02 16:11 | CP.PCM.DIS ---
<Татьяна Yun - Last Filed: 01/02/18 15:39> Provider - Provider Date of Admission: 11/03/17 19:32 Attending physician: Salinas Philip MD Consults: Neurology: Dr. Wills ID: Dr. Mays Time Spent in preparation of Discharge (in minutes): 45 Hospital Course - Lab Results Lab Results: Most Recent Lab Values WBC 4.6 K/uL (4.8-10.8) L 12/29/17 07:13 RBC 4.45 Mil/uL (4.40-5.90) 12/29/17 07:13 Hgb 15.0 g/dL (12.0-18.0) 12/29/17 07:13 Hct 43.4 % (35.0-51.0) 12/29/17 07:13 MCV 97.7 fL (80.0-94.0) H 12/29/17 07:13 MCH 33.8 pg (27.0-31.0) H 12/29/17 07:13 MCHC 34.6 g/dL (33.0-37.0) 12/29/17 07:13 RDW 13.7 % (11.5-14.5) 12/29/17 07:13 Plt Count 166 K/uL (130-400) 12/29/17 07:13 MPV 9.1 fL (7.2-11.7) 12/29/17 07:13 Neut % (Auto) 39.7 % (50.0-75.0) L 12/29/17 07:13 Lymph % (Auto) 43.3 % (20.0-40.0) H 12/29/17 07:13 [place] % (Auto) 11.8 % (0.0-10.0) H 12/29/17 07:13 Eos % (Auto) 4.7 % (0.0-4.0) H 12/29/17 07:13 Baso % (Auto) 0.5 % (0.0-2.0) 12/29/17 07:13 Neut # (Auto) 1.8 K/uL (1.8-7.0) 12/29/17 07:13 Lymph # (Auto) 2.0 K/uL (1.0-4.3) 12/29/17 07:13 [place] # (Auto) 0.5 K/uL (0.0-0.8) 12/29/17 07:13 Eos # (Auto) 0.2 K/uL (0.0-0.7) 12/29/17 07:13 Baso # (Auto) 0.0 K/uL (0.0-0.2) 12/29/17 07:13 Sodium 140 mmol/L (132-148) 12/31/17 07:15 Potassium 4.4 mmol/L (3.6-5.2) 12/31/17 07:15 Chloride 100 mmol/L (98-107) 12/31/17 07:15 Carbon Dioxide 26 mmol/L (22-30) 12/31/17 07:15 Anion Gap 18 (10-20) 12/31/17 07:15 BUN 25 mg/dL (9-20) H 12/31/17 07:15 Creatinine 1.5 mg/dL (0.8-1.5) 12/31/17 07:15 Est GFR ( Amer) 59 12/31/17 07:15 Est GFR (Non-Af Amer) 49 12/31/17 07:15 POC Glucose (mg/dL) 85 mg/dL (65-110) 12/06/17 06:17 Random Glucose 76 mg/dL (75-110) 12/31/17 07:15 Calcium 9.2 mg/dl (8.6-10.4) 12/31/17 07:15 Phosphorus 5.0 mg/dL (2.5-4.5) H 12/22/17 06:09 Magnesium 1.8 mg/dL (1.6-2.3) 12/22/17 06:09 Total Bilirubin 0.5 mg/dL (0.2-1.3) 12/29/17 07:13 Direct Bilirubin 0.4 mg/dL (0.0-0.4) 11/10/17 07:26 AST 52 U/L (17-59) 12/29/17 07:13 ALT 80 U/L (21-72) H 12/29/17 07:13 Alkaline Phosphatase 67 U/L (38-126) 12/29/17 07:13 Total Creatine Kinase 125 U/L (55-170) 11/03/17 18:09 Total Protein 8.5 g/dL (6.3-8.3) H 12/29/17 07:13 Albumin 4.6 g/dL (3.5-5.0) 12/29/17 07:13 Globulin 4.0 gm/dL (2.2-3.9) H 12/29/17 07:13 Albumin/Globulin Ratio 1.2 (1.0-2.1) 12/29/17 07:13 Urine Color Colorless (YELLOW) 11/03/17 19:17 Urine Clarity Clear (Clear) 11/03/17 19:17 Urine pH 6.0 (5.0-8.0) 11/03/17 19:17 Ur Specific [place] 1.005 (1.003-1.030) 11/03/17 19:17 Urine Protein Negative mg/dL (NEGATIVE) 11/03/17 19:17 Urine Glucose (UA) Normal mg/dL (Normal) 11/03/17 19:17 Urine Ketones Negative mg/dL (NEGATIVE) 11/03/17 19:17 Urine Blood Negative (NEGATIVE) 11/03/17 19:17 Urine Nitrate Negative (NEGATIVE) 11/03/17 19:17 Urine Bilirubin Negative (NEGATIVE) 11/03/17 19:17 Urine Urobilinogen Normal mg/dL (0.2-1.0) 11/03/17 19:17 Ur Leukocyte Esterase Neg Gabby/uL (Negative) 11/03/17 19:17 Urine WBC (Auto) < 1 /hpf (0-5) 11/03/17 19:17 Urine Opiates Screen Negative (NEGATIVE) 11/03/17 19:17 Urine Methadone Screen Negative (NEGATIVE) 11/03/17 19:17 Ur Barbiturates Screen Negative (NEGATIVE) 11/03/17 19:17 Valproic Acid 49.0 ug/mL (50.0-100.0) L 12/29/17 07:13 Ur Phencyclidine Scrn Negative (NEGATIVE) 11/03/17 19:17 Ur Amphetamines Screen Negative (NEGATIVE) 11/03/17 19:17 U Benzodiazepines Scrn Negative (NEGATIVE) 11/03/17 19:17 U Oth Cocaine Metabols Negative (NEGATIVE) 11/03/17 19:17 U Cannabinoids Screen Negative (NEGATIVE) 11/03/17 19:17 Alcohol, Quantitative < 10 mg/dl (0-10) 11/03/17 18:09 Absolute Lymphs (Flow) 1619 Cells/mcL (850-3900) 11/04/17 06:08 % CD4 Cells 13 Percent (30-61) L 11/04/17 06:08 Absolute CD4 Count 215 Cells/mcL (490-1740) L 11/04/17 06:08 T-Help/Suppress Ratio 0.28 Ratio (0.86-5.00) L 11/04/17 06:08 % CD8 Cells 47 Percent (12-42) H 11/04/17 06:08 Absolute CD8 Count 755 Cells/mcL (180-1170) 11/04/17 06:08 RPR Nonreactive (NONREACTIVE) 11/04/17 13:02 Hepatitis A IgM Ab Negative (NEGATIVE) 11/04/17 06:08 Hep Bs Antigen Negative (NEGATIVE) 11/04/17 06:08 Hep B Core IgM Ab Negative (NEGATIVE) 11/04/17 06:08 Hepatitis C Antibody Negative (NEGATIVE) 11/04/17 06:08 HIV-1 RNA Qnt (RT-PCR) 4.55 (Not Detected) H 11/04/17 06:08 - Hospital Course Hospital Course: CC: Witnessed Seizure HPI: The history is obtained after review of the medical records as the patient was post ictal. This is a 57 years homeless male with past medical history of HIV/AIDS, Seizure and non compliance with medication. He was brought to the ED from [facility] following a witnessed seizure. Patient was recently discharged from [facility] on 10/24/17 due to a witnessed seizure and non- compliance of medication. Patient does not appear to be a reliable historian. Patient states he has not taken his HIV medication for a month and states he has not taken his seziure medication for 2 weeks because he did not have money to purchase. 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 Patient having seizures due to noncompliance with medications. Neurology was consulted, Dr. Wills/Dr. Alejandro. Patient was started on depakote and keppra in the ED. Patient has a history of HIV- labs were drawn and infectious disease physician, Dr. Mays, was consulted. Hepatitis panel was ordered and was negative. Patient was started on Tivicay Truvada for HIV AIDs, and Bactrim was started as PCP prophylaxis. Pre previous admission at [facility], patient has a history of AIDs dementia. Head CT taken on 10/04/17 showed findings suspicious for mild hydrocephalus, cause not identified; multiple calcifications in the brain bilaterally, most tiny in size, too numerous to count. Repeat head CT on 11/11/17 showed no intracranial mass or hemorrhage; stable ventricular dilatation possibly reflecting communicating hydrocephalus; chronic white matter ischemic change; old left basal ganglia lacunar infarct; postinfectious/postinflammatory cortical calcifications diffusely. As per Dr. Alejandro, these findings are probably chronic. Patient was started on lexapro and namenda. Abdominal xray was done for abdominal pain and showed prominent amount of retained stool. Colace, dulcolax, prune juice, and increased PO intake of water were started. Social work consulted. Physical therapy consulted. The patient remained stable throughout hospital course. The patient is unable to care for himself any longer due to progression of his HIV/AIDS dementia. Patient unable to be discharged to street due to his current mental status. acetone recovery worker placed patient at [facility] in [place]. Patient is stable for discharge and transfer to [facility] in [place]. This is a brief summary of the hospital course. Please see EMR for more details. Discharge instructions: Patient is to be discharged to the [facility] in [place], [place]. The patient will need continued surveillance of his CD4 Count and Valproic Acid Levels. Please make sure that the patient remains well hydrated with water as when he is not his Cr rises. He should continue the following medications: - Valproic Acid 750 mg PO Q12H (for history of Seizures) - Tivicay 50 mg PO 1x/day (for HIV/AIDS) - Truvada 200 mg - 300 mg PO 1x/day (for HIV/AIDS) - Lexapro 10 mg PO QHS (for AIDS related Dementia) - Namenda 10 mg PO 1x/day (for AIDS related Dementia) - Bactrim DS PO 2x/day (for Pneumocystis jiroveci prophylaxis) - Colace 100 mg PO 3x/day (for history of constipation) - Florastor 250 mg PO 2x/day (as he is on Bactrim) Thank you! Discharge Exam - Additional Findings Additional findings: - Constitutional Appears: No Acute Distress - Head Exam Head Exam: ATRAUMATIC, NORMAL INSPECTION - Eye Exam Eye Exam: EOMI, Normal appearance - ENT Exam ENT Exam: Mucous Membranes Moist - Respiratory Exam Respiratory Exam: Decreased Breath Sounds, NORMAL BREATHING PATTERN. absent: Rales, Rhonchi, Wheezes - Cardiovascular Exam Cardiovascular Exam: REGULAR RHYTHM, +S1, +S2 - GI/Abdominal Exam GI & Abdominal Exam: Soft, Normal Bowel Sounds. absent: Distended, Tenderness - Extremities Exam Extremities Exam: Normal Inspection - Neurological Exam Neurological Exam: Alert, Awake, Abnormal gait (shuffling) - Psychiatric Exam Psychiatric exam: Normal Mood - Skin Skin Exam: Dry, Intact, Normal Color, Warm Discharge Plan - Follow Up Plan Condition: GOOD Disposition: OTHER INSTITUTION Instructions: Seizures, Adult (DC), Sulfamethoxazole and Trimethoprim, Emtricitabine and Tenofovir Disoproxil Fumarate, Escitalopram, Memantine, Dolutegravir, Valproic Acid and Derivatives Additional Instructions: Patient is to be discharged to the [facility] in [place], [place]. The patient will need continued surveillance of his CD4 Count and Valproic Acid Levels. Please make sure that the patient remains well hydrated with water as when he is not his Cr rises. He should continue the following medications: - Valproic Acid 750 mg PO Q12H (for history of Seizures) - Tivicay 50 mg PO 1x/day (for HIV/AIDS) - Truvada 200 mg - 300 mg PO 1x/day (for HIV/AIDS) - Lexapro 10 mg PO QHS (for AIDS related Dementia) - Namenda 10 mg PO 1x/day (for AIDS related Dementia) - Bactrim DS PO 2x/day (for Pneumocystis jiroveci prophylaxis) - Colace 100 mg PO 3x/day (for history of constipation) - Florastor 250 mg PO 2x/day (as he is on Bactrim) Thank you! Referrals: [facility] [Outside] <Salinas Philip - Last Filed: 01/02/18 18:52> Provider - Provider Date of Admission: 11/03/17 19:32 Attending physician: Salinas Philip MD Hospital Course - Lab Results Lab Results: Most Recent Lab Values WBC 4.6 K/uL (4.8-10.8) L 12/29/17 07:13 RBC 4.45 Mil/uL (4.40-5.90) 12/29/17 07:13 Hgb 15.0 g/dL (12.0-18.0) 12/29/17 07:13 Hct 43.4 % (35.0-51.0) 12/29/17 07:13 MCV 97.7 fL (80.0-94.0) H 12/29/17 07:13 MCH 33.8 pg (27.0-31.0) H 12/29/17 07:13 MCHC 34.6 g/dL (33.0-37.0) 12/29/17 07:13 RDW 13.7 % (11.5-14.5) 12/29/17 07:13 Plt Count 166 K/uL (130-400) 12/29/17 07:13 MPV 9.1 fL (7.2-11.7) 12/29/17 07:13 Neut % (Auto) 39.7 % (50.0-75.0) L 12/29/17 07:13 Lymph % (Auto) 43.3 % (20.0-40.0) H 12/29/17 07:13 [place] % (Auto) 11.8 % (0.0-10.0) H 12/29/17 07:13 Eos % (Auto) 4.7 % (0.0-4.0) H 12/29/17 07:13 Baso % (Auto) 0.5 % (0.0-2.0) 12/29/17 07:13 Neut # (Auto) 1.8 K/uL (1.8-7.0) 12/29/17 07:13 Lymph # (Auto) 2.0 K/uL (1.0-4.3) 12/29/17 07:13 [place] # (Auto) 0.5 K/uL (0.0-0.8) 12/29/17 07:13 Eos # (Auto) 0.2 K/uL (0.0-0.7) 12/29/17 07:13 Baso # (Auto) 0.0 K/uL (0.0-0.2) 12/29/17 07:13 Sodium 140 mmol/L (132-148) 12/31/17 07:15 Potassium 4.4 mmol/L (3.6-5.2) 12/31/17 07:15 Chloride 100 mmol/L (98-107) 12/31/17 07:15 Carbon Dioxide 26 mmol/L (22-30) 12/31/17 07:15 Anion Gap 18 (10-20) 12/31/17 07:15 BUN 25 mg/dL (9-20) H 12/31/17 07:15 Creatinine 1.5 mg/dL (0.8-1.5) 12/31/17 07:15 Est GFR ( Amer) 59 12/31/17 07:15 Est GFR (Non-Af Amer) 49 12/31/17 07:15 POC Glucose (mg/dL) 85 mg/dL (65-110) 12/06/17 06:17 Random Glucose 76 mg/dL (75-110) 12/31/17 07:15 Calcium 9.2 mg/dl (8.6-10.4) 12/31/17 07:15 Phosphorus 5.0 mg/dL (2.5-4.5) H 12/22/17 06:09 Magnesium 1.8 mg/dL (1.6-2.3) 12/22/17 06:09 Total Bilirubin 0.5 mg/dL (0.2-1.3) 12/29/17 07:13 Direct Bilirubin 0.4 mg/dL (0.0-0.4) 11/10/17 07:26 AST 52 U/L (17-59) 12/29/17 07:13 ALT 80 U/L (21-72) H 12/29/17 07:13 Alkaline Phosphatase 67 U/L (38-126) 12/29/17 07:13 Total Creatine Kinase 125 U/L (55-170) 11/03/17 18:09 Total Protein 8.5 g/dL (6.3-8.3) H 12/29/17 07:13 Albumin 4.6 g/dL (3.5-5.0) 12/29/17 07:13 Globulin 4.0 gm/dL (2.2-3.9) H 12/29/17 07:13 Albumin/Globulin Ratio 1.2 (1.0-2.1) 12/29/17 07:13 Urine Color Colorless (YELLOW) 11/03/17 19:17 Urine Clarity Clear (Clear) 11/03/17 19:17 Urine pH 6.0 (5.0-8.0) 11/03/17 19:17 Ur Specific [place] 1.005 (1.003-1.030) 11/03/17 19:17 Urine Protein Negative mg/dL (NEGATIVE) 11/03/17 19:17 Urine Glucose (UA) Normal mg/dL (Normal) 11/03/17 19:17 Urine Ketones Negative mg/dL (NEGATIVE) 11/03/17 19:17 Urine Blood Negative (NEGATIVE) 11/03/17 19:17 Urine Nitrate Negative (NEGATIVE) 11/03/17 19:17 Urine Bilirubin Negative (NEGATIVE) 11/03/17 19:17 Urine Urobilinogen Normal mg/dL (0.2-1.0) 11/03/17 19:17 Ur Leukocyte Esterase Neg Gabby/uL (Negative) 11/03/17 19:17 Urine WBC (Auto) < 1 /hpf (0-5) 11/03/17 19:17 Urine Opiates Screen Negative (NEGATIVE) 11/03/17 19:17 Urine Methadone Screen Negative (NEGATIVE) 11/03/17 19:17 Ur Barbiturates Screen Negative (NEGATIVE) 11/03/17 19:17 Valproic Acid 49.0 ug/mL (50.0-100.0) L 12/29/17 07:13 Ur Phencyclidine Scrn Negative (NEGATIVE) 11/03/17 19:17 Ur Amphetamines Screen Negative (NEGATIVE) 11/03/17 19:17 U Benzodiazepines Scrn Negative (NEGATIVE) 11/03/17 19:17 U Oth Cocaine Metabols Negative (NEGATIVE) 11/03/17 19:17 U Cannabinoids Screen Negative (NEGATIVE) 11/03/17 19:17 Alcohol, Quantitative < 10 mg/dl (0-10) 11/03/17 18:09 Absolute Lymphs (Flow) 1619 Cells/mcL (850-3900) 11/04/17 06:08 % CD4 Cells 13 Percent (30-61) L 11/04/17 06:08 Absolute CD4 Count 215 Cells/mcL (490-1740) L 11/04/17 06:08 T-Help/Suppress Ratio 0.28 Ratio (0.86-5.00) L 11/04/17 06:08 % CD8 Cells 47 Percent (12-42) H 11/04/17 06:08 Absolute CD8 Count 755 Cells/mcL (180-1170) 11/04/17 06:08 RPR Nonreactive (NONREACTIVE) 11/04/17 13:02 Hepatitis A IgM Ab Negative (NEGATIVE) 11/04/17 06:08 Hep Bs Antigen Negative (NEGATIVE) 11/04/17 06:08 Hep B Core IgM Ab Negative (NEGATIVE) 11/04/17 06:08 Hepatitis C Antibody Negative (NEGATIVE) 11/04/17 06:08 HIV-1 RNA Qnt (RT-PCR) 4.55 (Not Detected) H 11/04/17 06:08 Attending/Attestation - Attestation I have personally seen and examined this patient.: Yes I have fully participated in the care of the patient.: Yes I have reviewed all pertinent clinical information, including history, physical exam and plan: Yes Notes (Text): 01/02/18 18:50 I was notified by [employer] Manager Emmanuel that patient was accepted at [facility] in [place], [place]. Salinas Philip D.O.
[2018-01-02 16:57] VITALS: BP 100/65; PULSE 81; TEMP 98.4; O2SAT 94
== END 2018-01-02 20:35 | disposition short-term general hospital (02) | DRG 532 ==
LOC: C.ER 17:13 → C.9E 19:32 → C.6T 19:32 → C.5S 11-27 22:48 → C.6T 12-14 22:20 → C.3T 12-24 13:33 → C.5S 12-24 14:11 → C.6T 12-24 14:29 → C.3T 12-24 14:52
PROVIDERS: ADMIT Family Medicine; ATTEND Family Medicine
DX: G40.201 Localization-related (focal) (partial) symptomatic epilepsy and epileptic syndromes with complex partial seizures, not intractable, with status epilepticus (principal); B20 Human immunodeficiency virus [HIV] disease; N17.9 Acute kidney failure, unspecified; E86.0 Dehydration; B58.9 Toxoplasmosis, unspecified; F02.80 Dementia in other diseases classified elsewhere, unspecified severity, without behavioral disturbance, psychotic disturbance, mood disturbance, and anxiety; Z59.0 Homelessness; Z91.14 Patient's other noncompliance with medication regimen; Z86.73 Personal history of transient ischemic attack (TIA), and cerebral infarction without residual deficits; G91.0 Communicating hydrocephalus; K59.00 Constipation, unspecified